=== PATIENT | male | born 1945 | race Caucasian/White ===

== ENCOUNTER 2016-05-28 07:21 | Day surgery (SDC) | payer MEDICARE, OTHER ==
[~2016-05-28] VITALS: Ht 175.3 cm; Wt 68.2 kg
[2016-05-28] VITALS (7 sets, daily range): BP systolic 113–205; BP diastolic 53–88; PULSE 58–67; RESP 16–20; TEMP 95.1–98.3; O2SAT 94–99
[~2016-05-28 07:21] MED LIST: ASPI81CH CHEW; CALC12502 PO; CLON1 PO; LEVO.1 PO; LIPI80TA PO; MAG-TAB PO; METO50TA PO; NEUR300C PO; OMEP20TA PO; VITA10003 PO
[2016-05-28 08:11] LABS: AUTOMATED NEUTROPHIL # 8.4 TH/MM3 (1.8-7.7); BASOPHIL # 0.1 TH/MM3 (0-0.2); BASOPHIL % 0.7 % (0.0-2.0); EOSINOPHIL # 0.2 TH/MM3 (0-0.4); EOSINOPHIL % 1.4 % (0.0-4.0); HEMATOCRIT 43.8 % (39.0-51.0); HEMO FLAGS DIFF FINAL; LYMPH % 16.6 % (9.0-44.0); LYMPHOCYTE # 1.9 TH/MM3 (1.0-4.8); MEAN CELL VOLUME 87.6 FL (80.0-100.0); MEAN CORPUSCULAR HEMOGLOBIN 29.8 PG (27.0-34.0); MONO % 7.8 % (0.0-8.0); NEUT % 73.5 % (16.0-70.0); PLATELET COUNT 212 TH/MM3 (150-450); RED CELL DISTRIBUTION WIDTH 15.3 % (11.6-17.2); WHITE BLOOD COUNT 11.4 TH/MM3 (4.0-11.0)
[2016-05-28 08:26] LABS: INTERNATIONAL NORMALIZED RATIO 0.9 RATIO; PROTHROMBIN TIME - PATIENT 10.4 SEC (9.8-11.6)
[2016-05-28] MEDS ORDERED: ceFAZolin 2 GM PREMIX 50 ML - gastrostomy and jejunostomy initial insertion IV SCH (09:00)
[2016-05-28] MEDS ORDERED: fentaNYL CITRATE 250 MCG/5 ML AMP ONE (09:08)
[2016-05-28] MEDS ORDERED: MIDAZOLAM HCL 5 MG/5 ML VIAL ONE (09:08)
--- NOTE | 2016-05-28 09:51 | PD.RAD ---
Post Procedure Progress Note Pre Procedure Diagnosis: (1) Esophageal stricture Post Procedure Diagnosis: (1) Esophageal stricture Procedure Date: May 28, 2016 Supervising Radiologist: Andres Clark Estimated blood loss: None Anesthesia: Conscious Sedation Plan of Activity Patient to Unit: ROPU Patient Condition: Good Additional Comments: G?J tube exchanged without difficulty. new tube in good position See PACS Report for procedural detail/treatment Andres Clark MD May 28, 2016 09:51
[2016-05-28] MEDS ORDERED: IOHEXOL 350 MG/ML 50 ML BTL (for RAD DIAG) G-TUBE ONE (09:56)
--- NOTE | 2016-05-28 11:07 | RADRPT ---
EXAM DATE/TIME: 05/28/2016 09:10 [facility] COMPARISON: CHANGE OF GJ-TUBE CATHETER, October 15, 2015, 11:58. INDICATIONS : Patient with history of throat cancer in need of GJ tube exchange. MEDICAL HISTORY : Dysphagia, CAD, Cardiac arrest, GERD, HLD, HTN, Kidney stones, Colitis, Gastritis, BPH, Hiatal hernia , Hypothyroidism, Malignant neoplasm of tongue, Aseptic necrosis of jaw, Viral meningitis SURGICAL HISTORY : Prostate biopsy, Colonoscopy, G-tube placement, Portal vein catheter placement, Radiation therapy, Re ctal surgery, Renal lithotripsy, CABG X5, Esophageal dilitations ENCOUNTER: Subsequent ACUITY: >1 year PAIN SCORE: 0/10 FLUORO TIME: 8.8 minutes SEDATION TIME: 45 minutes CONTRAST: 10 cc Omnipaque (iohexol) 350 MEDICATION(S): 1.) 5 mg midazolam (Versed) IV 2.) 250 mcg Fentanyl (Sublimaze) IV DEVICE(S): 1.) 22 Czech gastrojejunostomy tube PROCEDURE : 1. Fluoroscopically guided gastrojejunostomy tube exchange. 2. Conscious sedation with continuous EKG and oximetry monitoring. The risks, benefits and alternatives to the procedure were explained and verbal and written consent w as obtained. The site was prepped in sterile fashion. Full sterile technique was used, including ca p, mask, sterile gloves and gown and a large sterile sheet. Hand hygiene and 2% chlorhexidine and/or betadine/alcohol prep was utilized per protocol for cutaneous antisepsis. The skin and subcutaneous tissues were infiltrated with local anesthetic solution. With fluoroscopic guidance a guidewire was passed through the previous gastrojejunostomy tube and a f resh tube was placed over the guidewire. The balloon was inflated with appropriate volume of saline. Injection of positive contrast demonstrates good position of the gastric and jejunal lumens of the tube. Conscious sedation was performed with the prescribed dosages and duration as above in the presence of an independent trained radiology nurse to assist in the monitoring of the patient. EKG and oximetry remained stable throughout the procedure. The patient tolerated the procedure well and there were n o complications. The patient was sent to post anesthesia recovery in stable condition. CONCLUSION: Uncomplicated gastrojejunostomy tube exchange as above. Andres Clark MD on May 28, 2016 at 11:05 Board Certified Radiologist. This report was verified electronically.
== END 2016-05-28 12:15 | disposition home or self-care (01) ==
LOC: HRIP 07:21 → HROP 07:21
PROVIDERS: ATTEND Internal Medicine Gastroenterology
DX: K22.2 Esophageal obstruction (principal); I10 Essential (primary) hypertension; E78.5 Hyperlipidemia, unspecified; E03.9 Hypothyroidism, unspecified; I25.10 Atherosclerotic heart disease of native coronary artery without angina pectoris; K21.9 Gastro-esophageal reflux disease without esophagitis; K44.9 Diaphragmatic hernia without obstruction or gangrene; Z85.810 Personal history of malignant neoplasm of tongue; Z85.819 Personal history of malignant neoplasm of unspecified site of lip, oral cavity, and pharynx; Z95.1 Presence of aortocoronary bypass graft; Z87.442 Personal history of urinary calculi; Z86.74 Personal history of sudden cardiac arrest
CPT/HCPCS: 49452; 85025; 85610; 85730; 99152; 99153; C1769; J2250; J3010; Q9967

== ENCOUNTER 2016-06-19 10:16 | Day surgery (SDC) | payer MEDICARE, OTHER ==
[~2016-06-19] VITALS: Ht 175.3 cm; Wt 50.9 kg
[2016-06-19 10:32] VITALS: BP 122/80; PULSE 59; RESP 20; TEMP 97.7; O2SAT 98
[2016-06-19] MEDS ORDERED: IOHEXOL 350 MG/ML 50 ML BTL (for RAD DIAG) G-TUBE ONE (12:55)
--- NOTE | 2016-06-19 13:04 | PD.RAD ---
Post Procedure Progress Note Pre Procedure Diagnosis: (1) Subglottic stenosis (2) History of esophageal cancer (3) Esophageal stricture Post Procedure Diagnosis: (1) History of esophageal cancer (2) Esophageal stricture (3) Subglottic stenosis Procedure Date: Jun 19, 2016 Supervising Radiologist: Andres Clark Anesthesia: Local Plan of Activity Patient to Unit: ROPU Patient Condition: Good Additional Comments: G/J tube exchanged without difficulty. New tube in excellent position. OK for use See PACS Report for procedural detail/treatment Andres Clark MD Jun 19, 2016 13:04
[2016-06-19 13:15] VITALS: BP 154/92; PULSE 64; RESP 20; TEMP 98; O2SAT 97
--- NOTE | 2016-06-19 16:56 | RADRPT ---
EXAM DATE/TIME: 06/19/2016 12:25 [facility] COMPARISON: CHANGE OF GJ-TUBE CATHETER, May 28, 2016, 9:10. INDICATIONS : Patient with history of throat cancer in need of GJ tube exchange. MEDICAL HISTORY : Dysphagia, CAD, Cardiac arrest, GERD, HLD, HTN, Kidney stones, Colitis, Gastritis, BPH, Hiatal hernia , Hypothyroidism, Malignant neoplasm of tongue, Aseptic necrosis of jaw, Viral meningitis SURGICAL HISTORY : Prostate biopsy, Colonoscopy, G-tube placement, Portal vein catheter placement, Radiation therapy, Re ctal surgery, Renal lithotripsy, CABG X5, Esophageal dilitations ENCOUNTER: Subsequent ACUITY: >1 year PAIN SCORE: 0/10 FLUORO TIME: 5.7 minutes IMAGE SERIES: 2 CONTRAST: 10 cc Omnipaque (iohexol) 350 DEVICE(S): 1.) 22 [place] Transgastric tube PROCEDURE : 1. Fluoroscopically guided gastrojejunostomy tube exchange. 2. Conscious sedation with continuous EKG and oximetry monitoring. The risks, benefits and alternatives to the procedure were explained and verbal and written consent w as obtained. The site was prepped in sterile fashion. Full sterile technique was used, including ca p, mask, sterile gloves and gown and a large sterile sheet. Hand hygiene and 2% chlorhexidine and/or betadine/alcohol prep was utilized per protocol for cutaneous antisepsis. The skin and subcutaneous tissues were anesthetized with 5 cc of lidocaine jelly. With fluoroscopic guidance a guidewire was passed through the previous gastrojejunostomy tube and a f resh tube was placed over the guidewire. The balloon was inflated with appropriate volume of saline. Injection of positive contrast demonstrates good position of the gastric and jejunal lumens of the tube. EKG and oximetry remained stable throughout the procedure. The patient tolerated the procedure well and there were no complications. The patient was sent to post anesthesia recovery in stable condition . CONCLUSION: Uncomplicated gastrojejunostomy tube exchange as above. Andres Clark MD on June 19, 2016 at 16:54 Board Certified Radiologist. This report was verified electronically.
== END 2016-06-19 13:32 | disposition home or self-care (01) ==
LOC: HROP 10:16 → HRIP 10:19 → HROP 13:32
PROVIDERS: ATTEND Internal Medicine Gastroenterology
DX: K94.23 Gastrostomy malfunction (principal); K22.2 Esophageal obstruction; J38.6 Stenosis of larynx; I10 Essential (primary) hypertension; E78.5 Hyperlipidemia, unspecified; E03.9 Hypothyroidism, unspecified; K21.9 Gastro-esophageal reflux disease without esophagitis; I25.10 Atherosclerotic heart disease of native coronary artery without angina pectoris; Z95.1 Presence of aortocoronary bypass graft; Z85.819 Personal history of malignant neoplasm of unspecified site of lip, oral cavity, and pharynx; Z85.01 Personal history of malignant neoplasm of esophagus; Z85.810 Personal history of malignant neoplasm of tongue; Z86.74 Personal history of sudden cardiac arrest; Z87.442 Personal history of urinary calculi
CPT/HCPCS: 49452; C1769; C1874; C1887; Q9967

== ENCOUNTER 2016-07-11 18:30 | Inpatient (IN) | payer MEDICARE, OTHER ==
[2016-07-11] VITALS (10 sets, daily range): BP systolic 78–132; BP diastolic 48–73; PULSE 62–96; RESP 16–18; TEMP 97.7–98.2; O2SAT 93–96
[~2016-07-11] VITALS: Ht 175.3 cm; Wt 72.6 kg
[~2016-07-11 18:30] MED LIST changes: -LIPI80TA PO
--- NOTE | 2016-07-11 19:06 | PD ---
HPI Chief Complaint: Cold / Flu Symptoms Time Seen by Provider: 18:50 Travel History International Travel<30 days: No Contact w/Intl Traveler<30days: No Traveled to known affect area: No History of Present Illness HPI This 70-year-old male is complaining of hemoptysis and fever. 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 He was treated with radiation and he has not had evidence of cancer for the past 8 years. 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 He occasionally drinks fluids. He is prone to aspiration. He says that this morning he had shaking chills and fever. He coughed up some blood this morning and later today. He is slightly short of breath. He has history of coronary artery bypass 5. He has never smoked. 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, FACIAL CANCERS) Cardiac Catheterization: Yes Cardiovascular Problems: Yes (DE, HTN, 5 VESSEL BYPASS) High Cholesterol: Yes Chemotherapy: Yes (LAST 2003) Chest Pain: Yes Congestive Heart Failure: No Cerebrovascular Accident: No Coronary Artery Disease: Yes Diabetes: No Diminished Hearing: No Endocrine: Yes Gastrointestinal Disorders: Yes (ESOPHAGEAL DILITATIONS,REFLUX FROM RADIATION, peg tube) GERD: Yes Glaucoma: No Genitourinary: No Headaches: No Hepatitis: No Hiatal Hernia: No Hypertension: Yes Immune Disorder: No Implanted Vascular Access Dvce: Yes Kidney Stones: Yes Medical other: Yes (HX RADIATION POST THROAT CANCER) Musculoskeletal: Yes (RETICULOPATHY) Neurologic: Yes (damaged cranial nerves) Psychiatric: No Reproductive: No Respiratory: Yes (HX ASPIRATION PNEUMONIA MULTIPLE TIMES) Immunizations Current: Yes Myocardial Infarction: No Radiation Therapy: Yes (2006) Renal Failure: No Seizures: No Sickle Cell Disease: No Thyroid Disease: Yes (HYPO) Ulcer: No Tetanus Vaccination: < 5 Years Influenza Vaccination: No Past Surgical History Abdominal Surgery: Yes (APPY) AICD: No Appendectomy: Yes Arteriovenous Shunt: No Body Medical Devices: PEG TUBE Cardiac Surgery: Yes (CABG X5) Coronary Artery Bypass Graft: Yes Ear Surgery: No Endocrine Surgery: No Eye Surgery: No Genitourinary Surgery: No Gynecologic Surgery: No Insulin Pump: No Joint Replacement: No Oral Surgery: No Pacemaker: No Thoracic Surgery: No Other Surgery: Yes (MODIFIED RADICAL NECK DISECTION S/P THROAT CA,rt endarterectomy) Family History Family Hypercholesterolemia: Yes Social History Alcohol Use: No Tobacco Use: No Substance Use: No Allergies-Medications (Allergen,Severity, Reaction): Coded Allergies: Tetanus Toxoid (Verified Allergy, Severe, SHOCK, 07/11/16) Reported Meds & Prescriptions Reported Meds & Active Scripts Active Reported Mag-Delay (Magnesium Chloride) 64 Mg Tab Unknown Dose PO DAILY Calcium Carbonate 1,250 Mg Tab 1,250 Mg PO DAILY 1,250 mg calcium carbonate (500 mg elemental calcium) Omeprazole 20 Mg Tab 20 Mg PO DAILY Vitamin D-3 (Cholecalciferol) 1,000 Unit Tab 1,000 Units PO DAILY Aspirin 81 Mg Chew 81 Mg CHEW DAILY Klonopin (Clonazepam) 1 Mg Tab 1 Mg PO HS Neurontin (Gabapentin) 300 Mg Cap 300 Mg PO TID Metoprolol Tartrate 50 Mg Tab 100 Mg PO DAILY Synthroid (Levothyroxine Sodium) 100 Mcg Tab 100 Mcg PO DAILY Review of Systems General / Constitutional: Positive: Fever, Chills Eyes: No: Diploplia, Blurred Vision HENT: No: Headaches, Vertigo Cardiovascular: No: Chest Pain or Discomfort, Palpitations Respiratory: Positive: Cough, Hemoptysis Gastrointestinal: No: Nausea, Vomiting Genitourinary: No: Urgency, Frequency Musculoskeletal: No: Myalgias, Arthralgias Skin: No Itching, No Dryness Neurologic: No: Weakness, Dizziness Psychiatric: No: Anxiety Hematologic/Lymphatic: No: Easy Bruising Physical Exam Narrative GENERAL: Thin male SKIN: Focused skin assessment warm/dry. HEAD: Atraumatic. Normocephalic. EYES: Pupils equal and round. No scleral icterus. No injection or drainage. ENT: No nasal bleeding or discharge. Mucous membranes pink and moist. NECK: Trachea midline. No JVD. CARDIOVASCULAR: Regular rate and rhythm. No murmur appreciated. There is a median sternotomy scar RESPIRATORY: No accessory muscle use. Clear to auscultation. Breath sounds equal bilaterally. GASTROINTESTINAL: Abdomen soft, non-tender, nondistended. Hepatic and splenic margins not palpable. GJ tube is in place MUSCULOSKELETAL: No obvious deformities. No clubbing. No cyanosis. No edema. NEUROLOGICAL: Awake and alert. No obvious cranial nerve deficits. Motor grossly within normal limits. Normal speech. PSYCHIATRIC: Appropriate mood and affect; insight and judgment normal. Data Data Last Documented VS Vital Signs Date Time Temp Pulse Resp B/P Pulse Ox O2 Delivery O2 Flow Rate FiO2 07/11/16 18:45 96 16 96 Room Air 07/11/16 18:36 97.9 108/50 Orders Complete Blood Count With Diff (07/11/16 19:02) Comprehensive Metabolic Panel (07/11/16 19:02) Lactic Acid Sepsis Protocol (07/11/16 19:02) Urinalysis - C+S If Indicated (07/11/16 19:02) Blood Culture (07/11/16 19:02) Chest, Pa & Lat (07/11/16 19:02) Ecg Monitoring (07/11/16 19:02) Iv Access Insert/Monitor (07/11/16 19:02) Oximetry (07/11/16 19:02) Sodium Chlor 0.9% 1000 Ml Inj (Ns 1000 M (07/11/16 19:45) Blood Culture (07/11/16 19:51) Ceftriaxone Inj (Rocephin Inj) (07/11/16 19:51) Azithromycin Inj (Zithromax Inj) (07/11/16 19:51) Sodium Chlor 0.9% 1000 Ml Inj (Ns 1000 M (07/11/16 20:00) Sodium Chlor 0.9% 1000 Ml Inj (Ns 1000 M (07/11/16 20:00) Labs Laboratory Tests Test 07/11/16 19:15 White Blood Count 24.8 TH/MM3 Red Blood Count 4.31 MIL/MM3 Hemoglobin 13.4 GM/DL Hematocrit 38.7 % Mean Corpuscular Volume 89.9 FL Mean Corpuscular Hemoglobin 31.2 PG Mean Corpuscular Hemoglobin 34.7 % Concent Red Cell Distribution Width 13.9 % Platelet Count 188 TH/MM3 Mean Platelet Volume 8.5 FL Neutrophils (%) (Auto) 91.1 % Lymphocytes (%) (Auto) 3.5 % Monocytes (%) (Auto) 4.7 % Eosinophils (%) (Auto) 0.0 % Basophils (%) (Auto) 0.7 % Neutrophils # (Auto) 22.5 TH/MM3 Lymphocytes # (Auto) 0.9 TH/MM3 Monocytes # (Auto) 1.2 TH/MM3 Eosinophils # (Auto) 0.0 TH/MM3 Basophils # (Auto) 0.2 TH/MM3 CBC Comment DIFF FINAL Differential Comment Sodium Level 137 MEQ/L Potassium Level 4.2 MEQ/L Chloride Level 98 MEQ/L Carbon Dioxide Level 29.1 MEQ/L Anion Gap 10 MEQ/L Blood Urea Nitrogen 38 MG/DL Creatinine 2.00 MG/DL Estimat Glomerular Filtration 33 ML/MIN Rate Random Glucose 214 MG/DL Lactic Acid Level 2.8 mmol/L Calcium Level 9.1 MG/DL Total Bilirubin 1.0 MG/DL Aspartate Amino Transf 36 U/L (AST/SGOT) Alanine Aminotransferase 44 U/L (ALT/SGPT) Alkaline Phosphatase 78 U/L Total Protein 6.9 GM/DL Albumin 3.2 GM/DL [facility] Medical Decision Making Medical Screen Exam Complete: Yes Emergency Medical Condition: Yes Medical Record Reviewed: Yes Differential Diagnosis Differential includes pneumonia, bronchitis, Narrative Course Chest x-ray shows right-sided perihilar infiltrate. His white count is elevated at 24,000. His creatinine is 2.0. It usually runs about 1.0. Patient says that he does get dehydrated quite frequently. Sepsis Criteria SIRS Criteria (2 or more): Heart rate over 90, WBC > 29252, < 4000 or > 10% bands Sepsis Criteria (SIRS+source): Infect source susp/known Severe Sepsis (+one): Hypotension, Lactate >2 Diagnosis Primary Impression: Community acquired pneumonia Additional Impression: Dehydration Admitting Information Admitting Physician Requests: Admit Saqib Trejo MD Jul 11, 2016 19:06
[2016-07-11 19:27] LABS: AUTOMATED NEUTROPHIL # 22.5 TH/MM3 (1.8-7.7); BASOPHIL # 0.2 TH/MM3 (0-0.2); BASOPHIL % 0.7 % (0.0-2.0); HEMATOCRIT 38.7 % (39.0-51.0); LYMPH % 3.5 % (9.0-44.0); LYMPHOCYTE # 0.9 TH/MM3 (1.0-4.8); MEAN CELL VOLUME 89.9 FL (80.0-100.0); MEAN CORPUSCULAR HEMOGLOBIN 31.2 PG (27.0-34.0); MEAN CORPUSCULAR HGB CONC 34.7 % (32.0-36.0); MONO % 4.7 % (0.0-8.0); NEUT % 91.1 % (16.0-70.0); PLATELET COUNT 188 TH/MM3 (150-450); RED BLOOD COUNT 4.31 MIL/MM3 (4.50-5.90); RED CELL DISTRIBUTION WIDTH 13.9 % (11.6-17.2); WHITE BLOOD COUNT 24.8 TH/MM3 (4.0-11.0)
[2016-07-11 19:34] LABS: CHLORIDE 98 MEQ/L (98-107); POTASSIUM 4.2 MEQ/L (3.5-5.1); SODIUM (NA) 137 MEQ/L (136-145)
[2016-07-11 19:38] LABS: ANION GAP 10 MEQ/L (5-15); BICARBONATE 29.1 MEQ/L (21.0-32.0)
[2016-07-11 19:39] LABS: BLOOD UREA NITROGEN 38 MG/DL (7-18)
[2016-07-11 19:41] LABS: ALT (GPT) 44 U/L (12-78); AST (GOT) 36 U/L (15-37)
[2016-07-11 19:42] LABS: GLOMERULAR FILTRATION RATE 33 ML/MIN (>89)
[2016-07-11 19:43] LABS: HEMO FLAGS DIFF FINAL
[2016-07-11 19:44] LABS: ALKALINE PHOSPHATASE 78 U/L (45-117)
--- NOTE | 2016-07-11 19:44 | RADHPO ---
EXAM DATE/TIME: 07/11/2016 19:15 [facility] COMPARISON: CHEST PA & LAT, July 30, 2015, 12:18. INDICATIONS : Cough. MEDICAL HISTORY : Carcinoma, tongue SURGICAL HISTORY : CABG. PEG tube ENCOUNTER: Initial ACUITY: 1 day PAIN SCORE: 0/10 LOCATION: Bilateral chest FINDINGS: Mild perihilar infiltrates are present, right worse on left. No significant effusion. Radiodense debr is in the medial posterior left base region is unchanged. Sternotomy wires are noted. Cardiac contour s are grossly stable. CONCLUSION: Mild perihilar infiltrates. Robe Torres MD on July 11, 2016 at 19:41 Board Certified Radiologist. This report was verified electronically.
[2016-07-11] MEDS ORDERED: SODIUM CHLOR 0.9% 1000 ML INJ 1,000 ML IV ONE ×3 (19:45→20:00)
[2016-07-11] MEDS ORDERED: cefTRIAXone INJ 2,000 MG in SODIUM CHLORIDE 0.9% INJ 100 ML IV STA (19:51)
[2016-07-11] MEDS ORDERED: AZITHROMYCIN INJ 500 MG in SODIUM CHLOR 0.9% 250 ML INJ 250 ML IV STA (19:51)
[2016-07-11] MEDS ORDERED: ACETAMINOPHEN/HYDROcodone 325 MG/5 MG TAB G-TUBE PRN (21:00)
[2016-07-11] MEDS: SODIUM CHLORIDE 0.9% FLUSH 10 ML FLUSH IV FLUSH SCH (21:00)
[2016-07-11] MEDS ORDERED: clonazePAM 1 MG TAB PO SCH (21:00)
[2016-07-11] MEDS ORDERED: MORPHINE SULFATE 4 MG/ML INJ IV PRN (21:00)
[2016-07-11] MEDS ORDERED: ONDANSETRON HCL 4 MG/2 ML VIAL IVP PRN (21:00)
[2016-07-11] MEDS ORDERED: BISACODYL 10 MG SUPP RECTAL PRN (21:00)
[2016-07-11] MEDS ORDERED: SODIUM CHLORIDE 0.9% FLUSH 10 ML FLUSH IV FLUSH PRN (21:00)
[2016-07-11 21:24] LABS: LACTIC ACID GHOST NOT REPORTABLE
[2016-07-11 22:07] LABS: CREATINE KINASE 76 U/L (39-308)
[2016-07-11 22:12] LABS: BLOOD, URINE NEG (NEG); GLUCOSE,URINE 100 mg/dL (NEG); KETONE, URINE NEG (NEG); NITRITE,URINE NEG (NEG); PH, URINE 5.5 (5.0-8.5)
[2016-07-11 22:16] LABS: SQUAMOUS EPITHELIAL CELL URINE 0-5 /hpf (0-5); URINE COLOR YELLOW (YELLW/STRAW); WBC, URINE 0-2 /hpf (0-5)
[2016-07-11 22:17] LABS: COMMENT (UR) CATH-CULT NOT IND; CULTURE IF INDICATED CATH CULTURE NOT IND; MUCUS URINE RARE /lpf (OCC)
[2016-07-11] MEDS ORDERED: ATOR20TA15 G-TUBE (22:42)
[2016-07-11] MEDS: metroNIDAZOLE 500 MG INJ 100 ML IV SCH (22:49)
[2016-07-11] MEDS: SODIUM CHLOR 0.9% 1000 ML INJ 1,000 ML IV SCH (22:50)
[2016-07-11] MEDS: RESP: ALBUTEROL 2.5 MG/IPRATROPIUM 0.5 MG NEB (PRN) INH (23:27)
[2016-07-11] MEDS: clonazePAM 1 MG TAB G-TUBE SCH (23:33)
[2016-07-12] VITALS (8 sets, daily range): BP systolic 112–193; BP diastolic 67–105; PULSE 78–104; RESP 14–20; TEMP 96.6–99.9; O2SAT 94–96
[2016-07-12] MEDS ORDERED: LEVOTHYROXINE SODIUM 100 MCG TAB PO SCH (06:00)
[2016-07-12] MEDS: LEVOTHYROXINE SODIUM 100 MCG TAB G-TUBE SCH (06:10)
[2016-07-12] MEDS: metroNIDAZOLE 500 MG INJ 100 ML IV SCH ×3 (06:11→23:19)
[2016-07-12 07:06] LABS: AUTOMATED NEUTROPHIL # 14.5 TH/MM3 (1.8-7.7); BASOPHIL % 0.1 % (0.0-2.0); EOSINOPHIL # 0.1 TH/MM3 (0-0.4); EOSINOPHIL % 0.5 % (0.0-4.0); HEMATOCRIT 36.1 % (39.0-51.0); LYMPH % 8.6 % (9.0-44.0); LYMPHOCYTE # 1.4 TH/MM3 (1.0-4.8); MEAN CELL VOLUME 92.6 FL (80.0-100.0); MEAN CORPUSCULAR HEMOGLOBIN 30.5 PG (27.0-34.0); MONO % 4.9 % (0.0-8.0); NEUT % 85.9 % (16.0-70.0); PLATELET COUNT 156 TH/MM3 (150-450); RED CELL DISTRIBUTION WIDTH 14.8 % (11.6-17.2); WHITE BLOOD COUNT 16.8 TH/MM3 (4.0-11.0)
[2016-07-12 07:09] LABS: HEMO FLAGS DIFF FINAL
[2016-07-12 07:28] LABS: ALKALINE PHOSPHATASE 63 U/L (45-117); ALT (GPT) 32 U/L (12-78); ANION GAP 8 MEQ/L (5-15); AST (GOT) 24 U/L (15-37); BICARBONATE 30.4 MEQ/L (21.0-32.0); BLOOD UREA NITROGEN 25 MG/DL (7-18); CHLORIDE 111 MEQ/L (98-107); GLOMERULAR FILTRATION RATE 67 ML/MIN (>89); POTASSIUM 4.5 MEQ/L (3.5-5.1); SODIUM (NA) 149 MEQ/L (136-145); TOTAL BILIRUBIN ADULT 0.5 MG/DL (0.2-1.0)
[2016-07-12] MEDS: RESP: ALBUTEROL 2.5 MG/IPRATROPIUM 0.5 MG NEB (PRN) INH ×2 (07:48→15:49)
[2016-07-12] MEDS ORDERED: PILL SPLITTER OTHER PRN (08:00)
[2016-07-12] MEDS: SODIUM CHLOR 0.9% 1000 ML INJ 1,000 ML IV SCH (08:09)
[2016-07-12] MEDS: FAMOTIDINE 20 MG TAB G-TUBE SCH (08:10)
[2016-07-12] MEDS: GABAPENTIN 300 MG CAP G-TUBE SCH ×3 (08:10→17:51)
[2016-07-12] MEDS: SODIUM CHLORIDE 0.9% FLUSH 10 ML FLUSH IV FLUSH SCH ×2 (08:11→21:00)
[2016-07-12] MEDS ORDERED: ASPIRIN 81 MG CHEW TAB G-TUBE SCH (09:00)
[2016-07-12] MEDS ORDERED: ASPIRIN 81 MG CHEW TAB CHEW SCH (09:00)
[2016-07-12] MEDS ORDERED: PANTOPRAZOLE SOD 20 MG DELAYED RELEASE TAB PO SCH (09:00)
[2016-07-12] MEDS ORDERED: GABAPENTIN 300 MG CAP PO SCH (09:00)
[2016-07-12] MEDS: SODIUM CHLOR 0.45% 1000 ML INJ 1,000 ML IV SCH ×2 (10:45→21:12)
[2016-07-12] MEDS ORDERED: METOPROLOL TARTRATE 50 MG TAB G-TUBE SCH (11:00)
--- NOTE | 2016-07-12 11:05 | HHI.HP ---
HPI Service [facility] Primary Care Physician Heath Coker MD Admission Diagnosis PNEUMONIA, DEHYDRATION Diagnoses: Chief Complaint: Fever, chills and cough Travel History International Travel<30 Days: No Contact w/Intl Traveler <30 Da: No Traveled to Known Affected Are: No Sepsis Criteria SIRS Criteria (2 or more): Heart rate over 90, WBC > 03732, < 4000 or > 10% bands Sepsis Criteria (SIRS+source): Infect source susp/known Severe Sepsis (+one): Lactate >2 Criteria Outcome: Meets sepsis criteria, Meets severe sepsis criteria History of Present Illness This is a 70-year-old male who presented with acute onset of fever, chills and hemoptysis associated with shortness of breath. He has a history of squamous cell cancer of the tongue. Status post chemotherapy and radiation and he has not had evidence of cancer for the past 8 years. 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 He occasionally drinks fluids. He is prone to aspiration. He reports that yesterday morning he had shaking chills and fever. He coughed up some blood and slightly short of breath. He was started on IV Rocephin and Zithromax. Today he feels better with the shortness of breath but noted increasing hemoptysis. States he sees Dr. Tang Review of Systems Constitutional: COMPLAINS OF: Fever, Chills, DENIES: Diaphoretic episodes, Fatigue, Weight gain, Weight loss, Dizziness, Change in appetite, Night Sweats Endocrine: DENIES: Heat/cold intolerance, Polydipsia, Polyuria, Polyphagia Eyes: DENIES: Blurred vision, Diplopia, Vision loss, Photosensitivity Ears, nose, mouth, throat: DENIES: Tinnitus, Vertigo, Throat pain, Hoarseness, Epistaxis, Odynophagia Respiratory: COMPLAINS OF: Cough, Hemoptysis, Shortness of breath, DENIES: Wheezing, Sputum production Cardiovascular: DENIES: Chest pain, Palpitations, Syncope, Dyspnea on Exertion , PND, Lower Extremity Edema, Orthopnea, Claudication Gastrointestinal: DENIES: Abdominal pain, Black stools, Bloody stools, Constipation, Diarrhea, Nausea, Vomiting, Difficulty Swallowing, Anorexia Genitourinary: DENIES: Urinary frequency, Urinary incontinence, Urgency, Hematuria, Dysuria, Nocturia, Penile Discharge Integumentary: DENIES: Rash Neurologic: DENIES: Headache, Localized weakness, Seizures, Tremor, Poor Balance Psychiatric: DENIES: Anxiety, Confusion, Depression, Hallucinations, Agitation , Suicidal Ideation, Homicidal Ideation, Delusions Past Family Social History Past Medical History As previously mentioned. History of anxiety, depression, coronary artery disease status post 5 vessel Bypass, hypertension, hyperlipidemia, esophageal stricture status post dilatation, GERD and hypothyroidism Past Surgical History As previously mentioned. Appendectomy, neck surgery and endarterectomy Reported Medications Mag-Delay (Magnesium Chloride) 64 Mg Tab Unknown Dose PO DAILY Calcium Carbonate 1,250 Mg Tab 1,250 Mg PO DAILY 1,250 mg calcium carbonate (500 mg elemental calcium) Omeprazole 20 Mg Tab 20 Mg PO DAILY Vitamin D-3 (Cholecalciferol) 1,000 Unit Tab 1,000 Units PO DAILY Aspirin 81 Mg Chew 81 Mg CHEW DAILY Klonopin (Clonazepam) 1 Mg Tab 1 Mg PO HS Neurontin (Gabapentin) 300 Mg Cap 300 Mg PO TID Metoprolol Tartrate 50 Mg Tab 100 Mg PO DAILY Synthroid (Levothyroxine Sodium) 100 Mcg Tab 100 Mcg PO DAILY Allergies: Coded Allergies: Tetanus Toxoid (Verified Allergy, Severe, SHOCK, 07/11/16) Family History Hyperlipidemia Social History Doesn't smoke or drink Physical Exam Vital Signs Vital Signs Date Time Temp Pulse Resp B/P Pulse Ox O2 Delivery O2 Flow Rate FiO2 07/12/16 08:40 96.7 103 18 125/67 94 07/12/16 04:08 96.6 78 14 133/82 94 07/12/16 00:15 96.9 98 16 120/71 95 07/11/16 22:05 93 21 07/11/16 22:00 97.7 66 16 113/63 94 Room Air 07/11/16 21:30 72 18 132/73 96 Room Air 07/11/16 21:00 62 18 96/54 93 Room Air 07/11/16 20:15 68 18 114/59 93 Room Air 07/11/16 19:55 70 18 95/52 94 Room Air 07/11/16 19:35 74 18 78/48 94 Room Air 07/11/16 19:05 18 93 Room Air 07/11/16 19:05 98.2 78 18 104/58 93 Room Air 07/11/16 19:00 93 Room Air 07/11/16 18:45 96 16 96 Room Air 07/11/16 18:36 97.9 96 16 108/50 96 Physical Exam GENERAL: This is a well-nourished, well-developed patient, in no apparent distress. SKIN: No rashes, ecchymoses or lesions. Cool and dry. Changes in the neck area secondary to radiation HEAD: Atraumatic. Normocephalic. No temporal or scalp tenderness. EYES: Pupils equal round and reactive. Extraocular motions intact. No scleral icterus. No injection or drainage. ENT: Nose without bleeding, purulent drainage or septal hematoma. Throat without erythema, tonsillar hypertrophy or exudate. Uvula midline. Airway patent. NECK: Trachea midline. No JVD or lymphadenopathy. Supple, nontender, no meningeal signs. CARDIOVASCULAR: Regular rate and rhythm without murmurs, gallops, or rubs. RESPIRATORY: Coarse Breath sounds equal bilaterally. No wheezes, rales, or rhonchi. GASTROINTESTINAL: Abdomen soft, non-tender, nondistended. PEG tube in place. No guarding. MUSCULOSKELETAL: Extremities without clubbing, cyanosis, or edema. No joint tenderness, effusion, or edema noted. No calf tenderness. Negative Homans sign bilaterally. NEUROLOGICAL: Awake and alert. Cranial nerves II through XII intact. Motor and sensory grossly within normal limits. Five out of 5 muscle strength in all muscle groups. Normal speech. Laboratory Laboratory Tests Test 07/11/16 07/11/16 07/11/16 07/12/16 19:15 21:45 22:04 06:40 White Blood Count 24.8 16.8 Red Blood Count 4.31 3.90 Hemoglobin 13.4 11.9 Hematocrit 38.7 36.1 Mean Corpuscular Volume 89.9 92.6 Mean Corpuscular Hemoglobin 31.2 30.5 Mean Corpuscular Hemoglobin 34.7 33.0 Concent Red Cell Distribution Width 13.9 14.8 Platelet Count 188 156 Mean Platelet Volume 8.5 8.6 Neutrophils (%) (Auto) 91.1 85.9 Lymphocytes (%) (Auto) 3.5 8.6 Monocytes (%) (Auto) 4.7 4.9 Eosinophils (%) (Auto) 0.0 0.5 Basophils (%) (Auto) 0.7 0.1 Neutrophils # (Auto) 22.5 14.5 Lymphocytes # (Auto) 0.9 1.4 Monocytes # (Auto) 1.2 0.8 Eosinophils # (Auto) 0.0 0.1 Basophils # (Auto) 0.2 0.0 CBC Comment DIFF FINAL DIFF FINAL Differential Comment Sodium Level 137 149 Potassium Level 4.2 4.5 Chloride Level 98 111 Carbon Dioxide Level 29.1 30.4 Anion Gap 10 8 Blood Urea Nitrogen 38 25 Creatinine 2.00 1.10 Estimat Glomerular Filtration 33 67 Rate Random Glucose 214 87 Lactic Acid Level 2.8 1.4 Calcium Level 9.1 7.8 Total Bilirubin 1.0 0.5 Aspartate Amino Transf 36 24 (AST/SGOT) Alanine Aminotransferase 44 32 (ALT/SGPT) Alkaline Phosphatase 78 63 Total Creatine Kinase 76 Total Protein 6.9 6.0 Albumin 3.2 2.6 Urine Color YELLOW Urine Turbidity CLEAR Urine pH 5.5 Urine Specific [place] 1.010 Urine Protein NEG Urine Glucose (UA) 100 Urine Ketones NEG Urine Occult Blood NEG Urine Nitrite NEG Urine Bilirubin NEG Urine Leukocyte Esterase NEG Urine WBC 0-2 Urine Squamous Epithelial 0-5 Cells Urine Mucus RARE Microscopic Urinalysis Comment CATH-CULT NOT IND Date/Time Procedure Status Source Growth 07/12/16 06:00 Gram Stain Received Sputum Expectorated Sputum Pending 07/12/16 06:00 Sputum Culture Received Sputum Expectorated Sputum Pending 07/11/16 22:04 Influenza Types A,B Antigen (CEE) - Final Complete Nasal Washing NEGATIVE FOR FLU A AND B ANTIGEN.... 07/11/16 21:45 Legionella Antigen - Final Complete Urine Random Urine PRESUMPTIVE NEGATIVE FOR LEGIONELLA P... 07/11/16 21:45 Streptococcus pneumoniae Antigen (M - Final Complete Urine Random Urine PRESUMPTIVE NEGATIVE FOR STREPTOCOCCU... 07/11/16 19:25 Aerobic Blood Culture Received Blood Peripheral Pending 07/11/16 19:25 Anaerobic Blood Culture Received Blood Peripheral Pending Result Diagram: 07/12/16 0640 07/12/16 0640 Imaging Chest x-ray image interpreted by me with perihilar infiltrates Last Impressions Chest X-Ray 07/11/16 0903 Signed Impressions: Service Date/Time: Monday, July 11, 2016 19:15 - CONCLUSION: Mild perihilar infiltrates. Robe Torres MD Assessment and Plan Assessment and Plan This is a 70-year-old male who presented with acute onset of fever, chills and hemoptysis associated with shortness of breath. 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 He occasionally drinks fluids. He is prone to aspiration. Chest x-ray with perihilar infiltrates Severe sepsis with elevated lactic acid, tachycardia and leukocytosis. Monitor sputum and blood cultures Pneumonia with hemoptysis likely secondary to aspiration. Add Flagyl and continue Rocephin and Zithromax. Nebulization as needed. Check urinary Legionella and pneumococcal antigen. Monitor hemoptysis and consult patient's communications strategist. Discontinue aspirin. Strictly nothing by mouth and continue tube feeding. Consult dietitian. Acute kidney injury secondary to dehydration. Improving. Avoid nephrotoxins. Obtain BMP and magnesium in the morning Chronic medical conditions of anxiety, depression, coronary artery disease status post 5 vessel Bypass, hypertension, hyperlipidemia, esophageal stricture status post dilatation, GERD and hypothyroidism. Continue outpatient medications via GT as appropriate DVT prophylaxis with SCD and early ambulation. No chemical prophylaxis secondary to ongoing hemoptysis Code Status Full Discussed Condition With Patient and Physician Certification 2 Midnight Certification Type: Admission for Inpatient Services Order for Inpatient Services The services are ordered in accordance with Medicare regulations or non- Medicare payer requirements, as applicable. In the case of services not specified as inpatient-only, they are appropriately provided as inpatient services in accordance with the 2-midnight benchmark. Estimated LOS (days): 2 days is the estimated time the patient will need to remain in the hospital, assuming treatment plan goals are met and no additional complications. Post-Hospital Plan: Not yet determined Andrzej Galeana MD Jul 12, 2016 11:05
--- NOTE | 2016-07-12 17:16 | MB ---
cc: HIRAL ROSARIO DATE OF CONSULTATION 07/12/[address] Galeana REASON FOR CONSULTATION Evaluate for hemoptysis. HISTORY OF PRESENT ILLNESS Mr. 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 He has history of CA of the esophagus, squamous cell carcinoma and he had a radical neck surgery. He received chemotherapy and radiation therapy. He has a feeding tube and he feeds himself through the tube. Two and a half moths ago he saw a speech therapist and his swallow study was normal and he started taking coffee and liquid. Now he comes to the hospital with 2 days history of chills. He has cough and he coughed up blood. He says at home he coughed up quite a bit of the blood but now he has only minimal amount of dark blood. No shortness of breath. No wheezing. No tightness in the chest. He had a workup done. His chest x-ray shows he has mild perihilar infiltrate. ___ showed WBC count initially 24.8 thousand, ___ 16.8, hemoglobin 11.9, hematocrit 36, MCV 91, platelet count 156. Sodium 149, potassium 4.5, chloride 111, CO2 30, BUN 25, creatinine 1.0. Blood cultures so far are negative. Legionella and streptococcal antigen are negative and influenza antigen is negative. PAST MEDICAL HISTORY Past medical history is significant history of CA of the tongue and esophagus. He had a radical neck surgery done. Status post chemotherapy and radiation therapy. He took the treatment at [facility]. Recently he was seen at [facility] and was told that he is not a candidate for esophageal stent. History of coronary artery disease, status post CABG times 5. Anxiety depression, hypertension, hyperlipidemia. Esophageal stricture status post dilation. History of appendectomy. MEDICATIONS He is currently takin. Zithromax 500 milligrams a day. 2. Lipitor 20 milligrams a day. 3. Rocephin 1 gram a day. 4. Lopressor 50 milligrams day. 5. Neurontin 300 milligrams three times a day. 6. Famotidine 10 milligrams a day. 7. Levothyroxine 100 micrograms a day. 8. Klonopin 1 milligram at night. 9. Flagyl q. 8-hour. 10. Albuterol/Atrovent treatment. 11. Morphine for pain as needed. ALLERGIES TETANUS TOXOID. SOCIAL HISTORY He is second time for 5 years. No history of smoking, alcohol abuse. 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 FAMILY HISTORY Noncontributory REVIEW OF SYSTEMS He is normally up, around and active. He does 50 laps in the pool. He was a marathon runner. No DVT or pulmonary embolism. No seizure, stroke or epilepsy. PHYSICAL EXAMINATION GENERAL: The patient is a well-built, well-nourished male not in acute distress. VITAL SIGNS: Blood pressure 112/67, heart rate 96, respirations 16, temperature 97.4. HEENT: Examination pupils are equal and reactive to light. Oral mucosa, nasal mucosa normal. NECK: Supple. JVP not raised. He has a radiation changes in the neck. CHEST: Air entry equal bilaterally. Few scattered rales. CARDIOVASCULAR: S1-S2 normal. ABDOMEN: Benign. EXTREMITIES: No edema. IMPRESSION 1. Pneumonia, possible aspiration. 2. History of CA of the esophagus status post radical neck dissection and chemotherapy and radiation therapy. 3. Dysphagia. He has a PEG tube in place. 4. Coronary artery disease, status post CABG. 5. History of hypertension. PLAN Discussed with the patient he will be maintained on the tube feeding. Continue antibiotic Rocephin, Zithromax and Flagyl. I will quantitate his sputum in the next 24 hours to see if he has any significant hemoptysis. If he has hemoptysis then will consider bronchoscopy. Further treatment will depend on the course in the hospital. Thank you Dr. Galeana for this consultation. MD GUZMAN Viveros/NAREN /4:30 PM /4:44 PM
[2016-07-12] MEDS ORDERED: clonazePAM 1 MG TAB G-TUBE SCH (21:00)
[2016-07-12] MEDS: cefTRIAXone INJ 1,000 MG in SODIUM CHLORIDE 0.9% INJ 100 ML IV SCH (21:03)
[2016-07-12] MEDS: ATORVASTATIN 20 MG TAB G-TUBE SCH (21:04)
[2016-07-12] MEDS: clonazePAM 1 MG TAB G-TUBE SCH (21:05)
[2016-07-12] MEDS: AZITHROMYCIN INJ 500 MG in SODIUM CHLOR 0.9% 250 ML INJ 250 ML IV SCH (21:05)
[2016-07-13] VITALS (13 sets, daily range): BP systolic 108–210; BP diastolic 65–113; PULSE 80–116; RESP 17–24; TEMP 97.6–101.4; O2SAT 82–97
[2016-07-13] MEDS ORDERED: ENALAPRILAT 1.25 MG/ML VIAL IV PUSH PRN
[2016-07-13] MEDS ORDERED: METOPROLOL TARTRATE 50 MG TAB PO ONE (00:15)
[2016-07-13] MEDS: ACETAMINOPHEN 325 MG TAB G-TUBE PRN ×2 (01:01→14:33)
[2016-07-13] MEDS: LEVOTHYROXINE SODIUM 100 MCG TAB G-TUBE SCH (06:24)
[2016-07-13] MEDS: metroNIDAZOLE 500 MG INJ 100 ML IV SCH ×3 (06:25→22:01)
[2016-07-13] MEDS: RESP: ALBUTEROL 2.5 MG/IPRATROPIUM 0.5 MG NEB (PRN) INH ×2 (07:49→19:26)
[2016-07-13 08:47] LABS: AUTOMATED NEUTROPHIL # 10.6 TH/MM3 (1.8-7.7); BASOPHIL % 0.2 % (0.0-2.0); EOSINOPHIL # 0.2 TH/MM3 (0-0.4); EOSINOPHIL % 1.3 % (0.0-4.0); HEMATOCRIT 34.5 % (39.0-51.0); HEMO FLAGS DIFF FINAL; LYMPH % 10.3 % (9.0-44.0); LYMPHOCYTE # 1.3 TH/MM3 (1.0-4.8); MEAN CORPUSCULAR HGB CONC 33.7 % (32.0-36.0); NEUT % 83.2 % (16.0-70.0); PLATELET COUNT 147 TH/MM3 (150-450); RED BLOOD COUNT 3.75 MIL/MM3 (4.50-5.90); RED CELL DISTRIBUTION WIDTH 14.8 % (11.6-17.2); WHITE BLOOD COUNT 12.7 TH/MM3 (4.0-11.0)
[2016-07-13 08:48] LABS: POTASSIUM 3.9 MEQ/L (3.5-5.1)
[2016-07-13 08:51] LABS: BICARBONATE 30.4 MEQ/L (21.0-32.0)
[2016-07-13] MEDS: SODIUM CHLORIDE 0.9% FLUSH 10 ML FLUSH IV FLUSH SCH ×2 (09:00→21:00)
[2016-07-13] MEDS: METOPROLOL TARTRATE 50 MG TAB G-TUBE SCH ×2 (09:00→20:45)
[2016-07-13] MEDS: GABAPENTIN 300 MG CAP G-TUBE SCH ×3 (09:20→18:55)
[2016-07-13] MEDS: FAMOTIDINE 20 MG TAB G-TUBE SCH (09:20)
--- NOTE | 2016-07-13 11:02 | HHI.PR ---
Subjective Remarks Follow-up pneumonia. Improving hemoptysis. He is insisting to have a chest CT because he is hesitant to undergo bronchoscopy. Seen with his . Discussed with RN. Patient aware that he is strictly nothing by mouth as he failed swallowing evaluation by speech therapy Objective Vitals Vital Signs Date Time Temp Pulse Resp B/P Pulse Ox O2 Delivery O2 Flow Rate FiO2 07/13/16 08:30 95 21 07/13/16 08:00 97.6 81 17 157/97 93 07/13/16 07:53 97 Nasal Cannula 2.00 07/13/16 04:00 98.9 82 20 108/74 96 07/13/16 02:05 100.4 86 20 108/70 97 07/13/16 01:00 97 Nasal Cannula 2.00 07/13/16 00:55 82 21 07/13/16 00:00 101.4 116 24 200/113 88 07/12/16 22:50 99.2 100 20 180/105 94 07/12/16 20:00 99.9 89 18 193/100 95 07/12/16 20:00 87 07/12/16 19:45 96 21 07/12/16 16:00 98.6 104 18 128/76 95 07/12/16 12:52 97.3 96 14 112/67 96 I/O 07/12/16 07/12/16 07/12/16 07/13/16 07/13/16 07/13/16 07:00 15:00 23:00 07:00 15:00 23:00 Intake Total 0 ml 2432 ml 1183 ml Output Total 1920 ml 1600 ml 500 ml Balance -1920 ml -1600 ml 2432 ml 683 ml Intake Oral 0 ml 0 ml 0 ml IV Total 2252 ml 943 ml Tube Irrigant 180 ml 240 ml Output Urine Total 1920 ml 1600 ml 500 ml # Voids 2 2 # Bowel Movements 2 1 0 Result Diagram: 07/13/16 0745 07/13/16744 Imaging Last Impressions Chest X-Ray 07/11/161901 Signed Impressions: Service Date/Time: Monday, July 11, 2016 19:15 - CONCLUSION: Mild perihilar infiltrates. Robe Torres MD Objective Remarks GENERAL: This is a well-nourished, well-developed patient, in no apparent distress. SKIN: No rashes, ecchymoses or lesions. Cool and dry. Changes in the neck area secondary to radiation HEAD: Atraumatic. Normocephalic. No temporal or scalp tenderness. EYES: Pupils equal round and reactive. Extraocular motions intact. No scleral icterus. No injection or drainage. ENT: Nose without bleeding, purulent drainage or septal hematoma. Throat without erythema, tonsillar hypertrophy or exudate. Uvula midline. Airway patent. NECK: Trachea midline. No JVD or lymphadenopathy. Supple, nontender, no meningeal signs. CARDIOVASCULAR: Regular rate and rhythm without murmurs, gallops, or rubs. RESPIRATORY: Coarse Breath sounds equal bilaterally. No wheezes, rales, or rhonchi. GASTROINTESTINAL: Abdomen soft, non-tender, nondistended. PEG tube in place. No guarding. MUSCULOSKELETAL: Extremities without clubbing, cyanosis, or edema. No joint tenderness, effusion, or edema noted. No calf tenderness. Negative Homans sign bilaterally. NEUROLOGICAL: Awake and alert. Cranial nerves II through XII intact. Motor and sensory grossly within normal limits. Five out of 5 muscle strength in all muscle groups. Normal speech. A/P Assessment and Plan This is a 70-year-old male who presented with acute onset of fever, chills and hemoptysis associated with shortness of breath. 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 He occasionally drinks fluids. He is prone to aspiration. Chest x-ray with perihilar infiltrates Severe sepsis with elevated lactic acid, tachycardia and leukocytosis. Improving Monitor sputum and blood cultures negative to date Pneumonia with hemoptysis likely secondary to aspiration. Improving hemoptysis continue Flagyl, Rocephin and Zithromax. Nebulization as needed. Negative urinary Legionella and pneumococcal antigen. Monitor hemoptysis and consulted patient's lost charge card clerk. Discontinued aspirin. Check chest CT Strictly nothing by mouth and continue tube feeding. Consult dietitian. Acute kidney injury secondary to dehydration. Improving. Avoid nephrotoxins. Mild hypernatremia start free water Chronic medical conditions of anxiety, depression, coronary artery disease status post 5 vessel Bypass, hypertension, hyperlipidemia, esophageal stricture status post dilatation, GERD and hypothyroidism. Continue outpatient medications via GT as appropriate DVT prophylaxis with SCD and early ambulation. No chemical prophylaxis secondary to ongoing hemoptysis Discharge Planning Discharge when cleared by pulmonary AbandAndrzej hendrickson MD Jul 13, 2016 11:02
[2016-07-13] MEDS: SODIUM CHLOR 0.45% 1000 ML INJ 1,000 ML IV SCH ×2 (13:11→22:30)
[2016-07-13] MEDS ORDERED: IOHEXOL 350 MG/ML 50 ML BTL (for RAD DIAG) IV ONE (14:01)
--- NOTE | 2016-07-13 14:12 | RADHPO ---
EXAM DATE/TIME: 07/13/2016 13:39 [place] COMPARISON: CT PULMONARY ANGIOGRAM, August 14, 2014, 12:37. CHEST PA & LAT, July 11, 2016, 19:15. INDICATIONS : Hemoptysis. IV CONTRAST: 65 cc Omnipaque 350 (iohexol) IV RADIATION DOSE: 13.76 CTDIvol (mGy) MEDICAL HISTORY : Cardiovascular disease. Hypertension. Squamous cell cancer. SURGICAL HISTORY : CABG ENCOUNTER: Initial ACUITY: 3 days PAIN SCALE: 0/10 LOCATION: chest TECHNIQUE: Volumetric scanning of the chest was performed. Using automated exposure control and adjustment of t he mA and/or kV according to patient size, radiation dose was kept as low as reasonably achievable to obtain optimal diagnostic quality images. FINDINGS: `Patchy parenchymal infiltrates are present which have progressed since the prior study from 201 5 including bilateral lower lobes, right middle lobe and bilateral upper lobes worse in the right upp er lobe. These are most likely inflammatory, however the exact etiology is not certain part of the he art partially nodular in appearance. There are lymph nodes within the mediastinum the largest one in the subcarinal area measuring 3 cm in transverse diameter this lymph node measured 2.3 cm previously. Coronary artery calcifications are seen typically seen with CAD and need to be evaluated clinically. simple cyst is present in the left kidney and a G-J tube is also identified. Some of the other lymph nodes also slightly is larger. CONCLUSION: 1. The lymph nodes within mediastinum is slightly larger since 2014 still indeterminate in regards to malignancy could be reactive. 2. Worsening patchy parenchymal groundglass opacities partially nodular bilaterally also most likely inflammatory, however underlying malignancy is difficult to exclude. Shagufta Pitt MD on July 13, 2016 at 14:04 Board Certified Radiologist. This report was verified electronically.
[2016-07-13] MEDS ORDERED: METO-309 G-TUBE (15:33)
--- NOTE | 2016-07-13 15:34 | HHI.DCPOC ---
Discharge Care Plan Diagnosis: (1) Community acquired pneumonia Your Health Problems Are: Difficulty with ADL Exercise Tolerance Goals to Promote Your Health * To prevent worsening of your condition and complications * To maintain your health at the optimal level Directions to Meet Your Goals Take your medications as prescribed Follow your dietary instruction Follow activity as directed Keep your appointments as scheduled Take your immunizations and boosters as scheduled If your symptoms worsen call your PCP, if no PCP go to Urgent Care Center or Emergency Room Smoking is Dangerous to Your Health. Avoid second hand smoke Call the 24-hour hour crisis hotline for domestic abuse at Andrzej Galeana MD Jul 13, 2016 15:34
--- NOTE | 2016-07-13 18:37 | HHI.PR ---
Subjective Remarks 70 YOWm with Lung infilt, h/o ca oesophagus Mild hemoptysis, resolving no fever Denies sob Objective Vital Signs Vital Signs Date Time Temp Pulse Resp B/P Pulse Ox O2 Delivery O2 Flow Rate FiO2 07/13/16 16:00 98.4 92 18 122/87 94 07/13/16 12:00 97.7 88 18 108/65 92 07/13/16 08:30 95 21 07/13/16 08:00 97.6 81 17 157/97 93 07/13/16 07:53 97 Nasal Cannula 2.00 07/13/16 04:00 98.9 82 20 108/74 96 07/13/16 02:05 100.4 86 20 108/70 97 07/13/16 01:00 97 Nasal Cannula 2.00 07/13/16 00:55 82 21 07/13/16 00:00 101.4 116 24 200/113 88 07/12/16 22:50 99.2 100 20 180/105 94 07/12/16 20:00 99.9 89 18 193/100 95 07/12/16 20:00 87 07/12/16 19:45 96 21 I/O 07/12/16 07/12/16 07/12/16 07/13/16 07/13/16 07/13/16 07:00 15:00 23:00 07:00 15:00 23:00 Intake Total 0 ml 2432 ml 1183 ml Output Total 1920 ml 1600 ml 500 ml Balance -1920 ml -1600 ml 2432 ml 683 ml Intake Oral 0 ml 0 ml 0 ml IV Total 2252 ml 943 ml Tube Irrigant 180 ml 240 ml Output Urine Total 1920 ml 1600 ml 500 ml # Voids 2 2 # Bowel Movements 2 1 0 Result Diagram: 07/13/16 0745 07/13/16 0745 Objective Remarks GENERAL: MBMN WM, NAD SKIN: Warm and dry. HEAD: Normocephalic. EYES: No scleral icterus. No injection or drainage. NECK: Supple, trachea midline. No JVD or lymphadenopathy. CARDIOVASCULAR: Regular rate and rhythm without murmurs, gallops, or rubs. RESPIRATORY: Breath sounds equal bilaterally. No accessory muscle use. Scattered rales. GASTROINTESTINAL: Abdomen soft, non-tender, nondistended. MUSCULOSKELETAL: No cyanosis, or edema. BACK: Nontender without obvious deformity. No CVA tenderness. A/P Assessment and Plan Bilat scattered Infilt likly Pn, aspiraton Hemoptysis improving H/O ca oesophagus Dysphagia HTN CAD PLAN: Cont Abx Will need rpt CT 6 weeks to document clearing of infilt Aerosol nebs TF monitor Hemoptysis DW pt in detail. Ike Meraz MD Jul 13, 2016 18:37
[2016-07-13] MEDS: cloNIDine HCL 0.1 MG TAB PO PRN (19:51)
[2016-07-13] MEDS: clonazePAM 1 MG TAB G-TUBE SCH (20:45)
[2016-07-13] MEDS: ATORVASTATIN 20 MG TAB G-TUBE SCH (20:45)
[2016-07-13] MEDS: AZITHROMYCIN INJ 500 MG in SODIUM CHLOR 0.9% 250 ML INJ 250 ML IV SCH (20:46)
[2016-07-13] MEDS: cefTRIAXone INJ 1,000 MG in SODIUM CHLORIDE 0.9% INJ 100 ML IV SCH (22:01)
[2016-07-14] VITALS (14 sets, daily range): BP systolic 84–184; BP diastolic 51–119; PULSE 85–105; RESP 16–18; TEMP 97.7–98.9; O2SAT 80–97
[2016-07-14] MEDS ORDERED: ENALAPRILAT 1.25 MG/ML VIAL IV ONE (00:45)
[2016-07-14] MEDS: cloNIDine HCL 0.1 MG TAB PO PRN (02:29)
[2016-07-14] MEDS: ACETAMINOPHEN 325 MG TAB G-TUBE PRN (02:45)
[2016-07-14] MEDS: RESP: ALBUTEROL 2.5 MG/IPRATROPIUM 0.5 MG NEB (PRN) INH (02:59)
[2016-07-14] MEDS: SODIUM CHLOR 0.45% 1000 ML INJ 1,000 ML IV SCH ×2 (04:24→22:20)
[2016-07-14] MEDS: LEVOTHYROXINE SODIUM 100 MCG TAB G-TUBE SCH (05:21)
[2016-07-14] MEDS: metroNIDAZOLE 500 MG INJ 100 ML IV SCH ×3 (05:21→23:23)
[2016-07-14 06:00] LABS: AUTOMATED NEUTROPHIL # 10.1 TH/MM3 (1.8-7.7); BASOPHIL % 0.3 % (0.0-2.0); EOSINOPHIL % 0.4 % (0.0-4.0); HEMATOCRIT 33.6 % (39.0-51.0); HEMO FLAGS DIFF FINAL; LYMPH % 5.5 % (9.0-44.0); LYMPHOCYTE # 0.6 TH/MM3 (1.0-4.8); MEAN CELL VOLUME 90.4 FL (80.0-100.0); MEAN CORPUSCULAR HEMOGLOBIN 29.4 PG (27.0-34.0); MEAN CORPUSCULAR HGB CONC 32.5 % (32.0-36.0); NEUT % 87.8 % (16.0-70.0); PLATELET COUNT 163 TH/MM3 (150-450); RED BLOOD COUNT 3.71 MIL/MM3 (4.50-5.90); RED CELL DISTRIBUTION WIDTH 14.4 % (11.6-17.2); WHITE BLOOD COUNT 11.4 TH/MM3 (4.0-11.0)
[2016-07-14 06:15] LABS: POTASSIUM 3.9 MEQ/L (3.5-5.1)
[2016-07-14 06:20] LABS: BICARBONATE 30.4 MEQ/L (21.0-32.0); MAGNESIUM 1.9 MG/DL (1.5-2.5)
[2016-07-14] MEDS: SODIUM CHLORIDE 0.9% FLUSH 10 ML FLUSH IV FLUSH SCH ×2 (09:00→21:55)
[2016-07-14] MEDS: METOPROLOL TARTRATE 50 MG TAB G-TUBE SCH (09:00)
[2016-07-14] MEDS ORDERED: METO100T PO (09:10)
[2016-07-14] MEDS: GABAPENTIN 300 MG CAP G-TUBE SCH ×3 (09:32→17:51)
[2016-07-14] MEDS: FAMOTIDINE 20 MG TAB G-TUBE SCH (09:33)
[2016-07-14] MEDS ORDERED: RESP: ALBUTEROL 0.63 MG/3 ML NEB (PRN) NEB (09:45)
[2016-07-14] MEDS ORDERED: guaiFENesin/CODEINE SYRUP 200 MG/20 MG/10 ML CUP G-TUBE PRN (09:45)
--- NOTE | 2016-07-14 09:45 | HHI.PR ---
Subjective Remarks Follow-up hypertension and pneumonia. BP elevated yesterday received prn clonidine and Vasotec. This morning he was hypoxic down to 85% currently on 2 L nasal cannula. He does not complain of increased shortness of breath. Discussed with RN Objective Vitals Vital Signs Date Time Temp Pulse Resp B/P Pulse Ox O2 Delivery O2 Flow Rate FiO2 07/14/16 08:02 85 21 07/14/16 08:00 98.8 86 18 112/65 97 07/14/16 07:40 97 Nasal Cannula 2.00 07/14/16 04:00 97.7 105 16 90/60 93 07/14/16 03:15 97 Nasal Cannula 2.00 07/14/16 03:02 93 Nasal Cannula 2.00 07/14/16 02:59 80 21 07/14/16 00:00 98.1 85 18 184/119 95 07/13/16 20:16 98.5 89 20 210/100 95 07/13/16 20:00 106 07/13/16 19:26 95 21 07/13/16 16:00 98.4 92 18 122/87 94 07/13/16 12:00 97.7 88 18 108/65 92 I/O 07/13/16 07/13/16 07/13/16 07/14/16 07/14/16 07/14/16 07:00 15:00 23:00 07:00 15:00 23:00 Intake Total 1183 ml 2050 ml 926 ml 579 ml Output Total 500 ml 775 ml Balance 683 ml 2050 ml 926 ml -196 ml Intake Oral 0 ml IV Total 943 ml 800 ml 926 ml 579 ml Tube Feeding 1050 ml Tube Irrigant 240 ml Other 200 ml Output Urine Total 500 ml 775 ml # Voids 2 # Bowel Movements 0 Result Diagram: 07/14/16 0515 07/14/16 0515 Imaging Last Impressions Chest CT 07/13/16 0000 Signed Impressions: Service Date/Time: Wednesday, July 13, 2016 13:39 - CONCLUSION: 1. The lymph nodes within mediastinum is slightly larger since 2014 still indeterminate in regards to malignancy could be reactive. 2. Worsening patchy parenchymal groundglass opacities partially nodular bilaterally also most likely inflammatory, however underlying malignancy is difficult to exclude. Shagufta Pitt MD Chest X-Ray 07/11/161901 Signed Impressions: Service Date/Time: Monday, July 11, 2016 19:15 - CONCLUSION: Mild perihilar infiltrates. Robe Torres MD Objective Remarks GENERAL: This is a well-nourished, well-developed patient. NAD. SKIN: No rashes, ecchymoses or lesions. Cool and dry. Changes in the neck area secondary to radiation HEAD: Atraumatic. Normocephalic. No temporal or scalp tenderness. EYES: Pupils equal round and reactive. Extraocular motions intact. No scleral icterus. No injection or drainage. ENT: Nose without bleeding, purulent drainage or septal hematoma. Throat without erythema, tonsillar hypertrophy or exudate. Uvula midline. Airway patent. NECK: Trachea midline. No JVD or lymphadenopathy. Supple, nontender, no meningeal signs. CARDIOVASCULAR: Regular rate and rhythm without murmurs, gallops, or rubs. RESPIRATORY: Coarse Breath sounds equal bilaterally. No wheezes, rales, or rhonchi. GASTROINTESTINAL: Abdomen soft, non-tender, nondistended. PEG tube in place. No guarding. MUSCULOSKELETAL: Extremities without clubbing, cyanosis, or edema. No joint tenderness, effusion, or edema noted. No calf tenderness. Negative Homans sign bilaterally. NEUROLOGICAL: Awake and alert. Cranial nerves II through XII intact. Motor and sensory grossly within normal limits. Five out of 5 muscle strength in all muscle groups. Normal speech. Procedures none A/P Problem List: (1) Community acquired pneumonia ICD Code: J18.9 Status: Acute (2) Aspiration pneumonia ICD Code: J69.0 Status: Acute Assessment and Plan This is a 70-year-old male who presented with acute onset of fever, chills and hemoptysis associated with shortness of breath. 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 He occasionally drinks fluids. He is prone to aspiration. Chest x-ray with perihilar infiltrates Severe sepsis with elevated lactic acid, tachycardia and leukocytosis. Improving Monitor sputum and blood cultures negative to date Pneumonia with hemoptysis likely secondary to aspiration. Improving hemoptysis but hypoxic today likely from mucous plugging. Chest CT results discussed with patient .Continue Flagyl, Rocephin and Zithromax. Nebulization as needed. Negative urinary Legionella and pneumococcal antigen. Monitor hemoptysis and consulted patient's clinical biostatistician. Discontinued aspirin. Strictly nothing by mouth and continue tube feeding. Consulted dietitian. Acute kidney injury secondary to dehydration. Improving. Avoid nephrotoxins. Mild hypernatremia improved with free water Chronic medical conditions of anxiety, depression, coronary artery disease status post 5 vessel Bypass, hypertension, hyperlipidemia, esophageal stricture status post dilatation, GERD and hypothyroidism. BP uncontrolled we'll increase Lopressor to 100 mg twice a day which is his home dose and monitor response. Continue as needed BP medicines. Continue outpatient medications via GT as appropriate DVT prophylaxis with SCD and early ambulation. No chemical prophylaxis secondary to ongoing hemoptysis Discharge Planning Discharge when cleared by pulmonary problems in the morning. Oxygen walk test. Andrzej Galeana MD Jul 14, 2016 09:45
[2016-07-14] MEDS ORDERED: LEVA750T G-TUBE (10:37)
[2016-07-14] MEDS: RESP: ALBUTEROL 2.5 MG/IPRATROPIUM 0.5 MG NEB (SCH) NEB ×3 (11:15→19:22)
[2016-07-14] MEDS ORDERED: METOPROLOL TARTRATE 100 MG TAB G-TUBE ONE (11:15)
[2016-07-14] MEDS: cefTRIAXone INJ 1,000 MG in SODIUM CHLORIDE 0.9% INJ 100 ML IV SCH (20:22)
[2016-07-14] MEDS: AZITHROMYCIN INJ 500 MG in SODIUM CHLOR 0.9% 250 ML INJ 250 ML IV SCH (21:00)
[2016-07-14] MEDS: METOPROLOL TARTRATE 100 MG TAB G-TUBE SCH (21:56)
[2016-07-14] MEDS: ATORVASTATIN 20 MG TAB G-TUBE SCH (21:56)
[2016-07-14] MEDS: clonazePAM 1 MG TAB G-TUBE SCH (21:56)
[2016-07-15] VITALS (10 sets, daily range): BP systolic 103–170; BP diastolic 64–100; PULSE 75–95; RESP 18–20; TEMP 97.2–99.7; O2SAT 92–96
[2016-07-15] MEDS: LEVOTHYROXINE SODIUM 100 MCG TAB G-TUBE SCH (05:03)
[2016-07-15] MEDS: ACETAMINOPHEN 325 MG TAB G-TUBE PRN ×2 (05:04→20:48)
[2016-07-15] MEDS: metroNIDAZOLE 500 MG INJ 100 ML IV SCH ×3 (05:04→22:54)
[2016-07-15] MEDS: cloNIDine HCL 0.1 MG TAB PO PRN (05:04)
[2016-07-15] MEDS: RESP: ALBUTEROL 2.5 MG/IPRATROPIUM 0.5 MG NEB (SCH) NEB ×4 (07:58→19:18)
[2016-07-15] MEDS ORDERED: guaiFENesin SOLUTION 200 MG/10 ML CUP G-TUBE PRN (08:30)
[2016-07-15] MEDS: METOPROLOL TARTRATE 100 MG TAB G-TUBE SCH ×2 (09:39→20:47)
[2016-07-15] MEDS: GABAPENTIN 300 MG CAP G-TUBE SCH ×3 (09:39→18:19)
[2016-07-15] MEDS: FAMOTIDINE 20 MG TAB G-TUBE SCH (09:39)
[2016-07-15] MEDS: SODIUM CHLORIDE 0.9% FLUSH 10 ML FLUSH IV FLUSH SCH ×2 (09:39→20:58)
[2016-07-15] MEDS ORDERED: OXYGENTANK NAS.CANULA ×2 (14:12→18:31)
[2016-07-15] MEDS ORDERED: clonazePAM 1 MG TAB PO PRN (14:15)
--- NOTE | 2016-07-15 14:18 | HHI.PR ---
Subjective Remarks Follow-up aspiration pneumonia. Still with hemoptysis insistent on having bronchoscopy. He is very anxious causing his BP shoot up. Seen with . Discussed with RN Objective Vitals Vital Signs Date Time Temp Pulse Resp B/P Pulse Ox O2 Delivery O2 Flow Rate FiO2 07/15/16 12:00 97.3 77 18 103/64 92 07/15/16 11:37 93 21 07/15/16 08:00 97.8 79 18 129/74 96 07/15/16 07:59 92 Nasal Cannula 2.00 07/15/16 07:55 2.00 07/15/16 04:00 99.7 95 20 170/100 93 07/15/16 00:00 99.4 85 18 153/93 95 07/14/16 20:00 92 07/14/16 20:00 98.9 104 18 170/101 95 07/14/16 19:22 92 21 07/14/16 16:00 98.4 98 18 104/64 93 I/O 07/14/16 07/14/16 07/14/16 07/15/16 07/15/16 07/15/16 07:00 15:00 23:00 07:00 15:00 23:00 Intake Total 579 ml 1538 ml 890 ml Output Total 775 ml Balance -196 ml 1538 ml 890 ml Intake Oral 0 ml IV Total 579 ml 588 ml 890 ml Tube Feeding 750 ml Tube Irrigant 200 ml Output Urine Total 775 ml # Voids 2 0 # Bowel Movements 0 Result Diagram: 07/14/16 0515 07/14/16 0515 Imaging Last Impressions Chest CT 07/13/16 0000 Signed Impressions: Service Date/Time: Wednesday, July 13, 2016 13:39 - CONCLUSION: 1. The lymph nodes within mediastinum is slightly larger since 2014 still indeterminate in regards to malignancy could be reactive. 2. Worsening patchy parenchymal groundglass opacities partially nodular bilaterally also most likely inflammatory, however underlying malignancy is difficult to exclude. Shagufta Pitt MD Chest X-Ray 07/11/16 1902 Signed Impressions: Service Date/Time: Monday, July 11, 2016 19:15 - CONCLUSION: Mild perihilar infiltrates. Robe Torres MD Objective Remarks GENERAL: This is a well-nourished, well-developed patient. NAD. SKIN: No rashes, ecchymoses or lesions. Cool and dry. Changes in the neck area secondary to radiation HEAD: Atraumatic. Normocephalic. No temporal or scalp tenderness. EYES: Pupils equal round and reactive. Extraocular motions intact. No scleral icterus. No injection or drainage. ENT: Nose without bleeding, purulent drainage or septal hematoma. Throat without erythema, tonsillar hypertrophy or exudate. Uvula midline. Airway patent. NECK: Trachea midline. No JVD or lymphadenopathy. Supple, nontender, no meningeal signs. CARDIOVASCULAR: Regular rate and rhythm without murmurs, gallops, or rubs. RESPIRATORY: Improving Coarse Breath sounds equal bilaterally. No wheezes, rales , or rhonchi. GASTROINTESTINAL: Abdomen soft, non-tender, nondistended. PEG tube in place. No guarding. MUSCULOSKELETAL: Extremities without clubbing, cyanosis, or edema. No joint tenderness, effusion, or edema noted. No calf tenderness. Negative Homans sign bilaterally. NEUROLOGICAL: Awake and alert. Cranial nerves II through XII intact. Motor and sensory grossly within normal limits. Five out of 5 muscle strength in all muscle groups. Normal speech. Procedures none A/P Problem List: (1) Community acquired pneumonia ICD Code: J18.9 Status: Acute (2) Aspiration pneumonia ICD Code: J69.0 Status: Acute Assessment and Plan This is a 70-year-old male who presented with acute onset of fever, chills and hemoptysis associated with shortness of breath. 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 He occasionally drinks fluids. He is prone to aspiration. Chest x-ray with perihilar infiltrates Severe sepsis with elevated lactic acid, tachycardia and leukocytosis. Improving Monitor sputum and blood cultures negative to date Pneumonia with hemoptysis likely secondary to aspiration. Still with hemoptysis and hypoxia requesting bronchoscopy will discuss with pulmonary. Chest CT results discussed with patient .Continue Flagyl, Rocephin and Zithromax. Nebulization as needed. Negative urinary Legionella and pneumococcal antigen. Monitor hemoptysis. Discontinued aspirin. Strictly nothing by mouth and continue tube feeding. Consulted dietitian. Acute kidney injury secondary to dehydration. Improving. Avoid nephrotoxins. Mild hypernatremia improved with free water Chronic medical conditions of anxiety, depression, coronary artery disease status post 5 vessel Bypass, hypertension, hyperlipidemia, esophageal stricture status post dilatation, GERD and hypothyroidism. BP erratic likely secondary to anxiety. Increase Klonopin and continue Lopressor 100 mg twice a day which is his home dose and monitor response. Continue as needed BP medicines. Continue outpatient medications via GT as appropriate DVT prophylaxis with SCD and early ambulation. No chemical prophylaxis secondary to ongoing hemoptysis Discharge Planning Discharge when cleared by pulmonary problems in the morning. Oxygen walk test indicates need for home oxygen. Andrzej Galeana MD Jul 15, 2016 14:18
--- NOTE | 2016-07-15 18:37 | HHI.DS ---
Discharge Summary Admission Date Jul 11, 2016 at 20:45 Discharge Date: Jul 16, 2016 Admitting Diagnosis PNEUMONIA, DEHYDRATION (1) Aspiration pneumonia ICD Code: J69.0 Diagnosis: Principal Procedures none Brief History - From Admission This is a 70-year-old male who presented with acute onset of fever, chills and hemoptysis associated with shortness of breath. He has a history of squamous cell cancer of the tongue. Status post chemotherapy and radiation and he has not had evidence of cancer for the past 8 years. 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 He occasionally drinks fluids. He is prone to aspiration. He reports that yesterday morning he had shaking chills and fever. He coughed up some blood and slightly short of breath. He was started on IV Rocephin and Zithromax. Today he feels better with the shortness of breath but noted increasing hemoptysis. States he sees Dr. Tang CBC/BMP: 07/14/16 0515 07/14/16 0515 Significant Findings Laboratory Tests Test 07/13/16 07/14/16 07:45 05:15 White Blood Count 12.7 TH/MM3 11.4 TH/MM3 (4.0-11.0) (4.0-11.0) Red Blood Count 3.75 MIL/MM3 3.71 MIL/MM3 (4.50-5.90) (4.50-5.90) Hemoglobin 11.6 GM/DL 10.9 GM/DL (13.0-17.0) (13.0-17.0) Hematocrit 34.5 % 33.6 % (39.0-51.0) (39.0-51.0) Platelet Count 147 TH/MM3 (150-450) Neutrophils (%) (Auto) 83.2 % 87.8 % (16.0-70.0) (16.0-70.0) Neutrophils # (Auto) 10.6 TH/MM3 10.1 TH/MM3 (1.8-7.7) (1.8-7.7) Sodium Level 147 MEQ/L (136-145) Chloride Level 109 MEQ/L (98-107) Calcium Level 8.0 MG/DL 7.5 MG/DL (8.5-10.1) (8.5-10.1) Lymphocytes (%) (Auto) 5.5 % (9.0-44.0) Lymphocytes # (Auto) 0.6 TH/MM3 (1.0-4.8) Random Glucose 127 MG/DL (74-106) Imaging Last Impressions Chest CT 07/13/16 0000 Signed Impressions: Service Date/Time: Wednesday, July 13, 2016 13:39 - CONCLUSION: 1. The lymph nodes within mediastinum is slightly larger since 2014 still indeterminate in regards to malignancy could be reactive. 2. Worsening patchy parenchymal groundglass opacities partially nodular bilaterally also most likely inflammatory, however underlying malignancy is difficult to exclude. Shagufta Pitt MD Chest X-Ray 07/11/16 1902 Signed Impressions: Service Date/Time: Monday, July 11, 2016 19:15 - CONCLUSION: Mild perihilar infiltrates. Robe Torres MD PE at Discharge GENERAL: This is a well-nourished, well-developed patient. NAD. SKIN: No rashes, ecchymoses or lesions. Cool and dry. Changes in the neck area secondary to radiation HEAD: Atraumatic. Normocephalic. No temporal or scalp tenderness. EYES: Pupils equal round and reactive. Extraocular motions intact. No scleral icterus. No injection or drainage. ENT: Nose without bleeding, purulent drainage or septal hematoma. Throat without erythema, tonsillar hypertrophy or exudate. Uvula midline. Airway patent. NECK: Trachea midline. No JVD or lymphadenopathy. Supple, nontender, no meningeal signs. CARDIOVASCULAR: Regular rate and rhythm without murmurs, gallops, or rubs. RESPIRATORY: Improving Coarse Breath sounds equal bilaterally. No wheezes, rales , or rhonchi. GASTROINTESTINAL: Abdomen soft, non-tender, nondistended. PEG tube in place. No guarding. MUSCULOSKELETAL: Extremities without clubbing, cyanosis, or edema. No joint tenderness, effusion, or edema noted. No calf tenderness. Negative Homans sign bilaterally. NEUROLOGICAL: Awake and alert. Cranial nerves II through XII intact. Motor and sensory grossly within normal limits. Five out of 5 muscle strength in all muscle groups. Normal speech. Hospital Course This is a 70-year-old male who presented with acute onset of fever, chills and hemoptysis associated with shortness of breath. 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 He occasionally drinks fluids. He is prone to aspiration. Chest x-ray with perihilar infiltrates Severe sepsis with elevated lactic acid, tachycardia and leukocytosis. Improving Monitor sputum and blood cultures negative to date Pneumonia with hemoptysis likely secondary to aspiration. Improving hemoptysis and hypoxia cleared for discharge by pulmonary, to repeat chest CT in 6 weeks outpatient and consider bronchoscopy at that time. Discontinue Flagyl, Rocephin and Zithromax and start Levaquin outpatient. Nebulization as needed. Negative urinary Legionella and pneumococcal antigen. Monitor hemoptysis. Discontinued aspirin. Strictly nothing by mouth and continue tube feeding. Consulted dietitian. Acute kidney injury secondary to dehydration. Improving. Avoid nephrotoxins. Mild hypernatremia improved with free water Chronic medical conditions of anxiety, depression, coronary artery disease status post 5 vessel Bypass, hypertension, hyperlipidemia, esophageal stricture status post dilatation, GERD and hypothyroidism. BP erratic likely secondary to anxiety. Increased Klonopin with better BP control continue Lopressor 100 mg twice a day which is his home dose and monitor response. Continue as needed BP medicines. Continue outpatient medications via GT as appropriate DVT prophylaxis with SCD and early ambulation. No chemical prophylaxis secondary to ongoing hemoptysis Pt Condition on Discharge: Stable Discharge Disposition: Discharge Home Discharge Time: > 30 minutes Discharge Instructions DIET: Follow Instructions for: On Tube Feeding Activities you can perform: Regular-No Restrictions Activities to Avoid: Driving Follow up Referrals: PCP Follow-up - 1 Week Pulmonology - 1 Week New Medications: Levofloxacin (Levaquin) 750 Mg Tab 750 MG G-TUBE DAILY Infection #5 Ref 0 TAB Oxygen tank (Oxygen tank) 1 Ea Tank 2 LITER GURJIT.CANULA CONTINUOUS Oxygen Concentrator Portable Gaseous 2 L/min via Nasal Cannula Continuous For 99 months HYPOXEMIA PREVENTION #1 CYLINDER Continued Medications: Aspirin (Aspirin) 81 Mg Chew 81 MG CHEW DAILY Ref 0 TAB Atorvastatin (Atorvastatin) 20 Mg Tab 20 MG G-TUBE HS Cholesterol Management #30 Ref 0 TAB Calcium Carbonate (Calcium Carbonate) 1,250 Mg Tab 1250 MG PO DAILY 1,250 mg calcium carbonate (500 mg elemental calcium) Calcium Supplement Ref 0 TAB Cholecalciferol (Vitamin D-3) 1,000 Unit Tab 1000 UNITS PO DAILY #30 Ref 0 TAB Clonazepam (Klonopin) 1 Mg Tab 1 MG PO HS Ref 0 TAB Gabapentin (Neurontin) 300 Mg Cap 300 MG PO TID Ref 0 CAP Levothyroxine (Synthroid) 100 Mcg Tab 100 MCG PO DAILY Thyroid Ref 0 TAB Magnesium Chloride (Mag-Delay) 64 Mg Tab Unknown Dose PO DAILY Ref 0 TAB Metoprolol Tartrate (Metoprolol Tartrate) 100 Mg Tab 100 MG PO BID #60 Ref 0 TAB Omeprazole (Omeprazole) 20 Mg Tab 20 MG PO DAILY #30 Ref 0 TAB Andrzej Galeana MD Jul 15, 2016 18:36
--- NOTE | 2016-07-15 19:13 | HHI.PR ---
Subjective Remarks 70 YOWm with Lung infilt, h/o ca oesophagus Mild hemoptysis, resolving no fever Denies sob DW pt and his at length Objective Vital Signs Vital Signs Date Time Temp Pulse Resp B/P Pulse Ox O2 Delivery O2 Flow Rate FiO2 07/15/16 16:00 97.2 84 18 129/78 92 07/15/16 12:00 97.3 77 18 103/64 92 07/15/16 11:37 93 21 07/15/16 09:35 75 07/15/16 08:00 97.8 79 18 129/74 96 07/15/16 07:59 92 Nasal Cannula 2.00 07/15/16 07:55 2.00 07/15/16 04:00 99.7 95 20 170/100 93 07/15/16 00:00 99.4 85 18 153/93 95 07/14/16 20:00 92 07/14/16 20:00 98.9 104 18 170/101 95 07/14/16 19:22 92 21 I/O 07/14/16 07/14/16 07/14/16 07/15/16 07/15/16 07/15/16 07:00 15:00 23:00 07:00 15:00 23:00 Intake Total 579 ml 1538 ml 890 ml Output Total 775 ml 1600 ml Balance -196 ml 1538 ml 890 ml -1600 ml Intake Oral 0 ml IV Total 579 ml 588 ml 890 ml Tube Feeding 750 ml Tube Irrigant 200 ml Output Urine Total 775 ml 1600 ml # Voids 2 0 # Bowel Movements 0 0 Result Diagram: 07/14/1651407/14/16514 Objective Remarks GENERAL: MBMN WM, NAD SKIN: Warm and dry. HEAD: Normocephalic. EYES: No scleral icterus. No injection or drainage. NECK: Supple, trachea midline. No JVD or lymphadenopathy. CARDIOVASCULAR: Regular rate and rhythm without murmurs, gallops, or rubs. RESPIRATORY: Breath sounds equal bilaterally. No accessory muscle use. Scattered rales. GASTROINTESTINAL: Abdomen soft, non-tender, nondistended. MUSCULOSKELETAL: No cyanosis, or edema. BACK: Nontender without obvious deformity. No CVA tenderness. A/P Assessment and Plan Bilat scattered Infilt likly Pn, aspiraton Hemoptysis improving H/O ca oesophagus Dysphagia HTN CAD PLAN: Cont Abx Will need rpt CT 6 weeks to document clearing of infilt Aerosol nebs TF DW pt in detail., no need for bronch at this time as pt is improving Will need rpt CT chest 4-5 weeks If density persists then will need bronch Pt and agree he will FU with dr.S.Desai Meraz,Ike Hernandez MD Jul 15, 2016 19:13
[2016-07-15] MEDS: cefTRIAXone INJ 1,000 MG in SODIUM CHLORIDE 0.9% INJ 100 ML IV SCH (19:48)
[2016-07-15] MEDS: ATORVASTATIN 20 MG TAB G-TUBE SCH (20:47)
[2016-07-15] MEDS: clonazePAM 1 MG TAB G-TUBE SCH (20:47)
[2016-07-15] MEDS: AZITHROMYCIN INJ 500 MG in SODIUM CHLOR 0.9% 250 ML INJ 250 ML IV SCH (20:48)
[2016-07-16] VITALS: BP 144/90; PULSE 77; RESP 18; TEMP 97.1; O2SAT 94
[2016-07-16 04:00] VITALS: BP 158/90; PULSE 74; RESP 18; TEMP 97.6; O2SAT 98
[2016-07-16] MEDS: metroNIDAZOLE 500 MG INJ 100 ML IV SCH (05:24)
[2016-07-16] MEDS: LEVOTHYROXINE SODIUM 100 MCG TAB G-TUBE SCH (05:24)
[2016-07-16] MEDS: RESP: ALBUTEROL 2.5 MG/IPRATROPIUM 0.5 MG NEB (SCH) NEB ×2 (07:20→11:09)
[2016-07-16 07:23] VITALS: O2SAT 98
[2016-07-16 08:00] VITALS: BP 119/82; PULSE 94; RESP 18; TEMP 96.9; O2SAT 95
--- NOTE | 2016-07-16 09:25 | HHI.PR ---
Subjective Remarks Follow-up hemoptysis. Improving agrees to be discharged on home oxygen. Discussed with RN, bilingual case manager and pulmonary Objective Vitals Vital Signs Date Time Temp Pulse Resp B/P Pulse Ox O2 Delivery O2 Flow Rate FiO2 07/16/16 07:23 98 Nasal Cannula 2.00 07/16/16 04:00 97.6 74 18 158/90 98 07/16/16 00:00 97.1 77 18 144/90 94 07/15/16 20:00 98.4 90 18 168/88 96 07/15/16 19:18 96 21 07/15/16 16:00 97.2 84 18 129/78 92 07/15/16 12:00 97.3 77 18 103/64 92 07/15/16 11:37 93 21 07/15/16 09:35 75 I/O 07/15/16 07/15/16 07/15/16 07/16/16 07/16/16 07/16/16 07:00 15:00 23:00 07:00 15:00 23:00 Intake Total 890 ml Output Total 1600 ml 400 ml Balance 890 ml -1600 ml -400 ml IV Total 890 ml Output Urine Total 1600 ml 400 ml # Voids 1 # Bowel Movements 0 Result Diagram: 07/14/16 0515 07/14/16 0515 Imaging Last Impressions Chest CT 07/13/16 0000 Signed Impressions: Service Date/Time: Wednesday, July 13, 2016 13:39 - CONCLUSION: 1. The lymph nodes within mediastinum is slightly larger since 2014 still indeterminate in regards to malignancy could be reactive. 2. Worsening patchy parenchymal groundglass opacities partially nodular bilaterally also most likely inflammatory, however underlying malignancy is difficult to exclude. Shagufta Pitt MD Chest X-Ray 07/11/16 190 Signed Impressions: Service Date/Time: Monday, July 11, 2016 19:15 - CONCLUSION: Mild perihilar infiltrates. Robe Torres MD Objective Remarks GENERAL: This is a well-nourished, well-developed patient. NAD. On 2 L nasal cannula SKIN: No rashes, ecchymoses or lesions. Cool and dry. Changes in the neck area secondary to radiation HEAD: Atraumatic. Normocephalic. No temporal or scalp tenderness. EYES: Pupils equal round and reactive. Extraocular motions intact. No scleral icterus. No injection or drainage. ENT: Nose without bleeding, purulent drainage or septal hematoma. Throat without erythema, tonsillar hypertrophy or exudate. Uvula midline. Airway patent. NECK: Trachea midline. No JVD or lymphadenopathy. Supple, nontender, no meningeal signs. CARDIOVASCULAR: Regular rate and rhythm without murmurs, gallops, or rubs. RESPIRATORY: Improving Coarse Breath sounds equal bilaterally. No wheezes, rales , or rhonchi. GASTROINTESTINAL: Abdomen soft, non-tender, nondistended. PEG tube in place. No guarding. MUSCULOSKELETAL: Extremities without clubbing, cyanosis, or edema. No joint tenderness, effusion, or edema noted. No calf tenderness. Negative Homans sign bilaterally. NEUROLOGICAL: Awake and alert. Cranial nerves II through XII intact. Motor and sensory grossly within normal limits. Five out of 5 muscle strength in all muscle groups. Normal speech. Procedures none A/P Problem List: (1) Aspiration pneumonia ICD Code: J69.0 Status: Acute Assessment and Plan This is a 70-year-old male who presented with acute onset of fever, chills and hemoptysis associated with shortness of breath. 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 He occasionally drinks fluids. He is prone to aspiration. Chest x-ray with perihilar infiltrates Severe sepsis with elevated lactic acid, tachycardia and leukocytosis. Improving Monitor sputum and blood cultures negative to date Pneumonia with hemoptysis likely secondary to aspiration. Still with hemoptysis and hypoxia requesting bronchoscopy will discuss with pulmonary. Chest CT results discussed with patient .Continue Flagyl, Rocephin and Zithromax. Nebulization as needed. Negative urinary Legionella and pneumococcal antigen. Monitor hemoptysis. Discontinued aspirin. Strictly nothing by mouth and continue tube feeding. Consulted dietitian. Acute kidney injury secondary to dehydration. Improving. Avoid nephrotoxins. Mild hypernatremia improved with free water Chronic medical conditions of anxiety, depression, coronary artery disease status post 5 vessel Bypass, hypertension, hyperlipidemia, esophageal stricture status post dilatation, GERD and hypothyroidism. BP erratic likely secondary to anxiety. Increase Klonopin and continue Lopressor 100 mg twice a day which is his home dose and monitor response. Continue as needed BP medicines. Continue outpatient medications via GT as appropriate DVT prophylaxis with SCD and early ambulation. No chemical prophylaxis secondary to ongoing hemoptysis Discharge Planning Stable for discharge Andrzej Galeana MD Jul 16, 2016 09:25
[2016-07-16] MEDS: METOPROLOL TARTRATE 100 MG TAB G-TUBE SCH (09:35)
[2016-07-16] MEDS: GABAPENTIN 300 MG CAP G-TUBE SCH (09:35)
[2016-07-16] MEDS: FAMOTIDINE 20 MG TAB G-TUBE SCH (09:35)
[2016-07-16] MEDS: SODIUM CHLORIDE 0.9% FLUSH 10 ML FLUSH IV FLUSH SCH (09:36)
== END 2016-07-16 14:00 | disposition home or self-care (01) | DRG 871 ==
LOC: PHED 18:30 → PHEDA 20:45 → PH3B 22:31
PROVIDERS: ADMIT Internal Medicine; ATTEND Internal Medicine
DX: A41.9 Sepsis, unspecified organism (principal); J69.0 Pneumonitis due to inhalation of food and vomit; N17.9 Acute kidney failure, unspecified; E87.0 Hyperosmolality and hypernatremia; K22.2 Esophageal obstruction; R04.2 Hemoptysis; R13.10 Dysphagia, unspecified; R65.20 Severe sepsis without septic shock; I10 Essential (primary) hypertension; E86.0 Dehydration; I25.10 Atherosclerotic heart disease of native coronary artery without angina pectoris; E03.9 Hypothyroidism, unspecified; K21.9 Gastro-esophageal reflux disease without esophagitis; Y84.2 Radiological procedure and radiotherapy as the cause of abnormal reaction of the patient, or of later complication, without mention of misadventure at the time of the procedure; E78.5 Hyperlipidemia, unspecified; F32.9 Major depressive disorder, single episode, unspecified; F41.9 Anxiety disorder, unspecified; Z95.1 Presence of aortocoronary bypass graft; Z93.1 Gastrostomy status; Z85.01 Personal history of malignant neoplasm of esophagus
CPT/HCPCS: 71020; 71260; 80048; 80053; 81001; 82550; 83605; 83735; 85025; 87040; 87070; 87205; 87449; 87804; 94150; 94620; 94640; 94664; 94667; 94668; 96361; 96365; J0456; J0696; J2270; J7030; J7050; Q9967

== ENCOUNTER 2016-10-29 07:57 | Day surgery (SDC) | payer MEDICARE, OTHER ==
[~2016-10-29] VITALS: Ht 175.3 cm; Wt 68.0 kg
[~2016-10-29 07:57] MED LIST changes: +ATOR20TA15 G-TUBE; +LEVA750T G-TUBE; +METO100T PO; +OXYGENTANK NAS.CANULA
[2016-10-29 08:10] VITALS: BP 118/76; PULSE 66; RESP 18; TEMP 97.8; O2SAT 96
[2016-10-29] MEDS ORDERED: VITA100018 PO (08:27)
[2016-10-29] MEDS ORDERED: SODIUM CHLOR 0.9% 1000 ML INJ 1,000 ML IV SCH (08:30)
[2016-10-29] MEDS ORDERED: MIDAZOLAM HCL 5 MG/5 ML VIAL ONE (10:05)
[2016-10-29] MEDS ORDERED: fentaNYL CITRATE 250 MCG/5 ML AMP ONE (10:05)
--- NOTE | 2016-10-29 10:48 | PD.RAD ---
Post Procedure Progress Note Pre Procedure Diagnosis: (1) History of tongue cancer Post Procedure Diagnosis: (1) History of tongue cancer Procedure Date: Oct 29, 2016 Supervising Radiologist: Rupesh Madrigal JR Proceduralist/Assist: Brandon Johnston RT(R), RT Sara(R) Anesthesia: Conscious Sedation Plan of Activity Patient to Unit: ROPU Patient Condition: Good See PACS Report for procedural detail/treatment Feeding Tube Gastro/Jejunostomy Exchange Korean: 22 Findings: Original tube with very slow flow through J port. Replaced with new GJ tube. Jr. Rohan,Rupesh Griffin MD Oct 29, 2016 10:48
[2016-10-29 10:55] VITALS: BP 172/83; PULSE 66; PULSE 68; RESP 16; RESP 18; TEMP 97.5; TEMP 97.6; O2SAT 92; O2SAT 94
[2016-10-29 11:10] VITALS: BP 154/86; PULSE 60; RESP 16; O2SAT 92
[2016-10-29 11:40] VITALS: BP 106/66; PULSE 68; RESP 16; O2SAT 92
[2016-10-29 12:10] VITALS: BP 115/75; PULSE 63; RESP 18; O2SAT 96
[2016-10-29 12:40] VITALS: BP 110/69; PULSE 64; RESP 18; O2SAT 96
--- NOTE | 2016-10-29 14:22 | RADRPT ---
EXAM DATE/TIME: 10/29/2016 10:16 [facility] COMPARISON: No previous studies available for comparison. INDICATIONS : Patient is in need of an exchange of existing gastrojejunal tube due to non functionality. Jejunal tu be is clogged. MEDICAL HISTORY : History of tongue cancer, renal stones, hypothyroidism, VT, HTN, HLD, PTSD, aspiration pneumonia, SURGICAL HISTORY : History of CABG, esophageal dilitation, PEG placement, appendectomy, right rotator cuff. ENCOUNTER: Initial ACUITY: 3 days PAIN SCORE: 0/10 FLUORO TIME: 1.8 minutes IMAGE SERIES: 3 SEDATION TIME: 30 minutes CONTRAST: 20 cc Omnipaque (iohexol) 350 MEDICATION(S): 1.) 5 mg midazolam (Versed) IV 2.) 250 mcg Fentanyl (Sublimaze) IV DEVICE(S): 1.) 22 Divehi Transgastric tube PROCEDURE : 1. Fluoroscopically guided gastrojejunostomy tube exchange. 2. Conscious sedation with continuous EKG and oximetry monitoring. The risks, benefits and alternatives to the procedure were explained and verbal and written consent w as obtained. The site was prepped in sterile fashion. Full sterile technique was used, including ca p, mask, sterile gloves and gown and a large sterile sheet. Hand hygiene and 2% chlorhexidine and/or betadine/alcohol prep was utilized per protocol for cutaneous antisepsis. The skin and subcutaneous tissues were infiltrated with local anesthetic solution. With fluoroscopic guidance a guidewire was passed through the previous gastrojejunostomy tube and a f resh tube was placed over the guidewire. The balloon was inflated with appropriate volume of saline. Injection of positive contrast demonstrates good position of the gastric and jejunal lumens of the tube. Conscious sedation was performed with the prescribed dosages and duration as above in the presence of an independent trained radiology nurse to assist in the monitoring of the patient. EKG and oximetry remained stable throughout the procedure. The patient tolerated the procedure well and there were n o complications. The patient was sent to post anesthesia recovery in stable condition. CONCLUSION: Uncomplicated gastrojejunostomy tube exchange as above. Rupesh Madrigal Jr., MD on October 29, 2016 at 14:09 Board Certified Radiologist. This report was verified electronically.
== END 2016-10-29 13:00 | disposition home or self-care (01) ==
LOC: HRIP 07:57 → HROP 07:57
PROVIDERS: ATTEND Internal Medicine Gastroenterology
DX: K94.23 Gastrostomy malfunction (principal); E03.9 Hypothyroidism, unspecified; E78.5 Hyperlipidemia, unspecified; I10 Essential (primary) hypertension; Z85.810 Personal history of malignant neoplasm of tongue; Z95.1 Presence of aortocoronary bypass graft; Z87.442 Personal history of urinary calculi
CPT/HCPCS: 49452; 99152; 99153; C1769; C1874; J2250; J3010; J7030

== ENCOUNTER → 2016-11-05 | Outpatient (CLI) | payer MEDICARE, OTHER ==
[~2016-11-05] MED LIST changes: -LEVA750T G-TUBE; -METO50TA PO; -OXYGENTANK NAS.CANULA; +VITA100018 PO; -VITA10003 PO
== END ==
LOC: PHRSP 14:02
PROVIDERS: ATTEND Internal Medicine Pulmonary Disease
DX: R04.2 Hemoptysis (principal); J69.8 Pneumonitis due to inhalation of other solids and liquids
CPT/HCPCS: 94620

== ENCOUNTER 2016-12-25 09:26 | Day surgery (SDC) | payer MEDICARE, OTHER ==
[~2016-12-25] VITALS: Ht 172.7 cm; Wt 68.2 kg
[2016-12-25] MEDS ORDERED: IOHEXOL 350 MG/ML 50 ML BTL (for RAD DIAG) J-TUBE ONE (09:27)
[2016-12-25 09:42] VITALS: BP 110/65; PULSE 60; RESP 20; TEMP 97.5; O2SAT 97
[2016-12-25 10:45] LABS: AUTOMATED NEUTROPHIL # 3.4 TH/MM3 (1.8-7.7); BASOPHIL % 0.8 % (0.0-2.0); EOSINOPHIL # 0.2 TH/MM3 (0-0.4); EOSINOPHIL % 3.1 % (0.0-4.0); HEMATOCRIT 40.4 % (39.0-51.0); HEMO FLAGS DIFF FINAL; LYMPH % 26.8 % (9.0-44.0); LYMPHOCYTE # 1.6 TH/MM3 (1.0-4.8); MEAN CELL VOLUME 91.8 FL (80.0-100.0); MEAN CORPUSCULAR HEMOGLOBIN 30.9 PG (27.0-34.0); MEAN CORPUSCULAR HGB CONC 33.7 % (32.0-36.0); MONO % 10.3 % (0.0-8.0); PLATELET COUNT 171 TH/MM3 (150-450); RED CELL DISTRIBUTION WIDTH 13.7 % (11.6-17.2); WHITE BLOOD COUNT 5.8 TH/MM3 (4.0-11.0)
[2016-12-25] MEDS ORDERED: SODIUM CHLORIDE 0.9% 1000 ML IV SCH (10:45)
[2016-12-25] MEDS ORDERED: ceFAZolin 2 GM PREMIX 50 ML - gastrostomy and jejunostomy initial insertion IV SCH (10:45)
[2016-12-25 10:54] LABS: APTT (PATIENT) 25.2 SEC (24.3-30.1); PROTHROMBIN TIME - PATIENT 11.4 SEC (9.8-11.6)
[2016-12-25] MEDS ORDERED: MIDAZOLAM HCL 5 MG/5 ML VIAL ONE (10:58)
[2016-12-25] MEDS ORDERED: GLUCAGON 1 MG/ML VIAL ONE (10:58)
--- NOTE | 2016-12-25 12:01 | PD.RAD ---
Post Procedure Progress Note Pre Procedure Diagnosis: (1) History of tongue cancer (2) Esophageal stricture Post Procedure Diagnosis: (1) History of tongue cancer (2) History of esophageal cancer (3) Subglottic stenosis Procedure Date: Dec 25, 2016 Supervising Radiologist: Andres Clark Estimated blood loss: 2cc Anesthesia: Local, Conscious Sedation Plan of Activity Patient to Unit: ROPU Patient Condition: Good Additional Comments: New G/J tube placed at a different site. Tube in good position. Pt will return for placement of a CEE G/J in 5/10 days. Full dictated report to follow See PACS Report for procedural detail/treatment Andres Clark MD Dec 25, 2016 12:00
[2016-12-25 12:15] VITALS: BP 188/101; PULSE 68; RESP 18; TEMP 97.7; O2SAT 92
[2016-12-25 12:30] VITALS: BP 178/110; PULSE 66; RESP 18; O2SAT 94
--- NOTE | 2016-12-25 13:27 | RADRPT ---
EXAM DATE/TIME: 12/25/2016 10:39 [facility] COMPARISON: GASTROSTOMY TUBE REMOVAL W/O FLUORO, December 25, 2016, 0:00. INDICATIONS : Patient with a history of tongue cancer, needs new GJ tube site. MEDICAL HISTORY : History of tongue cancer, renal stones, hypothyroidism, OR, HTN, HLD, PTSD, aspiration pneumonia, SURGICAL HISTORY : History of CABG, esophageal dilitation, PEG placement, appendectomy, right rotator cuff. ENCOUNTER: Subsequent ACUITY: > 1 year PAIN SCORE: 0/10 FLUORO TIME: 18.0 minutes IMAGE SERIES: 3 SEDATION TIME: 40 minutes CONTRAST: 45 cc Omnipaque (iohexol) 350 MEDICATION(S): 1.) 4.5 mg midazolam (Versed) IV 2.) 200 mcg Fentanyl (Sublimaze) IV DEVICE(S): 1.) gastrojejunostomy tube 16FR PROCEDURE : 1. Fluoroscopically guided gastrojejunostomy tube placement. 2. Conscious sedation with continuous EKG and oximetry monitoring. The patient has an existing G./J-tube however, this is been in for quite a long time and the insertio n site is quite erythematous. We're asked to move the tube to a new position. The risks, benefits and alternatives to the procedure were explained and verbal and written consent w as obtained. The site was prepped in sterile fashion. Full sterile technique was used, including ca p, mask, sterile gloves and gown and a large sterile sheet. Hand hygiene and 2% chlorhexidine and/or betadine/alcohol prep was utilized per protocol for cutaneous antisepsis. The skin and subcutaneous tissues were infiltrated with local anesthetic solution. 1 mg of Glucagon was administered. The stomach was insufflated with room air using the existing G./J -tube. 2 percutaneous fasteners were placed to secure the anterior gastric wall. A small incision was made between the fasteners. The stomach was accessed with an 18 gauge needle. A n 0.035 wire was advanced into the small bowel. The tract was dilated. The measuring balloon for a M IC style G./J-tube was advanced through the abdominal wall into the stomach. This thickness measures 3.5 cm. This was removed. The gastrojejunostomy tube was introduced through a peel-away sheath. The position was confirmed with an injection of contrast in both the gastric and jejunal lumens. Conscious sedation was performed with the prescribed dosages and duration as above in the presence of an independent trained radiology nurse to assist in the monitoring of the patient. EKG and oximetry remained stable throughout the procedure. The patient tolerated the procedure well and there were n o complications. The patient was sent to post anesthesia recovery in stable condition. CONCLUSION: Uncomplicated gastrojejunostomy tube placement as above. this tract was measured for placement of an CEE style G./J-tube within the tract matures we'll bring the patient back in place one of these tubes . Andres Clark MD on December 25, 2016 at 13:23 Board Certified Radiologist. This report was verified electronically.
[2016-12-25 13:30] VITALS: BP_SYST 129; BP_SYST 184; BP_DIAS 75; BP_DIAS 97; PULSE 56; PULSE 64; RESP 16; RESP 18; O2SAT 98
[2016-12-25 14:00] VITALS: BP 158/89; PULSE 60; RESP 18; O2SAT 99
[2016-12-25 14:30] VITALS: BP 116/60; PULSE 59; RESP 59; O2SAT 99
== END 2016-12-25 14:50 | disposition home or self-care (01) ==
LOC: HROP 09:26 → HRIP 09:29 → HROP 14:50
PROVIDERS: ATTEND Internal Medicine Gastroenterology
DX: K94.23 Gastrostomy malfunction (principal); Z85.810 Personal history of malignant neoplasm of tongue; I10 Essential (primary) hypertension; I25.10 Atherosclerotic heart disease of native coronary artery without angina pectoris; I25.2 Old myocardial infarction; E78.5 Hyperlipidemia, unspecified; E03.9 Hypothyroidism, unspecified; F43.10 Post-traumatic stress disorder, unspecified; Z87.442 Personal history of urinary calculi; Z95.1 Presence of aortocoronary bypass graft; Z79.82 Long term (current) use of aspirin; Z79.899 Other long term (current) drug therapy
CPT/HCPCS: 49440; 49446; 85025; 85610; 85730; 99152; 99153; C1769; C1887; G0463; J0690; J1610; J2250; J3010; J7030; Q9967; 99213

== ENCOUNTER 2016-12-28 13:27 | Emergency (ER) | payer MEDICARE, OTHER ==
[~2016-12-28] VITALS: Ht 175.3 cm; Wt 80.0 kg
[2016-12-28 13:29] VITALS: BP 107/67; PULSE 69; RESP 15; TEMP 98; O2SAT 96
[2016-12-28] MEDS ORDERED: HYDROmorphone HCL PF 1 MG/ML VIAL IV PUSH ONE (14:15)
[2016-12-28] MEDS ORDERED: SODIUM CHLORIDE 0.9% FLUSH 10 ML FLUSH IV FLUSH PRN (14:15)
[2016-12-28] MEDS ORDERED: DIATRIZOATE MEGLUM/DIATRIZOATE SOD 120 ML BTL (for RAD DIAG) G-TUBE ONE (14:37)
--- NOTE | 2016-12-28 15:02 | RADRPT ---
EXAM DATE/TIME: 12/28/2016 14:23 [facility] COMPARISON: No previous studies available for comparison. INDICATIONS : Confirm NG tube placement. MEDICAL HISTORY : History of tongue cancer, renal stones, hypothyroidism, [place], HTN, HLD, PTSD, SURGICAL HISTORY : History of CABG, esophageal dilitation, PEG placement, appendectomy, right ENCOUNTER: Initial ACUITY: 1 day PAIN SCORE: 0/10 LOCATION: Abdomen FINDINGS: Examination of the abdomen demonstrates a normal bowel gas pattern. No free air is identified. No o rganomegaly is evident. Osseous structures are intact. Gastroview injected via T-tube demonstrates i s within the stomach CONCLUSION: G-tube is intraluminal. Nikhil Barnhart MD on December 28, 2016 at 15:00 Board Certified Radiologist. This report was verified electronically.
--- NOTE | 2016-12-28 15:42 | PD ---
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 He underwent GJ tube replacement by IR three days prior. Yesterday the prior site of pt's gastric tube had opened resulting in leakage of gastric content, copious evidently soaking multiple shirts and pairs of pants, also causing erythema and pain about the abdominal wall. Hx radiation esophagitis. Pt states prior GJ tube exchanges have been much less uncomfortable. No fever. No diarrhea. 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, FACIAL CANCERS) Cardiac Catheterization: Yes Cardiovascular Problems: Yes ([place], HTN, 5 VESSEL BYPASS) High Cholesterol: Yes Chemotherapy: Yes (LAST 2003) Chest Pain: Yes (HX) Congestive Heart Failure: No Cerebrovascular Accident: No Coronary Artery Disease: Yes Diabetes: No Diminished Hearing: No Endocrine: Yes Gastrointestinal Disorders: Yes (ESOPHAGEAL DILITATIONS,REFLUX FROM RADIATION, peg tube) GERD: Yes Glaucoma: No Genitourinary: Yes Headaches: No Hepatitis: No Hiatal Hernia: No Hypertension: Yes Immune Disorder: No Implanted Vascular Access Dvce: Yes Kidney Stones: Yes Musculoskeletal: Yes (RETICULOPATHY) Neurologic: Yes (damaged cranial nerves) Psychiatric: Yes Reproductive: No Respiratory: Yes (HX ASPIRATION PNEUMONIA MULTIPLE TIMES) Immunizations Current: Yes Myocardial Infarction: No Radiation Therapy: Yes (2006) Renal Failure: No Seizures: No Sickle Cell Disease: No Thyroid 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) Ulcer: No Past Surgical History Abdominal Surgery: Yes (APPENDECTOMY, G/J TUBE) AICD: No Appendectomy: Yes Arteriovenous Shunt: No Body Medical Devices: G/J TUBE Cardiac Surgery: Yes (CABG X5) Coronary Artery Bypass Graft: Yes Ear Surgery: No Endocrine Surgery: No Eye Surgery: No Genitourinary Surgery: No Gynecologic Surgery: No Insulin Pump: No Joint Replacement: No Oral Surgery: No Pacemaker: No Thoracic Surgery: No Other Surgery: Yes (MODIFIED RADICAL NECK DISECTION S/P THROAT CA,rt endarterectomy) Family History Family Hypercholesterolemia: Yes Social History Alcohol Use: No Tobacco Use: No Substance Use: No Allergies-Medications (Allergen,Severity, Reaction): Coded Allergies: tetanus toxoid, adsorbed (Unverified Allergy, Severe, SHOCK, 11/11/16) Uncoded Allergies: must use pediartric 6 if itubated due to radiated tounge (Adverse Reaction , Unknown, 07/12/16) if intubated must us pediatric 6 due to radiated tounge (cancer) Reported Meds & Prescriptions Reported Meds & Active Scripts Active Reported Vitamin D3 (Cholecalciferol) 1,000 Unit Tab 1,000 Units PO DAILY Metoprolol Tartrate 100 Mg Tab 100 Mg PO BID Atorvastatin (Atorvastatin Calcium) 20 Mg Tab 20 Mg G-TUBE HS Mag-Delay (Magnesium Chloride) 64 Mg Tab Unknown Dose PO DAILY Calcium Carbonate 1,250 Mg Tab 1,250 Mg PO DAILY 1,250 mg calcium carbonate (500 mg elemental calcium) Omeprazole 20 Mg Tab 20 Mg PO DAILY Aspirin 81 Mg Chew 81 Mg CHEW DAILY Klonopin (Clonazepam) 1 Mg Tab 1 Mg PO HS Neurontin (Gabapentin) 300 Mg Cap 300 Mg PO TID Synthroid (Levothyroxine Sodium) 100 Mcg Tab 100 Mcg PO DAILY Review of Systems Except as stated in HPI: all other systems reviewed are Neg Physical Exam Narrative GENERAL: 71 yo M NAD, WNWD SKIN: Warm and dry. HEAD: Atraumatic. Normocephalic. EYES: Pupils equal and round. No scleral icterus. No injection or drainage. ENT: No nasal bleeding or discharge. Mucous membranes pink and moist. NECK: Trachea midline. No JVD. CARDIOVASCULAR: Regular rate and rhythm. RESPIRATORY: No accessory muscle use. Clear to auscultation. Breath sounds equal bilaterally. GASTROINTESTINAL: Soft. Gastrocutaneous fistula present with minimal drainage in region of epigastrium. Minimal adjacent erythema, circumferential. Soft. No focus of tenderness. PEG tube just inferolateral to the gastrocutaneous fistula. MUSCULOSKELETAL: Extremities without clubbing, cyanosis, or edema. No obvious deformities. NEUROLOGICAL: Awake and alert. No obvious cranial nerve deficits. Motor grossly within normal limits. Five out of 5 muscle strength in the arms and legs. Normal speech. PSYCHIATRIC: Appropriate mood and affect; insight and judgment normal. Data Data Last Documented VS Vital Signs Date Time Temp Pulse Resp B/P (MAP) Pulse Ox O2 Delivery O2 Flow Rate FiO2 12/28/16 18:05 72 18 142/68 (92) 98 12/28/16 16:00 Room Air 12/28/16 13:29 98.0 VS reviewed Orders Orders Iv Access Insert/Monitor (12/28/16 14:11) Oximetry (12/28/16 14:11) Sodium Chloride 0.9% Flush (Ns Flush) (12/28/16 14:15) Hydromorphone Pf Inj (Dilaudid Pf Inj) (12/28/16 14:15) Abdomen, Single View (12/28/16 14:11) Diatrizoate Liq ( Gastroview Liq) (12/28/16 14:37) Ct Abd/Pel W/O Iv Contrast (12/28/16 15:00) Sodium Chlor 0.9% 1000 Ml Inj (Ns 1000 M (12/28/16 17:00) MDM Medical Decision Making Medical Screen Exam Complete: Yes Emergency Medical Condition: Yes Medical Record Reviewed: Yes Differential Diagnosis Constipation, Gastritis, Acute Cholecystitis, Biliary Colic, Pancreatitis, LEGGETT , Hepatitis, Bowel Obstruction, Cystitis, Mesenteric Ischemia, AAA, Appendicitis , Renal Stone/Hydronephrosis, GERD, perforated viscous Narrative Course CT abdomen/pelvis: g-tube is in good position with the jejunostomy portion of the tube coiling in the third portion of the duodenum. Tiny amounts of free air underneath the left hemidiaphragm. No abscess identified. The patient is resting comfortably and feels better, is alert and in no distress. The patients results and examination findings were discussed. The repeat examination is unremarkable and benign. The history, exam, diagnostic testing, and current condition do not suggest any significant pathology to warrant further testing, continued ED treatment, admission, or surgical evaluation at this point. The vital signs have been stable. The patient does not have uncontrollable pain, intractable vomiting, or other significant symptoms. The patient's condition is stable and appropriate for discharge. The patient will pursue further outpatient evaluation with a primary care physician or other designated or consulting physician as indicated in the discharge instructions. The patient expressed understanding and was agreeable with this plan. 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 Hopefully, we have met your expectations on today's visit. You are welcome to return to [facility] at any time, as we are committed to meeting the health care needs of our community. Med/Other Pt SpecificInfo: No Change to Meds Disposition: 01 DISCHARGE HOME Condition: Andres Solares MD Dec 28, 2016 15:42
[2016-12-28 16:00] VITALS: BP 112/68; PULSE 70; RESP 16; RESP 20; O2SAT 98
--- NOTE | 2016-12-28 16:07 | RADRPT ---
EXAM DATE/TIME: 12/28/2016 15:36 [facility] COMPARISON: No previous studies available for comparison. INDICATIONS : Evaluate g-tube; abdomen pain. ORAL CONTRAST: No oral contrast ingested. RADIATION DOSE: 13.95 CTDIvol (mGy) MEDICAL HISTORY : Cardiovascular disease. Hypertension. Carcinoma, tongue. SURGICAL HISTORY : Appendectomy. G-tube ENCOUNTER: Initial ACUITY: 1 day PAIN SCALE: 5/10 LOCATION: Bilateral abdomen. TECHNIQUE: Volumetric scanning of the abdomen and pelvis was performed. Using automated exposure control and ad justment of the mA and/or kV according to patient size, radiation dose was kept as low as reasonably achievable to obtain optimal diagnostic quality images. DICOM format image data is available electro nically for review and comparison. FINDINGS: There is some scattered free air throughout the left upper abdominal quadrant not unusual status post G-tube placement. LOWER LUNGS: The visualized lower lungs are clear. LIVER: Homogeneous density without lesion. There is no dilation of the biliary tree. No calcified gallston es. SPLEEN: Normal size without lesion. PANCREAS: Within normal limits. KIDNEYS: Normal in size and shape. There is no mass, stone, or hydronephrosis. ADRENAL GLANDS: Within normal limits. VASCULAR: There is no aortic aneurysm. BOWEL/MESENTERY: There is a G-tube in place with a jejunostomy component extending to the fourth portion of the duoden um. In the midline there is a small clinically obvious Presumed fistula on the anterior wall of the s tomach. There is significant contrast throughout the colon. A jejunostomy component of the tube is c oiling mostly in the third portion of the duodenum ABDOMINAL WALL: Within normal limits. RETROPERITONEUM: There is no lymphadenopathy. BLADDER: No wall thickening or mass. REPRODUCTIVE: Within normal limits. INGUINAL: There is no lymphadenopathy or hernia. MUSCULOSKELETAL: Within normal limits for patient age. CONCLUSION: G-tube is in good position with the jejunostomy portion of the tube coiling in the third portion of t he duodenum. Tiny amounts of free air underneath the left hemidiaphragm. No abscess is identified. Nikhil Barnhart MD on December 28, 2016 at 16:01 Board Certified Radiologist. This report was verified electronically.
[2016-12-28] MEDS ORDERED: SODIUM CHLOR 0.9% 1000 ML INJ 1,000 ML IV ONE (17:00)
[2016-12-28 18:05] VITALS: BP 142/68
== END 2016-12-28 18:06 | disposition home or self-care (01) ==
LOC: NEPC 13:27
DX: K31.6 Fistula of stomach and duodenum (principal); Z93.1 Gastrostomy status
CPT/HCPCS: 74000; 74176; 96361; 96374; 99285; J1170; J7030; Q9963

== ENCOUNTER 2016-12-29 09:41 | Day surgery (SDC) | payer MEDICARE, OTHER ==
[~2016-12-29] VITALS: Ht 172.7 cm; Wt 68.2 kg
[2016-12-29] MEDS ORDERED: IOHEXOL 350 MG/ML 50 ML BTL (for RAD DIAG) G-TUBE ONE (09:42)
[2016-12-29 10:03] VITALS: BP 177/97; PULSE 60; RESP 20; TEMP 97.6; O2SAT 97
[2016-12-29] MEDS ORDERED: SODIUM CHLORIDE 0.9% 1000 ML IV SCH (10:15)
[2016-12-29] MEDS ORDERED: ceFAZolin 2 GM PREMIX 50 ML - gastrostomy and jejunostomy initial insertion IV SCH (10:15)
[2016-12-29] MEDS ORDERED: VANCOMYCIN 1000 MG/NS 250 ML - implanted port/tunneled catheter IV SCH ×2 (10:15)
[2016-12-29] MEDS ORDERED: MIDAZOLAM HCL 5 MG/5 ML VIAL ONE (13:29)
[2016-12-29 14:20] VITALS: BP 198/107; PULSE 73; RESP 20; TEMP 97.9; O2SAT 96
--- NOTE | 2016-12-29 14:28 | PD.RAD ---
Post Procedure Progress Note Pre Procedure Diagnosis: (1) Malfunctioning jejunostomy tube (2) History of esophageal cancer Post Procedure Diagnosis: (1) History of esophageal cancer (2) Malfunctioning jejunostomy tube Procedure Date: Dec 29, 2016 Supervising Radiologist: Francisco Javier Feliz Proceduralist/Assist: Naty Welch, RT(R)(CV), Simin Matthews RT(R) Anesthesia: Local, Analgesia, Conscious Sedation Plan of Activity Patient to Unit: ROPU Patient Condition: Good See PACS Report for procedural detail/treatment Feeding Tube Gastro/Jejunostomy Exchange Hong [place]er: 18 Findings: J port folded back on itself in jejunum. Exchanged and upside to 18 Fr. Francisco Javier Feliz MD Dec 29, 2016 14:28
[2016-12-29 14:35] VITALS: BP 168/103; PULSE 65; RESP 20; O2SAT 95
[2016-12-29 15:05] VITALS: BP 126/80; PULSE 58; RESP 20; O2SAT 94
[2016-12-29 15:35] VITALS: BP 94/51; PULSE 56; RESP 20; O2SAT 94
[2016-12-29 16:05] VITALS: BP 136/63; PULSE 56; RESP 20; O2SAT 95
--- NOTE | 2016-12-30 15:22 | RADRPT ---
EXAM DATE/TIME: 12/29/2016 13:15 [facility] COMPARISON: CHANGE OF GJ-TUBE CATHETER, October 29, 2016, 10:16. INDICATIONS : Patient with history of throat and tongue cancer in need of GJ tube exchange. MEDICAL HISTORY : [place], HTN, HLD, Kidney stones, PTSD, CAD, GERD, Radiation and chemotherapy SURGICAL HISTORY : CABGX5, Esophageal dilitation, PEG tube placement, Cardiac cath, Right endarterectomy ENCOUNTER: Subsequent ACUITY: 3 days PAIN SCORE: 8/10 LOCATION: GJ tube site FLUORO TIME: 3.3 minutes IMAGE SERIES: 3 SEDATION TIME: 30 minutes CONTRAST: 30 cc Omnipaque (iohexol) 350 MEDICATION(S): 1.) 3 mg midazolam (Versed) IV 2.) 150 mcg Fentanyl (Sublimaze) IV DEVICE(S): 1.) 18 [place] gastrojejunostomy tube PROCEDURE : 1. Fluoroscopically guided gastrojejunostomy tube exchange. 2. Conscious sedation with continuous EKG and oximetry monitoring. The risks, benefits and alternatives to the procedure were explained and verbal and written consent w as obtained. The site was prepped in sterile fashion. Full sterile technique was used, including ca p, mask, sterile gloves and gown and a large sterile sheet. Hand hygiene and 2% chlorhexidine and/or betadine/alcohol prep was utilized per protocol for cutaneous antisepsis. The skin and subcutaneous tissues were infiltrated with local anesthetic solution. With fluoroscopic guidance, the existing tube was injected through the J. port. This showed the eh ter to be folded back on itself at least twice. A guidewire was passed through the previous gastrojej unostomy tube and a fresh tube was placed over the guidewire. The balloon was inflated with appropri ate volume of saline. Injection of positive contrast demonstrates good position of the gastric and j ejunal lumens of the tube. Conscious sedation was performed with the prescribed dosages and duration as above in the presence of an independent trained radiology nurse to assist in the monitoring of the patient. EKG and oximetry remained stable throughout the procedure. The patient tolerated the procedure well and there were n o complications. The patient was sent to post anesthesia recovery in stable condition. CONCLUSION: 1. Uncomplicated gastrojejunostomy tube exchange as above. 2. Poor function of the existing J-tube appears to be secondary to some redundancy of the J. port. Th is may be due to some retrograde peristalsis in the duodenum. The tube was exchanged and upsize to 18 [place] to minimize/alleviate future redundancy/malposition Francisco Javier Feliz MD on December 30, 2016 at 15:16 Board Certified Radiologist. This report was verified electronically.
== END 2016-12-29 16:30 | disposition home or self-care (01) ==
LOC: HROP 09:41 → HRIP 09:42 → HROP 16:30
PROVIDERS: ATTEND Radiology Body Imaging
DX: K94.13 Enterostomy malfunction (principal); I25.10 Atherosclerotic heart disease of native coronary artery without angina pectoris; I10 Essential (primary) hypertension; E78.5 Hyperlipidemia, unspecified; I25.2 Old myocardial infarction; K21.9 Gastro-esophageal reflux disease without esophagitis; F43.10 Post-traumatic stress disorder, unspecified; Z92.3 Personal history of irradiation; Z92.21 Personal history of antineoplastic chemotherapy; Z85.01 Personal history of malignant neoplasm of esophagus; Z85.810 Personal history of malignant neoplasm of tongue; Z95.1 Presence of aortocoronary bypass graft
CPT/HCPCS: 49452; 99152; 99153; C1769; C1887; J2250; J3010; Q9967

== ENCOUNTER 2017-01-12 09:22 | Day surgery (SDC) | payer MEDICARE, OTHER ==
[~2017-01-12] VITALS: Ht 299.7 cm; Wt 65.9 kg
[2017-01-12] MEDS ORDERED: IOHEXOL 350 MG/ML 50 ML BTL (for RAD DIAG) G-TUBE ONE (09:23)
[2017-01-12 09:34] VITALS: BP 122/79; PULSE 60; RESP 20; TEMP 97.5; O2SAT 94
[2017-01-12] MEDS ORDERED: SODIUM CHLORIDE 0.9% 1000 ML IV SCH (10:00)
[2017-01-12] MEDS ORDERED: MIDAZOLAM HCL 2 MG/2 ML VIAL ONE ×3 (10:56→11:47)
--- NOTE | 2017-01-12 12:02 | PD.RAD ---
Post Procedure Progress Note Pre Procedure Diagnosis: (1) History of esophageal cancer (2) Malfunctioning jejunostomy tube Post Procedure Diagnosis: (1) Malfunctioning jejunostomy tube (2) History of esophageal cancer Procedure Date: Jan 12, 2017 Supervising Radiologist: Andres Clark Estimated blood loss: 2cc Anesthesia: Local, Conscious Sedation Plan of Activity Patient to Unit: ROPU Patient Condition: Good Additional Comments: G/J tube exchanged for a 22 south su[place]ese transgastric J tube. New tube verified to be in good position. New tube OK for use See PACS Report for procedural detail/treatment Andres Clark MD Jan 12, 2017 12:02
[2017-01-12 12:16] VITALS: BP 163/96; PULSE 61; RESP 18; TEMP 97.6; O2SAT 94
[2017-01-12 12:35] VITALS: BP 139/81; PULSE 55; RESP 18; O2SAT 99
[2017-01-12 13:05] VITALS: BP 131/91; PULSE 54; RESP 16; O2SAT 99
--- NOTE | 2017-01-12 13:14 | RADRPT ---
EXAM DATE/TIME: 01/12/2017 10:44 [facility] COMPARISON: CHANGE OF GJ-TUBE CATHETER, December 29, 2016, 13:15. INDICATIONS : Patient with history of throat cancer in need of Gastrojejunostomy tube exchage. MEDICAL HISTORY : [place], HTN, HLD, Kidney stones, PTSD, CAD, GERD, Radiation and chemotherapy SURGICAL HISTORY : CABGX5, Esophageal dilitation, PEG tube placement, Cardiac cath, Right endarterectomy ENCOUNTER: Subsequent ACUITY: >1 year PAIN SCORE: 0/10 FLUORO TIME: 15.5 minutes IMAGE SERIES: 1 SEDATION TIME: 50 minutes CONTRAST: 40 cc Omnipaque (iohexol) 350 MEDICATION(S): 1.) 6 mg midazolam (Versed) IV 2.) 200 mcg Fentanyl (Sublimaze) IV DEVICE(S): 1.) 22 Pakistani Transgastric tube PROCEDURE : 1. Fluoroscopically guided gastrojejunostomy tube exchange. 2. Conscious sedation with continuous EKG and oximetry monitoring. The risks, benefits and alternatives to the procedure were explained and verbal and written consent w as obtained. The site was prepped in sterile fashion. Full sterile technique was used, including ca p, mask, sterile gloves and gown and a large sterile sheet. Hand hygiene and 2% chlorhexidine and/or betadine/alcohol prep was utilized per protocol for cutaneous antisepsis. The skin and subcutaneous tissues were infiltrated with local anesthetic solution. With fluoroscopic guidance a guidewire was passed through the previous gastrojejunostomy tube. The tu be was removed without difficulty. The tract was dilated and a new 22 Pakistani transgastric J-tube was placed over the guidewire. The balloon was inflated with appropriate volume of saline. Injection of positive contrast demonstrates good position of the gastric and jejunal lumens of the tube. Conscious sedation was performed with the prescribed dosages and duration as above in the presence of an independent trained radiology nurse to assist in the monitoring of the patient. EKG and oximetry remained stable throughout the procedure. The patient tolerated the procedure well and there were n o complications. The patient was sent to post anesthesia recovery in stable condition. CONCLUSION: Uncomplicated gastrojejunostomy tube exchange as above. 18 Pakistani tube was exchanged for a 22 Pakistani transgastric J-tube. Andres Clark MD on January 12, 2017 at 13:11 Board Certified Radiologist. This report was verified electronically.
[2017-01-12 13:35] VITALS: BP 146/78; PULSE 53; RESP 18; O2SAT 99
[2017-01-12 14:05] VITALS: BP 176/96; PULSE 56; RESP 18; O2SAT 99
== END 2017-01-12 15:05 | disposition home or self-care (01) ==
LOC: HROP 09:22 → HRIP 09:25 → HROP 15:05
PROVIDERS: ATTEND Internal Medicine Gastroenterology
DX: K94.13 Enterostomy malfunction (principal); K21.9 Gastro-esophageal reflux disease without esophagitis; I10 Essential (primary) hypertension; E78.5 Hyperlipidemia, unspecified; Z85.01 Personal history of malignant neoplasm of esophagus
CPT/HCPCS: 49452; 99152; 99153; C1769; C1874; C1887; C1894; J2250; J3010; J7030; Q9967

== ENCOUNTER 2017-02-24 07:49 | Day surgery (SDC) | payer MEDICARE, OTHER ==
[~2017-02-24] VITALS: Ht 172.7 cm; Wt 68.2 kg
[~2017-02-24 07:49] MED LIST changes: +ASPI-516 CHEW; -ASPI81CH CHEW; -OMEP20TA PO; +OMEP20TA93 PO
[2017-02-24] MEDS ORDERED: IOHEXOL 350 MG/ML 50 ML BTL (for RAD DIAG) OTHER ONE (07:50)
[2017-02-24 07:59] VITALS: BP 104/63; PULSE 63; RESP 20; TEMP 97.8; O2SAT 97
[2017-02-24] MEDS ORDERED: SODIUM CHLORIDE 0.9% 1000 ML IV SCH (08:30)
[2017-02-24] MEDS ORDERED: MIDAZOLAM HCL 2 MG/2 ML VIAL ONE (09:31)
--- NOTE | 2017-02-24 09:57 | PD.RAD ---
Post Procedure Progress Note Pre Procedure Diagnosis: (1) Malfunctioning jejunostomy tube (2) Subglottic stenosis Post Procedure Diagnosis: (1) Subglottic stenosis (2) Malfunctioning jejunostomy tube Procedure Date: Feb 24, 2017 Supervising Radiologist: Andres Clark Estimated blood loss: none Anesthesia: Local, Conscious Sedation Plan of Activity Patient to Unit: ROPU Patient Condition: Good Additional Comments: Transgastric J tube exchange for a new CEE J tube See PACS Report for procedural detail/treatment Andres Clark MD Feb 24, 2017 09:57
[2017-02-24 10:05] VITALS: BP 198/107; PULSE 69; RESP 20; TEMP 97.8; O2SAT 93
[2017-02-24 10:20] VITALS: BP 160/92; PULSE 60; RESP 20; O2SAT 95
[2017-02-24 10:50] VITALS: BP 140/84; PULSE 62; RESP 20; O2SAT 95
[2017-02-24 11:20] VITALS: BP 98/56; PULSE 58; RESP 20; O2SAT 96
[2017-02-24 11:50] VITALS: BP 112/69; PULSE 62; RESP 20; O2SAT 96
--- NOTE | 2017-02-24 14:12 | RADRPT ---
EXAM DATE/TIME: 02/24/2017 08:39 [facility] COMPARISON: CHANGE OF GJ-TUBE CATHETER, January 12, 2017, 10:44. INDICATIONS : Patient with history of throat cancer and dysphagia.Needs GJ tube exchanged. MEDICAL HISTORY : 1. 1. Throat cancer 2. tongue ,lymph node facial cancer 3. HTN 4. CO 5. Gerd 6. kidney stones 7. UTI 8. Aspiration pneumonia SURGICAL HISTORY : 1. CABG x5 2. GJ tube 3. Radiation tongue$. appendectomy 4. rotator cuff repair ENCOUNTER: Initial ACUITY: >1 year PAIN SCORE: 0/10 FLUORO TIME: 2.3 minutes IMAGE SERIES: 2 SEDATION TIME: 20 minutes CONTRAST: 20 cc Omnipaque (iohexol) 350 MEDICATION(S): 1.) 2 mg midazolam (Versed) IV 2.) 100 mcg Fentanyl (Sublimaze) IV DEVICE(S): 1.) 22 [place]er marquis -wu low profile GJ PROCEDURE : 1. Fluoroscopically guided gastrojejunostomy tube exchange. 2. Conscious sedation with continuous EKG and oximetry monitoring. The risks, benefits and alternatives to the procedure were explained and verbal and written consent w as obtained. The site was prepped in sterile fashion. Full sterile technique was used, including ca p, mask, sterile gloves and gown and a large sterile sheet. Hand hygiene and 2% chlorhexidine and/or betadine/alcohol prep was utilized per protocol for cutaneous antisepsis. The skin and subcutaneous tissues were infiltrated with local anesthetic solution. With fluoroscopic guidance a guidewire was passed through the previous gastrojejunostomy tube and a 2 2 [place] MARQUIS J-tube was advanced over the wire position without difficulty. The balloon was inflated with appropriate volume of saline. Injection of positive contrast demonstrates good position of the gastric and jejunal lumens of the tube. Conscious sedation was performed with the prescribed dosages and duration as above in the presence of an independent trained radiology nurse to assist in the monitoring of the patient. EKG and oximetry remained stable throughout the procedure. The patient tolerated the procedure well and there were n o complications. The patient was sent to post anesthesia recovery in stable condition. CONCLUSION: Uncomplicated gastrojejunostomy tube exchange as above. A low profile MARQUIS J-tube was placed. Andres Clark MD on February 24, 2017 at 14:09 Board Certified Radiologist. This report was verified electronically.
== END 2017-02-24 12:25 | disposition home or self-care (01) ==
LOC: HRIP 07:49 → HROP 07:49
PROVIDERS: ATTEND Internal Medicine Gastroenterology
DX: K94.23 Gastrostomy malfunction (principal); R13.10 Dysphagia, unspecified; J38.6 Stenosis of larynx; K21.9 Gastro-esophageal reflux disease without esophagitis; I10 Essential (primary) hypertension; Z85.819 Personal history of malignant neoplasm of unspecified site of lip, oral cavity, and pharynx
CPT/HCPCS: 49452; 77002; 99152; 99153; C1769; C1874; J2250; J3010; J7030; Q9967

== ENCOUNTER 2017-03-13 06:38 | Day surgery (SDC) | payer MEDICARE, OTHER ==
[~2017-03-13] VITALS: Ht 172.7 cm; Wt 68.2 kg
[2017-03-13 06:55] VITALS: BP 120/74; PULSE 63; RESP 20; TEMP 97.8; O2SAT 96
[2017-03-13 10:30] VITALS: BP 129/81; PULSE 61; RESP 20; TEMP 98; O2SAT 93
--- NOTE | 2017-03-13 10:33 | PD.RAD ---
Post Procedure Progress Note Pre Procedure Diagnosis: (1) Esophageal stricture (2) Malfunctioning jejunostomy tube Post Procedure Diagnosis: (1) Malfunctioning jejunostomy tube (2) History of esophageal cancer Procedure Date: Mar 13, 2017 Supervising Radiologist: Andres Clark Anesthesia: Local Plan of Activity Patient to Unit: ROPU Patient Condition: Good Additional Comments: G tube exchanged without difficulty New tube in good position OK for use. See PACS Report for procedural detail/treatment Andres Clark MD Mar 13, 2017 10:33
[2017-03-13 10:46] VITALS: BP 127/80; PULSE 64; RESP 18; O2SAT 94
--- NOTE | 2017-03-13 11:23 | RADRPT ---
EXAM DATE/TIME: 03/13/2017 10:44 [facility] COMPARISON: CHANGE OF GJ-TUBE CATHETER, February 24, 2017, 8:39. INDICATIONS : Patient with history of throat cancer in need of Gastrojejunostomy tube exchage. MEDICAL HISTORY : [place], HTN, HLD, Kidney stones, PTSD, CAD, GERD, Radiation and chemotherapy SURGICAL HISTORY : CABGX5, Esophageal dilitation, PEG tube placement, Cardiac cath, Right endarterectomy ENCOUNTER: Subsequent ACUITY: >1 year PAIN SCORE: 0/10 FLUORO TIME: 9.7 minutes IMAGE SERIES: 3 CONTRAST: 30 cc DEVICE(S): 1.) 22 Japanese gastrojejunostomy tube PROCEDURE : 1. Fluoroscopically guided gastrojejunostomy tube exchange. 2. Conscious sedation with continuous EKG and oximetry monitoring. The risks, benefits and alternatives to the procedure were explained and verbal and written consent w as obtained. The site was prepped in sterile fashion. Full sterile technique was used, including ca p, mask, sterile gloves and gown and a large sterile sheet. Hand hygiene and 2% chlorhexidine and/or betadine/alcohol prep was utilized per protocol for cutaneous antisepsis. The skin and subcutaneous tissues were infiltrated with local anesthetic solution. 10 cc of viscous lidocaine was advanced through the tract. This was allowed to dwell than on the subc utaneous tissues. With fluoroscopic guidance a guidewire was passed through the previous gastrojejunostomy tube and a f resh tube was placed over the guidewire. The balloon was inflated with appropriate volume of saline. Injection of positive contrast demonstrates good position of the gastric and jejunal lumens of the tube. The patient tolerated the procedure well and there were no complications. The patient was sent to pos t anesthesia recovery in stable condition. CONCLUSION: Uncomplicated gastrojejunostomy tube exchange as above. Andres Clark MD on March 13, 2017 at 11:20 Board Certified Radiologist. This report was verified electronically.
== END 2017-03-13 11:08 | disposition home or self-care (01) ==
LOC: HROP 06:38 → HRIP 06:41 → HROP 11:08
PROVIDERS: ATTEND Internal Medicine Gastroenterology
DX: K94.13 Enterostomy malfunction (principal); K22.2 Esophageal obstruction; I25.10 Atherosclerotic heart disease of native coronary artery without angina pectoris; I10 Essential (primary) hypertension; F43.10 Post-traumatic stress disorder, unspecified; E78.5 Hyperlipidemia, unspecified; K21.9 Gastro-esophageal reflux disease without esophagitis; Z85.01 Personal history of malignant neoplasm of esophagus
CPT/HCPCS: 49452; C1769

== ENCOUNTER 2017-03-25 11:50 | Inpatient (IN) | payer MEDICARE, OTHER ==
[2017-03-25] VITALS (10 sets, daily range): BP systolic 69–111; BP diastolic 51–72; PULSE 80–106; RESP 16–18; TEMP 98.2–100; O2SAT 90–98
[~2017-03-25] VITALS: Ht 172.7 cm; Wt 73.4 kg
--- NOTE | 2017-03-25 12:53 | RADRPT ---
EXAM DATE/TIME: 03/25/2017 12:25 [facility] COMPARISON: ABDOMEN SINGLE VIEW, December 28, 2016, 14:23. CHANGE OF GJ-TUBE CATHETER, [place] 2016, 10:44. CT ABDOMEN & PELVIS W/O CONTRAST, December 28, 2016, 15:36. CHEST PA & LAT, July 11, 2016, 19:15. INDICATIONS : Short of breath, fever, back pain. Patient states he had a barium swallow yesterday @ [facility]. MEDICAL HISTORY : [place], HTN, HLD, Kidney stones, PTSD, CAD, GERD, Radiation and chemotherapy . SURGICAL HISTORY : CABGX5, Esophageal dilitation, PEG tube placement, Cardiac cath, Right enda rterectomy ENCOUNTER: Initial ACUITY: 2 days PAIN SCORE: 6/10 LOCATION: chest FINDINGS: Stable median sternotomy wires and postsurgical features of prior cardiac surgery. Right perihilar in terstitial and alveolar opacities. Cardiac silhouette is within normal limits. There is a gastrojejun ostomy catheter in place. This appears to be partially retracted into the stomach with gastrostomy ca theter tip likely in the second portion of the duodenum. Remainder of exam is unchanged. CONCLUSION: 1. Right perihilar interstitial and alveolar opacities concerning for pneumonia versus aspiration. 2. Gastrojejunostomy catheter is partially retracted and coiled in the stomach with tip likely in the second portion of the duodenum. Eduardo Briggs MD on March 25, 2017 at 12:46 Board Certified Radiologist. This report was verified electronically.
[2017-03-25] MEDS ORDERED: SODIUM CHLOR 0.9% 1000 ML INJ 1,000 ML IV ONE (13:00)
[2017-03-25] MEDS ORDERED: CEFEPIME INJ 1,000 MG in SODIUM CHLORIDE 0.9% INJ 100 ML IV ONE (13:00)
[2017-03-25] MEDS ORDERED: AZITHROMYCIN INJ 500 MG in SODIUM CHLOR 0.9% 250 ML INJ 250 ML IV ONE (13:00)
[2017-03-25] MEDS ORDERED: metroNIDAZOLE 500 MG INJ 100 ML IV ONE (13:00)
[2017-03-25 13:10] LABS: AUTOMATED NEUTROPHIL # 12.3 TH/MM3 (1.8-7.7); BASOPHIL # 0.2 TH/MM3 (0-0.2); BASOPHIL % 1.5 % (0.0-2.0); EOSINOPHIL % 0.2 % (0.0-4.0); HEMOGLOBIN 15.2 GM/DL (13.0-17.0); LYMPH % 2.9 % (9.0-44.0); LYMPHOCYTE # 0.4 TH/MM3 (1.0-4.8); MEAN CELL VOLUME 91.2 FL (80.0-100.0); MEAN CORPUSCULAR HEMOGLOBIN 30.1 PG (27.0-34.0); MONO % 3.3 % (0.0-8.0); MONOCYTE # 0.4 TH/MM3 (0-0.9); NEUT % 92.1 % (16.0-70.0); PLATELET COUNT 177 TH/MM3 (150-450); RED BLOOD COUNT 5.04 MIL/MM3 (4.50-5.90); WHITE BLOOD COUNT 13.3 TH/MM3 (4.0-11.0)
[2017-03-25 13:21] LABS: BICARBONATE 31.8 MEQ/L (21.0-32.0); CALCIUM 8.8 MG/DL (8.5-10.1)
[2017-03-25 13:25] LABS: CREATININE 1.1 MG/DL (0.60-1.30)
--- NOTE | 2017-03-25 13:38 | PD ---
HPI Chief Complaint: Respiratory Symptoms Time Seen by Provider: 12:35 Travel History International Travel<30 days: No Contact w/Intl Traveler<30days: No Traveled to known affect area: No History of Present Illness HPI Patient is a 71 year old male who comes in complaining of pain to the right side of his back with coughing, hemoptysis, and rigors. He says he is concerned he has aspiration pneumonia. 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 He is on tube feeds, but says whenever he has a barium study, he aspirates. He has a study done yesterday and his symptoms started this morning. He says these are the same symptoms he has each time he has an aspiration pneumonia. He has not had fevers, only chills. He did not take anything for his symptoms at home. He says he noticed his pulse ox was low when he checked it at home, in the 80s. 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, FACIAL CANCERS) Cardiac Catheterization: Yes Cardiovascular Problems: Yes ([place], HTN, 5 VESSEL BYPASS) High Cholesterol: Yes Chemotherapy: Yes Chest Pain: Yes (HX) Congestive Heart Failure: No Cerebrovascular Accident: No Coronary Artery Disease: Yes Diabetes: No Diminished Hearing: No Endocrine: Yes Gastrointestinal Disorders: Yes (ESOPHAGEAL DILITATIONS,REFLUX FROM RADIATION, peg tube) GERD: Yes Glaucoma: No Genitourinary: Yes Headaches: No Hepatitis: No Hiatal Hernia: No Heparin Induced Thrombocytopen: No Hypertension: Yes Immune Disorder: No Implanted Vascular Access Dvce: Yes Kidney Stones: Yes Musculoskeletal: Yes (RETICULOPATHY) Neurologic: Yes (damaged cranial nerves) Psychiatric: No Reproductive: No Respiratory: Yes (HX ASPIRATION PNEUMONIA MULTIPLE TIMES) Immunizations Current: Yes Myocardial Infarction: No Radiation Therapy: Yes (2006) Renal Failure: No Seizures: No Sickle Cell Disease: No Thyroid 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) Ulcer: No Past Surgical History Abdominal Surgery: Yes (APPENDECTOMY, G/J TUBE) AICD: No Appendectomy: Yes Arteriovenous Shunt: No Body Medical Devices: G/J TUBE Cardiac Surgery: Yes (CABG X5) Coronary Artery Bypass Graft: Yes Ear Surgery: No Endocrine Surgery: No Eye Surgery: No Genitourinary Surgery: No Gynecologic Surgery: No Insulin Pump: No Joint Replacement: No Neurologic Surgery: Yes (CEA) Oral Surgery: No Pacemaker: No Thoracic Surgery: No Other Surgery: Yes (MODIFIED RADICAL NECK DISECTION S/P TONGUE CA) Family History Family Hypercholesterolemia: Yes Social History Alcohol Use: No Tobacco Use: No Substance Use: No Allergies-Medications (Allergen,Severity, Reaction): Coded Allergies: tetanus toxoid, adsorbed (Verified Allergy, Severe, SHOCK, 03/25/17) Uncoded Allergies: must use pediartric 6 if itubated due to radiated tounge (Adverse Reaction , Unknown, 07/12/16) if intubated must us pediatric 6 due to radiated tounge (cancer) Reported Meds & Prescriptions Reported Meds & Active Scripts Active Reported Vitamin D3 (Cholecalciferol) 1,000 Unit Tab 1,000 Units PO DAILY Metoprolol Tartrate 100 Mg Tab 100 Mg PO BID Atorvastatin (Atorvastatin Calcium) 20 Mg Tab 40 Mg G-TUBE HS Mag-Delay (Magnesium Chloride) 64 Mg Tab Unknown Dose PO DAILY Calcium Carbonate 1,250 Mg Tab 1,250 Mg PO DAILY 1,250 mg calcium carbonate (500 mg elemental calcium) Omeprazole 20 Mg Tab 20 Mg PO DAILY Aspirin 81 Mg Chew 81 Mg CHEW DAILY Klonopin (Clonazepam) 1 Mg Tab 1 Mg PO HS Neurontin (Gabapentin) 300 Mg Cap 300 Mg PO TID Synthroid (Levothyroxine Sodium) 100 Mcg Tab 100 Mcg PO DAILY Review of Systems Except as stated in HPI: all other systems reviewed are Neg General / Constitutional: Positive: Chills, No: Fever HENT: No: Headaches, Lightheadedness Cardiovascular: No: Chest Pain or Discomfort Respiratory: Positive: Cough, Shortness of Breath Gastrointestinal: No: Nausea, Vomiting Genitourinary: No: Dysuria Musculoskeletal: No: Myalgias, Edema Skin: No Rash, No Change in Pigmentation Neurologic: No: Weakness, Dizziness Physical Exam Narrative GENERAL: Awake and alert, in no acute distress. SKIN: Focused skin assessment warm/dry. HEAD: Atraumatic. Normocephalic. EYES: Pupils equal and round. No scleral icterus. ENT: Mucous membranes pink and moist. NECK: Trachea midline. No JVD. CARDIOVASCULAR: Regular rate and rhythm. No murmur appreciated. RESPIRATORY: No accessory muscle use. Crackles in the RLL. Breath sounds equal bilaterally. GASTROINTESTINAL: Abdomen soft, non-tender, nondistended. MUSCULOSKELETAL: No obvious deformities. No clubbing. No cyanosis. No edema. NEUROLOGICAL: Awake and alert. No obvious cranial nerve deficits. Motor grossly within normal limits. Normal speech. PSYCHIATRIC: Appropriate mood and affect; insight and judgment normal. Data Data Last Documented VS Vital Signs Date Time Temp Pulse Resp B/P (MAP) Pulse Ox O2 Delivery O2 Flow Rate FiO2 03/25/17 13:18 100.0 92 18 111/56 (74) 95 Nasal Cannula 2.00 Orders Orders Complete Blood Count With Diff (03/25/17 12:12) Basic Metabolic Panel (Bmp) (03/25/17 12:12) Chest, Pa & Lat (03/25/17 12:12) Blood Culture (03/25/17 12:12) Iv Access Insert/Monitor (03/25/17 12:12) Ecg Monitoring (03/25/17 12:12) Oxygen Administration (03/25/17 12:12) Oximetry (03/25/17 12:12) Electrocardiogram (03/25/17 12:12) Troponin I (03/25/17 12:35) Sodium Chlor 0.9% 1000 Ml Inj (Ns 1000 M (03/25/17 13:00) Lactic Acid (03/25/17 12:57) Cefepime Inj (Maxipime Inj) (03/25/17 13:00) Azithromycin Inj (Zithromax Inj) (03/25/17 13:00) Admit Order (Ed Use Only) (03/25/17 ) Labs Laboratory Tests Test 03/25/17 12:55 03/25/17 13:00 White Blood Count 13.3 TH/MM3 Red Blood Count 5.04 MIL/MM3 Hemoglobin 15.2 GM/DL Hematocrit 46.0 % Mean Corpuscular Volume 91.2 FL Mean Corpuscular Hemoglobin 30.1 PG Mean Corpuscular Hemoglobin Concent 33.0 % Red Cell Distribution Width 12.0 % Platelet Count 177 TH/MM3 Mean Platelet Volume 9.0 FL Neutrophils (%) (Auto) 92.1 % Lymphocytes (%) (Auto) 2.9 % Monocytes (%) (Auto) 3.3 % Eosinophils (%) (Auto) 0.2 % Basophils (%) (Auto) 1.5 % Neutrophils # (Auto) 12.3 TH/MM3 Lymphocytes # (Auto) 0.4 TH/MM3 Monocytes # (Auto) 0.4 TH/MM3 Eosinophils # (Auto) 0.0 TH/MM3 Basophils # (Auto) 0.2 TH/MM3 CBC Comment DIFF FINAL Differential Comment Blood Urea Nitrogen 25 MG/DL Creatinine 1.10 MG/DL Random Glucose 112 MG/DL Calcium Level 8.8 MG/DL Sodium Level 142 MEQ/L Potassium Level 4.2 MEQ/L Chloride Level 104 MEQ/L Carbon Dioxide Level 31.8 MEQ/L Anion Gap 6 MEQ/L Estimat Glomerular Filtration Rate 66 ML/MIN Troponin I LESS THAN 0.02 NG/ML Lactic Acid Level 2.6 mmol/L MDM Medical Decision Making Medical Screen Exam Complete: Yes Emergency Medical Condition: Yes Medical Record Reviewed: Yes Interpretation(s) ECG shows NSR at 99, no ST elevation or depression, normal intervals. Differential Diagnosis Pneumonia versus dehydration versus sepsis Narrative Course Patient is a 71-year-old male comes in because he is concerned she aspirated. IV established, labs sent. Labs showed elevated white blood count to 13.3 as well as an elevated lactic acid at 2.6. Chest x-ray shows aspiration pneumonia. Patient given IV fluids, cefepime, azithromycin, Flagyl. He will be admitted for further management. Diagnosis Primary Impression: Aspiration pneumonia Qualified Codes: J69.0 - Pneumonitis due to inhalation of food and vomit Additional Impression: Sepsis Qualified Codes: A41.9 - Sepsis, unspecified organism Admitting Information Admitting Physician Requests: Admit Alondra Timmons MD Mar 25, 2017 13:38
[2017-03-25] MEDS ORDERED: LACTULOSE SYRUP 20 GM/30 ML CUP PO PRN (13:45)
[2017-03-25] MEDS ORDERED: NALOXONE HCL 0.4 MG/ML AMP IV PUSH PRN (13:45)
[2017-03-25] MEDS ORDERED: BISACODYL 10 MG SUPP RECTAL PRN (13:45)
[2017-03-25] MEDS ORDERED: SODIUM CHLORIDE 0.9% FLUSH 10 ML FLUSH IV FLUSH PRN (13:45)
[2017-03-25] MEDS ORDERED: MAGNESIUM HYDROXIDE SUSP 30 ML CUP PO PRN (13:45)
[2017-03-25] MEDS ORDERED: SENNOSIDES 8.6 MG TAB PO PRN (13:45)
[2017-03-25] MEDS ORDERED: ONDANSETRON HCL 4 MG/2 ML VIAL IVP PRN (13:45)
[2017-03-25] MEDS ORDERED: metroNIDAZOLE 500 MG INJ 100 ML IV SCH (14:00)
[2017-03-25] MEDS: metroNIDAZOLE 500 MG INJ 100 ML IV SCH (15:58)
[2017-03-25] MEDS: ENOXAPARIN SODIUM 40 MG/0.4 ML SYRINGE SQ SCH (15:58)
[2017-03-25] MEDS: SODIUM CHLOR 0.9% 1000 ML INJ 1,000 ML IV SCH ×2 (16:04→21:30)
--- NOTE | 2017-03-25 17:22 | HHI.HP ---
[facility] Sally Vasquez MD Admission Diagnosis Aspiration pneumonia Diagnoses: Chief Complaint: Cough Aspiration Travel History International Travel<30 Days: No Contact w/Intl Traveler <30 Da: No Traveled to Known Affected Are: No Sepsis Criteria SIRS Criteria (2 or more): Heart rate over 90, WBC > 22976, < 4000 or > 10% bands Sepsis Criteria (SIRS+source): Infect source susp/known Severe Sepsis (+one): Lactate >2 Criteria Outcome: Meets sepsis criteria History of Present Illness Written by Alondra Saxena, acting as scribe for Dr. Orellana on 03/25/17 at 17:11. Mr. Rodriguez is a 71-year-old male patient with a known medical history of facial cancer, CAD with VA, HTN, and CABG and GERD who presented to the ED with complaints of aspiration. He states that he was undergoing a swallow study in the outpatient setting with presence of aspiration. Does admit to subjective fevers and chills. Does complain of a chronic cough in order to clear his throat due to chronic dysphagia. Has been positive for hemoptysis x several days with presence of diane red blood. Patient initially noticed this at 0300 and has continued presently. Does admit to previous wheezing. Denies any chest pain. Denies any nausea, vomiting or abnormal stools. Dr. Peguero is his oncologist, last seen 5 months ago. 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 Hyperlipidemia Esophageal dilatation, GERD Radiculopathy Past Surgical History Modified radical neck dissection Right endarterectomy CABG x 5 vessel bypass Appendectomy G/J tube placement Reported Medications Active Reported Vitamin D3 (Cholecalciferol) 1,000 Unit Tab 1,000 Units PO DAILY Metoprolol Tartrate 100 Mg Tab 100 Mg PO BID Atorvastatin (Atorvastatin Calcium) 20 Mg Tab 40 Mg G-TUBE HS Mag-Delay (Magnesium Chloride) 64 Mg Tab Unknown Dose PO DAILY Calcium Carbonate 1,250 Mg Tab 1,250 Mg PO DAILY 1,250 mg calcium carbonate (500 mg elemental calcium) Omeprazole 20 Mg Tab 20 Mg PO DAILY Aspirin 81 Mg Chew 81 Mg CHEW DAILY Klonopin (Clonazepam) 1 Mg Tab 1 Mg PO HS Neurontin (Gabapentin) 300 Mg Cap 300 Mg PO TID Synthroid (Levothyroxine Sodium) 100 Mcg Tab 100 Mcg PO DAILY Allergies: Coded Allergies: tetanus toxoid, adsorbed (Verified Allergy, Severe, SHOCK, 03/25/17) Uncoded Allergies: must use pediartric 6 if itubated due to radiated tounge (Adverse Reaction , Unknown, 07/12/16) if intubated must us pediatric 6 due to radiated tounge (cancer) Active Ordered Medications Current Medications Medications (Trade) Dose Ordered Sig/Edson Route Start Time Stop Time Status Last Admin Sodium Chloride 1,000 ml @ 70 mls/hr [id number] IV 03/25/17 13:45 03/25/17 16:04 (NS Flush) 2 ml UNSCH PRN IV FLUSH 03/25/17 13:45 (NS Flush) 2 ml BID IV FLUSH 03/25/17 21:00 (Tylenol) 650 mg Q4H PRN PO 03/25/17 13:45 (Zofran Inj) 4 mg Q6H PRN IVP 03/25/17 13:45 (Lovenox Inj) 40 mg Q24H SQ 03/25/17 15:00 03/25/17 15:58 (Narcan Inj) 0.4 mg UNSCH PRN IV PUSH 03/25/17 13:45 (Suzanne-Colace) 1 tab BID PO 03/25/17 21:00 (Milk Of Magnesia Liq) 30 ml Q12H PRN PO 03/25/17 13:45 (Senokot) 17.2 mg Q12H PRN PO 03/25/17 13:45 (Dulcolax Supp) 10 mg DAILY PRN RECTAL 03/25/17 13:45 (Lactulose Liq) 30 ml DAILY PRN PO 03/25/17 13:45 (Aspirin Chew) 81 mg DAILY CHEW 03/26/17 09:00 (Lipitor) 40 mg HS G-TUBE 03/25/17 21:00 (Oscal) 1,250 mg DAILY PO 03/26/17 09:00 (Vitamin D3) 1,000 units DAILY PO 03/26/17 09:00 (KlonoPIN) 1 mg HS PO 03/25/17 21:00 (Neurontin) 300 mg TID PO 03/25/17 18:00 (Synthroid) 100 mcg DAILY@0600 PO 03/26/17 06:00 (Lopressor) 100 mg BID PO 03/25/17 21:00 (Protonix) 20 mg DAILY PO 03/26/17 09:00 Cefepime HCl 2000 mg/Sodium Chloride 100 ml @ 200 mls/hr Q12H IV 03/25/17 23:00 Azithromycin 500 mg/Sodium Chloride 250 ml @ 250 mls/hr Q24H IV 03/26/17 15:00 Metronidazole 100 ml @ 100 mls/hr DAILY@0000,0800,1600 IV 03/25/17 16:00 03/25/17 15:58 (Magic Mouthwash Adult Liq) 10 ml BID SWISH-SWAL 03/25/17 21:00 Family History Paternal family medical history significant for CAD. Social History Denies any tobacco use. Admits to rare alcohol use. Denies any illicit drug use. Physical Exam Vital Signs Vital Signs Date Time Temp Pulse Resp B/P (MAP) Pulse Ox O2 Delivery O2 Flow Rate FiO2 03/25/17 15:40 92 Nasal Cannula 2.00 03/25/17 14:39 98 18 92/55 (67) 95 Nasal Cannula 2.00 03/25/17 13:18 100.0 92 18 111/56 (74) 95 Nasal Cannula 2.00 03/25/17 13:02 93 18 70/53 (59) 96 Nasal Cannula 2.00 03/25/17 12:50 96 18 69/51 (57) 96 Room Air 03/25/17 12:26 96 Nasal Cannula 2.00 03/25/17 12:23 95 Nasal Cannula 2.00 03/25/17 12:23 95 Nasal Cannula 2.00 03/25/17 12:05 91 Nasal Cannula 2.00 03/25/17 12:00 99.4 106 18 111/72 (85) 90 Physical Exam GENERAL: This is a well-nourished, well-developed patient, lying in bed in no apparent distress. SKIN: No rashes, ecchymoses or lesions. Warm and dry. HEAD: Atraumatic. Normocephalic. EYES: Pupils equal round and reactive. Extraocular motions intact. No scleral icterus. No injection or drainage. ENT: Nose without bleeding, purulent drainage or septal hematoma. Throat without erythema, tonsillar hypertrophy or exudate. Uvula midline. Airway patent. NECK: Trachea midline. No JVD. Supple. CARDIOVASCULAR: Regular rate and rhythm without murmurs, gallops, or rubs. RESPIRATORY: Bronchial sounds more severe on right lower lobes but noticed throughout posterior lobe neri. Clear to auscultation. Breath sounds equal bilaterally. No wheezes, rales, or rhonchi. GASTROINTESTINAL: Left UQ G/J tube present. Abdomen soft, non-tender, nondistended. No guarding. MUSCULOSKELETAL: Extremities without clubbing, cyanosis, or edema. No joint tenderness, effusion, or edema noted. NEUROLOGICAL: Awake and alert. Cranial nerves II through XII intact. Motor and sensory grossly within normal limits. Five out of 5 muscle strength in all muscle groups. Normal speech. Laboratory Laboratory Tests Test 03/25/17 12:55 03/25/17 13:00 White Blood Count 13.3 Red Blood Count 5.04 Hemoglobin 15.2 Hematocrit 46.0 Mean Corpuscular Volume 91.2 Mean Corpuscular Hemoglobin 30.1 Mean Corpuscular Hemoglobin Concent 33.0 Red Cell Distribution Width 12.0 Platelet Count 177 Mean Platelet Volume 9.0 Neutrophils (%) (Auto) 92.1 Lymphocytes (%) (Auto) 2.9 Monocytes (%) (Auto) 3.3 Eosinophils (%) (Auto) 0.2 Basophils (%) (Auto) 1.5 Neutrophils # (Auto) 12.3 Lymphocytes # (Auto) 0.4 Monocytes # (Auto) 0.4 Eosinophils # (Auto) 0.0 Basophils # (Auto) 0.2 CBC Comment DIFF FINAL Differential Comment Blood Urea Nitrogen 25 Creatinine 1.10 Random Glucose 112 Calcium Level 8.8 Sodium Level 142 Potassium Level 4.2 Chloride Level 104 Carbon Dioxide Level 31.8 Anion Gap 6 Estimat Glomerular Filtration Rate 66 Troponin I LESS THAN 0.02 Lactic Acid Level 2.6 Date/Time Source Procedure Growth Status 03/25/17 13:00 Blood Peripheral Aerobic Blood Culture Pending Received 03/25/17 13:00 Blood Peripheral Anaerobic Blood Culture Pending Received Result Diagram: 03/25/17 1255 03/25/17 1255 Imaging Last Impressions Chest X-Ray 03/25/17 1212 Signed Impressions: Service Date/Time: Saturday, March 25, 2017 12:25 - CONCLUSION: 1. Right perihilar interstitial and alveolar opacities concerning for pneumonia versus aspiration. 2. Gastrojejunostomy catheter is partially retracted and coiled in the stomach with tip likely in the second portion of the duodenum. Eduardo Briggs MD Septic Shock Reassessment Septic shock perfusion: reassessment completed Caprini VTE Risk Assessment Caprini VTE Risk Assessment: Mod/High Risk (score >= 2) Caprini Risk Assessment Model Point Value = 1 Point Value = 2 Point Value = 3 Point Value = 5 Age 41-60 Minor surgery BMI > 25 kg/m2 Swollen legs Varicose veins or History of unexplained or recurrent spontaneous Oral contraceptives or hormone replacement Sepsis (< 1 month) Serious lung disease, including pneumonia (< 1 month) Abnormal pulmonary function Acute myocardial infarction Congestive heart failure (< 1 month) History of inflammatory bowel disease Medical patient at bed rest Age 61-74 Arthroscopic surgery Major open surgery (> 45 min) Laparoscopic surgery (> 45 min) Malignancy Confined to bed (> 72 hours) Immobilizing plaster cast Central venous access Age >= 75 History of VTE Family history of VTE Factor V Leiden Prothrombin [id number] Lupus anticoagulant Anticardiolipin antibodies Elevated serum homocysteine Heparin-induced thrombocytopenia Other congenital or acquired thrombophilia Stroke (< 1 month) Elective arthroplasty Hip, pelvis, or leg fracture Acute spinal cord injury (< 1 month) Prophylaxis Regimen Total Risk Factor Score Risk Level Prophylaxis Regimen 0-1 Low Early ambulation 2 Moderate Order ONE of the following: *Sequential Compression Device (SCD) *Heparin 5000 units SQ BID 3-4 Higher Order ONE of the following medications: *Heparin 5000 units SQ TID *Enoxaparin/Lovenox 40 mg SQ daily (WT < 150 kg, CrCl > 30 mL/min) *Enoxaparin/Lovenox 30 mg SQ daily (WT < 150 kg, CrCl > 10-29 mL/min) *Enoxaparin/Lovenox 30 mg SQ BID (WT < 150 kg, CrCl > 30 mL/min) AND/OR *Sequential Compression Device (SCD) 5 or more Highest Order ONE of the following medications: *Heparin 5000 units SQ TID (Preferred with Epidurals) *Enoxaparin/Lovenox 40 mg SQ daily (WT < 150 kg, CrCl > 30 mL/min) *Enoxaparin/Lovenox 30 mg SQ daily (WT < 150 kg, CrCl > 10-29 mL/min) *Enoxaparin/Lovenox 30 mg SQ BID (WT < 150 kg, CrCl > 30 mL/min) AND *Sequential Compression Device (SCD) Assessment and Plan Problem List: (1) Sepsis ICD Code: A41.9 - Sepsis Status: Acute (2) Aspiration pneumonia ICD Code: J69.0 - Aspiration pneumonia Status: Acute Assessment and Plan Mr. Rodriguez is a 71-year-old male patient with a known medical history of facial cancer, CAD with VA, HTN, and CABG and GERD who presented to the ED with complaints of aspiration and cough. Aspiration pneumonia secondary to facial cancer with chronic dysphagia and presence of nonproductive cough Meets sepsis criteria (leukocytosis WBC 13.3 with mild bandemia, lactic acid 2.6 , tachycardia) CXR reviewed showing right perihilar interstitial and alveolar opacities concerning for pneumonia vs aspiration. TMAX 100.0. WBC 13.3. Follow CBC in am. Status post 1 L NS bolus in ED. Ensure hydration NS @ 70ml/hr. Continue IV Cefepime and Azithromycin and Flagyl IV. Control nausea, Zofran available PRN. Blood cultures obtained and pending. Follow. Supportive care. Supplemental O2 to keep sats >92%. Magic mouthwash ordered. Continue on cardiac telemetry, monitor for any arrhythmias. Consult placed to ID for severe sepsis, aspiration PNA in cancer patient. Appreciate further input and recommendations. Hyperlipidemia, chronic: Continue home Atorvastatin. CAD with history of VA and CABG Continue Aspirin. Continue home metoprolol. Cardiac tele for now. Hypothyroidism: Continue home Levothyroxine. GI Prophylaxis: Protonix. DVT prophylaxis: SCDs. Lovenox. This note was transcribed by TYESHA Lewis. I, Dr. Maggie Orellana personally performed the history, physical exam, and medical decision making; and confirmed the accuracy of the information in the transcribed note. Authenticated by Dr. Maggie Orellana on 03/25/17 at 17:11. Physician Certification 2 Midnight Certification Type: Admission for Inpatient Services Order for Inpatient Services The services are ordered in accordance with Medicare regulations or non- Medicare payer requirements, as applicable. In the case of services not specified as inpatient-only, they are appropriately provided as inpatient services in accordance with the 2-midnight benchmark. Estimated LOS (days): 2 2 days is the estimated time the patient will need to remain in the hospital, assuming treatment plan goals are met and no additional complications. Post-Hospital Plan: Home Problem Qualifiers (1) Sepsis: Qualified Codes: A41.9 - Sepsis, unspecified organism (2) Aspiration pneumonia: Qualified Codes: J69.0 - Pneumonitis due to inhalation of food and vomit Alondra Saxena Mar 25, 2017 17:22 Maggie Orellana MD Mar 25, 2017 18:33
[2017-03-25] MEDS: GABAPENTIN 300 MG CAP PO SCH (18:00)
[2017-03-25] MEDS: RESP: ALBUTEROL 2.5 MG/IPRATROPIUM 0.5 MG NEB (SCH) NEB (19:36)
[2017-03-25] MEDS: DOCUSATE SODIUM 50 MG/SENNA 8.6 MG TAB PO SCH ×2 (21:00→21:22)
[2017-03-25] MEDS: NYSTAT/DIPHENHY/LIDO MOUTHWASH (Adult) 120ML SWISH-SWAL SCH (21:21)
[2017-03-25] MEDS: clonazePAM 1 MG TAB PO SCH (21:22)
[2017-03-25] MEDS: ATORVASTATIN 40 MG TAB G-TUBE SCH (21:22)
[2017-03-25] MEDS: METOPROLOL TARTRATE 100 MG TAB PO SCH (21:22)
[2017-03-25] MEDS: SODIUM CHLORIDE 0.9% FLUSH 10 ML FLUSH IV FLUSH SCH (21:23)
[2017-03-25] MEDS: CEFEPIME INJ 2,000 MG in SODIUM CHLORIDE 0.9% INJ 100 ML IV SCH (23:25)
[2017-03-26] VITALS (9 sets, daily range): BP systolic 80–132; BP diastolic 48–73; PULSE 62–78; RESP 16–18; TEMP 97.3–99.2; O2SAT 94–99
[2017-03-26] MEDS: metroNIDAZOLE 500 MG INJ 100 ML IV SCH ×4 (00:18→23:45)
[2017-03-26] MEDS: RESP: ALBUTEROL 2.5 MG/IPRATROPIUM 0.5 MG NEB (PRN) NEB ×2 (00:21→23:38)
[2017-03-26 05:37] LABS: AUTOMATED NEUTROPHIL # 20.3 TH/MM3 (1.8-7.7); BASOPHIL % 0.1 % (0.0-2.0); EOSINOPHIL # 0.2 TH/MM3 (0-0.4); EOSINOPHIL % 0.7 % (0.0-4.0); HEMATOCRIT 39.5 % (39.0-51.0); HEMOGLOBIN 12.9 GM/DL (13.0-17.0); LYMPH % 5.5 % (9.0-44.0); LYMPHOCYTE # 1.3 TH/MM3 (1.0-4.8); MEAN CELL VOLUME 93.2 FL (80.0-100.0); MEAN CORPUSCULAR HEMOGLOBIN 30.5 PG (27.0-34.0); MEAN CORPUSCULAR HGB CONC 32.7 % (32.0-36.0); MEAN PLATELET VOLUME 8.5 FL (7.0-11.0); MONO % 5.2 % (0.0-8.0); MONOCYTE # 1.2 TH/MM3 (0-0.9); NEUT % 88.5 % (16.0-70.0); PLATELET COUNT 145 TH/MM3 (150-450); RED BLOOD COUNT 4.23 MIL/MM3 (4.50-5.90)
[2017-03-26 05:53] LABS: BANDS 17 % (0-6); LYMPHOCYTES 6 % (9-44); MONOCYTES 4 % (0-8); NEUTROPHIL # MANUAL DIFF 20.7 TH/MM3 (1.8-7.7); POLYS (SEG NEUTROPHILS) 73 % (16-70)
[2017-03-26 05:54] LABS: CALCIUM 8.1 MG/DL (8.5-10.1)
[2017-03-26 05:55] LABS: BICARBONATE 32.5 MEQ/L (21.0-32.0)
[2017-03-26 05:58] LABS: CREATININE 0.8 MG/DL (0.60-1.30)
[2017-03-26] MEDS: LEVOTHYROXINE SODIUM 100 MCG TAB PO SCH (06:00)
[2017-03-26] MEDS: RESP: ALBUTEROL 2.5 MG/IPRATROPIUM 0.5 MG NEB (SCH) NEB ×2 (08:00→20:42)
--- NOTE | 2017-03-26 08:36 | HHI.PR ---
Subjective Remarks In the bed feels tired , still with cough with hemoptisis. no fever or chills. no n/vc. Has diarrhea. Objective Vitals Vital Signs Date Time Temp Pulse Resp B/P (MAP) Pulse Ox O2 Delivery O2 Flow Rate FiO2 03/26/17 08:07 98 Nasal Cannula 2.00 03/26/17 08:00 97.3 72 16 116/73 (87) 97 03/26/17 04:00 99.2 72 16 132/65 (87) 98 03/26/17 00:00 99.0 68 16 119/59 (79) 99 03/25/17 20:00 98.2 83 16 93/53 (66) 94 03/25/17 20:00 98.2 83 16 93/53 (66) 94 03/25/17 20:00 90 03/25/17 19:36 98 Nasal Cannula 2.00 03/25/17 16:00 99.2 80 18 70/58 (62) 95 03/25/17 15:40 92 Nasal Cannula 2.00 03/25/17 14:39 98 18 92/55 (67) 95 Nasal Cannula 2.00 03/25/17 13:18 100.0 92 18 111/56 (74) 95 Nasal Cannula 2.00 03/25/17 13:02 93 18 70/53 (59) 96 Nasal Cannula 2.00 03/25/17 12:50 96 18 69/51 (57) 96 Room Air 03/25/17 12:26 96 Nasal Cannula 2.00 03/25/17 12:23 95 Nasal Cannula 2.00 03/25/17 12:23 95 Nasal Cannula 2.00 03/25/17 12:05 91 Nasal Cannula 2.00 03/25/17 12:00 99.4 106 18 111/72 (85) 90 I/O 03/25/17 03/25/17 03/25/17 03/26/17 03/26/17 03/26/17 07:00 15:00 23:00 07:00 15:00 23:00 Intake Total 1173 ml 225 ml 1276 ml Output Total 250 ml Balance 1173 ml -25 ml 1276 ml Intake Oral 0 ml IV Total 1173 ml 100 ml 606 ml Tube Feeding 125 ml 550 ml Tube Irrigant 120 ml Output Urine Total 250 ml Stool Total 0 ml Result Diagram: 03/26/17 0457 03/26/17 0457 Imaging Last Impressions Chest X-Ray 03/25/17 1212 Signed Impressions: Service Date/Time: Saturday, March 25, 2017 12:25 - CONCLUSION: 1. Right perihilar interstitial and alveolar opacities concerning for pneumonia versus aspiration. 2. Gastrojejunostomy catheter is partially retracted and coiled in the stomach with tip likely in the second portion of the duodenum. Eduardo Briggs MD Objective Remarks GENERAL: This is a well-nourished, well-developed patient, lying in bed in no apparent distress. CARDIOVASCULAR: Regular rate and rhythm without murmurs, gallops, or rubs. RESPIRATORY: Bronchial sounds more severe on right lower lobes but noticed throughout posterior lobe neri. Clear to auscultation. Breath sounds equal bilaterally. No wheezes, rales, or rhonchi. GASTROINTESTINAL: Left UQ G/J tube present. Abdomen soft, non-tender, nondistended. No guarding. MUSCULOSKELETAL: Extremities without clubbing, cyanosis, or edema. No joint tenderness, effusion, or edema noted. NEUROLOGICAL: Awake and alert. Cranial nerves II through XII intact. Motor and sensory grossly within normal limits. Five out of 5 muscle strength in all muscle groups. Normal speech. A/P Problem List: (1) Sepsis ICD Code: A41.9 - Sepsis Status: Acute (2) Aspiration pneumonia ICD Code: J69.0 - Aspiration pneumonia Status: Acute Assessment and Plan Mr. Rodriguez is a 71-year-old male patient with a known medical history of facial cancer, CAD with DC, HTN, and CABG and GERD who presented to the ED with complaints of aspiration and cough. Aspiration pneumonia secondary to facial cancer with chronic dysphagia and presence of nonproductive cough Severe sepsis criteria (leukocytosis WBC 13.3 with mild bandemia, lactic acid 2.6, tachycardia) on admission. Worsening WBC and hypotensive today . Received bolus , monitor BP and administer bolus NS if low BP. Will check CXR reviewed showing right perihilar interstitial and alveolar opacities concerning for pneumonia vs aspiration. TMAX 100.0. WBC 13.3. Follow CBC in am. Status post 1 L NS bolus in ED. Ensure hydration NS @ 70ml/hr. Continue IV Cefepime and Azithromycin and Flagyl IV. Control nausea, Zofran available PRN. Blood cultures obtained and pending. Follow. Supportive care. Supplemental O2 to keep sats >92%. Magic mouthwash ordered. Continue on cardiac telemetry, monitor for any arrhythmias. Consult placed to ID for severe sepsis, aspiration PNA in cancer patient. Appreciate further input and recommendations. Hypotension noted SBP in low 80s. Give 1L NS. Continue IVF NS at 100 cc. Repeat BP after bolus of fluids, improved. Hyperlipidemia, chronic: Continue home Atorvastatin. CAD with history of DC and CABG Continue Aspirin. Continue home metoprolol. Cardiac tele for now. Hypothyroidism: Continue home Levothyroxine. GI Prophylaxis: Protonix. DVT prophylaxis: SCDs. Lovenox. DC when improved and cleared by ID Problem Qualifiers (1) Sepsis: Qualified Codes: A41.9 - Sepsis, unspecified organism (2) Aspiration pneumonia: Qualified Codes: J69.0 - Pneumonitis due to inhalation of food and vomit Maggie Orellana MD Mar 26, 2017 08:36
--- NOTE | 2017-03-26 08:41 | PD.CONS ---
History of Present Illness Service Infectious Disease Consult Requested By Dr Orellana Reason for Consult epsis, Hx CA Primary Care Physician Sally Vasquez MD Diagnoses: History of Present Illness Patient seen and examined. Records reviewed. 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 He has been undergoing esophageal dilation rotation at least 2-3 times a year. About 3 years ago, he a segment of the feeding tube because of problems with recurrent aspiration. He gets tube feedings usually continuously, but at times he would not take it at night. The day after Christmastime, he was scheduled to get a swallowing evaluation, and he apparently had aspiration. That night he started having cough and some hemoptysis. He also started having fevers. He presented to the hospital for further evaluation and treatment. Prior to that he has not been having any congestion or cough. Denies any nausea or vomiting. Has not had any diarrhea or any urinary complaints. He has not been around anyone sick. He lives with the and the has been doing okay. Since admission niece had some low- grade temps. His WBC is elevated. His chest x-ray showing some new infiltrates. Patient continues to have hemoptysis. Infectious disease consultation has been requested to evaluate the patient. Review of Systems Constitutional: COMPLAINS OF: Fever, Chills Eyes: DENIES: Eye pain Ears, nose, mouth, throat: COMPLAINS OF: Throat pain, Ear Pain, DENIES: Nasal discharge, Oral lesions, Running Nose, Sinus Pain Respiratory: COMPLAINS OF: Cough, Hemoptysis, Sputum production, DENIES: Shortness of breath Cardiovascular: DENIES: Chest pain, Palpitations, Lower Extremity Edema Gastrointestinal: COMPLAINS OF: Difficulty Swallowing, DENIES: Abdominal pain, Diarrhea, Nausea, Vomiting Genitourinary: DENIES: Urgency, Hematuria, Dysuria Musculoskeletal: DENIES: Joint pain, Joint Swelling, Back pain, Neck pain Integumentary: DENIES: Pruritus, Rash Hematologic/lymphatic: DENIES: Lymphadenopathy Neurologic: DENIES: Headache Psychiatric: DENIES: Hallucinations Past Family Social History Allergies: Coded Allergies: tetanus toxoid, adsorbed (Verified Allergy, Severe, SHOCK, 03/25/17) Uncoded Allergies: must use pediartric 6 if itubated due to radiated tounge (Adverse Reaction , Unknown, 07/12/16) if intubated must us pediatric 6 due to radiated tounge (cancer) Past Medical History Squamous cell CA base of tongue, S/P chemo and XRT and surgery 2005 CAD with history of PR, CABG x 5 vessels. 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 Reported Meds & Active Scripts Active Reported Vitamin D3 (Cholecalciferol) 1,000 Unit Tab 1,000 Units PO DAILY Metoprolol Tartrate 100 Mg Tab 100 Mg PO BID Atorvastatin (Atorvastatin Calcium) 20 Mg Tab 40 Mg G-TUBE HS Mag-Delay (Magnesium Chloride) 64 Mg Tab Unknown Dose PO DAILY Calcium Carbonate 1,250 Mg Tab 1,250 Mg PO DAILY 1,250 mg calcium carbonate (500 mg elemental calcium) Omeprazole 20 Mg Tab 20 Mg PO DAILY Aspirin 81 Mg Chew 81 Mg CHEW DAILY Klonopin (Clonazepam) 1 Mg Tab 1 Mg PO HS Neurontin (Gabapentin) 300 Mg Cap 300 Mg PO TID Synthroid (Levothyroxine Sodium) 100 Mcg Tab 100 Mcg PO DAILY Active Ordered Medications Current Medications Medications (Trade) Dose Ordered Sig/Edson Route Start Time Stop Time Status Last Admin Sodium Chloride 1,000 ml @ 70 mls/hr [id number] IV 03/25/17 13:45 03/25/17 21:30 (NS Flush) 2 ml UNSCH PRN IV FLUSH 03/25/17 13:45 03/25/17 23:25 (NS Flush) 2 ml BID IV FLUSH 03/25/17 21:00 03/25/17 21:23 (Tylenol) 650 mg Q4H PRN PO 03/25/17 13:45 (Zofran Inj) 4 mg Q6H PRN IVP 03/25/17 13:45 (Lovenox Inj) 40 mg Q24H SQ 03/25/17 15:00 03/25/17 15:58 (Narcan Inj) 0.4 mg UNSCH PRN IV PUSH 03/25/17 13:45 (Suzanne-Colace) 1 tab BID PO 03/25/17 21:00 (Milk Of Magnesia Liq) 30 ml Q12H PRN PO 03/25/17 13:45 (Senokot) 17.2 mg Q12H PRN PO 03/25/17 13:45 (Dulcolax Supp) 10 mg DAILY PRN RECTAL 03/25/17 13:45 (Lactulose Liq) 30 ml DAILY PRN PO 03/25/17 13:45 (Aspirin Chew) 81 mg DAILY CHEW 03/26/17 09:00 (Lipitor) 40 mg HS G-TUBE 03/25/17 21:00 03/25/17 21:22 (Oscal) 1,250 mg DAILY PO 03/26/17 09:00 (Vitamin D3) 1,000 units DAILY PO 03/26/17 09:00 (KlonoPIN) 1 mg HS PO 03/25/17 21:00 03/25/17 21:22 (Neurontin) 300 mg TID PO 03/25/17 18:00 03/25/17 18:00 (Synthroid) 100 mcg DAILY@0600 PO 03/26/17 06:00 03/26/17 06:00 (Lopressor) 100 mg BID PO 03/25/17 21:00 03/25/17 21:22 (Protonix) 20 mg DAILY PO 03/26/17 09:00 Cefepime HCl 2000 mg/Sodium Chloride 100 ml @ 200 mls/hr Q12H IV 03/25/17 23:00 03/25/17 23:25 Azithromycin 500 mg/Sodium Chloride 250 ml @ 250 mls/hr Q24H IV 03/26/17 15:00 Metronidazole 100 ml @ 100 mls/hr DAILY@0000,0800,1600 IV 03/25/17 16:00 03/26/17 00:18 (Magic Mouthwash Adult Liq) 10 ml BID SWISH-SWAL 03/25/17 21:00 03/25/17 21:21 (Duoneb Neb) 1 ampule Q4HR NEB PRN NEB 03/25/17 18:15 03/26/17 00:21 (Duoneb Neb) 1 ampule Q12HR NEB NEB 03/25/17 20:00 03/26/17 08:00 Family History Noncontributory Social History Denies any tobacco use. Admits to rare alcohol use. Denies any illicit drug use. 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 Physical Exam Vital Signs Vital Signs Date Time Temp Pulse Resp B/P (MAP) Pulse Ox O2 Delivery O2 Flow Rate FiO2 03/26/17 08:07 98 Nasal Cannula 2.00 03/26/17 04:00 99.2 72 16 132/65 (87) 98 03/26/17 00:00 99.0 68 16 119/59 (79) 99 03/25/17 20:00 98.2 83 16 93/53 (66) 94 03/25/17 20:00 98.2 83 16 93/53 (66) 94 03/25/17 20:00 90 03/25/17 19:36 98 Nasal Cannula 2.00 03/25/17 16:00 99.2 80 18 70/58 (62) 95 03/25/17 15:40 92 Nasal Cannula 2.00 03/25/17 14:39 98 18 92/55 (67) 95 Nasal Cannula 2.00 03/25/17 13:18 100.0 92 18 111/56 (74) 95 Nasal Cannula 2.00 03/25/17 13:02 93 18 70/53 (59) 96 Nasal Cannula 2.00 03/25/17 12:50 96 18 69/51 (57) 96 Room Air 03/25/17 12:26 96 Nasal Cannula 2.00 03/25/17 12:23 95 Nasal Cannula 2.00 03/25/17 12:23 95 Nasal Cannula 2.00 03/25/17 12:05 91 Nasal Cannula 2.00 03/25/17 12:00 99.4 106 18 111/72 (85) 90 Physical Exam GENERAL: Patient is a well-nourished, well-developed male, awake and alert, not in respiratory distress. SKIN: Warm and dry. No generalized rash, no ecchymoses and no evidence of embolic lesions. HEAD: Atraumatic. Normocephalic. No temporal wasting, or tenderness. EYES: Percival conjunctiva. No petechia or hemorrhage. Pupils equal, round and reactive to light. Extraocular movements full and intact. No scleral icterus. No injection or drainage. EARS, NOSE AND THROAT: Nose without bleeding or purulent nasal discharge. No sinus tenderness. Mucous membranes pink and moist. No oral lesions noted. No exudate. No oral thrush. NECK: Trachea midline. Supple and not tender, no meningeal signs. Has scars in neck from previous surgery CARDIOVASCULAR: Regular rate and rhythm. No murmurs, rubs or gallops heard. Healed sternotomy incision RESPIRATORY: Rhonchi and rales half of R lung field, with decreased fremitus. ABDOMEN: Soft, non-tender, nondistended. Bowel sounds present and normoactive. No guarding. No rebound. No organomegaly. PEG site ok EXTREMITIES: No clubbing, cyanosis, or edema.No joint effusion, has good ROM. No calf tenderness. Well perfused and warm. NEUROLOGICAL: Awake and alert. Cranial nerves grossly intact. Motor grossly within normal limits. PSYCHIATRIC: Normal affect, calm and cooperative. LINE: No evidence of infection Laboratory Laboratory Tests Test 03/25/17 12:55 03/25/17 13:00 03/26/17 04:57 White Blood Count 13.3 23.0 Red Blood Count 5.04 4.23 Hemoglobin 15.2 12.9 Hematocrit 46.0 39.5 Mean Corpuscular Volume 91.2 93.2 Mean Corpuscular Hemoglobin 30.1 30.5 Mean Corpuscular Hemoglobin Concent 33.0 32.7 Red Cell Distribution Width 12.0 13.0 Platelet Count 177 145 Mean Platelet Volume 9.0 8.5 Neutrophils (%) (Auto) 92.1 88.5 Lymphocytes (%) (Auto) 2.9 5.5 Monocytes (%) (Auto) 3.3 5.2 Eosinophils (%) (Auto) 0.2 0.7 Basophils (%) (Auto) 1.5 0.1 Neutrophils # (Auto) 12.3 20.3 Lymphocytes # (Auto) 0.4 1.3 Monocytes # (Auto) 0.4 1.2 Eosinophils # (Auto) 0.0 0.2 Basophils # (Auto) 0.2 0.0 CBC Comment DIFF FINAL AUTO DIFF Differential Comment FINAL DIFF MANUAL Blood Urea Nitrogen 25 24 Creatinine 1.10 0.80 Random Glucose 112 101 Calcium Level 8.8 8.1 Sodium Level 142 142 Potassium Level 4.2 4.2 Chloride Level 104 107 Carbon Dioxide Level 31.8 32.5 Anion Gap 6 3 Estimat Glomerular Filtration Rate 66 96 Troponin I LESS THAN 0.02 Lactic Acid Level 2.6 Differential Total Cells Counted 100 Neutrophils % (Manual) 73 Band Neutrophils % 17 Lymphocytes % 6 Monocytes % 4 Neutrophils # (Manual) 20.7 Platelet Estimate LOW Platelet Morphology Comment NORMAL Red Cell Morphology Comment NORMAL Date/Time Source Procedure Growth Status 03/25/17 13:00 Blood Peripheral Aerobic Blood Culture Pending Received 03/25/17 13:00 Blood Peripheral Anaerobic Blood Culture Pending Received Result Diagram: 03/26/17 0457 03/26/17 0457 Imaging RADIOLOGY STUDIES/FILMS REVIEWED Chest X-Ray 03/25/17 1212 Signed Impressions: Service Date/Time: Saturday, March 25, 2017 12:25 - CONCLUSION: 1. Right perihilar interstitial and alveolar opacities concerning for pneumonia versus aspiration. 2. Gastrojejunostomy catheter is partially retracted and coiled in the stomach with tip likely in the second portion of the duodenum. Eduardo Briggs MD Assessment and Plan Assessment and Plan IMPRESSION Aspiration pneumonia Sepsis due to PNA Hemoptysis Hx CA base of tongue 2006, treated Esophageal stricture/fibrosis RECOMMENDATION Check legio and pneumo Ag Sputum C/S Continue current Abx: Cefepime, Zithromax and Flagyl Consider pulmonary evaluation of his hemoptysis Follow C/S Monitor progress Will determine course of Abx once work-up is completed I will follow along with you Thankk you for this consultation Discussed Condition With Explained plan to the patient Zaina Latham MD Mar 26, 2017 08:41
[2017-03-26] MEDS: ASPIRIN 81 MG CHEW TAB CHEW SCH (09:00)
[2017-03-26] MEDS ORDERED: PANTOPRAZOLE SOD 20 MG DELAYED RELEASE TAB PO SCH (09:00)
[2017-03-26] MEDS: DOCUSATE SODIUM 50 MG/SENNA 8.6 MG TAB PO SCH (09:00)
[2017-03-26] MEDS: CEFEPIME INJ 2,000 MG in SODIUM CHLORIDE 0.9% INJ 100 ML IV SCH ×2 (10:14→23:04)
[2017-03-26] MEDS: CALCIUM CARBONATE 1.25 GM (CA 500 MG) TAB PO SCH (10:21)
[2017-03-26] MEDS: METOPROLOL TARTRATE 100 MG TAB PO SCH ×2 (10:21→20:50)
[2017-03-26] MEDS: CHOLECALCIFEROL (VIT D3) 1000 UNIT TAB PO SCH (10:22)
[2017-03-26] MEDS: NYSTAT/DIPHENHY/LIDO MOUTHWASH (Adult) 120ML SWISH-SWAL SCH ×2 (10:23→20:54)
[2017-03-26] MEDS: SODIUM CHLORIDE 0.9% FLUSH 10 ML FLUSH IV FLUSH SCH ×2 (10:23→20:56)
[2017-03-26] MEDS: GABAPENTIN 300 MG CAP PO SCH ×3 (10:25→17:53)
[2017-03-26] MEDS: PANTOPRAZOLE SODIUM 40 MG VIAL IV PUSH SCH (12:35)
[2017-03-26] MEDS ORDERED: DIPHENOXYLATE/ATROPINE 2.5 MG/0.025 MG/5 ML CUP PO ONE (14:00)
[2017-03-26] MEDS: ACETAMINOPHEN 325 MG TAB PO PRN (14:59)
[2017-03-26] MEDS: AZITHROMYCIN INJ 500 MG in SODIUM CHLOR 0.9% 250 ML INJ 250 ML IV SCH (15:00)
[2017-03-26] MEDS: ENOXAPARIN SODIUM 40 MG/0.4 ML SYRINGE SQ SCH (15:00)
[2017-03-26] MEDS: SODIUM CHLOR 0.9% 1000 ML INJ 1,000 ML IV SCH (17:51)
[2017-03-26] MEDS: DIPHENOXYLATE/ATROPINE 2.5 MG/0.025 MG/5 ML CUP PO SCH (20:49)
[2017-03-26] MEDS: clonazePAM 1 MG TAB PO SCH (20:52)
[2017-03-26] MEDS: ATORVASTATIN 40 MG TAB G-TUBE SCH (20:55)
--- NOTE | 2017-03-26 23:30 | EKG ---
Date Performed: 03/25/2017 Time Performed: 12:26:23 PTAGE: 71 years EKG: Sinus rhythm NORMAL ECG PREVIOUS TRACING : 02/20/2016 09.54 Compared to prior tracing no significant change DOCTOR: Patrice Velasco Interpretating Date/Time 03/26/2017 23:28:49
[2017-03-27] VITALS (9 sets, daily range): BP systolic 99–198; BP diastolic 51–96; PULSE 50–102; RESP 12–20; TEMP 97.7–100; O2SAT 90–98
[2017-03-27] MEDS ORDERED: cloNIDine HCL 0.1 MG TAB PO ONE (00:45)
[2017-03-27] MEDS: DIPHENOXYLATE/ATROPINE 2.5 MG/0.025 MG/5 ML CUP PO SCH ×4 (02:00→20:54)
[2017-03-27] MEDS: SODIUM CHLOR 0.9% 1000 ML INJ 1,000 ML IV SCH ×3 (05:08→23:03)
[2017-03-27] MEDS: LEVOTHYROXINE SODIUM 100 MCG TAB PO SCH (05:20)
[2017-03-27 06:01] LABS: AUTOMATED NEUTROPHIL # 10.6 TH/MM3 (1.8-7.7); BASOPHIL % 0.3 % (0.0-2.0); EOSINOPHIL # 0.2 TH/MM3 (0-0.4); EOSINOPHIL % 1.6 % (0.0-4.0); HEMATOCRIT 34.8 % (39.0-51.0); HEMOGLOBIN 11.3 GM/DL (13.0-17.0); LYMPH % 8.7 % (9.0-44.0); LYMPHOCYTE # 1.1 TH/MM3 (1.0-4.8); MEAN CELL VOLUME 92.6 FL (80.0-100.0); MEAN CORPUSCULAR HEMOGLOBIN 30.1 PG (27.0-34.0); MEAN CORPUSCULAR HGB CONC 32.5 % (32.0-36.0); MEAN PLATELET VOLUME 9.5 FL (7.0-11.0); MONO % 6.6 % (0.0-8.0); MONOCYTE # 0.8 TH/MM3 (0-0.9); NEUT % 82.8 % (16.0-70.0); PLATELET COUNT 123 TH/MM3 (150-450); RED BLOOD COUNT 3.77 MIL/MM3 (4.50-5.90); RED CELL DISTRIBUTION WIDTH 12.8 % (11.6-17.2); WHITE BLOOD COUNT 12.7 TH/MM3 (4.0-11.0)
[2017-03-27 06:13] LABS: CALCIUM 7.6 MG/DL (8.5-10.1)
[2017-03-27 06:14] LABS: BICARBONATE 31.2 MEQ/L (21.0-32.0)
[2017-03-27 06:17] LABS: CREATININE 0.69 MG/DL (0.60-1.30)
[2017-03-27] MEDS: RESP: ALBUTEROL 2.5 MG/IPRATROPIUM 0.5 MG NEB (SCH) NEB (07:32)
--- NOTE | 2017-03-27 08:11 | HHI.PR ---
Subjective Remarks Feels tired. Says he has some sob, cough the same with hemoptysis. no fever ro chill. No n/v/d/c. Diarrhea resolved. Feels his eyes were puffy this morning. Objective Vitals Vital Signs Date Time Temp Pulse Resp B/P (MAP) Pulse Ox O2 Delivery O2 Flow Rate FiO2 03/27/17 07:34 94 Nasal Cannula 2.00 03/27/17 04:00 98.6 89 18 107/62 (77) 90 03/27/17 02:00 126/80 (95) 03/27/17 00:00 98.1 92 18 198/96 (130) 95 03/26/17 20:43 96 21 03/26/17 20:00 78 03/26/17 20:00 98.1 71 18 119/59 (79) 94 03/26/17 17:51 18 03/26/17 16:30 78 121/58 (79) Manual Cuff/Auscultation 03/26/17 16:00 97.8 76 18 80/48 (59) 96 Automatic Cuff 03/26/17 16:00 80/48 (59) 03/26/17 12:00 97.9 62 18 122/64 (83) 96 I/O 03/26/17 03/26/17 03/26/17 03/27/17 03/27/17 03/27/17 07:00 15:00 23:00 07:00 15:00 23:00 Intake Total 1276 ml 200 ml 2064 ml 1260 ml Balance 1276 ml 200 ml 2064 ml 1260 ml Intake Oral 0 ml 0 ml IV Total 606 ml 200 ml 2064 ml 1260 ml Tube Feeding 550 ml Tube Irrigant 120 ml # Voids 5 4 # Bowel Movements 2 0 Result Diagram: 03/27/17 0510 03/27/17 0510 Imaging Last Impressions Chest X-Ray 03/25/17 1212 Signed Impressions: Service Date/Time: Saturday, March 25, 2017 12:25 - CONCLUSION: 1. Right perihilar interstitial and alveolar opacities concerning for pneumonia versus aspiration. 2. Gastrojejunostomy catheter is partially retracted and coiled in the stomach with tip likely in the second portion of the duodenum. Eduardo Briggs MD Objective Remarks GENERAL: This is a well-nourished, well-developed patient, lying in bed in no apparent distress. CARDIOVASCULAR: Regular rate and rhythm without murmurs, gallops, or rubs. RESPIRATORY: Bronchial sounds more severe on right lower lobes but noticed throughout posterior lobe neri. Clear to auscultation. Breath sounds equal bilaterally. No wheezes, rales, or rhonchi. GASTROINTESTINAL: Left UQ G/J tube present. Abdomen soft, non-tender, nondistended. No guarding. MUSCULOSKELETAL: Extremities without clubbing, cyanosis, or edema. No joint tenderness, effusion, or edema noted. NEUROLOGICAL: Awake and alert. Cranial nerves II through XII intact. Motor and sensory grossly within normal limits. Five out of 5 muscle strength in all muscle groups. Normal speech. A/P Problem List: (1) Sepsis ICD Code: A41.9 - Sepsis Status: Acute (2) Aspiration pneumonia ICD Code: J69.0 - Aspiration pneumonia Status: Acute Assessment and Plan Mr. Rodriguez is a 71-year-old male patient with a known medical history of facial cancer, CAD with OH, HTN, and CABG and GERD who presented to the ED with complaints of aspiration and cough. Aspiration pneumonia secondary to facial cancer with chronic dysphagia and presence of cough/hemoptysis Severe sepsis criteria (leukocytosis WBC 13.3 with mild bandemia, lactic acid 2.6, tachycardia) on admission. Worsening WBC and hypotensive on 03/26 . Received bolus , monitor BP and administer bolus NS if low BP. 03/27 BP better, WBC improving CXR reviewed showing right perihilar interstitial and alveolar opacities concerning for pneumonia vs aspiration. TMAX 100.0. WBC 13.3. Follow CBC in am. Status post 1 L NS bolus in ED. Ensure hydration NS @ 70ml/hr. Continue IV Cefepime and Azithromycin and Flagyl IV. Control nausea, Zofran available PRN. Blood cultures obtained and pending. Follow. Supportive care. Supplemental O2 to keep sats >92%. Magic mouthwash ordered. Continue on cardiac telemetry, monitor for any arrhythmias. Consult placed to ID for severe sepsis, aspiration PNA in cancer patient. Appreciate further input and recommendations. Hypotension noted SBP in low 80s. Give 1L NS. Continue IVF NS at 100 cc. Repeat BP after bolus of fluids, improved. Hyperlipidemia, chronic: Continue home Atorvastatin. CAD with history of OH and CABG Continue Aspirin. Continue home metoprolol. Cardiac tele for now. Hypothyroidism: Continue home Levothyroxine. GI Prophylaxis: Protonix. DVT prophylaxis: SCDs. Lovenox. DC when improved and cleared by ID. Poss DC tomorrow Problem Qualifiers (1) Sepsis: Qualified Codes: A41.9 - Sepsis, unspecified organism (2) Aspiration pneumonia: Qualified Codes: J69.0 - Pneumonitis due to inhalation of food and vomit Maggie Orellana MD Mar 27, 2017 08:11
[2017-03-27] MEDS: NYSTAT/DIPHENHY/LIDO MOUTHWASH (Adult) 120ML SWISH-SWAL SCH ×2 (09:00→20:56)
[2017-03-27] MEDS: PANTOPRAZOLE SODIUM 40 MG VIAL IV PUSH SCH (09:50)
[2017-03-27] MEDS: CEFEPIME INJ 2,000 MG in SODIUM CHLORIDE 0.9% INJ 100 ML IV SCH ×2 (09:50→22:58)
[2017-03-27] MEDS: CALCIUM CARBONATE 1.25 GM (CA 500 MG) TAB PO SCH (09:51)
[2017-03-27] MEDS: SODIUM CHLORIDE 0.9% FLUSH 10 ML FLUSH IV FLUSH SCH ×2 (09:51→20:55)
[2017-03-27] MEDS: METOPROLOL TARTRATE 100 MG TAB PO SCH ×2 (09:51→20:54)
[2017-03-27] MEDS: CHOLECALCIFEROL (VIT D3) 1000 UNIT TAB PO SCH (09:51)
[2017-03-27] MEDS: ASPIRIN 81 MG CHEW TAB CHEW SCH (09:51)
[2017-03-27] MEDS: GABAPENTIN 300 MG CAP PO SCH ×3 (09:51→16:57)
[2017-03-27] MEDS: metroNIDAZOLE 500 MG INJ 100 ML IV SCH (10:14)
[2017-03-27] MEDS: AZITHROMYCIN INJ 500 MG in SODIUM CHLOR 0.9% 250 ML INJ 250 ML IV SCH (13:46)
[2017-03-27] MEDS: ENOXAPARIN SODIUM 40 MG/0.4 ML SYRINGE SQ SCH (13:48)
--- NOTE | 2017-03-27 14:18 | HHI.IDPN ---
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 He has been undergoing esophageal dilation rotation at least 2-3 times a year. About 3 years ago, he a segment of the feeding tube because of problems with recurrent aspiration. He gets tube feedings usually continuously, but at times he would not take it at night. The day after Christmastime, he was scheduled to get a swallowing evaluation, and he apparently had aspiration. That night he started having cough and some hemoptysis. He also started having fevers. He presented to the hospital for further evaluation and treatment. Prior to that he has not been having any congestion or cough. Denies any nausea or vomiting. Has not had any diarrhea or any urinary complaints. He has not been around anyone sick. He lives with the and the has been doing okay. Since admission niece had some low- grade temps. His WBC is elevated. His chest x-ray showing some new infiltrates. Patient continues to have hemoptysis. Infectious disease consultation has been requested to evaluate the patient. Notes reviewed Temps ok Feels tired Still with hemoptysis MIld SOB Sputum with GNR Antibiotics Current Medications Cefepime Ziithromax Flagyl Medications (Trade) Dose Ordered Sig/Edson Route Start Time Stop Time Status Last Admin Sodium Chloride 1,000 ml @ 100 mls/hr Q10H IV 03/25/17 13:45 03/27/17 13:46 (NS Flush) 2 ml UNSCH PRN IV FLUSH 03/25/17 13:45 03/25/17 23:25 (NS Flush) 2 ml BID IV FLUSH 03/25/17 21:00 03/27/17 09:51 (Tylenol) 650 mg Q4H PRN PO 03/25/17 13:45 03/26/17 14:59 (Zofran Inj) 4 mg Q6H PRN IVP 03/25/17 13:45 (Lovenox Inj) 40 mg Q24H SQ 03/25/17 15:00 03/27/17 13:48 (Narcan Inj) 0.4 mg UNSCH PRN IV PUSH 03/25/17 13:45 (Milk Of Magnesia Liq) 30 ml Q12H PRN PO 03/25/17 13:45 (Dulcolax Supp) 10 mg DAILY PRN RECTAL 03/25/17 13:45 (Lactulose Liq) 30 ml DAILY PRN PO 03/25/17 13:45 (Aspirin Chew) 81 mg DAILY CHEW 03/26/17 09:00 03/27/17 09:51 (Lipitor) 40 mg HS G-TUBE 03/25/17 21:00 03/26/17 20:55 (Oscal) 1,250 mg DAILY PO 03/26/17 09:00 03/27/17 09:51 (Vitamin D3) 1,000 units DAILY PO 03/26/17 09:00 03/27/17 09:51 (KlonoPIN) 1 mg HS PO 03/25/17 21:00 03/26/17 20:52 (Neurontin) 300 mg TID PO 03/25/17 18:00 03/27/17 13:45 (Synthroid) 100 mcg DAILY@0600 PO 03/26/17 06:00 03/27/17 05:20 (Lopressor) 100 mg BID PO 03/25/17 21:00 03/27/17 09:51 Cefepime HCl 2000 mg/Sodium Chloride 100 ml @ 200 mls/hr Q12H IV 03/25/17 23:00 03/27/17 09:50 Azithromycin 500 mg/Sodium Chloride 250 ml @ 250 mls/hr Q24H IV 03/26/17 15:00 03/27/17 13:46 (Magic Mouthwash Adult Liq) 10 ml BID SWISH-SWAL 03/25/17 21:00 03/27/17 09:00 (Duoneb Neb) 1 ampule Q4HR NEB PRN NEB 03/25/17 18:15 03/26/17 23:38 (Duoneb Neb) 1 ampule Q12HR NEB NEB 03/25/17 20:00 03/27/17 07:32 (Protonix Inj) 40 mg Q24H IV PUSH 03/26/17 11:00 03/27/17 09:50 (Lomotil 2.5-0.025 Mg Liq) 5 ml Q6H PO 03/26/17 20:00 03/27/17 13:45 (Flagyl) 500 mg Q8HR G-TUBE 03/27/17 14:30 Lines PIV Past Medical History Squamous cell CA base of tongue, S/P chemo and XRT and surgery 2005 CAD with history of MS, CABG x 5 vessels. 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 Vital Signs Date Time Temp Pulse Resp B/P (MAP) Pulse Ox O2 Delivery O2 Flow Rate FiO2 03/27/17 12:00 97.7 50 12 99/51 (67) 95 03/27/17 08:00 98.0 102 14 131/78 (95) 91 03/27/17 07:34 94 Nasal Cannula 2.00 03/27/17 04:00 98.6 89 18 107/62 (77) 90 03/27/17 02:00 126/80 (95) 03/27/17 00:00 98.1 92 18 198/96 (130) 95 03/26/17 20:43 96 21 03/26/17 20:00 78 03/26/17 20:00 98.1 71 18 119/59 (79) 94 03/26/17 17:51 18 03/26/17 16:30 78 121/58 (79) Manual Cuff/Auscultation 03/26/17 16:00 97.8 76 18 80/48 (59) 96 Automatic Cuff 03/26/17 16:00 80/48 (59) 03/27/17 03/27/17 03/28/17 15:00 23:00 07:00 Intake Total 118 ml Balance 118 ml Intake Oral 118 ml . Laboratory Tests Test 03/26/17 04:57 03/27/17 05:10 White Blood Count 23.0 TH/MM3 12.7 TH/MM3 Red Blood Count 4.23 MIL/MM3 3.77 MIL/MM3 Hemoglobin 12.9 GM/DL 11.3 GM/DL Hematocrit 39.5 % 34.8 % Mean Corpuscular Volume 93.2 FL 92.6 FL Mean Corpuscular Hemoglobin 30.5 PG 30.1 PG Mean Corpuscular Hemoglobin Concent 32.7 % 32.5 % Red Cell Distribution Width 13.0 % 12.8 % Platelet Count 145 TH/MM3 123 TH/MM3 Mean Platelet Volume 8.5 FL 9.5 FL Neutrophils (%) (Auto) 88.5 % 82.8 % Lymphocytes (%) (Auto) 5.5 % 8.7 % Monocytes (%) (Auto) 5.2 % 6.6 % Eosinophils (%) (Auto) 0.7 % 1.6 % Basophils (%) (Auto) 0.1 % 0.3 % Neutrophils # (Auto) 20.3 TH/MM3 10.6 TH/MM3 Lymphocytes # (Auto) 1.3 TH/MM3 1.1 TH/MM3 Monocytes # (Auto) 1.2 TH/MM3 0.8 TH/MM3 Eosinophils # (Auto) 0.2 TH/MM3 0.2 TH/MM3 Basophils # (Auto) 0.0 TH/MM3 0.0 TH/MM3 CBC Comment AUTO DIFF DIFF FINAL Differential Total Cells Counted 100 Neutrophils % (Manual) 73 % Band Neutrophils % 17 % Lymphocytes % 6 % Monocytes % 4 % Neutrophils # (Manual) 20.7 TH/MM3 Differential Comment FINAL DIFF MANUAL Platelet Estimate LOW Platelet Morphology Comment NORMAL Red Cell Morphology Comment NORMAL Laboratory Tests Test 03/26/17 04:57 03/26/17 16:50 03/27/17 05:10 Blood Urea Nitrogen 24 MG/DL 18 MG/DL Creatinine 0.80 MG/DL 0.69 MG/DL Random Glucose 101 MG/DL 97 MG/DL Calcium Level 8.1 MG/DL 7.6 MG/DL Sodium Level 142 MEQ/L 143 MEQ/L Potassium Level 4.2 MEQ/L 3.8 MEQ/L Chloride Level 107 MEQ/L 108 MEQ/L Carbon Dioxide Level 32.5 MEQ/L 31.2 MEQ/L Anion Gap 3 MEQ/L 4 MEQ/L Estimat Glomerular Filtration Rate 96 ML/MIN 114 ML/MIN Lactic Acid Level 1.8 mmol/L Microbiology Date/Time Source Procedure Growth Status 03/25/17 13:00 Blood Peripheral Aerobic Blood Culture - Preliminary NO GROWTH IN 2 DAYS Resulted 03/25/17 13:00 Blood Peripheral Anaerobic Blood Culture - Preliminary NO GROWTH IN 2 DAYS Resulted 03/25/17 12:55 Blood Peripheral Aerobic Blood Culture - Preliminary NO GROWTH IN 2 DAYS Resulted 03/25/17 12:55 Blood Peripheral Anaerobic Blood Culture - Preliminary NO GROWTH IN 2 DAYS Resulted 03/26/17 08:30 Sputum Expectorated Sputum Gram Stain - Final Resulted 03/26/17 08:30 Sputum Culture - Preliminary Gram Negative Jayce Resulted 03/26/17 16:00 Urine Clean Catch Legionella Antigen - Final PRESUMPTIVE NEGATIVE FOR LEGIONELLA P... Complete 03/26/17 16:00 Urine Clean Catch Streptococcus pneumoniae Antigen (M - Final PRESUMPTIVE NEGATIVE FOR STREPTOCOCCU... Complete Imaging Chest X-Ray 03/25/17 1212 Signed Impressions: Service Date/Time: Saturday, March 25, 2017 12:25 - CONCLUSION: 1. Right perihilar interstitial and alveolar opacities concerning for pneumonia versus aspiration. 2. Gastrojejunostomy catheter is partially retracted and coiled in the stomach with tip likely in the second portion of the duodenum. Eduardo Briggs MD Physical Exam GENERAL: awake and alert, not in respiratory distress. SKIN: Warm and dry. No generalized rash, no ecchymoses and no evidence of embolic lesions. HEAD: Atraumatic. Normocephalic. No temporal wasting, or tenderness. EYES: [place] conjunctiva. No petechia or hemorrhage. Pupils equal, round and reactive to light. Extraocular movements full and intact. No scleral icterus. No injection or drainage. EARS, NOSE AND THROAT: Nose without bleeding or purulent nasal discharge. No sinus tenderness. Mucous membranes pink and moist. No oral lesions noted. No exudate. No oral thrush. NECK: Trachea midline. Supple and not tender, no meningeal signs. Has scars in neck from previous surgery CARDIOVASCULAR: Regular rate and rhythm. No murmurs, rubs or gallops heard. Healed sternotomy incision RESPIRATORY: Better air movement on R side. ABDOMEN: Soft, non-tender, nondistended. Bowel sounds present and normoactive. No guarding. No rebound. No organomegaly. PEG site ok EXTREMITIES: No clubbing, cyanosis, or edema.No joint effusion, has good ROM. No calf tenderness. Well perfused and warm. NEUROLOGICAL: Awake and alert. Cranial nerves grossly intact. Motor grossly within normal limits. PSYCHIATRIC: Normal affect, calm and cooperative. LINE: No evidence of infection Assessment & Plan Remarks IMPRESSION Aspiration pneumonia Sepsis due to PNA Hemoptysis Hx CA base of tongue 2005, treated Esophageal stricture/fibrosis RECOMMENDATION Follow Sputum C/S Continue current Abx: Cefepime, and Flagyl Stop Zithromax Change some Abx to po Once C/S available, will choose oral Abx based on susceptibility results and give 10 days oral Abx Consider pulmonary evaluation of his hemoptysis Monitor progress Explained plan to the patient Ziana Latham MD Mar 27, 2017 14:18
[2017-03-27] MEDS: metroNIDAZOLE 500 MG TAB G-TUBE SCH ×2 (16:57→20:54)
[2017-03-27] MEDS: clonazePAM 1 MG TAB PO SCH (20:54)
[2017-03-27] MEDS: ACETAMINOPHEN 325 MG TAB PO PRN (20:55)
[2017-03-27] MEDS: ATORVASTATIN 40 MG TAB G-TUBE SCH (20:55)
[2017-03-28] VITALS (8 sets, daily range): BP systolic 131–218; BP diastolic 67–107; PULSE 83–100; RESP 20; TEMP 98.3–101.1; O2SAT 92–97
[2017-03-28] MEDS: DIPHENOXYLATE/ATROPINE 2.5 MG/0.025 MG/5 ML CUP PO SCH ×4 (02:00→20:00)
[2017-03-28] MEDS: metroNIDAZOLE 500 MG TAB G-TUBE SCH ×3 (05:57→20:38)
[2017-03-28] MEDS: LEVOTHYROXINE SODIUM 100 MCG TAB PO SCH (05:57)
[2017-03-28 07:16] LABS: AUTOMATED NEUTROPHIL # 9.8 TH/MM3 (1.8-7.7); BASOPHIL # 0.1 TH/MM3 (0-0.2); BASOPHIL % 0.7 % (0.0-2.0); EOSINOPHIL # 0.3 TH/MM3 (0-0.4); EOSINOPHIL % 2.2 % (0.0-4.0); HEMATOCRIT 35.3 % (39.0-51.0); HEMOGLOBIN 11.6 GM/DL (13.0-17.0); LYMPH % 7.9 % (9.0-44.0); MEAN CELL VOLUME 91.3 FL (80.0-100.0); MEAN CORPUSCULAR HEMOGLOBIN 29.9 PG (27.0-34.0); MEAN CORPUSCULAR HGB CONC 32.8 % (32.0-36.0); MEAN PLATELET VOLUME 8.8 FL (7.0-11.0); MONO % 7.7 % (0.0-8.0); MONOCYTE # 0.9 TH/MM3 (0-0.9); NEUT % 81.5 % (16.0-70.0); PLATELET COUNT 124 TH/MM3 (150-450); RED BLOOD COUNT 3.87 MIL/MM3 (4.50-5.90); RED CELL DISTRIBUTION WIDTH 12.7 % (11.6-17.2); WHITE BLOOD COUNT 12.1 TH/MM3 (4.0-11.0)
[2017-03-28] MEDS: RESP: ALBUTEROL 2.5 MG/IPRATROPIUM 0.5 MG NEB (SCH) NEB ×2 (07:27→20:00)
[2017-03-28 07:38] LABS: BICARBONATE 28.8 MEQ/L (21.0-32.0); CALCIUM 7.6 MG/DL (8.5-10.1)
[2017-03-28 07:42] LABS: CREATININE 0.62 MG/DL (0.60-1.30)
--- NOTE | 2017-03-28 08:37 | HHI.PR ---
Subjective Remarks Complaints of headaches. Is also coughing more blood today. No fever or chills. Few short of breath however is saturating well on room air. Blood pressure is better controlled normal hypotension. We'll discontinue fluids as says his eyes are getting puffy. No lower extremity edema. No chest pain. Objective Vitals Vital Signs Date Time Temp Pulse Resp B/P (MAP) Pulse Ox O2 Delivery O2 Flow Rate FiO2 03/28/17 07:29 97 Nasal Cannula 2.00 03/28/17 04:00 98.7 85 20 175/79 (111) 92 03/28/17 00:00 99.9 98 20 218/107 (144) 92 03/27/17 20:00 100.0 86 20 193/93 (126) 98 03/27/17 20:00 85 03/27/17 19:50 94 21 03/27/17 16:00 99.5 80 16 130/82 (98) 94 03/27/17 12:00 97.7 50 12 99/51 (67) 95 I/O 03/27/17 03/27/17 03/27/17 03/28/17 03/28/17 03/28/17 06:59 14:59 22:59 06:59 14:59 22:59 Intake Total 1260 ml 118 ml 2789 ml Balance 1260 ml 118 ml 2789 ml Intake Oral 0 ml 118 ml 0 ml IV Total 1260 ml 2789 ml # Voids 4 8 2 # Bowel Movements 0 0 Result Diagram: 03/28/17 0701 03/28/17 0701 Imaging Last Impressions Chest X-Ray 03/28/17 0000 Signed Impressions: Service Date/Time: Tuesday, March 28, 2017 16:56 - CONCLUSION: Right perihilar haziness could partly be technical, however mild interstitial process is difficult to exclude. Shagufta Pitt MD Objective Remarks GENERAL: This is a well-nourished, well-developed patient, lying in bed in no apparent distress. CARDIOVASCULAR: Regular rate and rhythm without murmurs, gallops, or rubs. RESPIRATORY: Bronchial sounds more severe on right lower lobes but noticed throughout posterior lobe neri. Clear to auscultation. Breath sounds equal bilaterally. No wheezes, rales, or rhonchi. GASTROINTESTINAL: Left UQ G/J tube present. Abdomen soft, non-tender, nondistended. No guarding. MUSCULOSKELETAL: Extremities without clubbing, cyanosis, or edema. No joint tenderness, effusion, or edema noted. NEUROLOGICAL: Awake and alert. Cranial nerves II through XII intact. Motor and sensory grossly within normal limits. Five out of 5 muscle strength in all muscle groups. Normal speech. A/P Problem List: (1) Sepsis ICD Code: A41.9 - Sepsis Status: Acute (2) Aspiration pneumonia ICD Code: J69.0 - Aspiration pneumonia Status: Acute Assessment and Plan Mr. Rodriguez is a 71-year-old male patient with a known medical history of facial cancer, CAD with ND, HTN, and CABG and GERD who presented to the ED with complaints of aspiration and cough. Aspiration pneumonia secondary to facial cancer with chronic dysphagia and presence of cough/hemoptysis. Sputum cultures with gram-negative throat. Follow ID and sensitivities until the end per infectious disease doctor Severe sepsis criteria (leukocytosis WBC 13.3 with mild bandemia, lactic acid 2.6, tachycardia) on admission. Worsening WBC and hypotensive on 03/26 . Received bolus , monitor BP and administer bolus NS if low BP. 03/27 BP better, WBC improving CXR reviewed showing right perihilar interstitial and alveolar opacities concerning for pneumonia vs aspiration. TMAX 100.0. WBC 13.3. Follow CBC in am. Status post 1 L NS bolus in ED. Ensure hydration NS @ 70ml/hr. Continue IV Cefepime and Azithromycin and Flagyl IV. Control nausea, Zofran available PRN. Blood cultures obtained and pending. Follow. Supportive care. Supplemental O2 to keep sats >92%. Magic mouthwash ordered. Continue on cardiac telemetry, monitor for any arrhythmias. Consult placed to ID for severe sepsis, aspiration PNA in cancer patient. Appreciate further input and recommendations. Sputum cultures GNR Iand S pending Consult pulm for hemoptysis follows with Dr. Meraz Headaches says he takes Fioricet. Start Fioricet when necessary for headaches. Hypotension noted SBP in low 80s. Give 1L NS. Continue IVF NS at 100 cc. Repeat BP after bolus of fluids, improved. Hyperlipidemia, chronic: Continue home Atorvastatin. CAD with history of ND and CABG Continue Aspirin. Continue home metoprolol. Cardiac tele for now. Hypothyroidism: Continue home Levothyroxine. GI Prophylaxis: Protonix. DVT prophylaxis: SCDs. Lovenox. DC when improved and cleared by ID. Discussed with the patient, nurse, Problem Qualifiers (1) Sepsis: Qualified Codes: A41.9 - Sepsis, unspecified organism (2) Aspiration pneumonia: Qualified Codes: J69.0 - Pneumonitis due to inhalation of food and vomit Maggie Orellana MD Mar 28, 2017 08:37
[2017-03-28] MEDS: SODIUM CHLORIDE 0.9% FLUSH 10 ML FLUSH IV FLUSH SCH ×2 (09:00→20:39)
[2017-03-28] MEDS: NYSTAT/DIPHENHY/LIDO MOUTHWASH (Adult) 120ML SWISH-SWAL SCH ×2 (09:00→20:40)
[2017-03-28] MEDS: SODIUM CHLOR 0.9% 1000 ML INJ 1,000 ML IV SCH (09:55)
[2017-03-28] MEDS: METOPROLOL TARTRATE 100 MG TAB PO SCH ×2 (09:57→20:39)
[2017-03-28] MEDS: GABAPENTIN 300 MG CAP PO SCH ×3 (09:57→18:45)
[2017-03-28] MEDS: ASPIRIN 81 MG CHEW TAB CHEW SCH (09:57)
[2017-03-28] MEDS: CHOLECALCIFEROL (VIT D3) 1000 UNIT TAB PO SCH (09:57)
[2017-03-28] MEDS: CALCIUM CARBONATE 1.25 GM (CA 500 MG) TAB PO SCH (09:58)
[2017-03-28] MEDS: PANTOPRAZOLE SODIUM 40 MG VIAL IV PUSH SCH (12:05)
[2017-03-28] MEDS: CEFEPIME INJ 2,000 MG in SODIUM CHLORIDE 0.9% INJ 100 ML IV SCH ×2 (12:11→23:39)
[2017-03-28] MEDS: ACETAMIN 325 MG/BUTALBITAL 50 MG/CAFFEINE 40 MG TAB PO PRN ×2 (13:28→20:50)
--- NOTE | 2017-03-28 16:26 | HHI.IDPN ---
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 He has been undergoing esophageal dilation rotation at least 2-3 times a year. About 3 years ago, he a segment of the feeding tube because of problems with recurrent aspiration. He gets tube feedings usually continuously, but at times he would not take it at night. The day after Christmastime, he was scheduled to get a swallowing evaluation, and he apparently had aspiration. That night he started having cough and some hemoptysis. He also started having fevers. He presented to the hospital for further evaluation and treatment. Prior to that he has not been having any congestion or cough. Denies any nausea or vomiting. Has not had any diarrhea or any urinary complaints. He has not been around anyone sick. He lives with the and the has been doing okay. Since admission niece had some low- grade temps. His WBC is elevated. His chest x-ray showing some new infiltrates. Patient continues to have hemoptysis. Infectious disease consultation has been requested to evaluate the patient. Notes reviewed Temps 100 overnight Hemoptysis worse Feels tired MIld SOB Sputum with Klebsiella Antibiotics Current Medications Cefepime Flagyl Medications (Trade) Dose Ordered Sig/Edson Route Start Time Stop Time Status Last Admin (NS Flush) 2 ml UNSCH PRN IV FLUSH 03/25/17 13:45 03/25/17 23:25 (NS Flush) 2 ml BID IV FLUSH 03/25/17 21:00 03/27/17 20:55 (Tylenol) 650 mg Q4H PRN PO 03/25/17 13:45 03/27/17 20:55 (Zofran Inj) 4 mg Q6H PRN IVP 03/25/17 13:45 (Lovenox Inj) 40 mg Q24H SQ 03/25/17 15:00 03/27/17 13:48 (Narcan Inj) 0.4 mg UNSCH PRN IV PUSH 03/25/17 13:45 (Milk Of Magnesia Liq) 30 ml Q12H PRN PO 03/25/17 13:45 (Dulcolax Supp) 10 mg DAILY PRN RECTAL 03/25/17 13:45 (Lactulose Liq) 30 ml DAILY PRN PO 03/25/17 13:45 (Aspirin Chew) 81 mg DAILY CHEW 03/26/17 09:00 03/28/17 09:57 (Lipitor) 40 mg HS G-TUBE 03/25/17 21:00 03/27/17 20:55 (Oscal) 1,250 mg DAILY PO 03/26/17 09:00 03/28/17 09:58 (Vitamin D3) 1,000 units DAILY PO 03/26/17 09:00 03/28/17 09:57 (KlonoPIN) 1 mg HS PO 03/25/17 21:00 03/27/17 20:54 (Neurontin) 300 mg TID PO 03/25/17 18:00 03/28/17 13:28 (Synthroid) 100 mcg DAILY@0600 PO 03/26/17 06:00 03/28/17 05:57 (Lopressor) 100 mg BID PO 03/25/17 21:00 03/28/17 09:57 Cefepime HCl 2000 mg/Sodium Chloride 100 ml @ 200 mls/hr Q12H IV 03/25/17 23:00 03/28/17 12:11 (Magic Mouthwash Adult Liq) 10 ml BID SWISH-SWAL 03/25/17 21:00 03/28/17 09:00 (Duoneb Neb) 1 ampule Q4HR NEB PRN NEB 03/25/17 18:15 03/26/17 23:38 (Duoneb Neb) 1 ampule Q12HR NEB NEB 03/25/17 20:00 03/28/17 07:27 (Protonix Inj) 40 mg Q24H IV PUSH 03/26/17 11:00 03/28/17 12:05 (Lomotil 2.5-0.025 Mg Liq) 5 ml Q6H PO 03/26/17 20:00 03/27/17 20:54 (Flagyl) 500 mg Q8HR G-TUBE 03/27/17 14:30 03/28/17 13:28 (Fioricet 325-50-40) 1 tab Q6H PRN PO 03/28/17 13:30 03/28/17 13:28 Lines PIV Past Medical History Squamous cell CA base of tongue, S/P chemo and XRT and surgery 2006 CAD with history of [place], CABG x 5 vessels. 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 Vital Signs Date Time Temp Pulse Resp B/P (MAP) Pulse Ox O2 Delivery O2 Flow Rate FiO2 03/28/17 11:50 98.9 91 20 178/86 (116) 94 03/28/17 07:30 98.7 96 20 131/67 (88) 94 03/28/17 07:29 97 Nasal Cannula 2.00 03/28/17 04:00 98.7 85 20 175/79 (111) 92 03/28/17 00:00 99.9 98 20 218/107 (144) 92 03/27/17 20:00 100.0 86 20 193/93 (126) 98 03/27/17 20:00 85 03/27/17 19:50 94 21 . Laboratory Tests Test 03/27/17 05:10 03/28/17 07:01 White Blood Count 12.7 TH/MM3 12.1 TH/MM3 Red Blood Count 3.77 MIL/MM3 3.87 MIL/MM3 Hemoglobin 11.3 GM/DL 11.6 GM/DL Hematocrit 34.8 % 35.3 % Mean Corpuscular Volume 92.6 FL 91.3 FL Mean Corpuscular Hemoglobin 30.1 PG 29.9 PG Mean Corpuscular Hemoglobin Concent 32.5 % 32.8 % Red Cell Distribution Width 12.8 % 12.7 % Platelet Count 123 TH/MM3 124 TH/MM3 Mean Platelet Volume 9.5 FL 8.8 FL Neutrophils (%) (Auto) 82.8 % 81.5 % Lymphocytes (%) (Auto) 8.7 % 7.9 % Monocytes (%) (Auto) 6.6 % 7.7 % Eosinophils (%) (Auto) 1.6 % 2.2 % Basophils (%) (Auto) 0.3 % 0.7 % Neutrophils # (Auto) 10.6 TH/MM3 9.8 TH/MM3 Lymphocytes # (Auto) 1.1 TH/MM3 1.0 TH/MM3 Monocytes # (Auto) 0.8 TH/MM3 0.9 TH/MM3 Eosinophils # (Auto) 0.2 TH/MM3 0.3 TH/MM3 Basophils # (Auto) 0.0 TH/MM3 0.1 TH/MM3 CBC Comment DIFF FINAL DIFF FINAL Differential Comment Laboratory Tests Test 03/26/17 16:50 03/27/17 05:10 03/28/17 07:01 Lactic Acid Level 1.8 mmol/L Blood Urea Nitrogen 18 MG/DL 15 MG/DL Creatinine 0.69 MG/DL 0.62 MG/DL Random Glucose 97 MG/DL 97 MG/DL Calcium Level 7.6 MG/DL 7.6 MG/DL Sodium Level 143 MEQ/L 142 MEQ/L Potassium Level 3.8 MEQ/L 3.8 MEQ/L Chloride Level 108 MEQ/L 106 MEQ/L Carbon Dioxide Level 31.2 MEQ/L 28.8 MEQ/L Anion Gap 4 MEQ/L 7 MEQ/L Estimat Glomerular Filtration Rate 114 ML/MIN 129 ML/MIN Microbiology Date/Time Source Procedure Growth Status 03/26/17 08:30 Sputum Expectorated Sputum Gram Stain - Final Complete 03/26/17 08:30 Sputum Culture - Final Klebsiella Pneumoniae Complete 03/26/17 16:00 Urine Clean Catch Legionella Antigen - Final PRESUMPTIVE NEGATIVE FOR LEGIONELLA P... Complete 03/26/17 16:00 Urine Clean Catch Streptococcus pneumoniae Antigen (M - Final PRESUMPTIVE NEGATIVE FOR STREPTOCOCCU... Complete Imaging Chest X-Ray 03/25/17 1212 Signed Impressions: Service Date/Time: Saturday, March 25, 2017 12:25 - CONCLUSION: 1. Right perihilar interstitial and alveolar opacities concerning for pneumonia versus aspiration. 2. Gastrojejunostomy catheter is partially retracted and coiled in the stomach with tip likely in the second portion of the duodenum. Eduardo Briggs MD Physical Exam GENERAL: awake and alert, not in respiratory distress. SKIN: Warm and dry. No generalized rash, no ecchymoses and no evidence of embolic lesions. HEAD: Atraumatic. Normocephalic. No temporal wasting, or tenderness. EYES: [place] conjunctiva. No petechia or hemorrhage. Pupils equal, round and reactive to light. Extraocular movements full and intact. No scleral icterus. No injection or drainage. EARS, NOSE AND THROAT: Nose without bleeding or purulent nasal discharge. No sinus tenderness. Mucous membranes pink and moist. No oral lesions noted. No exudate. No oral thrush. NECK: Trachea midline. Supple and not tender, no meningeal signs. Has scars in neck from previous surgery CARDIOVASCULAR: Regular rate and rhythm. No murmurs, rubs or gallops heard. Healed sternotomy incision RESPIRATORY: Some rhonchi R. ABDOMEN: Soft, non-tender, nondistended. Bowel sounds present and normoactive. No guarding. No rebound. No organomegaly. PEG site ok EXTREMITIES: No clubbing, cyanosis, or edema.No joint effusion, has good ROM. No calf tenderness. Well perfused and warm. NEUROLOGICAL: Awake and alert. Cranial nerves grossly intact. Motor grossly within normal limits. PSYCHIATRIC: Normal affect, calm and cooperative. LINE: No evidence of infection Assessment & Plan Remarks IMPRESSION Aspiration pneumonia Sepsis due to PNA Hemoptysis Hx CA base of tongue 2006, treated Esophageal stricture/fibrosis Low grade temps RECOMMENDATION Pulmonary to evaluate hemoptysis Repeat CXR If temps stays down, change Cefepime to Levaquin Give Levaquin and Flagyl until April 08 If temps down, ok to D/C patient tomorrow from ID standpoint Zaina Latham MD Mar 28, 2017 16:26
[2017-03-28] MEDS ORDERED: RESP: RACEPINEPHRINE 2.25% 0.5 ML NEB NEB PRN (16:45)
[2017-03-28] MEDS: ENOXAPARIN SODIUM 40 MG/0.4 ML SYRINGE SQ SCH (17:04)
--- NOTE | 2017-03-28 17:16 | RADRPT ---
EXAM DATE/TIME: 03/28/2017 16:56 [facility] COMPARISON: CHEST PA & LAT, July 11, 2016, 19:15. CHEST PA & LAT, July 19, 2014, 10:05. CHEST PA & LAT, Decem 2016, 12:25. INDICATIONS : Evaluate for pneumonia. MEDICAL HISTORY : Hyperparathyroidism. Myocardial infarction. Gastroesophageal reflux disease. CAD. Carcinoma of th e tongue, lymph, facial and throat. SURGICAL HISTORY : CABG. Appendectomy. ENCOUNTER: Subsequent ACUITY: 2 days PAIN SCORE: 0/10 LOCATION: Bilateral chest FINDINGS: There is no change in the right perihilar opacity possibly technical, however it could also represent some degree of interstitial process at this site. There is evidence for prior median sternotomy. The rest of the examination has not significantly changed. CONCLUSION: Right perihilar haziness could partly be technical, however mild interstitial process is difficult to exclude. Shagufta Pitt MD on March 28, 2017 at 17:12 Board Certified Radiologist. This report was verified electronically.
--- NOTE | 2017-03-28 18:14 | MB ---
cc: HIRAL ROSARIO DATE OF CONSULTATION 03/28/[address] Maggie Orellana REASON FOR CONSULTATION Hemoptysis. HISTORY OF PRESENT ILLNESS Mr. Rodriguez is a pleasant 71-year-old male who is known to me from the office. 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 He received chemotherapy and radiation treatment. He has a G tube and he feeds himself. He takes about 1000 mL of tube feeding every day and mostly during daytime because if it takes a feeding at nighttime he has coughing spells. The patient went for a barium swallow, had a coughing spell and was noted to have aspiration. He also has been coughing up bright red blood. Denies any chest pain, does not have fever or chills. No night sweats. He had a workup done. His chest x-ray shows he has right perihilar interstitial and alveolar opacity concerning for pneumonia. His CBC showed WBC count 12.1, hemoglobin 11.6, hematocrit 35.3, MCV 91, platelet count 124, sodium 142, potassium 3.8, chloride 106, CO2 28, BUN 15, creatinine 0.62. PAST MEDICAL HISTORY 1. History of CA of the esophagus, squamous cell carcinoma, 2. History of dysphagia 3. Multiple esophageal dilations. 4. J-G tube placement 5. History of coronary artery disease status post coronary artery bypass graft. 6. Anxiety, depression, 7. Hypertension, 8. Hyperlipidemia, 9. History of appendectomy. MEDICATIONS Currently taking 1. Fioricet for pain 2. Flagyl 500 mg q. 8-hour. 3. Lomotil 5 mg q. 6-hour 4. Protonix 40 mg a day 5. Aspirin 81 mg a day, 6. Levothyroxine 100 mcg a day. 7. Cefepime 2 grams q. 12-hour. 8. Lipitor 40 mg a day. 9. Metoprolol 100 mg twice a day. 10. Albuterol/Atrovent nebulizer treatment. 11. Lovenox 40 mg a day. ALLERGIES TETANUS TOXOID SOCIAL HISTORY He is for second time for five years. No history of smoking or alcohol abuse. 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 FAMILY HISTORY Noncontributory. REVIEW OF SYSTEMS Normally he is up, around and active. He does exercise . No DVT or pulmonary embolism. No seizure, stroke or epilepsy. PHYSICAL EXAMINATION GENERAL: A pleasant elderly male not in acute distress. VITAL SIGNS: Blood pressure 178/86, heart rate 91, respirations 20, temperature 98 HEENT: Pupils are equal and react to light. Oral mucosa and nasal mucosa normal. NECK: Supple. JVP not raised. CHEST: he has scattered rales. CARDIOVASCULAR: S1, S2 normal ABDOMEN: Benign. EXTREMITIES: No edema. IMPRESSION 1. Aspiration 2. Hemoptysis. 3. History of CA of the esophagus status post radiation and chemotherapy 4. Esophageal dilation multiple times 5. Dysphagia. 6. Feeding tube placement. He has J-G tube 7. History of coronary status post coronary artery bypass graft PLAN Continue antibiotic Flagyl and Cefepime. Repeat a chest x-ray in the morning. I will start him on racemic epinephrine nebulizer treatment. Monitor his hemoptysis. Further treatment will depend on the course in the hospital. Thank you, Dr. Maggie Orellana, for this consultation. MD GUZMAN Viveros/ /4:19 PM /5:37 PM
[2017-03-28] MEDS ORDERED: cloNIDine HCL 0.1 MG TAB PO PRN (18:45)
[2017-03-28] MEDS ORDERED: BENZONATATE 100 MG CAP PO PRN (18:45)
[2017-03-28] MEDS: ACETAMINOPHEN 325 MG TAB PO PRN (20:37)
[2017-03-28] MEDS: clonazePAM 1 MG TAB PO SCH (20:37)
[2017-03-28] MEDS: ATORVASTATIN 40 MG TAB G-TUBE SCH (20:39)
[2017-03-29] VITALS: BP 126/70; PULSE 82; RESP 20; TEMP 99.2; O2SAT 96
[2017-03-29] MEDS: DIPHENOXYLATE/ATROPINE 2.5 MG/0.025 MG/5 ML CUP PO SCH ×2 (02:00→08:00)
[2017-03-29 04:00] VITALS: BP 128/70; PULSE 76; RESP 20; TEMP 98.8; O2SAT 96
[2017-03-29] MEDS: ACETAMIN 325 MG/BUTALBITAL 50 MG/CAFFEINE 40 MG TAB PO PRN ×2 (04:25→09:25)
[2017-03-29] MEDS: metroNIDAZOLE 500 MG TAB G-TUBE SCH (04:35)
[2017-03-29] MEDS: LEVOTHYROXINE SODIUM 100 MCG TAB PO SCH (04:35)
[2017-03-29 08:00] VITALS: BP 127/76; PULSE 75; RESP 20; TEMP 98.2; O2SAT 88
[2017-03-29] MEDS: RESP: ALBUTEROL 2.5 MG/IPRATROPIUM 0.5 MG NEB (SCH) NEB (08:00)
[2017-03-29 08:08] VITALS: O2SAT 96
[2017-03-29 08:10] LABS: AUTOMATED NEUTROPHIL # 5.6 TH/MM3 (1.8-7.7); BASOPHIL % 0.4 % (0.0-2.0); EOSINOPHIL # 0.3 TH/MM3 (0-0.4); EOSINOPHIL % 3.5 % (0.0-4.0); HEMATOCRIT 36.7 % (39.0-51.0); HEMOGLOBIN 11.8 GM/DL (13.0-17.0); LYMPH % 13.9 % (9.0-44.0); LYMPHOCYTE # 1.1 TH/MM3 (1.0-4.8); MEAN CELL VOLUME 93.3 FL (80.0-100.0); MEAN CORPUSCULAR HEMOGLOBIN 30.1 PG (27.0-34.0); MEAN CORPUSCULAR HGB CONC 32.3 % (32.0-36.0); MEAN PLATELET VOLUME 8.7 FL (7.0-11.0); MONO % 11.4 % (0.0-8.0); MONOCYTE # 0.9 TH/MM3 (0-0.9); NEUT % 70.8 % (16.0-70.0); PLATELET COUNT 132 TH/MM3 (150-450); RED BLOOD COUNT 3.93 MIL/MM3 (4.50-5.90); RED CELL DISTRIBUTION WIDTH 12.8 % (11.6-17.2); WHITE BLOOD COUNT 7.9 TH/MM3 (4.0-11.0)
[2017-03-29 08:29] LABS: CALCIUM 8.1 MG/DL (8.5-10.1)
[2017-03-29 08:30] LABS: BICARBONATE 31.9 MEQ/L (21.0-32.0)
[2017-03-29 08:33] LABS: CREATININE 0.66 MG/DL (0.60-1.30)
[2017-03-29] MEDS: NYSTAT/DIPHENHY/LIDO MOUTHWASH (Adult) 120ML SWISH-SWAL SCH (09:00)
[2017-03-29] MEDS: GABAPENTIN 300 MG CAP PO SCH (09:25)
[2017-03-29] MEDS: ASPIRIN 81 MG CHEW TAB CHEW SCH (09:25)
[2017-03-29] MEDS: METOPROLOL TARTRATE 100 MG TAB PO SCH (09:25)
--- NOTE | 2017-03-29 09:25 | HHI.PR ---
Subjective Remarks Patient in the room ambulating. Feels better. No fever or chills. Patient denies chest pain, or sob. No wheezing. Less cough and with less blood in it. No n/v/d/c. Objective Vitals Vital Signs Date Time Temp Pulse Resp B/P (MAP) Pulse Ox O2 Delivery O2 Flow Rate FiO2 03/29/17 08:08 96 Nasal Cannula 2.00 03/29/17 08:00 98.2 75 20 127/76 (93) 88 03/29/17 05:25 20 03/29/17 04:00 98.8 76 20 128/70 (89) 96 03/29/17 00:00 99.2 82 20 126/70 (88) 96 03/28/17 21:37 20 03/28/17 20:00 97 03/28/17 20:00 101.1 100 20 216/105 (142) 95 03/28/17 20:00 96 Nasal Cannula 2.00 03/28/17 15:50 98.3 83 20 172/92 (118) 93 03/28/17 11:50 98.9 91 20 178/86 (116) 94 I/O 03/28/17 03/28/17 03/28/17 03/29/17 03/29/17 03/29/17 07:00 15:00 23:00 07:00 15:00 23:00 Intake Total 2789 ml 400 ml 100 ml Balance 2789 ml 400 ml 100 ml Intake Oral 0 ml IV Total 2789 ml 400 ml 100 ml # Voids 2 8 # Bowel Movements 0 Result Diagram: 03/29/17 0740 03/29/17 0740 Imaging Last Impressions Chest X-Ray 03/28/17 0000 Signed Impressions: Service Date/Time: Tuesday, March 28, 2017 16:56 - CONCLUSION: Right perihilar haziness could partly be technical, however mild interstitial process is difficult to exclude. Shagufta Pitt MD Objective Remarks GENERAL: This is a well-nourished, well-developed patient, lying in bed in no apparent distress. CARDIOVASCULAR: Regular rate and rhythm without murmurs, gallops, or rubs. RESPIRATORY: Bronchial sounds more severe on right lower lobes but noticed throughout posterior lobe nrei. Clear to auscultation. Breath sounds equal bilaterally. No wheezes, rales, or rhonchi. GASTROINTESTINAL: Left UQ G/J tube present. Abdomen soft, non-tender, nondistended. No guarding. MUSCULOSKELETAL: Extremities without clubbing, cyanosis, or edema. No joint tenderness, effusion, or edema noted. NEUROLOGICAL: Awake and alert. Cranial nerves II through XII intact. Motor and sensory grossly within normal limits. Five out of 5 muscle strength in all muscle groups. Normal speech. A/P Problem List: (1) Sepsis ICD Code: A41.9 - Sepsis Status: Acute (2) Aspiration pneumonia ICD Code: J69.0 - Aspiration pneumonia Status: Acute Assessment and Plan Mr. Rodriguez is a 71-year-old male patient with a known medical history of facial cancer, CAD with [place], HTN, and CABG and GERD who presented to the ED with complaints of aspiration and cough. Aspiration pneumonia secondary to facial cancer with chronic dysphagia and presence of cough/hemoptysis. Sputum cultures with gram-negative throat. Follow ID and sensitivities until the end per infectious disease doctor . With Klebsiella in sputum, pansensitive. to e Flagyl and Levaquin at [place] until Apr 082017 per ID. Severe sepsis criteria (leukocytosis WBC 13.3 with mild bandemia, lactic acid 2.6, tachycardia) on admission. Worsening WBC and hypotensive on 03/26 . Received bolus , monitor BP and administer bolus NS if low BP. BP better, WBC improved CXR reviewed showing right perihilar interstitial and alveolar opacities concerning for pneumonia vs aspiration. TMAX 100.0. WBC 13.3. Follow CBC in am. Status post 1 L NS bolus in ED. Ensure hydration NS @ 70ml/hr. Continue IV Cefepime and Azithromycin and Flagyl IV. Control nausea, Zofran available PRN. Blood cultures obtained and pending. Follow. Supportive care. Supplemental O2 to keep sats >92%. Magic mouthwash ordered. Continue on cardiac telemetry, monitor for any arrhythmias. Consult placed to ID for severe sepsis, aspiration PNA in cancer patient. Appreciate further input and recommendations. Sputum cultures GNR Iand S pending Consult pulm for hemoptysis follows with Dr. Meraz Headaches says he takes Fioricet. Start Fioricet when necessary for headaches. Hypotension noted SBP in low 80s. Give 1L NS. Continue IVF NS at 100 cc. Repeat BP after bolus of fluids, improved. Hyperlipidemia, chronic: Continue home Atorvastatin. CAD with history of [place] and CABG Continue Aspirin. Continue home metoprolol. Cardiac tele for now. Hypothyroidism: Continue home Levothyroxine. GI Prophylaxis: Protonix. DVT prophylaxis: SCDs. Lovenox. DC today. Improved less hemoptisis, afebrile , feels con=mfortable to go home. Cleared by consultants to follow up as OP with PCP and consultants. Discussed with the patient, nurse, Problem Qualifiers (1) Sepsis: Qualified Codes: A41.9 - Sepsis, unspecified organism (2) Aspiration pneumonia: Qualified Codes: J69.0 - Pneumonitis due to inhalation of food and vomit Maggie Orellana MD Mar 29, 2017 09:25
[2017-03-29] MEDS: CALCIUM CARBONATE 1.25 GM (CA 500 MG) TAB PO SCH (09:26)
[2017-03-29] MEDS: SODIUM CHLORIDE 0.9% FLUSH 10 ML FLUSH IV FLUSH SCH (09:26)
[2017-03-29] MEDS: CHOLECALCIFEROL (VIT D3) 1000 UNIT TAB PO SCH (09:26)
--- NOTE | 2017-03-29 10:39 | HHI.DS ---
Discharge Summary Admission Date Mar 25, 2017 at 13:46 Discharge Date: Mar 29, 2017 Admitting Diagnosis Aspiration pneumonia (1) Sepsis ICD Code: A41.9 - Sepsis Status: Acute (2) Aspiration pneumonia ICD Code: J69.0 - Aspiration pneumonia Status: Acute (3) Hemoptysis ICD Code: R04.2 - Hemoptysis (4) Esophageal stricture ICD Code: K22.2 - Esophageal stricture Status: Acute (5) History of esophageal cancer ICD Code: Z85.01 - History of esophageal cancer Status: Acute Procedures none Brief History - From Admission Written by Alondra Saxena, acting as scribe for Dr. Orellana on 03/25/17 at 17:11. Mr. Rodriguez is a 71-year-old male patient with a known medical history of facial cancer, CAD with [place], HTN, and CABG and GERD who presented to the ED with complaints of aspiration. He states that he was undergoing a swallow study in the outpatient setting with presence of aspiration. Does admit to subjective fevers and chills. Does complain of a chronic cough in order to clear his throat due to chronic dysphagia. Has been positive for hemoptysis x several days with presence of diane red blood. Patient initially noticed this at 0300 and has continued presently. Does admit to previous wheezing. Denies any chest pain. Denies any nausea, vomiting or abnormal stools. Dr. Peguero is his oncologist, last seen 5 months ago. CBC/BMP: 03/29/17 0740 03/29/17 0740 Significant Findings Laboratory Tests Test 03/26/17 16:50 03/27/17 05:10 03/28/17 07:01 03/29/17 07:40 White Blood Count 12.7 TH/MM3 (4.0-11.0) 12.1 TH/MM3 (4.0-11.0) Red Blood Count 3.77 MIL/MM3 (4.50-5.90) 3.87 MIL/MM3 (4.50-5.90) 3.93 MIL/MM3 (4.50-5.90) Hemoglobin 11.3 GM/DL (13.0-17.0) 11.6 GM/DL (13.0-17.0) 11.8 GM/DL (13.0-17.0) Hematocrit 34.8 % (39.0-51.0) 35.3 % (39.0-51.0) 36.7 % (39.0-51.0) Platelet Count 123 TH/MM3 (150-450) 124 TH/MM3 (150-450) 132 TH/MM3 (150-450) Neutrophils (%) (Auto) 82.8 % (16.0-70.0) 81.5 % (16.0-70.0) 70.8 % (16.0-70.0) Lymphocytes (%) (Auto) 8.7 % (9.0-44.0) 7.9 % (9.0-44.0) Neutrophils # (Auto) 10.6 TH/MM3 (1.8-7.7) 9.8 TH/MM3 (1.8-7.7) Calcium Level 7.6 MG/DL (8.5-10.1) 7.6 MG/DL (8.5-10.1) 8.1 MG/DL (8.5-10.1) Chloride Level 108 MEQ/L (98-107) Anion Gap 4 MEQ/L (5-15) Monocytes (%) (Auto) 11.4 % (0.0-8.0) Imaging Last Impressions Chest X-Ray 03/28/17 0000 Signed Impressions: Service Date/Time: Tuesday, March 28, 2017 16:56 - CONCLUSION: Right perihilar haziness could partly be technical, however mild interstitial process is difficult to exclude. Shagufta Pitt MD PE at Discharge GENERAL: This is a well-nourished, well-developed patient, lying in bed in no apparent distress. CARDIOVASCULAR: Regular rate and rhythm without murmurs, gallops, or rubs. RESPIRATORY: Bronchial sounds more severe on right lower lobes but noticed throughout posterior lobe neri. Clear to auscultation. Breath sounds equal bilaterally. No wheezes, rales, or rhonchi. GASTROINTESTINAL: Left UQ G/J tube present. Abdomen soft, non-tender, nondistended. No guarding. MUSCULOSKELETAL: Extremities without clubbing, cyanosis, or edema. No joint tenderness, effusion, or edema noted. NEUROLOGICAL: Awake and alert. Cranial nerves II through XII intact. Motor and sensory grossly within normal limits. Five out of 5 muscle strength in all muscle groups. Normal speech. Hospital Course Mr. Rodriguez is a 71-year-old male patient with a known medical history of facial cancer, CAD with [place], HTN, and CABG and GERD who presented to the ED with complaints of aspiration and cough. Patient with aspiration pneumonia secondary to facial cancer with chronic dysphagia and presence of cough/hemoptysis. Sputum cultures with gram- negative brianne Klebsiells pansensitive. To hve Flagyl and Levaquin at [place] until Apr 082017 per ID. Improved to follow up as OP with PCP and consultants as OP. Aspiration pneumonia secondary to facial cancer with chronic dysphagia and presence of cough/hemoptysis. Sputum cultures with gram-negative throat. Follow ID and sensitivities until the end per infectious disease doctor . With Klebsiella in sputum, pansensitive. to hve Flagyl and Levaquin at [place] until Apr 082017 per ID. Severe sepsis criteria (leukocytosis WBC 13.3 with mild bandemia, lactic acid 2.6, tachycardia) on admission. Worsening WBC and hypotensive on 03/26 . Received bolus , monitor BP and administer bolus NS if low BP. BP better, WBC improved CXR reviewed showing right perihilar interstitial and alveolar opacities concerning for pneumonia vs aspiration. TMAX 100.0. WBC 13.3. Follow CBC in am. Status post 1 L NS bolus in ED. Ensure hydration NS @ 70ml/hr. Continue IV Cefepime and Azithromycin and Flagyl IV. Control nausea, Zofran available PRN. Blood cultures obtained and pending. Follow. Supportive care. Supplemental O2 to keep sats >92%. Magic mouthwash ordered. Continue on cardiac telemetry, monitor for any arrhythmias. Consult placed to ID for severe sepsis, aspiration PNA in cancer patient. Appreciate further input and recommendations. Sputum cultures GNR Iand S pending Consult pulm for hemoptysis follows with Dr. Meraz Headaches says he takes Fioricet. Start Fioricet when necessary for headaches. Hypotension noted SBP in low 80s. Give 1L NS. Continue IVF NS at 100 cc. Repeat BP after bolus of fluids, improved. Hyperlipidemia, chronic: Continue home Atorvastatin. CAD with history of [place] and CABG Continue Aspirin. Continue home metoprolol. Cardiac tele for now. Hypothyroidism: Continue home Levothyroxine. GI Prophylaxis: Protonix. DVT prophylaxis: SCDs. Lovenox. Improved less hemoptysis, afebrile. Cleared by consultants to follow up as OP with PCP and consultants. Pt Condition on Discharge: Stable Discharge Disposition: Disch w/ Home Health Serv Discharge Time: > 30 minutes Discharge Instructions DIET: Follow Instructions for: On Tube Feeding Activities you can perform: Regular-No Restrictions Follow up Referrals: PCP Follow-up - 2-3 Days Pulmonology - 1 Week New Medications: Levofloxacin (Levaquin) 750 Mg Tablet 750 MG G-TUBE DAILY for Infection, #11 TAB 0 Refills Metronidazole (Flagyl) 500 Mg Tab 500 MG G-TUBE Q8HR for infection, #33 TAB Continued Medications: Aspirin (Aspirin) 81 Mg Chew 81 MG CHEW DAILY, TAB 0 Refills Atorvastatin (Atorvastatin) 20 Mg Tab 40 MG G-TUBE HS for Cholesterol Management, #30 TAB 0 Refills Calcium Carbonate (Calcium Carbonate) 1,250 Mg Tab 1250 MG PO DAILY for Calcium Supplement, TAB 0 Refills 1,250 mg calcium carbonate (500 mg elemental calcium) Cholecalciferol (Vitamin D3) 1,000 Unit Tab 1000 UNITS PO DAILY for Nutritional Supplement, #1 BOTTLE 0 Refills Clonazepam (Klonopin) 1 Mg Tab 1 MG PO HS, TAB 0 Refills Gabapentin (Neurontin) 300 Mg Cap 300 MG PO TID, CAP 0 Refills Levothyroxine (Synthroid) 100 Mcg Tab 100 MCG PO DAILY for Thyroid, TAB 0 Refills Magnesium Chloride (Mag-Delay) 64 Mg Tab Unknown Dose PO DAILY, TAB 0 Refills Metoprolol Tartrate (Metoprolol Tartrate) 100 Mg Tab 100 MG PO BID, #60 TAB 0 Refills Omeprazole (Omeprazole) 20 Mg Tab 20 MG PO DAILY, #30 TAB 0 Refills Maggie Orellana MD Mar 29, 2017 10:39
[2017-03-29] MEDS ORDERED: METR-1 G-TUBE (10:43)
[2017-03-29] MEDS ORDERED: LEVA750T9 G-TUBE (10:44)
[2017-03-29 10:52] VITALS: RESP 18
== END 2017-03-29 13:18 | disposition home or self-care (01) | DRG 871 ==
LOC: PHED 11:50 → PHEDA 13:46 → PH3B 14:34
PROVIDERS: ADMIT Hospitalist; ATTEND Hospitalist
DX: A41.9 Sepsis, unspecified organism (principal); J69.0 Pneumonitis due to inhalation of food and vomit; R04.2 Hemoptysis; R13.10 Dysphagia, unspecified; K22.2 Esophageal obstruction; Z93.4 Other artificial openings of gastrointestinal tract status; B96.1 Klebsiella pneumoniae [K. pneumoniae] as the cause of diseases classified elsewhere; R65.20 Severe sepsis without septic shock; K21.9 Gastro-esophageal reflux disease without esophagitis; Z85.810 Personal history of malignant neoplasm of tongue; Z92.21 Personal history of antineoplastic chemotherapy; Z92.3 Personal history of irradiation; E89.0 Postprocedural hypothyroidism; I25.10 Atherosclerotic heart disease of native coronary artery without angina pectoris; Z95.1 Presence of aortocoronary bypass graft; I25.2 Old myocardial infarction; I10 Essential (primary) hypertension; E78.5 Hyperlipidemia, unspecified; M54.10 Radiculopathy, site unspecified
CPT/HCPCS: 71010; 71020; 80048; 83605; 84484; 85007; 85025; 85027; 87040; 87070; 87077; 87186; 87205; 87449; 93005; 94640; 94664; 96365; 96375; C9113; J0456; J0692; J1650; J7030; J7050

== ENCOUNTER 2017-04-30 08:26 | Day surgery (SDC) | payer MEDICARE, OTHER ==
[~2017-04-30] VITALS: Ht 172.7 cm; Wt 65.9 kg
[~2017-04-30 08:26] MED LIST changes: +LEVA750T9 G-TUBE; +METR-1 G-TUBE
[2017-04-30 08:39] VITALS: BP 94/54; PULSE 62; RESP 20; TEMP 97.9; O2SAT 98
[2017-04-30] MEDS ORDERED: CYAN1TAB24 (08:50)
[2017-04-30] MEDS ORDERED: SODIUM CHLORIDE 0.9% 1000 ML IV SCH (09:30)
[2017-04-30 10:20] VITALS: BP 144/89; PULSE 61; RESP 20; TEMP 98.3; O2SAT 97
--- NOTE | 2017-04-30 10:37 | RADRPT ---
EXAM DATE/TIME: 04/30/2017 10:42 [facility] COMPARISON: CHANGE OF GJ-TUBE CATHETER, March 13, 2017, 10:44. INDICATIONS : Displaced gastrojejunostomy catheter MEDICAL HISTORY : MA, HTN, HLD, Kidney stones, PTSD, CAD, GERD, Radiation and chemotherapy SURGICAL HISTORY : CABGX5, Esophageal dilitation, PEG tube placement, Cardiac cath, Right endarterectomy ENCOUNTER: Subsequent ACUITY: >1 year PAIN SCORE: 0/10 FLUORO TIME: 1.9 minutes IMAGE SERIES: 1 10 cc Omnipaque (iohexol) 350 DEVICE(S): 1.) 22 [place] gastrojejunostomy tube PROCEDURE : 1. Fluoroscopically guided gastrojejunostomy tube exchange. 2. Conscious sedation with continuous EKG and oximetry monitoring. The risks, benefits and alternatives to the procedure were explained and verbal and written consent w as obtained. The site was prepped in sterile fashion. Full sterile technique was used, including ca p, mask, sterile gloves and gown and a large sterile sheet. Hand hygiene and 2% chlorhexidine and/or betadine/alcohol prep was utilized per protocol for cutaneous antisepsis. The skin and subcutaneous tissues were infiltrated with local anesthetic solution. With fluoroscopic guidance a guidewire was passed through the previous gastrojejunostomy tube and a f resh tube was placed over the guidewire. The balloon was inflated with appropriate volume of saline. Injection of positive contrast demonstrates good position of the gastric and jejunal lumens of the tube. Conscious sedation was performed with the prescribed dosages and duration as above in the presence of an independent trained radiology nurse to assist in the monitoring of the patient. EKG and oximetry remained stable throughout the procedure. The patient tolerated the procedure well and there were n o complications. The patient was sent to post anesthesia recovery in stable condition. CONCLUSION: Uncomplicated gastrojejunostomy tube exchange as above. Eduardo Briggs MD on April 30, 2017 at 10:33 Board Certified Radiologist. This report was verified electronically.
== END 2017-04-30 10:30 | disposition home or self-care (01) ==
LOC: HROP 08:26 → HRIP 08:27 → HROP 10:30
PROVIDERS: ATTEND Internal Medicine Gastroenterology
DX: K94.23 Gastrostomy malfunction (principal); K21.9 Gastro-esophageal reflux disease without esophagitis; I10 Essential (primary) hypertension; E78.5 Hyperlipidemia, unspecified; I25.10 Atherosclerotic heart disease of native coronary artery without angina pectoris; Z87.442 Personal history of urinary calculi
CPT/HCPCS: 49452; C1769

== ENCOUNTER 2017-05-21 08:09 | Day surgery (SDC) | payer MEDICARE, OTHER ==
[~2017-05-21] VITALS: Ht 172.7 cm; Wt 65.9 kg
[~2017-05-21 08:09] MED LIST changes: +CYAN1TAB24; -LEVA750T9 G-TUBE; -METR-1 G-TUBE
[2017-05-21 08:20] VITALS: BP 132/81; PULSE 56; RESP 20; TEMP 97.6; O2SAT 96
[2017-05-21] MEDS ORDERED: MIDAZOLAM HCL 2 MG/2 ML VIAL ONE (10:44)
[2017-05-21] MEDS ORDERED: fentaNYL CITRATE 250 MCG/5 ML AMP ONE (10:44)
[2017-05-21 11:25] VITALS: BP 190/106; PULSE 65; RESP 20; TEMP 97.7; O2SAT 97
--- NOTE | 2017-05-21 12:21 | RADRPT ---
EXAM DATE/TIME: 05/21/2017 11:41 [facility] COMPARISON: CHEST SINGLE AP, March 28, 2017, 16:56. INDICATIONS : Patient with history of esophageal cancer. Has trouble swallowing. FLUORO TIME: 1.7 minutes IMAGE COUNT: 1 CONTRAST: 1. Liquid E-Z Paque Barium Sulfate (60% w/v, 41% w.w) MEDICAL HISTORY : Carcinoma, esophageal. Cardiovascular disease. Hypertension. SURGICAL HISTORY : CABG. 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 The patient developed a postoperative leak and has extensive scarring involving the oropharynx and hypoph arynx. We are requested to assess the patient for possible dilation of the junction of the cervical e sophagus and hypopharynx. The patient was placed on the fluoroscopy table. Digital subtraction fluoroscopy of the oropharynx an d upper esophagus was performed. There is no significant narrowing of the origin of the esophagus. The epiglottis appears enlarged. There was direct penetration of barium beneath the epiglottis with o nly a single sip of thin barium. CONCLUSION: 1. The patient would not benefit from dilation of the esophagus as there is no significant stricturin g at the junction of the oropharynx and cervical esophagus. 2. The epiglottis appears thickened with very little motion. The patient is at risk for aspiration. Andres Clark MD on May 21, 2017 at 12:17 Board Certified Radiologist. This report was verified electronically.
== END 2017-05-21 11:46 | disposition home or self-care (01) ==
LOC: HROP 08:09 → HRIP 08:10 → HROP 11:46
PROVIDERS: ATTEND Internal Medicine Gastroenterology
DX: R13.10 Dysphagia, unspecified (principal); C32.9 Malignant neoplasm of larynx, unspecified; I10 Essential (primary) hypertension; I25.10 Atherosclerotic heart disease of native coronary artery without angina pectoris; Z95.1 Presence of aortocoronary bypass graft
CPT/HCPCS: 74230; G0463; J2250; J3010; 99211

== ENCOUNTER 2017-12-18 15:12 | Inpatient (IN) ==
[2017-12-18] MEDS ORDERED: Sod Chloride 0.9% Inj 1,000 ML IV.CONT SCH ×2 (16:00→17:30)
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
[2017-12-18 16:29] LABS: Baso # (Auto) 0.1 th/mm3 (0.0-0.2); Baso % (Auto) 0.3 % (0.0-2.0); Eos % (Auto) 0.1 % (0.0-4.0); Hematocrit 40.2 % (39.0-51.0); Hemoglobin 13.9 gm/dL (13.0-17.0); Lymph # (Auto) 0.7 th/mm3 (1.0-4.8); Lymph % (Auto) 3.3 % (9.0-44.0); Mean Corpuscular HGB Conc 34.5 % (32.0-36.0); Mean Corpuscular Hemoglobin 31.7 pg (27.0-34.0); Mean Corpuscular Volume 91.7 fL (80.0-100.0); Mean Platelet Volume 7.9 fL (7.0-11.0); Mono # (Auto) 0.9 th/mm3 (0.0-0.9); Mono % (Auto) 4.2 % (0.0-8.0); Neut # (Auto) 20.7 th/mm3 (1.8-7.7); Neut % (Auto) 92.1 % (16.0-70.0); Platelet Count 195 th/mm3 (150-450); Red Blood Count 4.38 mil/mm3 (4.50-5.90); Red Cell Distribution Width 12.4 % (11.6-17.2); White Blood Count 22.4 th/mm3 (4.0-11.0)
[2017-12-18 16:38] LABS: Chloride 101 meq/L (98-107); Potassium 4.4 meq/L (3.5-5.1); Sodium 138 meq/L (136-145)
[2017-12-18 16:41] LABS: Calcium 8.7 mg/dL (8.5-10.1)
[2017-12-18 16:42] LABS: Albumin 3.4 g/dL (3.4-5.0); Anion Gap 5 meq/L (5-15); Blood Urea Nitrogen 19 mg/dL (7-18); Carbon Dioxide 31.9 meq/L (21.0-32.0); Glucose,Random 106 mg/dL (74-106)
[2017-12-18 16:44] LABS: Activated Partial Thrombo Time 25.6 sec (24.3-30.1); INR 1.1 Ratio; Prothrombin Time 10.9 sec (9.8-11.6)
[2017-12-18 16:45] LABS: Alanine Aminotransferase 24 U/L (12-78); Aspartate Aminotransferase 24 U/L (15-37); Glomerular Filtration Rate 55 mL/min (>89)
[2017-12-18 16:47] LABS: Total Protein 7.2 g/dL (6.4-8.2)
[2017-12-18 16:48] LABS: Alkaline Phosphatase 79 U/L (45-117)
[2017-12-18] MEDS ORDERED: Sodium Chlor 0.9% Inj 500 ML IV.SIG SCH (17:00)
[2017-12-18] MEDS ORDERED: Azithromycin Inj 500 MG in Sodium Chlor 0.9% Inj 250 ML IV.SIG ONE (17:04)
[2017-12-18 17:25] LABS: Bilirubin,Urine Negative (Negative); Clarity,Urine Clear (Clear); Color,Urine Yellow (Yellw/Straw); Glucose,Urine (UA) Negative (Negative); Leukocyte Esterase,Urine Negative (Negative); Nitrite,Urine Negative (Negative); Specific Gravity,Urine Less/Equal 1.005 (1.002-1.035)
[2017-12-18] MEDS ORDERED: Acetaminophen 325 MG Tablet PO PRN (17:28)
[2017-12-18] MEDS ORDERED: Bisacodyl 10 MG Supp RECTAL PRN (17:28)
[2017-12-18 17:33] LABS: RBC,Urine 0-3 /hpf (0-3); WBC,Urine 0-5 /hpf (0-5)
[2017-12-18] MEDS: Gabapentin 300 MG Capsule PO SCH (21:00)
[2017-12-18] MEDS: Heparin - SQ 10,000 UNITS/ML Vial SQ SCH (22:21)
[2017-12-18] MEDS ORDERED: clonazePAM 1 MG Tablet PO ONE (22:40)
[2017-12-19] MEDS: Gabapentin 300 MG Capsule PO SCH ×2 (08:19→21:00)
[2017-12-19] MEDS: Sod Chloride 0.9% Inj 1,000 ML IV.CONT SCH ×2 (08:27→22:41)
[2017-12-19] MEDS: Heparin - SQ 10,000 UNITS/ML Vial SQ SCH ×2 (08:27→22:41)
[2017-12-19 08:44] LABS: Baso % (Auto) 0.2 % (0.0-2.0); Eos # (Auto) 0.2 th/mm3 (0.0-0.4); Eos % (Auto) 1.5 % (0.0-4.0); Hematocrit 34.8 % (39.0-51.0); Hemoglobin 12.2 gm/dL (13.0-17.0); Lymph # (Auto) 1.5 th/mm3 (1.0-4.8); Lymph % (Auto) 13.4 % (9.0-44.0); Mean Corpuscular HGB Conc 35.2 % (32.0-36.0); Mean Corpuscular Hemoglobin 31.7 pg (27.0-34.0); Mean Corpuscular Volume 90.1 fL (80.0-100.0); Mean Platelet Volume 8.6 fL (7.0-11.0); Mono # (Auto) 0.6 th/mm3 (0.0-0.9); Mono % (Auto) 5.3 % (0.0-8.0); Neut # (Auto) 9.1 th/mm3 (1.8-7.7); Neut % (Auto) 79.6 % (16.0-70.0); Platelet Count 163 th/mm3 (150-450); Red Blood Count 3.86 mil/mm3 (4.50-5.90); White Blood Count 11.4 th/mm3 (4.0-11.0)
[2017-12-19] MEDS ORDERED: Levothyroxine 50 MCG Tablet PO SCH (09:00)
[2017-12-19 09:13] LABS: Calcium 8.3 mg/dL (8.5-10.1); Potassium 3.6 meq/L (3.5-5.1)
[2017-12-19] MEDS ORDERED: Sodium Chlor 0.9% Inj 500 ML IV.SIG SCH (14:00)
--- NOTE | 2017-12-19 14:24 | ECG ---
Date Performed: 12/18/2017 Time Performed: 17:19:54 PTAGE: 72 years EKG: Sinus rhythm NORMAL ECG Since the PREVIOUS TRACING , no significant change noted PREVIOUS TRACIN03/25/2017 12.26 DOCTOR: Lynne Rushing Interpretating Date/Time 12/19/2017 14:22:23
[2017-12-19] MEDS ORDERED: Azithromycin Inj 500 MG in Sodium Chlor 0.9% Inj 250 ML IV.SIG SCH (17:00)
[2017-12-19] MEDS ORDERED: clonazePAM 1 MG Tablet PO ONE (21:24)
[2017-12-23 17:52] LABS: Lyme Ab 18KD IgG WB NON-REACTIVE; Lyme Ab 23KD IgG WB NON-REACTIVE; Lyme Ab 23KD IgM WB NON-REACTIVE; Lyme Ab 28KD IgG WB NON-REACTIVE; Lyme Ab 30KD IgG WB NON-REACTIVE; Lyme Ab 39KD IgG WB NON-REACTIVE; Lyme Ab 39KD IgM WB NON-REACTIVE; Lyme Ab 41KD IgG WB REACTIVE; Lyme Ab 41KD IgM WB NON-REACTIVE; Lyme Ab 45KD IgG WB NON-REACTIVE; Lyme Ab 58KD IgG WB NON-REACTIVE; Lyme Ab 66KD IgG WB NON-REACTIVE; Lyme Ab 93KD IgG WB NON-REACTIVE
== END 2017-12-20 09:28 | disposition home or self-care (01) ==
LOC: PHEFT 15:12 → PHEDA 17:32 → PH3 18:41
PROVIDERS: ADMIT Internal Medicine; ATTEND Internal Medicine

== ENCOUNTER 2018-01-10 15:00 | Inpatient (IN) ==
[2018-01-10] MEDS ORDERED: Sod Chloride 0.9% Inj 1,000 ML IV.SIG ONE (15:43)
--- NOTE | 2018-01-10 16:03 | ED ---
HPI General Chief complaint: Weakness Stated complaint: Shaking/chills/weakness x1d hx pneumonia Time Seen by Provider: 01/10/18 15:20 Source: patient Mode of arrival: ambulatory Limitations: no limitations History of Present Illness HPI Narrative: Patient is a 72-year-old male with history of CAD, oral facial cancer, CABG and GERD as well as PEG tube placement who presents to the emergency room for evaluation of generalized weakness and for possible pneumonia. Patient reports that he has a G/J -tube as he has history of throat cancer and is dysphasic. Patient reports that he does receive tube feeds. Reports that over the past day, he has not been feeling well. Patient has been having subjective fevers and chills, reports that he has been shaking. Patient was up today and was not feeling any better, reports that he was feeling worse and had generalized weakness. Patient has been coughing, he has been bringing up thick white sputum. Reports concerns as he was admitted recently 2 weeks ago for similar symptoms. Patient is concerned for possible aspiration pneumonia. He does have tube feeds, he does stop his tube feeds 2 hours prior to bedtime in attempt to prevent aspiration. Patient denies any headache or dizziness, denies any nausea or vomiting, denies any abdominal pain, reports chest pain only with cough. Patient with no other complaints. Related Data Home Medications Medication Instructions Recorded Confirmed atorvastatin 40 mg PO HS 12/18/17 01/10/18 clonazepam [Klonopin] 1 mg PO HS 12/18/17 01/10/18 gabapentin 600 mg PO BID 12/18/17 01/10/18 levothyroxine [Synthroid] 100 mcg PO DAILY 12/18/17 01/10/18 metoprolol succinate 100 mg PO DAILY 12/18/17 01/10/18 Allergies Allergy/AdvReac Type Severity Reaction Status Date / Time tetnus toxoid Allergy Anaphylaxis Uncoded 01/10/18 15:08 must use pediartric 6 if AdvReac Unknown other Uncoded 01/10/18 15:08 itubated due to radiated tounge Review of Systems ROS: all other systems reviewed are negative [facility] Medical History Medical History Aspiration into airway (Acute) CAD (coronary artery disease) (Acute) Dysphagia (Acute) Esophageal dilatation (Acute) Hyperlipidemia (Acute) Radiculopathy (Acute) Squamous cell carcinoma (Acute) Surgical History Surgical History History of appendectomy (Acute) History of radical neck dissection (Acute) History of right-sided carotid endarterectomy (Acute) Hx of CABG (Acute) S/P percutaneous endoscopic gastrostomy (PEG) tube placement (Acute) Family History Family History Other Family history in first degree relatives is unremarkable Social History Social History Substance History: No History of Abuse Second Hand Smoke Exposure: No Smoking Status: Never smoker How Often Do You Have a Drink Containing Alcohol: Never Recent Travel in [facility] within the Last 8 Weeks: No Recent Out of Country Travel within the Last 8 Weeks: No Immunization History Tetanus Immunization: Unsure Exam Narrative Exam Narrative: GENERAL: Moderate distress SKIN: Focused skin assessment warm/dry. HEAD: Atraumatic. Normocephalic. EYES: Pupils equal and round. No scleral icterus. No injection or drainage. ENT: No nasal bleeding or discharge. Mucous membranes pink and moist. NECK: Trachea midline. No JVD. CARDIOVASCULAR: Regular rate and rhythm. No murmur appreciated. RESPIRATORY: No accessory muscle use. Clear to auscultation. Breath sounds equal bilaterally. GASTROINTESTINAL: Abdomen soft, non-tender, nondistended. Hepatic and splenic margins not palpable. Peg tube in place MUSCULOSKELETAL: No obvious deformities. No clubbing. No cyanosis. No edema. NEUROLOGICAL: Awake and alert. No obvious cranial nerve deficits. Motor grossly within normal limits. Normal speech. PSYCHIATRIC: Appropriate mood and affect; insight and judgment normal. Course Initial Documented Vital Signs Temperature 99.3 F 01/10/18 15:06 Pulse Rate 89 01/10/18 15:06 Respiratory Rate 16 01/10/18 15:06 Blood Pressure 133/84 01/10/18 15:06 Pulse Oximetry 93 L 01/10/18 15:06 Last Documented Vital Signs Temperature 99.3 F 01/10/18 15:06 Pulse Rate 80 01/10/18 16:27 Respiratory Rate 16 01/10/18 16:27 Blood Pressure 123/71 01/10/18 16:27 Pulse Oximetry 96 01/10/18 16:27 Medical Decision Making MDM Narrative Medical decision making narrative: During the course of the patients emergency department visit, the patients history, examination, and differential diagnosis were reviewed with the patient. The patient was placed on a site monitor with oximetry and frequent blood pressure monitoring. The patient had an IV access obtained and blood work sent for analysis. The patient was initially provided IVF. The patients laboratory studies were reviewed: patient with a wbc 17.8 with a shift, blood cultures and lactic acid ordered. xray of chest with interval resolution of the right upper lobe airspace disease , there is a stable left lung base atelectasis versus scarring with hyperdense material medially like reflecting aspirated material. CT of the chest ordered to further evaluate for possible pneumonia. Patient was given a dose of cefepime as well as azithromycin for treatment of pneumonia as he was recently discharged from the hospital on 12/20 after treatment of pneumonia Patient's lactic acid is 1.8, patient CT of the chest shows multilobar pneumonia , he has patchy groundglass airspace opacities to the bilateral lower lobes as well as the right middle lobe -patient will require admission to the hospital for treatment of multilobar pneumonia case reviewed with Dr. Jo who accepts pt to service for admission Medical Screen Exam Complete: Yes Emergency Medical Condition: Yes Differential Diagnosis Differential Diagnosis: Pneumonia, bronchitis, viral syndrome, influenza, electrolyte abnormality Medical Records Medical records reviewed: Yes I reviewed the patient's medical records. Lab Data Result diagrams: 01/10/18 16:05 01/10/18 16:05 Lab Results 01/10/18 01/10/18 01/10/18 Range/Units 15:45 15:45 15:45 CBC w Diff WBC (4.0-11.0) th/mm3 RBC (4.50-5.90) mil/mm3 Hgb (13.0-17.0) gm/dL Hct (39.0-51.0) % MCV (80.0-100.0) fL MCH (27.0-34.0) pg MCHC (32.0-36.0) % RDW (11.6-17.2) % Plt Count (150-450) th/mm3 MPV (7.0-11.0) fL Neut % (Auto) (16.0-70.0) % Lymph % (Auto) (9.0-44.0) % [place] % (Auto) (0.0-8.0) % Eos % (Auto) (0.0-4.0) % Baso % (Auto) (0.0-2.0) % Neut # (Auto) (1.8-7.7) th/mm3 Lymph # (Auto) (1.0-4.8) th/mm3 [place] # (Auto) (0.0-0.9) th/mm3 Eos # (Auto) (0.0-0.4) th/mm3 Baso # (Auto) (0.0-0.2) th/mm3 WBC Differential Differential Comment PT 10.8 (9.8-11.6) sec INR 1.1 Ratio Sodium (136-145) meq/L Potassium (3.5-5.1) meq/L Chloride (98-107) meq/L Carbon Dioxide (21.0-32.0) meq/L Anion Gap (5-15) meq/L BUN (7-18) mg/dL Creatinine (0.60-1.30) mg/dL Estimated GFR (>89) mL/min Random Glucose (74-106) mg/dL Lactic Acid (0.4-2.0) mmol/L Calcium (8.5-10.1) mg/dL Magnesium 2.3 (1.5-2.5) mg/dL Total Bilirubin (0.2-1.0) mg/dL AST (15-37) U/L ALT (12-78) U/L Alkaline Phosphatase (45-117) U/L Total Creatine Kinase 93 (39-308) U/L Troponin I (0.02-0.05) ng/mL B-Natriuretic Peptide 162 H (0-100) pg/mL Total Protein (6.4-8.2) g/dL Albumin (3.4-5.0) g/dL Ur Collection Type Urine Color (Yellw/Straw) Urine Clarity (Clear) Urine pH (5.0-8.5) Ur Specific [place] (1.002-1.035) Urine Protein (Neg-Trace) mg/dL Urine Glucose (UA) (Negative) mg/dL Urine Ketones (Negative) mg/dL Urine Occult Blood (Negative) Urine Nitrate (Negative) Urine Bilirubin (Negative) Urine Urobilinogen (Less than 2) mg/dL Ur Leukocyte Esterase (Negative) Ur Squamous Epith Cells (0-5) /hpf Micro UA Comment Ur Microscopic Review Urine Culture Comments 01/10/18 01/10/18 01/10/18 Range/Units 16:05 16:05 16:30 CBC w Diff Auto diff final WBC 17.8 H (4.0-11.0) th/mm3 RBC 4.53 (4.50-5.90) mil/mm3 Hgb 14.5 (13.0-17.0) gm/dL Hct 41.0 (39.0-51.0) % MCV 90.5 (80.0-100.0) fL MCH 31.9 (27.0-34.0) pg MCHC 35.3 (32.0-36.0) % RDW 13.7 (11.6-17.2) % Plt Count 171 (150-450) th/mm3 MPV 8.9 (7.0-11.0) fL Neut % (Auto) 87.4 H (16.0-70.0) % Lymph % (Auto) 6.6 L (9.0-44.0) % [place] % (Auto) 5.5 (0.0-8.0) % Eos % (Auto) 0.1 (0.0-4.0) % Baso % (Auto) 0.4 (0.0-2.0) % Neut # (Auto) 15.5 H (1.8-7.7) th/mm3 Lymph # (Auto) 1.2 (1.0-4.8) th/mm3 [place] # (Auto) 1.0 H (0.0-0.9) th/mm3 Eos # (Auto) 0.0 (0.0-0.4) th/mm3 Baso # (Auto) 0.1 (0.0-0.2) th/mm3 WBC Differential . Differential Comment . PT (9.8-11.6) sec INR Ratio Sodium 139 (136-145) meq/L Potassium 4.2 (3.5-5.1) meq/L Chloride 100 (98-107) meq/L Carbon Dioxide 31.7 (21.0-32.0) meq/L Anion Gap 7 (5-15) meq/L BUN 22 H (7-18) mg/dL Creatinine 1.20 (0.60-1.30) mg/dL Estimated GFR 60 L (>89) mL/min Random Glucose 91 (74-106) mg/dL Lactic Acid 1.8 (0.4-2.0) mmol/L Calcium 8.6 (8.5-10.1) mg/dL Magnesium (1.5-2.5) mg/dL Total Bilirubin 0.9 (0.2-1.0) mg/dL AST 28 (15-37) U/L ALT 22 (12-78) U/L Alkaline Phosphatase 81 (45-117) U/L Total Creatine Kinase (39-308) U/L Troponin I Less than 0.02 L (0.02-0.05) ng/mL B-Natriuretic Peptide (0-100) pg/mL Total Protein 7.8 (6.4-8.2) g/dL Albumin 3.4 (3.4-5.0) g/dL Ur Collection Type Urine Color (Yellw/Straw) Urine Clarity (Clear) Urine pH (5.0-8.5) Ur Specific [place] (1.002-1.035) Urine Protein (Neg-Trace) mg/dL Urine Glucose (UA) (Negative) mg/dL Urine Ketones (Negative) mg/dL Urine Occult Blood (Negative) Urine Nitrate (Negative) Urine Bilirubin (Negative) Urine Urobilinogen (Less than 2) mg/dL Ur Leukocyte Esterase (Negative) Ur Squamous Epith Cells (0-5) /hpf Micro UA Comment Ur Microscopic Review Urine Culture Comments 01/10/18 Range/Units 16:40 CBC w Diff WBC (4.0-11.0) th/mm3 RBC (4.50-5.90) mil/mm3 Hgb (13.0-17.0) gm/dL Hct (39.0-51.0) % MCV (80.0-100.0) fL MCH (27.0-34.0) pg MCHC (32.0-36.0) % RDW (11.6-17.2) % Plt Count (150-450) th/mm3 MPV (7.0-11.0) fL Neut % (Auto) (16.0-70.0) % Lymph % (Auto) (9.0-44.0) % [place] % (Auto) (0.0-8.0) % Eos % (Auto) (0.0-4.0) % Baso % (Auto) (0.0-2.0) % Neut # (Auto) (1.8-7.7) th/mm3 Lymph # (Auto) (1.0-4.8) th/mm3 [place] # (Auto) (0.0-0.9) th/mm3 Eos # (Auto) (0.0-0.4) th/mm3 Baso # (Auto) (0.0-0.2) th/mm3 WBC Differential Differential Comment PT (9.8-11.6) sec INR Ratio Sodium (136-145) meq/L Potassium (3.5-5.1) meq/L Chloride (98-107) meq/L Carbon Dioxide (21.0-32.0) meq/L Anion Gap (5-15) meq/L BUN (7-18) mg/dL Creatinine (0.60-1.30) mg/dL Estimated GFR (>89) mL/min Random Glucose (74-106) mg/dL Lactic Acid (0.4-2.0) mmol/L Calcium (8.5-10.1) mg/dL Magnesium (1.5-2.5) mg/dL Total Bilirubin (0.2-1.0) mg/dL AST (15-37) U/L ALT (12-78) U/L Alkaline Phosphatase (45-117) U/L Total Creatine Kinase (39-308) U/L Troponin I (0.02-0.05) ng/mL B-Natriuretic Peptide (0-100) pg/mL Total Protein (6.4-8.2) g/dL Albumin (3.4-5.0) g/dL Ur Collection Type Clean catch Urine Color Yellow (Yellw/Straw) Urine Clarity Clear (Clear) Urine pH 7.0 (5.0-8.5) Ur Specific [place] 1.010 (1.002-1.035) Urine Protein Negative (Neg-Trace) mg/dL Urine Glucose (UA) Negative (Negative) mg/dL Urine Ketones Negative (Negative) mg/dL Urine Occult Blood Negative (Negative) Urine Nitrate Negative (Negative) Urine Bilirubin Negative (Negative) Urine Urobilinogen 0.2 (Less than 2) mg/dL Ur Leukocyte Esterase Negative (Negative) Ur Squamous Epith Cells 0-5 (0-5) /hpf Micro UA Comment Culture not ind Ur Microscopic Review Microscopic reviewed Urine Culture Comments Culture not ind Imaging Data Radiologist's impression: Chest X-Ray 01/10/18 15:43 CONCLUSION: 1. Interval resolution of right upper lobe airspace disease. 2. Stable left lung base atelectasis/scarring with hyperdense material medially likely reflecting aspirated material. 3. No acute abnormality. Chest CT 01/10/18 16:44 CONCLUSION: 1. Patchy groundglass airspace opacities in the bilateral lower lobes and right middle lobe with redemonstration of apparent previously aspirated hyperdense material in the left lung base. Findings are new since 12/18/2017 and most concerning for aspiration. Differential considerations include multilobar pneumonia. 2. Interval resolution of right upper lobe pneumonia with minimal residual airspace disease potentially reflecting scarring. 3. Stable mediastinal adenopathy. 4. NGT tip in the duodenal bulb with gastrostomy catheter in place. ECG Data EKG Prior to Arrival: No Attestation: I personally reviewed and interpreted this ECG as follows: Interpretation: EKG at 1557: NSR at 84bpm, qt/qtc: 360/402, no acute st or t wave changes Discharge Plan Discharge Disposition Patient Disposition: 30 Still Patient Discharge Condition Condition: Fair Discharge Details Diagnosis: Pneumonia Physicians Team ED Provider: Sally Tong Primary Care Provider: Naty Rodriguez Rxs /Orders / Referrals /Forms Prescriptions: No Action atorvastatin 40 mg Tablet 40 mg PO HS RF: 0 gabapentin 600 mg Tablet 600 mg PO BID RF: 0 metoprolol succinate 100 mg Tablet Extended Release 24 Hr 100 mg PO DAILY RF: 0 levothyroxine [Synthroid] 25 mcg Tablet 100 mcg PO DAILY RF: 0 clonazepam [Klonopin] 1 mg Tablet 1 mg PO HS RF: 0 Status ED Status: With Doctor
[2018-01-10 16:14] LABS: Baso # (Auto) 0.1 th/mm3 (0.0-0.2); Baso % (Auto) 0.4 % (0.0-2.0); Eos % (Auto) 0.1 % (0.0-4.0); Hemoglobin 14.5 gm/dL (13.0-17.0); Lymph # (Auto) 1.2 th/mm3 (1.0-4.8); Lymph % (Auto) 6.6 % (9.0-44.0); Mean Corpuscular HGB Conc 35.3 % (32.0-36.0); Mean Corpuscular Hemoglobin 31.9 pg (27.0-34.0); Mean Corpuscular Volume 90.5 fL (80.0-100.0); Mean Platelet Volume 8.9 fL (7.0-11.0); Mono % (Auto) 5.5 % (0.0-8.0); Neut # (Auto) 15.5 th/mm3 (1.8-7.7); Neut % (Auto) 87.4 % (16.0-70.0); Platelet Count 171 th/mm3 (150-450); Red Blood Count 4.53 mil/mm3 (4.50-5.90); Red Cell Distribution Width 13.7 % (11.6-17.2); White Blood Count 17.8 th/mm3 (4.0-11.0)
[2018-01-10 16:25] LABS: Chloride 100 meq/L (98-107); Potassium 4.2 meq/L (3.5-5.1); Sodium 139 meq/L (136-145)
[2018-01-10 16:25] LABS: Magnesium 2.3 mg/dL (1.5-2.5)
[2018-01-10 16:27] LABS: Calcium 8.6 mg/dL (8.5-10.1)
[2018-01-10 16:28] LABS: INR 1.1 Ratio; Prothrombin Time 10.8 sec (9.8-11.6)
[2018-01-10 16:28] LABS: Albumin 3.4 g/dL (3.4-5.0); Anion Gap 7 meq/L (5-15); Blood Urea Nitrogen 22 mg/dL (7-18); Carbon Dioxide 31.7 meq/L (21.0-32.0); Glucose,Random 91 mg/dL (74-106)
[2018-01-10 16:31] LABS: Alanine Aminotransferase 22 U/L (12-78); Aspartate Aminotransferase 28 U/L (15-37); Glomerular Filtration Rate 60 mL/min (>89)
--- NOTE | 2018-01-10 16:32 | XR ---
EXAM DATE: 01/10/2018 3:43 PM EDT AGE/SEX: 72 years / Male INDICATIONS: Cough, short of breath, fever, weak CLINICAL DATA: This is the patient's initial encounter. Patient reports that signs and symptoms have been present for 1 week and indicates a pain score of 4/10. MEDICAL/SURGICAL HISTORY: . Pneumonia. Hyperparathyroidism. Myocardial infarction. Gastroesopha geal reflux disease. CAD. Carcinoma of the tongue, lymph, facial and throat. . CABG. COMPARISON: [facility], CHEST 2V PA&LAT, 12/18/2017. . FINDINGS: Interval resolution of right upper lobe airspace disease. Persistent linear left lung base airspace d isease with central hyperdensities. Postsurgical features of prior median sternotomy and cardiac surg ari. The cardiomediastinal contours are unremarkable. Osseous structures are intact. CONCLUSION: 1. Interval resolution of right upper lobe airspace disease. 2. Stable left lung base atelectasis/scarring with hyperdense material medially likely reflecting as pirated material. 3. No acute abnormality. Electronically signed by: Eduardo Briggs MD 01/10/2018 4:30 PM EDT
[2018-01-10 16:33] LABS: Total Protein 7.8 g/dL (6.4-8.2)
[2018-01-10 16:34] LABS: Alkaline Phosphatase 81 U/L (45-117)
[2018-01-10] MEDS ORDERED: Azithromycin Inj 500 MG in Sodium Chlor 0.9% Inj 250 ML IV.SIG STA (16:45)
[2018-01-10 16:58] LABS: Bilirubin,Urine Negative (Negative); Clarity,Urine Clear (Clear); Color,Urine Yellow (Yellw/Straw); Glucose,Urine (UA) Negative (Negative); Leukocyte Esterase,Urine Negative (Negative); Nitrite,Urine Negative (Negative); Urobilinogen,Urine 0.2 mg/dL (Less than 2)
[2018-01-10 17:14] LABS: Squamous Epithelial Cell,Urine 0-5 /hpf (0-5)
--- NOTE | 2018-01-10 17:32 | CT ---
EXAM DATE: 01/10/2018 4:53 PM EDT AGE/SEX: 72 years / Male INDICATIONS: Generalized weakness. Recent pneumonia. CLINICAL DATA: This is the patient's initial encounter. Patient reports that signs and symptoms have been present for 2 days and indicates a pain score of 0/10. MEDICAL/SURGICAL HISTORY: Cardiovascular disease. Carcinoma, squamous cell. Appendectomy. Carotid endarterectomy. CABG. Radical neck dissection. PEG tube placement. RADIATION DOSE: 9.81 CTDI (mGy) COMPARISON: [facility], CHEST 2V PA&LAT, 12/18/2017. . TECHNIQUE: Multiple contiguous axial images were obtained through the chest without contrast. Image s were obtained in suspended respiration using multiple row detector helical technique. Using automa felice exposure control and adjustment of the mA and/or kV according to patient size, radiation dose was kept as low as reasonably achievable to obtain optimal diagnostic quality images. DICOM format imag e data is available electronically for review and comparison. FINDINGS: Lung: Stable medial biapical scarring. Stable hyperdense material in the left lung base. Patchy grou ndglass opacities in the lower lobes and right middle lobe. Subtle groundglass opacities in the right upper lobe with linear subpleural opacity corresponding to focal airspace consolidation noted on thuy or exam. Pleura: No effusion, significant pleural thickening or pneumothorax. Mediastinum: Heart is unremarkable without pericardial effusion. Coronary artery calcifications. Red emonstration of multiple slightly prominent mediastinal nodes measuring up to 12 mm. Osseous Structures: No abnormal focal lytic or blastic bony lesions. Soft Tissues: 12 mm right axillary node. Other: Visualized upper abdomen demonstrates an NGT with tip in the duodenal bulb. There is also a g astrostomy catheter in place. CONCLUSION: 1. Patchy groundglass airspace opacities in the bilateral lower lobes and right middle lobe with red emonstration of apparent previously aspirated hyperdense material in the left lung base. Findings are new since 12/18/2017 and most concerning for aspiration. Differential considerations include multilob ar pneumonia. 2. Interval resolution of right upper lobe pneumonia with minimal residual airspace disease potentia lly reflecting scarring. 3. Stable mediastinal adenopathy. 4. NGT tip in the duodenal bulb with gastrostomy catheter in place. Electronically signed by: Eduardo Briggs MD 01/10/2018 5:30 PM EDT
[2018-01-10] MEDS: Sod Chloride 0.9% Inj 1,000 ML IV.SIG SCH (17:42)
[2018-01-10] MEDS ORDERED: Bisacodyl 10 MG Supp RECTAL PRN (18:19)
[2018-01-10] MEDS ORDERED: Acetaminophen 325 MG Tablet PO PRN (18:19)
[2018-01-10] MEDS: Sod Chloride 0.9% Inj 1,000 ML IV.CONT SCH (21:18)
[2018-01-10] MEDS: Piperacil/Tazo 4.5 GM Premix 4.5 GM/100 ML BAG IV.SIG SCH (21:19)
[2018-01-10] MEDS: Gabapentin 300 MG Capsule PO SCH (21:20)
[2018-01-10] MEDS: Senna/Docusate Sodium 8.6/50 MG Tablet PO SCH (21:20)
[2018-01-10] MEDS: clonazePAM 1 MG Tablet PO SCH (21:21)
[2018-01-11] MEDS: Piperacil/Tazo 4.5 GM Premix 4.5 GM/100 ML BAG IV.SIG SCH ×4 (02:33→21:00)
[2018-01-11 05:33] LABS: Baso % (Auto) 0.1 % (0.0-2.0); Eos % (Auto) 0.2 % (0.0-4.0); Hematocrit 33.8 % (39.0-51.0); Hemoglobin 11.3 gm/dL (13.0-17.0); Lymph # (Auto) 1.3 th/mm3 (1.0-4.8); Mean Corpuscular HGB Conc 33.5 % (32.0-36.0); Mean Corpuscular Hemoglobin 30.9 pg (27.0-34.0); Mean Corpuscular Volume 92.4 fL (80.0-100.0); Mean Platelet Volume 8.2 fL (7.0-11.0); Mono # (Auto) 1.1 th/mm3 (0.0-0.9); Mono % (Auto) 7.8 % (0.0-8.0); Neut # (Auto) 12.2 th/mm3 (1.8-7.7); Neut % (Auto) 82.9 % (16.0-70.0); Platelet Count 146 th/mm3 (150-450); Red Blood Count 3.66 mil/mm3 (4.50-5.90); Red Cell Distribution Width 13.2 % (11.6-17.2); White Blood Count 14.6 th/mm3 (4.0-11.0)
[2018-01-11 05:53] LABS: Potassium 3.8 meq/L (3.5-5.1)
[2018-01-11 06:19] LABS: Calcium 7.6 mg/dL (8.5-10.1); Carbon Dioxide 32.7 meq/L (21.0-32.0)
[2018-01-11] MEDS: Sod Chloride 0.9% Inj 1,000 ML IV.CONT SCH ×2 (10:25→14:56)
[2018-01-11] MEDS: Gabapentin 300 MG Capsule PO SCH ×2 (10:26→21:01)
[2018-01-11] MEDS: Levothyroxine 100 MCG Tablet PO SCH (10:26)
[2018-01-11] MEDS: Senna/Docusate Sodium 8.6/50 MG Tablet PO SCH ×3 (10:26→21:04)
--- NOTE | 2018-01-11 13:00 | P.HP ---
History of Present Illness Primary Care Physician: Naty Rodriguez Chief Complaint: Chills History of Present Illness: 72-year-old male with a past medical history of facial cancer, CAD, hypertension , multiple admissions for aspiration pneumonia presented to the ED yesterday on January 10, 2018 for evaluation of generalized weakness, and acute onset of shaking chills times 3-hour duration at night before. Patient described feeling of heart followed by cold sensations with possible subjective fevers. He also reported cough with sputum production. Patient has a GJ tube for which he is on tube feed. A CT chest in the ED revealed multilobar pneumonia. Abnormal lab include elevated WBC. - Diagnosis (1) Aspiration pneumonia Inpatient Certification: I certify that the inpatient services were ordered in accordance with Medicare regulations governing the order. This includes certification that hospital inpatient services are reasonable and necessary and in the case of services not specified as inpatient-only under 42 CFR 419.22(n), that they are appropriately provided as inpatient services in accordance to with the 2-midnight benchmark under 43 CFR 412.3(e) Estimated Total Length of Stay (Days): 3 Plans for Post Hospital Care: Not yet determined Review of Systems All other systems reviewed negative except as stated in HPI PMFSH - History History Provided By: Patient - Medical History Medical History: Medical History (Last Reviewed 01/10/18 @ 16:04 by Sally Tong) Aspiration into airway CAD (coronary artery disease) Dysphagia Esophageal dilatation Hyperlipidemia Radiculopathy Squamous cell carcinoma - Surgical History Surgical History: Surgical History (Last Reviewed 01/10/18 @ 16:04 by Sally Tong) History of appendectomy History of radical neck dissection History of right-sided carotid endarterectomy Hx of CABG S/P percutaneous endoscopic gastrostomy (PEG) tube placement - Family History Family History: Family History (Last Reviewed 01/10/18 @ 16:04 by Sally Tong) Other Family history in first degree relatives is unremarkable - Tobacco History Second Hand Smoke Exposure: No Smoking Status: Never smoker - Alcohol History How Often Do You Have a Drink Containing Alcohol: Never - Substance Use History Substance History: No History of Abuse - Travel History Recent Travel in the [place] Within the Last 8 Weeks: No Recent Travel Out of the Country Within the Last 8 Weeks: No - Immunization History Tetanus Immunization: <5 Years Hx Influenza Vaccine This Season: No Medications and Allergies Active Medications: Active Medications Acetaminophen (Tylenol) 650 mg PO Q4H PRN PRN Reason: fever or DYER Last Admin: 01/10/18 21:20 Dose: 650 mg Al Hydroxide/Mg Hydroxide (Milk Of Magnesia Liq) 30 ml PO Q12H PRN PRN Reason: Mild Constipation Albuterol (Duoneb Neb (Prn)) 1 ampul NEB Q2HR NEB PRN PRN Reason: SHORTNESS OF BREATH/WHEEZING Albuterol (Duoneb Neb (Edson)) 1 ampul NEB Q6HR WHILE AWAKE NEB [facility] Last Admin: 01/11/18 07:29 Dose: 1 ampul Atorvastatin Calcium (Lipitor) 40 mg PO HS [facility] Last Admin: 01/10/18 21:20 Dose: 40 mg Bisacodyl (Dulcolax Supp) 10 mg RECTAL DAILY PRN PRN Reason: SEVERE CONSITIPATION Clonazepam (Klonopin) 1 mg PO HS [facility] Last Admin: 01/10/18 21:21 Dose: 1 mg Gabapentin (Neurontin) 600 mg PO BID [facility] Last Admin: 01/11/18 10:26 Dose: 600 mg Sodium Chloride (Ns Inj) 1,000 mls @ 0 mls/hr IV.SIG BOLUS [facility] Last Infusion: 01/10/18 18:59 Dose: Infused Azithromycin 500 mg/ Sodium (Chloride) 250 mls @ 250 mls/hr IV.SIG Q24H [facility] Sodium Chloride (Ns Inj) 1,000 mls @ 100 mls/hr IV.CONT .Q10H [facility] Last Admin: 01/11/18 10:25 Dose: 100 mls/hr Piperacillin/Tazobactam/Dextrose (Zosyn 4.5 Gm Premix) 4.5 gm in 100 mls @ 200 mls/hr IV.SIG Q6H [facility] Last Admin: 01/11/18 10:25 Dose: 200 mls/hr Lactulose (Lactulose Liq) 30 ml PO DAILY PRN PRN Reason: SEVERE CONSITIPATION Levothyroxine Sodium (Synthroid) 100 mcg PO DAILY [facility] Last Admin: 01/11/18 10:26 Dose: 100 mcg Metoprolol Succinate (Toprol Xl) 100 mg PO BID [facility] Last Admin: 01/11/18 10:27 Dose: 100 mg Ondansetron HCl (Zofran Inj) 4 mg IV.PUSH Q6H PRN PRN Reason: NAUSEA OR VOMITING Senna/Docusate Sodium (Suzanne-Colace) 1 tab PO BID [facility] Last Admin: 01/11/18 10:26 Dose: 1 tab Sennosides (Senokot) 17.2 mg PO Q12H PRN PRN Reason: Moderate Constipation Sodium Chloride (Ns Flush) 2 ml IV.FLUSH PRN PRN PRN Reason: FLUSH AFTER USING IV ACCESS Allergies Allergy/AdvReac Type Severity Reaction Status Date / Time tetnus toxoid Allergy Anaphylaxis Uncoded 01/10/18 15:08 must use pediartric 6 if AdvReac Unknown other Uncoded 01/10/18 15:08 itubated due to radiated tounge Home Medications Medication Instructions Recorded Confirmed Type atorvastatin 40 mg PO HS 12/18/17 01/10/18 History clonazepam [Klonopin] 1 mg PO HS 12/18/17 01/10/18 History gabapentin 600 mg PO BID 12/18/17 01/10/18 History levothyroxine [Synthroid] 100 mcg PO DAILY 12/18/17 01/10/18 History metoprolol succinate 100 mg PO BID 12/18/17 01/10/18 History Exam Vital signs: Vital Signs 01/10/18 15:06 01/10/18 15:08 01/10/18 16:11 Temperature 99.3 F Pulse Rate 89 83 83 Respiratory Rate 16 16 Blood Pressure 133/84 121/72 Pulse Oximetry 93 L 95 95 01/10/18 16:27 01/10/18 20:00 01/10/18 20:08 Temperature 101.3 F H Pulse Rate 80 111 H 110 H Respiratory Rate 16 18 Blood Pressure 123/71 100/55 L Pulse Oximetry 96 91 L 01/10/18 23:15 01/11/18 00:00 01/11/18 04:00 Temperature 97.3 F L 97.4 F L Pulse Rate 84 88 63 Respiratory Rate 18 18 18 Blood Pressure 85/54 L 80/43 L Pulse Oximetry 93 L 94 L 93 L 01/11/18 07:44 01/11/18 08:00 01/11/18 12:00 Temperature 96.3 F L 97.9 F Pulse Rate 71 78 75 Respiratory Rate 18 18 18 Blood Pressure 123/64 92/46 L Pulse Oximetry 96 97 95 Intake & Output 10/01/11/18 01/11/18 18:59 06:59 18:59 Intake Total 2099 1572 / 1572 248 / 248 Balance 2099 1572 / 1572 248 / 248 Weight 60.8 kg 64.5 kg Intake: IV 2099 1202 / 1202 248 / 248 NS Inj 1,000 ML @ 100 mls/hr IV 752 / 752 248 / 248 .CONT .Q10H [facility] Rx#:[id number] Azithromycin Inj 500 MG In NS 250 / 250 Inj 250 ML @ 250 mls/hr IV.SIG STAT STA Rx#:[id number] Maxipime Inj 2,000 MG In NS Inj 100 / 100 100 ML @ 200 mls/hr IV.SIG STAT STA Rx#:[id number] Zosyn 4.5 GM Premix 4.5 gm In 200 / 200 100 ml @ 200 mls/hr IV.SIG Q6H [facility] Rx#:[id number] NS Inj 1,000 ML @ Wide Open IV. 1999 SIG BOLUS EDSON Rx#:[id number] Tube Feeding 250 / 250 Tube Irrigant 120 / 120 Other: Date of Last Bowel Movement 01/10/18 Weight On Admission 66 kg Narrative: GENERAL: NAD SKIN: Warm and dry. HEAD: Atraumatic. Normocephalic. EYES: Pupils equal and round. No scleral icterus. No injection or drainage. ENT: No nasal bleeding or discharge. Mucous membranes pink and moist. NECK: Trachea midline. No JVD. CARDIOVASCULAR: Regular rate and rhythm. RESPIRATORY: No accessory muscle use. Clear to auscultation. Breath sounds equal bilaterally. GASTROINTESTINAL: Abdomen soft, non-tender, nondistended. Hepatic and splenic margins not palpable. GJ tube MUSCULOSKELETAL: Extremities without clubbing, cyanosis, or edema. No obvious deformities. NEUROLOGICAL: Awake and alert. No obvious cranial nerve deficits. Motor grossly within normal limits. Five out of 5 muscle strength in the arms and legs. Normal speech. PSYCHIATRIC: Appropriate mood and affect; insight and judgment normal. Results - Labs CBC & Chem 7: 01/11/18 04:50 01/11/18 04:50 Labs: Laboratory Results - last 24 hr 01/10/18 01/10/18 01/10/18 15:45 15:45 15:45 CBC w Diff WBC RBC Hgb Hct MCV MCH MCHC RDW Plt Count MPV Neut % (Auto) Lymph % (Auto) [place] % (Auto) Eos % (Auto) Baso % (Auto) Neut # (Auto) Lymph # (Auto) [place] # (Auto) Eos # (Auto) Baso # (Auto) WBC Differential Differential Comment PT 10.8 INR 1.1 Sodium Potassium Chloride Carbon Dioxide Anion Gap BUN Creatinine Estimated GFR Random Glucose Lactic Acid Calcium Magnesium 2.3 Total Bilirubin AST ALT Alkaline Phosphatase Total Creatine Kinase 93 Troponin I B-Natriuretic Peptide 162 H Total Protein Albumin Ur Collection Type Urine Color Urine Clarity Urine pH Ur Specific [place] Urine Protein Urine Glucose (UA) Urine Ketones Urine Occult Blood Urine Nitrate Urine Bilirubin Urine Urobilinogen Ur Leukocyte Esterase Ur Squamous Epith Cells Micro UA Comment Ur Microscopic Review Urine Culture Comments 01/10/18 01/10/18 01/10/18 16:05 16:05 16:30 CBC w Diff Auto diff final WBC 17.8 H RBC 4.53 Hgb 14.5 Hct 41.0 MCV 90.5 MCH 31.9 MCHC 35.3 RDW 13.7 Plt Count 171 MPV 8.9 Neut % (Auto) 87.4 H Lymph % (Auto) 6.6 L [place] % (Auto) 5.5 Eos % (Auto) 0.1 Baso % (Auto) 0.4 Neut # (Auto) 15.5 H Lymph # (Auto) 1.2 [place] # (Auto) 1.0 H Eos # (Auto) 0.0 Baso # (Auto) 0.1 WBC Differential . Differential Comment . PT INR Sodium 139 Potassium 4.2 Chloride 100 Carbon Dioxide 31.7 Anion Gap 7 BUN 22 H Creatinine 1.20 Estimated GFR 60 L Random Glucose 91 Lactic Acid 1.8 Calcium 8.6 Magnesium Total Bilirubin 0.9 AST 28 ALT 22 Alkaline Phosphatase 81 Total Creatine Kinase Troponin I Less than 0.02 L B-Natriuretic Peptide Total Protein 7.8 Albumin 3.4 Ur Collection Type Urine Color Urine Clarity Urine pH Ur Specific [place] Urine Protein Urine Glucose (UA) Urine Ketones Urine Occult Blood Urine Nitrate Urine Bilirubin Urine Urobilinogen Ur Leukocyte Esterase Ur Squamous Epith Cells Micro UA Comment Ur Microscopic Review Urine Culture Comments 01/10/18 01/11/18 01/11/18 16:40 04:50 04:50 CBC w Diff Auto diff final WBC 14.6 H RBC 3.66 L Hgb 11.3 L D Hct 33.8 L MCV 92.4 MCH 30.9 MCHC 33.5 RDW 13.2 Plt Count 146 L MPV 8.2 Neut % (Auto) 82.9 H Lymph % (Auto) 9.0 [place] % (Auto) 7.8 Eos % (Auto) 0.2 Baso % (Auto) 0.1 Neut # (Auto) 12.2 H Lymph # (Auto) 1.3 [place] # (Auto) 1.1 H Eos # (Auto) 0.0 Baso # (Auto) 0.0 WBC Differential . Differential Comment . PT INR Sodium 144 Potassium 3.8 Chloride 107 Carbon Dioxide 32.7 H Anion Gap 4 L BUN 21 H Creatinine 1.00 Estimated GFR 74 L Random Glucose 109 H Lactic Acid Calcium 7.6 L D Magnesium Total Bilirubin AST ALT Alkaline Phosphatase Total Creatine Kinase Troponin I B-Natriuretic Peptide Total Protein Albumin Ur Collection Type Clean catch Urine Color Yellow Urine Clarity Clear Urine pH 7.0 Ur Specific [place] 1.010 Urine Protein Negative Urine Glucose (UA) Negative Urine Ketones Negative Urine Occult Blood Negative Urine Nitrate Negative Urine Bilirubin Negative Urine Urobilinogen 0.2 Ur Leukocyte Esterase Negative Ur Squamous Epith Cells 0-5 Micro UA Comment Culture not ind Ur Microscopic Review Microscopic reviewed Urine Culture Comments Culture not ind - Imaging Impressions Chest X-Ray 01/10/18 15:43 CONCLUSION: 1. Interval resolution of right upper lobe airspace disease. 2. Stable left lung base atelectasis/scarring with hyperdense material medially likely reflecting aspirated material. 3. No acute abnormality. Chest CT 01/10/18 16:44 CONCLUSION: 1. Patchy groundglass airspace opacities in the bilateral lower lobes and right middle lobe with redemonstration of apparent previously aspirated hyperdense material in the left lung base. Findings are new since 12/18/2017 and most concerning for aspiration. Differential considerations include multilobar pneumonia. 2. Interval resolution of right upper lobe pneumonia with minimal residual airspace disease potentially reflecting scarring. 3. Stable mediastinal adenopathy. 4. NGT tip in the duodenal bulb with gastrostomy catheter in place. Caprini VTE Risk Assessment Caprini VTE Risk Assessment: Moderate/High Risk (score >= 2) Caprini Risk Assessment Model: Point Value = 1 Point Value = 2 Point Value = 3 Point Value = 5 Age 41-60 Minor surgery BMI > 25 kg/m2 Swollen legs Varicose veins or History of unexplained or recurrent spontaneous Oral contraceptives or hormone replacement Sepsis (< 1 month) Serious lung disease, including pneumonia (< 1 month) Abnormal pulmonary function Acute myocardial infarction Congestive heart failure (< 1 month) History of inflammatory bowel disease Medical patient at bed rest Age 61-74 Arthroscopic surgery Major open surgery (> 45 min) Laparoscopic surgery (> 45 min) Malignancy Confined to bed (> 72 hours) Immobilizing plaster cast Central venous access Age >= 75 History of VTE Family history of VTE Factor V Leiden Prothrombin [id number] Lupus anticoagulant Anticardiolipin antibodies Elevated serum homocysteine Heparin-induced thrombocytopenia Other congenital or acquired thrombophilia Stroke (< 1 month) Elective arthroplasty Hip, pelvis, or leg fracture Acute spinal cord injury (< 1 month) Prophylaxis Regimen: Total Risk Factor Score Risk Level Prophylaxis Regimen 0-1 Low Early ambulation 2 Moderate Order ONE of the following: *Sequential Compression Device (SCD) *Heparin 5000 units SQ BID 3-4 Higher Order ONE of the following medications: *Heparin 5000 units SQ TID *Enoxaparin/Lovenox 40 mg SQ daily (WT < 150 kg, CrCl > 30 mL/min) *Enoxaparin/Lovenox 30 mg SQ daily (WT < 150 kg, CrCl > 10-29 mL/min) *Enoxaparin/Lovenox 30 mg SQ BID (WT < 150 kg, CrCl > 30 mL/min) AND/OR *Sequential Compression Device (SCD) 5 or more Highest Order ONE of the following medications: *Heparin 5000 units SQ TID (Preferred with Epidurals) *Enoxaparin/Lovenox 40 mg SQ daily (WT < 150 kg, CrCl > 30 mL/min) *Enoxaparin/Lovenox 30 mg SQ daily (WT < 150 kg, CrCl > 10-29 mL/min) *Enoxaparin/Lovenox 30 mg SQ BID (WT < 150 kg, CrCl > 30 mL/min) AND *Sequential Compression Device (SCD) Assessment and Plan - Assessment (1) Aspiration pneumonia Code(s): J69.0 - Pneumonitis due to inhalation of food and vomit Status: Acute - Plan 72-year-old man with Possible sepsis on admission Due to multilobar pneumonia Treated with IV antibiotics and continue to monitor cultures Aspiration pneumonia versus healthcare associated pneumonia CT chest noted and reviewed by me with finding of multilobar pneumonia Currently on Zosyn and azithromycin IV, will add Flagyl and place a consult to ID Will consult patient's electrical systems engineer, Dr. Meraz Monitor sputum and blood cultures Hyperlipidemia, chronic Continue home Atorvastatin. CAD with history of PR and CABG Continue Aspirin and Lopressor Hypothyroidism Continue home Levothyroxine. GI Prophylaxis: Protonix. DVT prophylaxis: SCDs.
--- NOTE | 2018-01-11 13:45 | ECG ---
Date Performed: 01/10/2018 Time Performed: 15:57:50 PTAGE: 72 years EKG: Sinus rhythm POSSIBLE LEFT ATRIAL ENLARGEMENT BORDERLINE ECG PREVIOUS TRACING : 12/18/2017 17.19 Since the previous tracing, no significant change noted DOCTOR: Florentino Da Silva Interpretating Date/Time 01/11/2018 13:43:26
--- NOTE | 2018-01-11 14:33 | P.CONID ---
History of Present Illness Service: Infectious Disease Consult date: 01/11/18 Requesting Physician: Brando Jo Reason for Consult: Pneumonia Primary Care Provider: Naty Rodriguez Chief Complaint: Chills History of Present Illness: H/o Cancer of base of tongue in 2004 - treated with surgery, radiation and chemotherapy - has recently had frequent episodes of aspiration pneumonia- last one being 3 weeks ago. Patient is on tube feeds and is very careful and despite that gets sudden onset fever with chills and has repeatedly had Pneumonia. Review of Systems Constitutional: Reports body ache(s), Reports chills, Reports fever(s), Reports weakness Eyes: Denies blurry vision, Denies bulging eyes Ears, Nose, Mouth, and Throat: Denies bleeding gums, Denies facial pain, Denies hearing loss Cardiovascular: Denies chest pain, Denies chest pain at rest, Denies irregular heart rhythm, Denies leg pain with activity Respiratory: Reports change in phlegm color, Reports chest congestion, Reports cough, Reports coughing up blood, Reports excessive phlegm production Gastrointestinal: Denies abdominal pain, Denies black, tarry stools, Denies bloating, Denies vomiting Genitourinary: Denies blood in urine, Denies decreased urination, Denies urinary frequency Musculoskeletal: Denies back pain, Denies decreased muscle mass, Denies joint pain, Denies muscle weakness Skin/Breast: Denies boil, Denies non-healing lesions, Denies redness Neurologic: Denies abnormal movements, Denies loss of vision, Denies memory loss Psychiatric: Denies hopelessness, Denies memory loss [facility] - History History Provided By: Patient - Medical History Medical History: Medical History (Last Reviewed 01/10/18 @ 16:04 by Sally Tong) Aspiration into airway CAD (coronary artery disease) Dysphagia Esophageal dilatation Hyperlipidemia Radiculopathy Squamous cell carcinoma - Surgical History Surgical History: Surgical History (Last Reviewed 01/10/18 @ 16:04 by Sally Tong) History of appendectomy History of radical neck dissection History of right-sided carotid endarterectomy Hx of CABG S/P percutaneous endoscopic gastrostomy (PEG) tube placement - Family History Family History: Family History (Last Reviewed 01/10/18 @ 16:04 by Sally Tong) Other Family history in first degree relatives is unremarkable - Tobacco History Second Hand Smoke Exposure: No Smoking Status: Never smoker - Alcohol History How Often Do You Have a Drink Containing Alcohol: Never - Substance Use History Substance History: No History of Abuse - Travel History Recent Travel in the [place] Within the Last 8 Weeks: No Recent Travel Out of the Country Within the Last 8 Weeks: No - Immunization History Tetanus Immunization: <5 Years Hx Influenza Vaccine This Season: No Medications and Allergies Active Medications: Active Medications Acetaminophen (Tylenol) 650 mg PO Q4H PRN PRN Reason: fever or DYER Last Admin: 01/10/18 21:20 Dose: 650 mg Al Hydroxide/Mg Hydroxide (Milk Of Magnesia Liq) 30 ml PO Q12H PRN PRN Reason: Mild Constipation Albuterol (Duoneb Neb (Prn)) 1 ampul NEB Q2HR NEB PRN PRN Reason: SHORTNESS OF BREATH/WHEEZING Albuterol (Duoneb Neb (Edson)) 1 ampul NEB Q6HR WHILE AWAKE NEB [facility] Last Admin: 01/11/18 13:53 Dose: 1 ampul Atorvastatin Calcium (Lipitor) 40 mg PO HS [facility] Last Admin: 01/10/18 21:20 Dose: 40 mg Bisacodyl (Dulcolax Supp) 10 mg RECTAL DAILY PRN PRN Reason: SEVERE CONSITIPATION Clonazepam (Klonopin) 1 mg PO HS [facility] Last Admin: 01/10/18 21:21 Dose: 1 mg Gabapentin (Neurontin) 600 mg PO BID [facility] Last Admin: 01/11/18 10:26 Dose: 600 mg Sodium Chloride (Ns Inj) 1,000 mls @ 0 mls/hr IV.SIG BOLUS [facility] Last Infusion: 01/10/18 18:59 Dose: Infused Sodium Chloride (Ns Inj) 1,000 mls @ 100 mls/hr IV.CONT .Q10H [facility] Last Admin: 01/11/18 10:25 Dose: 100 mls/hr Piperacillin/Tazobactam/Dextrose (Zosyn 4.5 Gm Premix) 4.5 gm in 100 mls @ 200 mls/hr IV.SIG Q6H [facility] Last Admin: 01/11/18 10:25 Dose: 200 mls/hr Lactulose (Lactulose Liq) 30 ml PO DAILY PRN PRN Reason: SEVERE CONSITIPATION Levothyroxine Sodium (Synthroid) 100 mcg PO DAILY [facility] Last Admin: 01/11/18 10:26 Dose: 100 mcg Metoprolol Succinate (Toprol Xl) 100 mg PO BID [facility] Last Admin: 01/11/18 10:27 Dose: 100 mg Ondansetron HCl (Zofran Inj) 4 mg IV.PUSH Q6H PRN PRN Reason: NAUSEA OR VOMITING Senna/Docusate Sodium (Suzanne-Colace) 1 tab PO BID [facility] Last Admin: 01/11/18 10:26 Dose: 1 tab Sennosides (Senokot) 17.2 mg PO Q12H PRN PRN Reason: Moderate Constipation Sodium Chloride (Ns Flush) 2 ml IV.FLUSH PRN PRN PRN Reason: FLUSH AFTER USING IV ACCESS Allergies Allergy/AdvReac Type Severity Reaction Status Date / Time tetnus toxoid Allergy Anaphylaxis Uncoded 01/10/18 15:08 must use pediartric 6 if AdvReac Unknown other Uncoded 01/10/18 15:08 itubated due to radiated tounge Home Medications Medication Instructions Recorded Confirmed Type atorvastatin 40 mg PO HS 12/18/17 01/10/18 History clonazepam [Klonopin] 1 mg PO HS 12/18/17 01/10/18 History gabapentin 600 mg PO BID 12/18/17 01/10/18 History levothyroxine [Synthroid] 100 mcg PO DAILY 12/18/17 01/10/18 History metoprolol succinate 100 mg PO BID 12/18/17 01/10/18 History aspirin 81 mg PO DAILY 01/12/18 01/12/18 History Exam Vital signs: Vital Signs 01/10/18 15:06 01/10/18 15:08 01/10/18 16:11 Temperature 99.3 F Pulse Rate 89 83 83 Respiratory Rate 16 16 Blood Pressure 133/84 121/72 Pulse Oximetry 93 L 95 95 01/10/18 16:27 01/10/18 20:00 01/10/18 20:08 Temperature 101.3 F H Pulse Rate 80 111 H 110 H Respiratory Rate 16 18 Blood Pressure 123/71 100/55 L Pulse Oximetry 96 91 L 01/10/18 23:15 01/11/18 00:00 01/11/18 04:00 Temperature 97.3 F L 97.4 F L Pulse Rate 84 88 63 Respiratory Rate 18 18 18 Blood Pressure 85/54 L 80/43 L Pulse Oximetry 93 L 94 L 93 L 01/11/18 07:44 01/11/18 08:00 01/11/18 12:00 Temperature 96.3 F L 97.9 F Pulse Rate 71 78 75 Respiratory Rate 18 18 Blood Pressure 123/64 92/46 L Pulse Oximetry 96 97 95 01/11/18 13:56 Temperature Pulse Rate 77 Respiratory Rate 16 Blood Pressure Pulse Oximetry Intake & Output 01/10/18 01/11/18 01/11/18 18:59 06:59 18:59 Intake Total 2099 1572 / 1572 248 / 248 Balance 2099 1572 / 1572 248 / 248 Weight 60.8 kg 64.5 kg Intake: IV 2099 1202 / 1202 248 / 248 NS Inj 1,000 ML @ 100 mls/hr IV 752 / 752 248 / 248 .CONT .Q10H [facility] Rx#:[id number] Azithromycin Inj 500 MG In NS 250 / 250 Inj 250 ML @ 250 mls/hr IV.SIG STAT STA Rx#:[id number] Maxipime Inj 2,000 MG In NS Inj 100 / 100 100 ML @ 200 mls/hr IV.SIG STAT STA Rx#:[id number] Zosyn 4.5 GM Premix 4.5 gm In 200 / 200 100 ml @ 200 mls/hr IV.SIG Q6H [facility] Rx#:[id number] NS Inj 1,000 ML @ Wide Open IV. 1999 SIG BOLUS [facility]DSON Rx#:[id number] Tube Feeding 250 / 250 Tube Irrigant 120 / 120 Other: Date of Last Bowel Movement 01/10/18 Weight On Admission 66 kg - Constitutional no acute distress, chronically ill appearing, cooperative - Routine HEENT Exam Head: Present: normocephalic. Absent: cushingoid faces Eye: Present: EOMI, conjunctivae pink. Absent: periorbital ecchymosis ENT: Present: mucous membranes moist, nares patent. Absent: sinus tenderness - Routine Neck Exam Present: supple. Absent: lymphadenopathy, thyromegaly - Routine Chest/Breast/Axilla Exam Chest wall: Absent: tenderness, mass - Routine Respiratory Exam Present: rales, rhonchi. Absent: accessory muscle use - Routine Cardiovascular Exam Present: RRR, S1, S2. Absent: rubs - Routine Abdominal Exam Present: soft, normoactive bowel sounds. Absent: tenderness, rigid, organomegaly, mass Comments: Feeding tube present - Routine Extremities Exam Present: full ROM. Absent: cyanosis, edema, calf tenderness - Routine Skin Exam Present: intact. Absent: erythema, jaundice - Routine Neurological Exam Present: alert, oriented X3, CN II-XII intact, moving all extremities Results - Labs CBC & Chem 7: 01/11/18 04:50 01/11/18 04:50 Labs: Laboratory Results - last 24 hr 01/10/18 01/10/18 01/10/18 15:45 15:45 15:45 CBC w Diff WBC RBC Hgb Hct MCV MCH MCHC RDW Plt Count MPV Neut % (Auto) Lymph % (Auto) [place] % (Auto) Eos % (Auto) Baso % (Auto) Neut # (Auto) Lymph # (Auto) [place] # (Auto) Eos # (Auto) Baso # (Auto) WBC Differential Differential Comment PT 10.8 INR 1.1 Sodium Potassium Chloride Carbon Dioxide Anion Gap BUN Creatinine Estimated GFR Random Glucose Lactic Acid Calcium Magnesium 2.3 Total Bilirubin AST ALT Alkaline Phosphatase Total Creatine Kinase 93 Troponin I B-Natriuretic Peptide 162 H Total Protein Albumin Ur Collection Type Urine Color Urine Clarity Urine pH Ur Specific [place] Urine Protein Urine Glucose (UA) Urine Ketones Urine Occult Blood Urine Nitrate Urine Bilirubin Urine Urobilinogen Ur Leukocyte Esterase Ur Squamous Epith Cells Micro UA Comment Ur Microscopic Review Urine Culture Comments 01/10/18 01/10/18 01/10/18 16:05 16:05 16:30 CBC w Diff Auto diff final WBC 17.8 H RBC 4.53 Hgb 14.5 Hct 41.0 MCV 90.5 MCH 31.9 MCHC 35.3 RDW 13.7 Plt Count 171 MPV 8.9 Neut % (Auto) 87.4 H Lymph % (Auto) 6.6 L [place] % (Auto) 5.5 Eos % (Auto) 0.1 Baso % (Auto) 0.4 Neut # (Auto) 15.5 H Lymph # (Auto) 1.2 [place] # (Auto) 1.0 H Eos # (Auto) 0.0 Baso # (Auto) 0.1 WBC Differential . Differential Comment . PT INR Sodium 139 Potassium 4.2 Chloride 100 Carbon Dioxide 31.7 Anion Gap 7 BUN 22 H Creatinine 1.20 Estimated GFR 60 L Random Glucose 91 Lactic Acid 1.8 Calcium 8.6 Magnesium Total Bilirubin 0.9 AST 28 ALT 22 Alkaline Phosphatase 81 Total Creatine Kinase Troponin I Less than 0.02 L B-Natriuretic Peptide Total Protein 7.8 Albumin 3.4 Ur Collection Type Urine Color Urine Clarity Urine pH Ur Specific [place] Urine Protein Urine Glucose (UA) Urine Ketones Urine Occult Blood Urine Nitrate Urine Bilirubin Urine Urobilinogen Ur Leukocyte Esterase Ur Squamous Epith Cells Micro UA Comment Ur Microscopic Review Urine Culture Comments 01/10/18 01/11/18 01/11/18 16:40 04:50 04:50 CBC w Diff Auto diff final WBC 14.6 H RBC 3.66 L Hgb 11.3 L D Hct 33.8 L MCV 92.4 MCH 30.9 MCHC 33.5 RDW 13.2 Plt Count 146 L MPV 8.2 Neut % (Auto) 82.9 H Lymph % (Auto) 9.0 [place] % (Auto) 7.8 Eos % (Auto) 0.2 Baso % (Auto) 0.1 Neut # (Auto) 12.2 H Lymph # (Auto) 1.3 [place] # (Auto) 1.1 H Eos # (Auto) 0.0 Baso # (Auto) 0.0 WBC Differential . Differential Comment . PT INR Sodium 144 Potassium 3.8 Chloride 107 Carbon Dioxide 32.7 H Anion Gap 4 L BUN 21 H Creatinine 1.00 Estimated GFR 74 L Random Glucose 109 H Lactic Acid Calcium 7.6 L D Magnesium Total Bilirubin AST ALT Alkaline Phosphatase Total Creatine Kinase Troponin I B-Natriuretic Peptide Total Protein Albumin Ur Collection Type Clean catch Urine Color Yellow Urine Clarity Clear Urine pH 7.0 Ur Specific [place] 1.010 Urine Protein Negative Urine Glucose (UA) Negative Urine Ketones Negative Urine Occult Blood Negative Urine Nitrate Negative Urine Bilirubin Negative Urine Urobilinogen 0.2 Ur Leukocyte Esterase Negative Ur Squamous Epith Cells 0-5 Micro UA Comment Culture not ind Ur Microscopic Review Microscopic reviewed Urine Culture Comments Culture not ind - Imaging Impressions Chest X-Ray 01/10/18 15:43 CONCLUSION: 1. Interval resolution of right upper lobe airspace disease. 2. Stable left lung base atelectasis/scarring with hyperdense material medially likely reflecting aspirated material. 3. No acute abnormality. Chest CT 01/10/18 16:44 CONCLUSION: 1. Patchy groundglass airspace opacities in the bilateral lower lobes and right middle lobe with redemonstration of apparent previously aspirated hyperdense material in the left lung base. Findings are new since 12/18/2017 and most concerning for aspiration. Differential considerations include multilobar pneumonia. 2. Interval resolution of right upper lobe pneumonia with minimal residual airspace disease potentially reflecting scarring. 3. Stable mediastinal adenopathy. 4. NGT tip in the duodenal bulb with gastrostomy catheter in place. Assessment and Plan (1) Aspiration pneumonia Status: Acute Code(s): J69.0 - Pneumonitis due to inhalation of food and vomit - Plan Check Blood cultures Check Sputum culture Check Serum IgG level Continue IV Zosyn Stop Azithromycin and Flagyl Start Doxy 100 mg IV q 12hrs
[2018-01-11] MEDS: Sod Chloride 0.9% Inj 1,000 ML IV.SIG SCH (14:56)
[2018-01-11] MEDS ORDERED: Azithromycin Inj 500 MG in Sodium Chlor 0.9% Inj 250 ML IV.SIG SCH (17:00)
[2018-01-11 17:48] LABS: Immunoglobulin A 123 mg/dL (103-568); Immunoglobulin G 1040 mg/dL (680-1670)
[2018-01-11 17:58] LABS: Immunoglobulin M 108 mg/dL (38-231)
[2018-01-11] MEDS: Enoxaparin Inj 40 MG/0.4 ML Syringe SQ SCH (18:40)
[2018-01-11] MEDS: clonazePAM 1 MG Tablet PO SCH (21:01)
--- NOTE | 2018-01-11 22:13 | MB ---
cc: Ike Meraz MD DATE: 01/11/2018 REQUESTING PHYSICIAN: Brando Jo MD REASON FOR CONSULTATION: Evaluate for pneumonia and hemoptysis. HISTORY OF PRESENT ILLNESS: Mr. Rodriguez is a pleasant 72-year-old male with a history of cancer of the base of the tongue, history of dysphagia. His epiglottis is fixed and he has a feeding gastrostomy tube. He has no recent episode of nausea, vomiting. He did feel some chills and had some hemoptysis. No abdominal pain. Because of the symptom, he came to the hospital. He had a workup done. He had a CT scan of the chest done, which shows that he has patchy ground glass airspace opacity in the bilateral lower lobe of the lung and has a finding consistent with aspirated material in the left lung, which is old with barium which he has had after barium swallow study. His CBC shows WBC count 14.6, hemoglobin 11.3, hematocrit 33.8, MCV 92, platelet count 146. Sodium 142, potassium 3.8, chloride 107, CO2 32, BUN 21, creatinine 1.0. PAST MEDICAL HISTORY: Significant for history of CA of the base of the tongue, history of radiation treatment, dysphagia, history of GJ tube placement, history of aspiration pneumonia in the past. MEDICATIONS: He is currently takin. Albuterol and Atrovent nebulizer treatment. 2. Lipitor 40 mg a day. 3. Klonopin 1 mg at nighttime. 4. Doxycycline 100 mg every 12 hours. 5. Lovenox 40 mg a day. 6. Neurontin 600 mg twice a day. 7. Levothyroxine 100 mcg a day. 8. Metoprolol XL 100 mg twice a day. 9. Zosyn 4.5 gram every 6 hours. ALLERGIES: HE IS ALLERGIC TO TETANUS TOXOID. 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 He is . REVIEW OF SYSTEMS: He has lost some weight. He uses tube feeding. He has tracheal stenosis and requires a pediatric endotracheal tube if needed. PHYSICAL EXAMINATION: GENERAL: Pleasant elderly man, not in any acute distress. VITAL SIGNS: His blood pressure 90/52, heart rate 85, respirations 18, temperature 98.3. HEENT: Pupils are equal, round, reactive to light. Oral mucosa and nasal mucosa normal. NECK: Supple. JVP not raised. He has radiation changes. CHEST: Equal bilaterally, has rales at the bases. HEART: S1, S2 normal. ABDOMEN: He has a GJ tube. EXTREMITIES: No edema. IMPRESSION: 1. Pneumonia, possible aspiration, but he has no more recent episode of any nausea or vomiting. He had aspirated barium from the past. 2. Dysphagia. 3. Hemoptysis, which is improving. 4. 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 PLAN: I discussed with patient, continue his antibiotic. Monitor history of hemoptysis. Aerosol treatment. The patient is planning to go to [place] for trial of device to stretch his esophagus. Clinically stable on room air. We will check his culture. Further treatment pending the course in the hospital. Thank you Dr. Jo for this consultation. MD GUZMAN Viveros/alejandra/ , 07:51 PM , 08:00 PM PITA
[2018-01-12] MEDS: Sod Chloride 0.9% Inj 1,000 ML IV.SIG SCH (01:56)
[2018-01-12] MEDS: Piperacil/Tazo 4.5 GM Premix 4.5 GM/100 ML BAG IV.SIG SCH ×4 (01:57→21:17)
[2018-01-12] MEDS: Sod Chloride 0.9% Inj 1,000 ML IV.CONT SCH ×2 (03:16→11:51)
[2018-01-12] MEDS: Senna/Docusate Sodium 8.6/50 MG Tablet PO SCH ×2 (09:43→21:18)
[2018-01-12] MEDS: Enoxaparin Inj 40 MG/0.4 ML Syringe SQ SCH (09:48)
[2018-01-12] MEDS: Gabapentin 300 MG Capsule PO SCH ×2 (09:49→21:18)
[2018-01-12] MEDS: Levothyroxine 100 MCG Tablet PO SCH (09:49)
--- NOTE | 2018-01-12 10:21 | P.PN ---
Subjective Interval history: Follow-up aspiration pneumonia/pneumonitis January 12, 2018-patient seen and examined, with extensive hemoptysis otherwise afebrile Physical Exam Vital signs: Vital Signs 01/11/18 12:00 01/11/18 13:56 01/11/18 16:00 Temperature 97.9 F 98.3 F Pulse Rate 75 77 85 Respiratory Rate 18 16 18 Blood Pressure 92/46 L 90/52 L Pulse Oximetry 95 95 01/11/18 19:00 01/11/18 20:00 01/12/18 00:00 Temperature 97.0 F L 97.7 F Pulse Rate 84 84 80 Respiratory Rate 20 18 Blood Pressure 109/53 L 107/51 L Pulse Oximetry 97 95 01/12/18 07:57 Temperature 97.6 F Pulse Rate 75 Respiratory Rate 21 Blood Pressure 116/72 Pulse Oximetry 95 Intake & Output 01/11/18 01/12/18 01/12/18 18:59 06:59 18:59 Intake Total 2448 / 2448 1780 / 1780 0 / 0 Output Total 2100 / 2100 100 / 100 Balance 2448 / 2448 -320 / -320 -100 / -100 Weight 64.5 kg Intake: IV 2448 / 2448 1300 / 1300 NS Inj 1,000 ML @ 100 mls/hr IV 1248 / 1248 1000 / 1000 .CONT .Q10H MIKE Rx#:[id number] Doxy 100 Inj 100 MG In NS Inj 100 / 100 100 / 100 100 ML @ 100 mls/hr IV.SIG Q12H MIKE Rx#:[id number] Zosyn 4.5 GM Premix 4.5 gm In 100 / 100 200 / 200 100 ml @ 200 mls/hr IV.SIG Q6H [facility] Rx#:[id number] NS Inj 1,000 ML @ Wide Open IV. 1000 / 1000 SIG BOLUS MIKE Rx#:[id number] Oral 480 / 480 0 / 0 Output: Urine 2100 / 2100 100 / 100 Other: # Voids 3 Date of Last Bowel Movement 01/11/18 # Bowel Movements 1 Narrative: GENERAL: NAD SKIN: Warm and dry. HEAD: Atraumatic. Normocephalic. EYES: Pupils equal and round. No scleral icterus. No injection or drainage. ENT: No nasal bleeding or discharge. Mucous membranes pink and moist. NECK: Trachea midline. No JVD. CARDIOVASCULAR: Regular rate and rhythm. RESPIRATORY: No accessory muscle use. Clear to auscultation. Breath sounds equal bilaterally. GASTROINTESTINAL: Abdomen soft, non-tender, nondistended. Hepatic and splenic margins not palpable. GJ tube in place MUSCULOSKELETAL: Extremities without clubbing, cyanosis, or edema. No obvious deformities. NEUROLOGICAL: Awake and alert. No obvious cranial nerve deficits. Motor grossly within normal limits. Five out of 5 muscle strength in the arms and legs. Normal speech. PSYCHIATRIC: Appropriate mood and affect; insight and judgment normal. Results - Labs CBC & Chem 7: 01/11/18 04:50 01/11/18 04:50 Laboratory Results - last 24 hr 01/11/18 04:50 IgG 1040 IgA 123 IgM 108 Microbiology 01/10/18 20:29 Sputum - Expectorated Sputum Gram Stain - Final 01/10/18 20:29 Sputum - Expectorated Sputum Sputum Culture - Preliminary Heavy growth normal respiratory pancho at 24 hours 01/10/18 15:45 Blood - Peripheral Aerobic Blood Culture - Preliminary No growth in 1 day 01/10/18 15:45 Blood - Peripheral Anaerobic Blood Culture - Preliminary No growth in 1 day 01/10/18 16:05 Blood - Peripheral Aerobic Blood Culture - Preliminary No growth in 1 day 01/10/18 16:05 Blood - Peripheral Anaerobic Blood Culture - Preliminary No growth in 1 day Assessment and Plan - Assessment (1) Aspiration pneumonia Code(s): J69.0 - Pneumonitis due to inhalation of food and vomit Status: Acute - Plan 72-year-old man with Possible sepsis on admission Due to multilobar pneumonia Treated with IV antibiotics and continue to monitor cultures Aspiration pneumonia versus healthcare associated pneumonia/Pneumonitis CT chest with finding of multilobar pneumonia Currently on Zosyn and doxycycline pending culture report Appreciate input from medical office receptionist assistant, Dr. Meraz Monitor sputum and blood cultures Hemoptysis Management per Pulmonary medicine, Consider bronchoscopy Hyperlipidemia, chronic Continue home Atorvastatin. CAD with history of MA and CABG Continue Aspirin and Lopressor Hypothyroidism Continue home Levothyroxine. GI Prophylaxis: Protonix. DVT prophylaxis: SCDs.
--- NOTE | 2018-01-12 17:29 | P.PNPL ---
Subjective Interval history: 72 YOWM with h/o ca base of tongue, s/p radiation, dysphagia has pneumonia, hemoptysis Hemoptysis much improved Denies sob no Fever Tolerates TF Physical Exam Vital signs: Vital Signs 01/11/18 19:00 01/11/18 20:00 01/12/18 00:00 Temperature 97.0 F L 97.7 F Pulse Rate 84 84 80 Respiratory Rate 20 18 18 Blood Pressure 109/53 L 107/51 L Pulse Oximetry 97 95 01/12/18 07:57 01/12/18 08:00 01/12/18 12:00 Temperature 97.6 F 98.7 F Pulse Rate 75 73 71 Respiratory Rate 21 20 21 Blood Pressure 116/72 119/55 L Pulse Oximetry 95 98 95 01/12/18 13:57 Temperature Pulse Rate 69 Respiratory Rate 20 Blood Pressure Pulse Oximetry Intake & Output 01/11/18 01/12/18 01/12/18 18:59 06:59 18:59 Intake Total 2448 / 2448 1780 / 1780 2440 / 2440 Output Total 2100 / 2100 300 / 300 Balance 2448 / 2448 -320 / -320 2140 / 2140 Weight 64.5 kg Intake: IV 2448 / 2448 1300 / 1300 2200 / 2200 NS Inj 1,000 ML @ 100 mls/hr IV 1248 / 1248 1000 / 1000 1000 / 1000 .CONT .Q10H MIKE Rx#:[id number] Doxy 100 Inj 100 MG In NS Inj 100 / 100 100 / 100 100 / 100 100 ML @ 100 mls/hr IV.SIG Q12H MIKE Rx#:[id number] Zosyn 4.5 GM Premix 4.5 gm In 100 / 100 200 / 200 100 / 100 100 ml @ 200 mls/hr IV.SIG Q6H MIKE Rx#:[id number] NS Inj 1,000 ML @ Wide Open IV. 1000 / 1000 1000 / 1000 SIG BOLUS MIKE Rx#:[id number] Oral 480 / 480 240 / 240 Output: Urine 2100 / 2100 300 / 300 Other: # Voids 3 Date of Last Bowel Movement 01/11/18 # Bowel Movements 1 GENERAL: Thin built WM, NAD SKIN: Warm and dry. HEAD: Normocephalic. EYES: No scleral icterus. No injection or drainage. NECK: Supple, trachea midline. No JVD or lymphadenopathy. Radiation changes in neck CARDIOVASCULAR: Regular rate and rhythm without murmurs, gallops, or rubs. RESPIRATORY: Breath sounds equal bilaterally. No accessory muscle use. GASTROINTESTINAL: Abdomen soft, non-tender, nondistended. Feeding tube MUSCULOSKELETAL: No cyanosis, or edema. BACK: Nontender without obvious deformity. No CVA tenderness. Assessment and Plan - Plan IMPRESSION: 1. Pneumonia, possible aspiration, but he has no more recent episode of any nausea or vomiting. He had aspirated barium from the past. 2. Dysphagia. 3. Hemoptysis, which is improving. 4. 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 PLAN: Contnue Abx Aerosol nebs Racemic epi nebs prn Cont Tube feeding DW pt , his and sister.
[2018-01-12] MEDS ORDERED: RESP: Racemic Epinephrine 2.25% 0.5 ML Neb NEB PRN (18:19)
--- NOTE | 2018-01-12 18:21 | P.PNID ---
Subjective Remarks: ID FU DR CAMPBELL FEELING BETTER NO COMPLAINT BREATHING IS BETTER Antibiotics: ZOSYN DOXYCYCLINE Allergies/Adverse Reactions: Allergies tetnus toxoid Allergy (Uncoded 01/10/18 15:08) Anaphylaxis must use pediartric 6 if itubated due to radiated tounge Adverse Reaction ( Unknown, Uncoded 01/10/18 15:08) other if intubated must us pediatric 6 due to radiated tounge (cancer) Objective Vital Signs 01/11/18 19:00 01/11/18 20:00 01/12/18 00:00 Temperature 97.0 F L 97.7 F Pulse Rate 84 84 80 Respiratory Rate 20 18 18 Blood Pressure 109/53 L 107/51 L Pulse Oximetry 97 95 01/12/18 07:57 01/12/18 08:00 01/12/18 12:00 Temperature 97.6 F 98.7 F Pulse Rate 75 73 71 Respiratory Rate 21 20 21 Blood Pressure 116/72 119/55 L Pulse Oximetry 95 98 95 01/12/18 13:57 01/12/18 16:00 Temperature 97.8 F Pulse Rate 69 74 Respiratory Rate 20 22 Blood Pressure 132/74 Pulse Oximetry 96 Intake & Output 01/11/18 01/12/18 01/12/18 18:59 06:59 18:59 Intake Total 2448 / 2448 1780 / 1780 2540 / 2540 Output Total 2100 / 2100 300 / 300 Balance 2448 / 2448 -320 / -320 2240 / 2240 Weight 64.5 kg Intake: IV 2448 / 2448 1300 / 1300 2300 / 2300 NS Inj 1,000 ML @ 100 mls/hr IV 1248 / 1248 1000 / 1000 1000 / 1000 .CONT .Q10H MIKE Rx#:[id number] Doxy 100 Inj 100 MG In NS Inj 100 / 100 100 / 100 100 / 100 100 ML @ 100 mls/hr IV.SIG Q12H MIKE Rx#:[id number] Zosyn 4.5 GM Premix 4.5 gm In 100 / 100 200 / 200 200 / 200 100 ml @ 200 mls/hr IV.SIG Q6H MIKE Rx#:[id number] NS Inj 1,000 ML @ Wide Open IV. 1000 / 1000 1000 / 1000 SIG BOLUS MIKE Rx#:[id number] Oral 480 / 480 240 / 240 Output: Urine 2100 / 2100 300 / 300 Other: # Voids 3 Date of Last Bowel Movement 01/11/18 # Bowel Movements 1 01/10/18 20:29 Sputum - Expectorated Sputum Gram Stain - Final 01/10/18 20:29 Sputum - Expectorated Sputum Sputum Culture - Final Heavy growth normal respiratory pancho 01/10/18 15:45 Blood - Peripheral Aerobic Blood Culture - Preliminary No growth in 2 days 01/10/18 15:45 Blood - Peripheral Anaerobic Blood Culture - Preliminary No growth in 2 days 01/10/18 16:05 Blood - Peripheral Aerobic Blood Culture - Preliminary No growth in 2 days 01/10/18 16:05 Blood - Peripheral Anaerobic Blood Culture - Preliminary No growth in 2 days 01/10/18 16:30 Nasal Wash Influenza Types A,B Antigen - Final Negative for FLU A and B antigen Infection due to influenza A or B cannot be ruled out since the antigen present in the sample may be below the detection limit of the test. Lab - Hematology Results 01/11/18 04:50 CBC w Diff Auto diff final WBC 14.6 H RBC 3.66 L Hgb 11.3 L D Hct 33.8 L MCV 92.4 MCH 30.9 MCHC 33.5 RDW 13.2 Plt Count 146 L MPV 8.2 Neut % (Auto) 82.9 H Lymph % (Auto) 9.0 [place] % (Auto) 7.8 Eos % (Auto) 0.2 Baso % (Auto) 0.1 Neut # (Auto) 12.2 H Lymph # (Auto) 1.3 [place] # (Auto) 1.1 H Eos # (Auto) 0.0 Baso # (Auto) 0.0 WBC Differential . Differential Comment . Lab - Chemistry Results 01/11/18 04:50 Sodium 144 Potassium 3.8 Chloride 107 Carbon Dioxide 32.7 H Anion Gap 4 L BUN 21 H Creatinine 1.00 Estimated GFR 74 L Random Glucose 109 H Calcium 7.6 L D Imaging: ITS Impressions Chest X-Ray 01/10/18 15:43 CONCLUSION: 1. Interval resolution of right upper lobe airspace disease. 2. Stable left lung base atelectasis/scarring with hyperdense material medially likely reflecting aspirated material. 3. No acute abnormality. Chest CT 01/10/18 16:44 CONCLUSION: 1. Patchy groundglass airspace opacities in the bilateral lower lobes and right middle lobe with redemonstration of apparent previously aspirated hyperdense material in the left lung base. Findings are new since 12/18/2017 and most concerning for aspiration. Differential considerations include multilobar pneumonia. 2. Interval resolution of right upper lobe pneumonia with minimal residual airspace disease potentially reflecting scarring. 3. Stable mediastinal adenopathy. 4. NGT tip in the duodenal bulb with gastrostomy catheter in place. Physical Exam: AWAKE / OX 3 PERRL NS CHEST: LUNGS DIMINISHED WITH SOME BASE CRACKLES AT THE RLL CARDIAC: RRR ABD: SOFT ACTIVE + PEG TUBE EXT: NO EDEMA Assessment and Plan - Plan Follow Blood cultures Follow Sputum culture Follow Serum IgG level Continue IV Zosyn Cont Doxy 100 mg IV q 12hrs
[2018-01-12] MEDS: clonazePAM 1 MG Tablet PO SCH (21:18)
[2018-01-13] MEDS: Piperacil/Tazo 4.5 GM Premix 4.5 GM/100 ML BAG IV.SIG SCH ×4 (01:44→20:13)
[2018-01-13] MEDS: Sod Chloride 0.9% Inj 1,000 ML IV.CONT SCH ×2 (01:46→18:00)
[2018-01-13 06:43] LABS: Baso # (Auto) 0.1 th/mm3 (0.0-0.2); Baso % (Auto) 1.1 % (0.0-2.0); Eos # (Auto) 0.4 th/mm3 (0.0-0.4); Eos % (Auto) 7.4 % (0.0-4.0); Hematocrit 34.4 % (39.0-51.0); Hemoglobin 11.2 gm/dL (13.0-17.0); Lymph # (Auto) 1.4 th/mm3 (1.0-4.8); Mean Corpuscular HGB Conc 32.6 % (32.0-36.0); Mean Corpuscular Hemoglobin 30.6 pg (27.0-34.0); Mean Corpuscular Volume 93.9 fL (80.0-100.0); Mean Platelet Volume 7.8 fL (7.0-11.0); Mono # (Auto) 0.4 th/mm3 (0.0-0.9); Mono % (Auto) 7.7 % (0.0-8.0); Neut # (Auto) 3.4 th/mm3 (1.8-7.7); Neut % (Auto) 59.8 % (16.0-70.0); Platelet Count 151 th/mm3 (150-450); Red Blood Count 3.66 mil/mm3 (4.50-5.90); Red Cell Distribution Width 13.5 % (11.6-17.2); White Blood Count 5.7 th/mm3 (4.0-11.0)
[2018-01-13 06:53] LABS: Chloride 110 meq/L (98-107); Potassium 3.7 meq/L (3.5-5.1); Sodium 147 meq/L (136-145)
[2018-01-13 07:00] LABS: Calcium 8.2 mg/dL (8.5-10.1)
[2018-01-13 07:06] LABS: Alanine Aminotransferase 20 U/L (12-78); Albumin 2.5 g/dL (3.4-5.0); Alkaline Phosphatase 93 U/L (45-117); Anion Gap 6 meq/L (5-15); Aspartate Aminotransferase 27 U/L (15-37); Blood Urea Nitrogen 14 mg/dL (7-18); Carbon Dioxide 31.1 meq/L (21.0-32.0); Glomerular Filtration Rate 85 mL/min (>89); Glucose,Random 72 mg/dL (74-106); Total Protein 6.1 g/dL (6.4-8.2)
[2018-01-13] MEDS: Senna/Docusate Sodium 8.6/50 MG Tablet PO SCH ×2 (08:37→20:26)
[2018-01-13] MEDS: Gabapentin 300 MG Capsule PO SCH ×2 (08:37→20:25)
[2018-01-13] MEDS: Levothyroxine 100 MCG Tablet PO SCH (08:37)
[2018-01-13] MEDS: Enoxaparin Inj 40 MG/0.4 ML Syringe SQ SCH (08:38)
--- NOTE | 2018-01-13 09:19 | P.PNIM ---
Subjective Interval history: f/u; pneumonia in no acute distress. says that his sob is improving. no fever. no other new complaints. Physical Exam Vital signs: Vital Signs 01/12/18 12:00 01/12/18 13:57 01/12/18 16:00 Temperature 98.7 F 97.8 F Pulse Rate 71 69 74 Respiratory Rate 21 20 22 Blood Pressure 119/55 L 132/74 Pulse Oximetry 95 96 01/12/18 20:34 01/12/18 20:35 01/13/18 00:00 Temperature 97.7 F Pulse Rate 70 74 Respiratory Rate 18 18 Blood Pressure 169/95 H Pulse Oximetry 98 96 01/13/18 07:43 Temperature Pulse Rate 70 Respiratory Rate 15 Blood Pressure Pulse Oximetry 96 Intake & Output 01/12/18 01/13/18 01/13/18 18:59 06:59 18:59 Intake Total 2540 / 2540 1728 / 1728 Output Total 300 / 300 500 / 500 Balance 2240 / 2240 1228 / 1228 Weight 67.8 kg Intake: IV 2300 / 2300 1728 / 1728 NS Inj 1,000 ML @ 70 mls/hr IV. 1000 / 1000 1428 / 1428 CONT .[id number] MIKE Rx#: [id number] Doxy 100 Inj 100 MG In NS Inj 100 / 100 100 / 100 100 ML @ 100 mls/hr IV.SIG Q12H MIKE Rx#:[id number] Zosyn 4.5 GM Premix 4.5 gm In 200 / 200 200 / 200 100 ml @ 200 mls/hr IV.SIG Q6H MIKE Rx#:[id number] NS Inj 1,000 ML @ Wide Open IV. 1000 / 1000 SIG BOLUS MIKE Rx#:[id number] Oral 240 / 240 0 / 0 Output: Urine 300 / 300 500 / 500 Other: Date of Last Bowel Movement 01/12/18 - Constitutional no acute distress - Routine Respiratory Exam Present: CTA bilaterally - Routine Cardiovascular Exam Present: RRR - Routine Abdominal Exam Present: soft - Routine Extremities Exam Comments: no pedal edema. - Routine Neurological Exam Present: alert, oriented X3 Results - Labs CBC & Chem 7: 01/13/18 06:20 01/13/18 06:20 Laboratory Results - last 24 hr 01/13/18 01/13/18 06:20 06:20 CBC w Diff Auto diff final WBC 5.7 RBC 3.66 L Hgb 11.2 L Hct 34.4 L MCV 93.9 MCH 30.6 MCHC 32.6 RDW 13.5 Plt Count 151 MPV 7.8 Neut % (Auto) 59.8 Lymph % (Auto) 24.0 [place] % (Auto) 7.7 Eos % (Auto) 7.4 H Baso % (Auto) 1.1 Neut # (Auto) 3.4 Lymph # (Auto) 1.4 [place] # (Auto) 0.4 Eos # (Auto) 0.4 Baso # (Auto) 0.1 WBC Differential . Differential Comment . Sodium 147 H Potassium 3.7 Chloride 110 H Carbon Dioxide 31.1 Anion Gap 6 BUN 14 Creatinine 0.89 Estimated GFR 85 L Random Glucose 72 L Calcium 8.2 L Total Bilirubin 0.5 AST 27 ALT 20 Alkaline Phosphatase 93 Total Protein 6.1 L D Albumin 2.5 L Microbiology 01/10/18 20:29 Sputum - Expectorated Sputum Gram Stain - Final 01/10/18 20:29 Sputum - Expectorated Sputum Sputum Culture - Final Heavy growth normal respiratory pancho 01/10/18 15:45 Blood - Peripheral Aerobic Blood Culture - Preliminary No growth in 2 days 01/10/18 15:45 Blood - Peripheral Anaerobic Blood Culture - Preliminary No growth in 2 days 01/10/18 16:05 Blood - Peripheral Aerobic Blood Culture - Preliminary No growth in 2 days 01/10/18 16:05 Blood - Peripheral Anaerobic Blood Culture - Preliminary No growth in 2 days Assessment and Plan - Assessment (1) Aspiration pneumonia Code(s): J69.0 - Pneumonitis due to inhalation of food and vomit Status: Acute - Plan Possible sepsis on admission Due to multilobar pneumonia Treated with IV antibiotics and continue to monitor cultures Aspiration pneumonia versus healthcare associated pneumonia/Pneumonitis CT chest with finding of multilobar pneumonia Currently on Zosyn and doxycycline . Appreciate input from principal system software engineer, Dr. Meraz ID following. Monitor sputum and blood cultures Hemoptysis Management per Pulmonary medicine, Consider bronchoscopy Hyperlipidemia, chronic Continue home Atorvastatin. CAD with history of [place] and CABG Continue Aspirin and Lopressor Hypothyroidism Continue home Levothyroxine. GI Prophylaxis: Protonix. DVT prophylaxis: SCDs. Discharge Planning: probably within the next 24 hrs- pending pulmonary and ID f/u and recommendations.
--- NOTE | 2018-01-13 17:06 | P.PNPL ---
Subjective Interval history: 72 YOWM with h/o ca base of tongue, s/p radiation, dysphagia has pneumonia, hemoptysis Denies sob no Fever Tolerates TF Has thick mucous, occ blood tinged. Physical Exam Vital signs: Vital Signs 01/12/18 20:34 01/12/18 20:35 01/13/18 00:00 Temperature 97.7 F Pulse Rate 70 74 Respiratory Rate 18 18 Blood Pressure 169/95 H Pulse Oximetry 98 96 01/13/18 07:43 01/13/18 08:00 01/13/18 12:00 Temperature 96.1 F L 97.2 F L Pulse Rate 70 73 72 Respiratory Rate 15 20 20 Blood Pressure 183/95 H 108/59 L Pulse Oximetry 96 95 91 L Intake & Output 01/12/18 01/13/18 01/13/18 18:59 06:59 18:59 Intake Total 2540 / 2540 1728 / 1728 322 / 322 Output Total 300 / 300 500 / 500 Balance 2240 / 2240 1228 / 1228 322 / 322 Weight 67.8 kg Intake: IV 2300 / 2300 1728 / 1728 322 / 322 NS Inj 1,000 ML @ 70 mls/hr IV. 1000 / 1000 1428 / 1428 122 / 122 CONT .[id number] MIKE Rx#: [id number] Doxy 100 Inj 100 MG In NS Inj 100 / 100 100 / 100 100 ML @ 100 mls/hr IV.SIG Q12H MIKE Rx#:[id number] Zosyn 4.5 GM Premix 4.5 gm In 200 / 200 200 / 200 200 / 200 100 ml @ 200 mls/hr IV.SIG Q6H MIKE Rx#:[id number] NS Inj 1,000 ML @ Wide Open IV. 1000 / 1000 SIG BOLUS MIKE Rx#:[id number] Oral 240 / 240 0 / 0 Output: Urine 300 / 300 500 / 500 Other: Date of Last Bowel Movement 01/12/18 GENERAL: Elderly WM,NAD SKIN: Warm and dry. HEAD: Normocephalic. EYES: No scleral icterus. No injection or drainage. NECK: Supple, trachea midline. No JVD or lymphadenopathy. Radiation changes in the neck CARDIOVASCULAR: Regular rate and rhythm without murmurs, gallops, or rubs. RESPIRATORY: Breath sounds equal bilaterally. No accessory muscle use. GASTROINTESTINAL: Abdomen soft, non-tender, nondistended. MUSCULOSKELETAL: No cyanosis, or edema. BACK: Nontender without obvious deformity. No CVA tenderness. Assessment and Plan - Plan IMPRESSION: 1. Pneumonia, possible aspiration, but he has no more recent episode of any nausea or vomiting. He had aspirated barium from the past. 2. Dysphagia. 3. Hemoptysis, which is improving. 4. 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 PLAN: Contnue Abx Aerosol nebs Racemic epi nebs prn Cont Tube feeding Use Acapella
--- NOTE | 2018-01-13 18:43 | P.PNID ---
Subjective Remarks: Dl fever No hemoptysis Antibiotics: ZOSYN DOXYCYCLINE Allergies/Adverse Reactions: Allergies tetnus toxoid Allergy (Uncoded 01/10/18 15:08) Anaphylaxis must use pediartric 6 if itubated due to radiated tounge Adverse Reaction ( Unknown, Uncoded 01/10/18 15:08) other if intubated must us pediatric 6 due to radiated tounge (cancer) Objective Vital Signs 01/12/18 20:34 01/12/18 20:35 01/13/18 00:00 Temperature 97.7 F Pulse Rate 70 74 Respiratory Rate 18 18 Blood Pressure 169/95 H Pulse Oximetry 98 96 01/13/18 07:43 01/13/18 08:00 01/13/18 12:00 Temperature 96.1 F L 97.2 F L Pulse Rate 70 73 72 Respiratory Rate 15 20 20 Blood Pressure 183/95 H 108/59 L Pulse Oximetry 96 95 91 L 01/13/18 16:00 01/13/18 16:10 Temperature 97.2 F L Pulse Rate 65 Respiratory Rate 20 Blood Pressure 195/91 H 195/91 H Pulse Oximetry 96 Intake & Output 01/12/18 01/13/18 01/13/18 18:59 06:59 18:59 Intake Total 2540 / 2540 1728 / 1728 697 / 697 Output Total 300 / 300 500 / 500 Balance 2240 / 2240 1228 / 1228 697 / 697 Weight 67.8 kg Intake: IV 2300 / 2300 1728 / 1728 697 / 697 NS Inj 1,000 ML @ 70 mls/hr IV. 1000 / 1000 1428 / 1428 397 / 397 CONT .[id number] MIKE Rx#: [id number] Doxy 100 Inj 100 MG In NS Inj 100 / 100 100 / 100 100 / 100 100 ML @ 100 mls/hr IV.SIG Q12H MIKE Rx#:[id number] Zosyn 4.5 GM Premix 4.5 gm In 200 / 200 200 / 200 200 / 200 100 ml @ 200 mls/hr IV.SIG Q6H MIKE Rx#:[id number] NS Inj 1,000 ML @ Wide Open IV. 1000 / 1000 SIG BOLUS MIKE Rx#:[id number] Oral 240 / 240 0 / 0 Output: Urine 300 / 300 500 / 500 Other: Date of Last Bowel Movement 01/12/18 01/10/18 15:45 Blood - Peripheral Aerobic Blood Culture - Preliminary No growth in 3 days 01/10/18 15:45 Blood - Peripheral Anaerobic Blood Culture - Preliminary No growth in 3 days 01/10/18 16:05 Blood - Peripheral Aerobic Blood Culture - Preliminary No growth in 3 days 01/10/18 16:05 Blood - Peripheral Anaerobic Blood Culture - Preliminary No growth in 3 days 01/10/18 20:29 Sputum - Expectorated Sputum Gram Stain - Final 01/10/18 20:29 Sputum - Expectorated Sputum Sputum Culture - Final Heavy growth normal respiratory pancho 01/10/18 16:30 Nasal Wash Influenza Types A,B Antigen - Final Negative for FLU A and B antigen Infection due to influenza A or B cannot be ruled out since the antigen present in the sample may be below the detection limit of the test. Lab - Hematology Results 01/13/18 06:20 CBC w Diff Auto diff final WBC 5.7 RBC 3.66 L Hgb 11.2 L Hct 34.4 L MCV 93.9 MCH 30.6 MCHC 32.6 RDW 13.5 Plt Count 151 MPV 7.8 Neut % (Auto) 59.8 Lymph % (Auto) 24.0 [place] % (Auto) 7.7 Eos % (Auto) 7.4 H Baso % (Auto) 1.1 Neut # (Auto) 3.4 Lymph # (Auto) 1.4 [place] # (Auto) 0.4 Eos # (Auto) 0.4 Baso # (Auto) 0.1 WBC Differential . Differential Comment . Lab - Chemistry Results 01/13/18 06:20 Sodium 147 H Potassium 3.7 Chloride 110 H Carbon Dioxide 31.1 Anion Gap 6 BUN 14 Creatinine 0.89 Estimated GFR 85 L Random Glucose 72 L Calcium 8.2 L Total Bilirubin 0.5 AST 27 ALT 20 Alkaline Phosphatase 93 Total Protein 6.1 L D Albumin 2.5 L Imaging: ITS Impressions Chest X-Ray 01/10/18 15:43 CONCLUSION: 1. Interval resolution of right upper lobe airspace disease. 2. Stable left lung base atelectasis/scarring with hyperdense material medially likely reflecting aspirated material. 3. No acute abnormality. Chest CT 01/10/18 16:44 CONCLUSION: 1. Patchy groundglass airspace opacities in the bilateral lower lobes and right middle lobe with redemonstration of apparent previously aspirated hyperdense material in the left lung base. Findings are new since 12/18/2017 and most concerning for aspiration. Differential considerations include multilobar pneumonia. 2. Interval resolution of right upper lobe pneumonia with minimal residual airspace disease potentially reflecting scarring. 3. Stable mediastinal adenopathy. 4. NGT tip in the duodenal bulb with gastrostomy catheter in place. Physical Exam: AWAKE / OX 3 PERRL NS CHEST: LUNGS DIMINISHED WITH SOME BASE CRACKLES AT THE RLL CARDIAC: RRR ABD: SOFT ACTIVE + PEG TUBE EXT: NO EDEMA Assessment and Plan (1) Aspiration pneumonia Status: Acute Code(s): J69.0 - Pneumonitis due to inhalation of food and vomit - Plan Blood cultures & Sputum culture negative Serum IgG level is normal Continue IV Zosyn Cont Doxy 100 mg IV q 12hrs Should be able to change to Augmentin with Doxy via PEG tube in next 24 hrs
[2018-01-13] MEDS: clonazePAM 1 MG Tablet PO SCH (20:24)
[2018-01-14] MEDS: Piperacil/Tazo 4.5 GM Premix 4.5 GM/100 ML BAG IV.SIG SCH ×2 (01:50→08:33)
[2018-01-14 04:26] VITALS: TEMP 96.8
[2018-01-14] MEDS ORDERED: Sodium Chloride 0.9% 2 ML Flush PRN IV.FLUSH (04:53)
[2018-01-14] MEDS: Sod Chloride 0.9% Inj 1,000 ML IV.CONT SCH (06:36)
[2018-01-14 06:38] LABS: Baso % (Auto) 0.8 % (0.0-2.0); Eos # (Auto) 0.4 th/mm3 (0.0-0.4); Eos % (Auto) 6.7 % (0.0-4.0); Hematocrit 35.3 % (39.0-51.0); Hemoglobin 11.7 gm/dL (13.0-17.0); Lymph # (Auto) 1.3 th/mm3 (1.0-4.8); Lymph % (Auto) 20.3 % (9.0-44.0); Mean Corpuscular Hemoglobin 30.5 pg (27.0-34.0); Mean Corpuscular Volume 92.4 fL (80.0-100.0); Mean Platelet Volume 7.9 fL (7.0-11.0); Mono # (Auto) 0.5 th/mm3 (0.0-0.9); Mono % (Auto) 8.3 % (0.0-8.0); Neut % (Auto) 63.9 % (16.0-70.0); Platelet Count 170 th/mm3 (150-450); Red Blood Count 3.82 mil/mm3 (4.50-5.90); Red Cell Distribution Width 13.5 % (11.6-17.2); White Blood Count 6.2 th/mm3 (4.0-11.0)
[2018-01-14 06:53] LABS: Potassium 3.4 meq/L (3.5-5.1)
[2018-01-14 06:59] LABS: Calcium 7.9 mg/dL (8.5-10.1)
[2018-01-14 07:00] LABS: Carbon Dioxide 33.1 meq/L (21.0-32.0)
[2018-01-14 07:49] VITALS: PULSE 65
[2018-01-14] MEDS: Senna/Docusate Sodium 8.6/50 MG Tablet PO SCH (08:31)
[2018-01-14] MEDS: Levothyroxine 100 MCG Tablet PO SCH (08:32)
[2018-01-14] MEDS: Gabapentin 300 MG Capsule PO SCH (08:33)
[2018-01-14] MEDS: Enoxaparin Inj 40 MG/0.4 ML Syringe SQ SCH (08:33)
[2018-01-14] MEDS ORDERED: Sodium Chloride 0.9% 2 ML Flush BID IV.FLUSH SCH (09:00)
[2018-01-14 09:05] VITALS: BP 161/95; RESP 18; O2SAT 96
--- NOTE | 2018-01-14 09:25 | P.PNIM ---
Subjective Interval history: f/u; pneumonia in no acute distress. looks comfortable with no sob. no fever. no new complaints. Physical Exam Vital signs: Vital Signs 01/13/18 12:00 01/13/18 16:00 01/13/18 16:10 Temperature 97.2 F L 97.2 F L Pulse Rate 72 65 Respiratory Rate 20 20 Blood Pressure 108/59 L 195/91 H 195/91 H Pulse Oximetry 91 L 96 01/13/18 18:00 01/13/18 19:49 01/13/18 20:00 Temperature 97.6 F Pulse Rate 69 70 Respiratory Rate 18 20 Blood Pressure 178/92 H 130/90 Pulse Oximetry 98 95 01/14/18 00:00 01/14/18 04:00 01/14/18 07:45 Temperature 97.8 F 96.8 F L Pulse Rate 91 H 69 65 Respiratory Rate 20 20 19 Blood Pressure 184/106 H 180/106 H Pulse Oximetry 96 93 L 01/14/18 08:00 Temperature 96.8 F L Pulse Rate 65 Respiratory Rate 18 Blood Pressure 161/95 H Pulse Oximetry 96 Intake & Output 01/13/18 01/14/18 01/14/18 18:59 06:59 18:59 Intake Total 697 / 697 300 / 300 Balance 697 / 697 300 / 300 Weight 68.1 kg Intake: IV 697 / 697 300 / 300 NS Inj 1,000 ML @ 70 mls/hr IV. 397 / 397 CONT .[id number] MIKE Rx#: [id number] Doxy 100 Inj 100 MG In NS Inj 100 / 100 100 / 100 100 ML @ 100 mls/hr IV.SIG Q12H MIKE Rx#:[id number] Zosyn 4.5 GM Premix 4.5 gm In 200 / 200 200 / 200 100 ml @ 200 mls/hr IV.SIG Q6H MIKE Rx#:[id number] Oral 0 / 0 Other: # Voids 3 3 Date of Last Bowel Movement 01/13/18 # Bowel Movements 2 - Constitutional no acute distress - Routine Respiratory Exam Present: CTA bilaterally - Routine Cardiovascular Exam Present: RRR - Routine Abdominal Exam Present: soft - Routine Extremities Exam Comments: no pedal edema. - Routine Neurological Exam Present: alert, oriented X3 Results - Labs CBC & Chem 7: 01/14/18 05:25 01/14/18 05:25 Laboratory Results - last 24 hr 01/14/18 01/14/18 05:25 05:25 CBC w Diff Auto diff final WBC 6.2 RBC 3.82 L Hgb 11.7 L Hct 35.3 L MCV 92.4 MCH 30.5 MCHC 33.0 RDW 13.5 Plt Count 170 MPV 7.9 Neut % (Auto) 63.9 Lymph % (Auto) 20.3 [place] % (Auto) 8.3 H Eos % (Auto) 6.7 H Baso % (Auto) 0.8 Neut # (Auto) 4.0 Lymph # (Auto) 1.3 [place] # (Auto) 0.5 Eos # (Auto) 0.4 Baso # (Auto) 0.0 WBC Differential . Differential Comment . Sodium 147 H Potassium 3.4 L Chloride 108 H Carbon Dioxide 33.1 H Anion Gap 6 BUN 11 Creatinine 0.88 Estimated GFR 86 L Random Glucose 75 Calcium 7.9 L Microbiology 01/10/18 15:45 Blood - Peripheral Aerobic Blood Culture - Preliminary No growth in 3 days 01/10/18 15:45 Blood - Peripheral Anaerobic Blood Culture - Preliminary No growth in 3 days 01/10/18 16:05 Blood - Peripheral Aerobic Blood Culture - Preliminary No growth in 3 days 01/10/18 16:05 Blood - Peripheral Anaerobic Blood Culture - Preliminary No growth in 3 days Assessment and Plan - Assessment (1) Aspiration pneumonia Code(s): J69.0 - Pneumonitis due to inhalation of food and vomit Status: Acute - Plan Possible sepsis on admission Due to multilobar pneumonia. blood cultures negative and sputum culture with normal respiratory pancho. Treated with IV antibiotics ; will switch to oral antibiotics. Aspiration pneumonia versus healthcare associated pneumonia/Pneumonitis CT chest with finding of multilobar pneumonia Currently on Zosyn and doxycycline ; will switch to oral antibiotics. Appreciate input from airfreight loading supervisor, Dr. Meraz ID following. Monitor sputum and blood cultures Hemoptysis Management per Pulmonary medicine, Hyperlipidemia, chronic Continue home Atorvastatin. CAD with history of [place] and CABG Continue Aspirin and Lopressor Hypothyroidism Continue home Levothyroxine. GI Prophylaxis: Protonix. DVT prophylaxis: SCDs. Discharge Planning: dc home with f/u with pcp and pulmonary. see med list. d/w the patient and . previously d/w . [facility] was consulted before discharge.
--- NOTE | 2018-01-14 09:30 | P.DS ---
Date of admission: 01/10/18 18:01 Primary care physician: Naty Rodriguez Brief History from admission: 72-year-old male with a past medical history of facial cancer, CAD, hypertension , multiple admissions for aspiration pneumonia presented to the ED yesterday on January 10, 2018 for evaluation of generalized weakness, and acute onset of shaking chills times 3-hour duration at night before. Patient described feeling of heart followed by cold sensations with possible subjective fevers. He also reported cough with sputum production. Patient has a GJ tube for which he is on tube feed. A CT chest in the ED revealed multilobar pneumonia. Abnormal lab include elevated WBC. DS: Diagnosis - Discharge Diagnosis (1) Aspiration pneumonia Status: Acute DS: Medications - Discharge Medications Prescriptions: amoxicillin-pot clavulanate [Augmentin] 1 tab FEEDING TUBE Q12H 10 Days #20 tab doxycycline hyclate 100 mg FEEDING TUBE BID 10 Days #20 cap DS: Summary Hospital Course: patient was admitted with pneumonia. he was started on IV antibiotics. blood cultures negative and sputum culture with normal respiratory pancho. his clinical condition improved. he was seen by ID and pulmonary during this hospitalization. he will be discharged home with oral antibiotics. - Time Spent with Patient Total time spent providing and/or coordinating discharge services: Less than 30 minutes - Quality: VTE Deep Vein Thrombosis/Pulmonary Embolism Present on Admission: No Exam Vital signs: Vital Signs 01/13/18 12:00 01/13/18 16:00 01/13/18 16:10 Temperature 97.2 F L 97.2 F L Pulse Rate 72 65 Respiratory Rate 20 20 Blood Pressure 108/59 L 195/91 H 195/91 H Pulse Oximetry 91 L 96 01/13/18 18:00 01/13/18 19:49 01/13/18 20:00 Temperature 97.6 F Pulse Rate 69 70 Respiratory Rate 18 20 Blood Pressure 178/92 H 130/90 Pulse Oximetry 98 95 01/14/18 00:00 01/14/18 04:00 01/14/18 07:45 Temperature 97.8 F 96.8 F L Pulse Rate 91 H 69 65 Respiratory Rate 20 20 19 Blood Pressure 184/106 H 180/106 H Pulse Oximetry 96 93 L 01/14/18 08:00 Temperature 96.8 F L Pulse Rate 65 Respiratory Rate 18 Blood Pressure 161/95 H Pulse Oximetry 96 Intake & Output 01/13/18 01/14/18 01/14/18 18:59 06:59 18:59 Intake Total 697 / 697 300 / 300 Balance 697 / 697 300 / 300 Weight 68.1 kg Intake: IV 697 / 697 300 / 300 NS Inj 1,000 ML @ 70 mls/hr IV. 397 / 397 CONT .[id number] MIKE Rx#: [id number] Doxy 100 Inj 100 MG In NS Inj 100 / 100 100 / 100 100 ML @ 100 mls/hr IV.SIG Q12H MIKE Rx#:[id number] Zosyn 4.5 GM Premix 4.5 gm In 200 / 200 200 / 200 100 ml @ 200 mls/hr IV.SIG Q6H MIKE Rx#:[id number] Oral 0 / 0 Other: # Voids 3 3 Date of Last Bowel Movement 01/13/18 # Bowel Movements 2 - Constitutional no acute distress - Routine Respiratory Exam Present: CTA bilaterally - Routine Cardiovascular Exam Present: RRR - Routine Abdominal Exam Present: soft - Routine Extremities Exam Comments: no pedal edema. - Routine Neurological Exam Present: alert, oriented X3 Results Procedures completed during hospitalization: none. Labs on day of discharge: Labs from last 24 hours 01/14/18 01/14/18 05:25 05:25 CBC w Diff Auto diff final WBC 6.2 RBC 3.82 L Hgb 11.7 L Hct 35.3 L MCV 92.4 MCH 30.5 MCHC 33.0 RDW 13.5 Plt Count 170 MPV 7.9 Neut % (Auto) 63.9 Lymph % (Auto) 20.3 [place] % (Auto) 8.3 H Eos % (Auto) 6.7 H Baso % (Auto) 0.8 Neut # (Auto) 4.0 Lymph # (Auto) 1.3 [place] # (Auto) 0.5 Eos # (Auto) 0.4 Baso # (Auto) 0.0 WBC Differential . Differential Comment . Sodium 147 H Potassium 3.4 L Chloride 108 H Carbon Dioxide 33.1 H Anion Gap 6 BUN 11 Creatinine 0.88 Estimated GFR 86 L Random Glucose 75 Calcium 7.9 L Preliminary micro results at discharge 01/10/18 15:45 Aerobic Blood Culture - Preliminary Blood - Peripheral No growth in 3 days Anaerobic Blood Culture - Preliminary No growth in 3 days 01/10/18 16:05 Aerobic Blood Culture - Preliminary Blood - Peripheral No growth in 3 days Anaerobic Blood Culture - Preliminary No growth in 3 days - Impressions ITS Impressions Chest X-Ray 01/10/18 15:43 CONCLUSION: 1. Interval resolution of right upper lobe airspace disease. 2. Stable left lung base atelectasis/scarring with hyperdense material medially likely reflecting aspirated material. 3. No acute abnormality. Chest CT 01/10/18 16:44 CONCLUSION: 1. Patchy groundglass airspace opacities in the bilateral lower lobes and right middle lobe with redemonstration of apparent previously aspirated hyperdense material in the left lung base. Findings are new since 12/18/2017 and most concerning for aspiration. Differential considerations include multilobar pneumonia. 2. Interval resolution of right upper lobe pneumonia with minimal residual airspace disease potentially reflecting scarring. 3. Stable mediastinal adenopathy. 4. NGT tip in the duodenal bulb with gastrostomy catheter in place. Discharge Plan - Discharge Disposition Patient Disposition: 01 Discharge Home - Discharge Condition Condition: Fair - Physicians Team Primary Care Provider: Naty Rodriguez Attending Provider: Maliha Griffith Other Providers: Ayanna Strickland MD ; Ike Meraz MD
== END 2018-01-14 11:45 | disposition home or self-care (01) ==
LOC: PHED 15:00 → PHEDA 18:01 → PH3 19:47
PROVIDERS: ADMIT Internal Medicine; ATTEND Internal Medicine

== ENCOUNTER 2018-02-22 11:14 | Inpatient (IN) ==
--- NOTE | 2018-02-22 12:09 | ED ---
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 Patient reports symptoms began after a fall 1 week ago. He was sitting in a chair receiving his feeds and he got up from chair walked around to the couch felt like he was going to pass out and fell. He fell on his left side and hurt his neck pop before his head hit the ground. He had a brief loss of consciousness before his came from the kitchen to help him up. He denies any post ictal state and was fully alert seconds after losing consciousness. Since the fall he has had a bilateral temporal headache that has since spread to a generalized headache and increased in severity. He denies any nausea or vomiting any neurologic deficit or any more falls. He has also been experiencing a 30 pound weight loss over the past 2 months and is being evaluated by his oncologist and [employer]. He has an appointment with a neurologist (Dr. Robertson) for his syncope on March 08. 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 He does not smoke does not drink no illicit drug use. Lives with . Related Data Home Medications Medication Instructions Recorded Confirmed atorvastatin 40 mg PO HS 12/18/17 02/22/18 clonazepam [Klonopin] 1 mg PO HS 12/18/17 02/22/18 gabapentin 300 mg PO TID 12/18/17 02/22/18 levothyroxine [Synthroid] 100 mcg PO DAILY 12/18/17 02/22/18 metoprolol succinate 100 mg PO BID 12/18/17 02/22/18 aspirin 81 mg PO DAILY 01/12/18 02/22/18 Allergies Allergy/AdvReac Type Severity Reaction Status Date / Time tetnus toxoid Allergy Anaphylaxis Uncoded 02/22/18 11:44 must use pediartric 6 if AdvReac Unknown other Uncoded 02/22/18 11:44 itubated due to radiated tounge Review of Systems Constitutional Denies fever(s) Eyes Denies change in vision ENT Denies headache(s) and Denies nasal congestion Cardiovascular Denies chest pain Respiratory Denies dyspnea Gastrointestinal Denies abdominal pain Genitourinary Denies difficulty urinating Musculoskeletal Denies myalgias Integumentary/Breasts Denies rash Neurologic Denies headache(s) Psychiatric Denies depression Endocrine Denies polyuria Hematologic/Lymphatic Denies easy bruising [facility] Social History Social History Substance History: No History of Abuse Second Hand Smoke Exposure: No Smoking Status: Never smoker How Often Do You Have a Drink Containing Alcohol: Never Recent Travel in [facility] within the Last 8 Weeks: No Recent Out of Country Travel within the Last 8 Weeks: No Immunization History Tetanus Immunization: Unsure Exam Narrative Exam Narrative: GENERAL: Well-appearing in no acute distress. Thin. SKIN: Focused skin assessment warm/dry. HEAD: Atraumatic. Normocephalic. No scalp or temporal tenderness. EYES: Pupils equal and round. No scleral icterus. No injection or drainage. Extraocular movements intact. ENT: No nasal bleeding or discharge. Mucous membranes pink and moist. NECK: Trachea midline. No JVD. Extensive scarring on left lateral aspect of neck. Focal point tenderness on cervical spinous processes. Mild paraspinal tenderness on the left. CARDIOVASCULAR: Regular rate and rhythm. Holosystolic murmur murmur heard best at right second intercostal space. RESPIRATORY: No accessory muscle use. Clear to auscultation. Breath sounds equal bilaterally. GASTROINTESTINAL: Abdomen soft, non-tender, nondistended. Hepatic and splenic margins not palpable. MUSCULOSKELETAL: No obvious deformities. No clubbing. No cyanosis. No edema. NEUROLOGICAL: Awake and alert. Cranial nerves II through XII intact. Decreased sensation on left shoulder and left fingers. Decreased strength on flexion of left arm and left forearm. This is no change from baseline according to patient. Rest of strength and sensation normal. PSYCHIATRIC: Appropriate mood and affect; insight and judgment normal. Const General: cooperative, no acute distress and well developed Nutritional Appearance: thin Orientation: alert, awake and oriented x3 HENMT Head: normal to inspection, normocephalic, atraumatic, no abrasions, no contusions, no scalp tenderness and no temporal artery tenderness Ears: hearing grossly normal bilaterally and external ears normal Nose: external nose normal, no nasal discharge and no epistaxis Face and sinus: normal facial exam Mouth: moist mucous membranes Eyes Visual Torres: normal visual torres by confrontation Alignment and Position: alignment normal Periorbital: periorbital findings normal Eyelids: eyelids normal Conjunctivae: conjunctivae normal Sclera: sclerae normal and normal sclerae Pupils: PERRL EOM: EOM intact bilaterally Neck Neck: trachea midline and no JVD Resp Effort & Inspection: no use of accessory muscles Auscultation: clear to auscultation bilaterally Cardio Rate: regular rate Rhythm: regular rhythm Heart Sounds: no murmurs GI Inspection: non-distended Palpation: soft, no hepatosplenomegaly and nontender Skin General: dry skin (warm) Neuro General: alert and awake Cranial Nerves: other Speech: speech normal Motor: no movement abnormalities noted Extrem General: normal to inspection, no clubbing, no cyanosis and no edema Psych Mood: congruent mood Affect: normal affect Judgment: judgment good Course Initial Documented Vital Signs Temperature 97.8 F 02/22/18 11:41 Pulse Rate 73 02/22/18 11:41 Respiratory Rate 18 02/22/18 11:41 Blood Pressure 217/112 H 02/22/18 11:41 Pulse Oximetry 99 02/22/18 11:41 Last Documented Vital Signs Temperature 97.8 F 02/22/18 11:41 Pulse Rate 78 02/22/18 12:55 Respiratory Rate 16 02/22/18 12:55 Blood Pressure 142/76 H 02/22/18 12:55 Pulse Oximetry 97 02/22/18 12:55 Medical Decision Making [facility] Narrative Medical decision making narrative: 72-year-old male with 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 Symptoms began after a possible sudden syncopal episode without post ictal state. He hit his head on his left side and popped his neck. Headache has been worsening over this time. He denies any neurological changes. Vital signs revealed blood pressure of 217/112 with normal pulse temperature and O2 sat. Physical exam revealed no scalp or temporal artery tenderness, a systolic murmur. And no neurologic changes from baseline. IV hydralazine given for acute hypertension management. CT cervical and CT head were ordered to investigate for cause of headache and neck pain. EKG was ordered to assess for any cardiogenic syncope. CMP ordered check electrolytes. CBC for anemia as her hematologic sources for syncope. UA ordered to look for any occult infectious process possibly causing syncope. Possible admission to observation to rule out cardiogenic syncope. CT scan shows 2 small hygromas which were not present in November 2017. Medical Screen Exam Complete: Yes Emergency Medical Condition: Yes Differential Diagnosis Differential Diagnosis: Subdural hematoma versus tension headache versus cardiac syncope versus hypertensive urgency versus hypertensive emergency Lab Data Result diagrams: 02/22/18 12:20 02/22/18 12:20 Lab Results 02/22/18 02/22/18 02/22/18 Range/Units 12:20 12:20 12:50 CBC w Diff Auto diff final WBC 5.5 (4.0-11.0) th/mm3 RBC 4.56 (4.50-5.90) mil/mm3 Hgb 14.1 (13.0-17.0) gm/dL Hct 42.1 (39.0-51.0) % MCV 92.3 (80.0-100.0) fL MCH 30.9 (27.0-34.0) pg MCHC 33.5 (32.0-36.0) % RDW 13.4 (11.6-17.2) % Plt Count 197 (150-450) th/mm3 MPV 7.4 (7.0-11.0) fL Neut % (Auto) 66.9 (16.0-70.0) % Lymph % (Auto) 21.0 (9.0-44.0) % Lea % (Auto) 9.4 H (0.0-8.0) % Eos % (Auto) 1.6 (0.0-4.0) % Baso % (Auto) 1.1 (0.0-2.0) % Neut # (Auto) 3.6 (1.8-7.7) th/mm3 Lymph # (Auto) 1.2 (1.0-4.8) th/mm3 Lea # (Auto) 0.5 (0.0-0.9) th/mm3 Eos # (Auto) 0.1 (0.0-0.4) th/mm3 Baso # (Auto) 0.1 (0.0-0.2) th/mm3 WBC Differential . Differential Comment . Sodium 143 (136-145) meq/L Potassium 3.7 (3.5-5.1) meq/L Chloride 101 (98-107) meq/L Carbon Dioxide 36.4 H (21.0-32.0) meq/L Anion Gap 6 (5-15) meq/L BUN 13 (7-18) mg/dL Creatinine 1.10 (0.60-1.30) mg/dL Estimated GFR 66 L (>89) mL/min Random Glucose 96 (74-106) mg/dL Calcium 8.9 (8.5-10.1) mg/dL Total Bilirubin 0.4 (0.2-1.0) mg/dL AST 32 (15-37) U/L ALT 34 (12-78) U/L Alkaline Phosphatase 91 (45-117) U/L Total Creatine Kinase 95 (39-308) U/L Troponin I Less than 0.02 L (0.02-0.05) ng/mL Total Protein 7.9 (6.4-8.2) g/dL Albumin 3.8 (3.4-5.0) g/dL Ur Collection Type Clean catch Urine Color Yellow (Yellw/Straw) Urine Clarity Clear (Clear) Urine pH 7.0 (5.0-8.5) Ur Specific [place] Less/equal 1.005 (1.002-1.035) Urine Protein Negative (Neg-Trace) mg/dL Urine Glucose (UA) Negative (Negative) mg/dL Urine Ketones Negative (Negative) mg/dL Urine Occult Blood Negative (Negative) Urine Nitrate Negative (Negative) Urine Bilirubin Negative (Negative) Urine Urobilinogen 0.2 (Less than 2) mg/dL Ur Leukocyte Esterase Negative (Negative) Micro UA Comment Culture not ind Ur Microscopic Review Microscopic reviewed Urine Culture Comments Culture not ind Urine Collection Time 1250 hours Imaging Data Radiologist's impression: Cervical Spine CT 02/22/18 11:58 CONCLUSION: 1. Degenerative changes in the cervical spine as above. 2. No acute cervical fracture identified. Head CT 02/22/18 11:58 CONCLUSION: 1. There are small bifrontal hygromas collections measuring approximately 3-4 mm in thickness. These are new when compared to previous dated 12/18/2017. Please see above. Discharge Plan Discharge Disposition Patient Disposition: 30 Still Patient Discharge Details Diagnosis: Hypertensive urgency, Syncope, Volume depletion, Chronic intracranial subdural hematoma Physicians Team ED Provider: Shakir Hill Primary Care Provider: NON STAFF,PROVIDER Rxs /Orders / Referrals /Forms Prescriptions: No Action atorvastatin 40 mg Tablet 40 mg PO HS RF: 0 gabapentin 600 mg Tablet 300 mg PO TID RF: 0 metoprolol succinate 100 mg Tablet Extended Release 24 Hr 100 mg PO BID RF: 0 levothyroxine [Synthroid] 25 mcg Tablet 100 mcg PO DAILY RF: 0 clonazepam [Klonopin] 1 mg Tablet 1 mg PO HS RF: 0 aspirin 81 mg Tablet,Chewable 81 mg PO DAILY RF: 0 Status ED Status: With Doctor
[2018-02-22] MEDS ORDERED: hydrALAZINE HCl Inj 20 MG/ML Vial IV.PUSH ONE (12:21)
[2018-02-22 12:33] LABS: Baso # (Auto) 0.1 th/mm3 (0.0-0.2); Baso % (Auto) 1.1 % (0.0-2.0); Eos # (Auto) 0.1 th/mm3 (0.0-0.4); Eos % (Auto) 1.6 % (0.0-4.0); Hematocrit 42.1 % (39.0-51.0); Hemoglobin 14.1 gm/dL (13.0-17.0); Lymph # (Auto) 1.2 th/mm3 (1.0-4.8); Mean Corpuscular HGB Conc 33.5 % (32.0-36.0); Mean Corpuscular Hemoglobin 30.9 pg (27.0-34.0); Mean Corpuscular Volume 92.3 fL (80.0-100.0); Mean Platelet Volume 7.4 fL (7.0-11.0); Mono # (Auto) 0.5 th/mm3 (0.0-0.9); Mono % (Auto) 9.4 % (0.0-8.0); Neut # (Auto) 3.6 th/mm3 (1.8-7.7); Neut % (Auto) 66.9 % (16.0-70.0); Platelet Count 197 th/mm3 (150-450); Red Blood Count 4.56 mil/mm3 (4.50-5.90); Red Cell Distribution Width 13.4 % (11.6-17.2); White Blood Count 5.5 th/mm3 (4.0-11.0)
[2018-02-22 12:45] LABS: Chloride 101 meq/L (98-107); Potassium 3.7 meq/L (3.5-5.1); Sodium 143 meq/L (136-145)
[2018-02-22 12:48] LABS: Calcium 8.9 mg/dL (8.5-10.1)
[2018-02-22 12:49] LABS: Albumin 3.8 g/dL (3.4-5.0); Anion Gap 6 meq/L (5-15); Blood Urea Nitrogen 13 mg/dL (7-18); Carbon Dioxide 36.4 meq/L (21.0-32.0); Glucose,Random 96 mg/dL (74-106)
[2018-02-22 12:52] LABS: Alanine Aminotransferase 34 U/L (12-78); Aspartate Aminotransferase 32 U/L (15-37); Glomerular Filtration Rate 66 mL/min (>89)
[2018-02-22 12:54] LABS: Total Protein 7.9 g/dL (6.4-8.2)
[2018-02-22 12:55] LABS: Alkaline Phosphatase 91 U/L (45-117)
[2018-02-22 12:59] LABS: Bilirubin,Urine Negative (Negative); Clarity,Urine Clear (Clear); Color,Urine Yellow (Yellw/Straw); Glucose,Urine (UA) Negative (Negative); Leukocyte Esterase,Urine Negative (Negative); Nitrite,Urine Negative (Negative); Specific Gravity,Urine Less/Equal 1.005 (1.002-1.035); Urobilinogen,Urine 0.2 mg/dL (Less than 2)
[2018-02-22 13:00] LABS: Creatine Kinase 95 U/L (39-308)
[2018-02-22 13:00] LABS: Collection Time,Urine 1250 hours
--- NOTE | 2018-02-22 13:22 | CT ---
EXAM DATE: 02/22/2018 1:12 PM EST AGE/SEX: 72 years / Male INDICATIONS: Fell on left side one week ago. Headache and neck pain. CLINICAL DATA: This is the patient's initial encounter. Patient reports that signs and symptoms have been present for 1 week and indicates a pain score of 6/10. MEDICAL/SURGICAL HISTORY: Cardiovascular disease. Hypertension. Carcinoma, oral cavity. Appendect angelika. Carotid endarterectomy. CABG. Chemo therapy. Radical neck surgery. RADIATION DOSE: 64.58 CTDI (mGy) COMPARISON: [facility], CT HEAD W/O CONTRAST, 12/18/2017. . TECHNIQUE: CT of the head without contrast. Using automated exposure control and adjustment of the mA and/or kV according to patient size, radiation dose was kept as low as reasonably achievable to ob tain optimal diagnostic quality images. DICOM format image data is available electronically for revi ew and comparison. FINDINGS: Today's examination is compared directly to a prior dated 12/18/2017. Today's exam demonstrates small bifrontal hygromas fluid collections measuring approximately 4 mm in thickness. These were not presen t on previous CT examination. There is a punctate focus of increased density within the subdural spac e along the high left frontal convexities. These would suggest these areas of hygromatous fluid repre sent old subdurals. Again these collections were not present on previous of 12/18/2017. The ventricles are normal in size and configuration. No mass lesion is seen. The appearance of the po sterior fossa is unremarkable. The osseous structures of the skull are intact. The sinuses are clear. The orbits are intact. CONCLUSION: 1. There are small bifrontal hygromas collections measuring approximately 3-4 mm in thickness. These are new when compared to previous dated 12/18/2017. Please see above. Electronically signed by: Andres Clark MD 02/22/2018 1:20 PM EST
--- NOTE | 2018-02-22 13:47 | CT ---
EXAM DATE: 02/22/2018 1:19 PM EST AGE/SEX: 72 years / Male INDICATIONS: Fell on left side one week ago. Headache and neck pain. CLINICAL DATA: This is the patient's initial encounter. Patient reports that signs and symptoms have been present for 1 week and indicates a pain score of 6/10. MEDICAL/SURGICAL HISTORY: Cardiovascular disease. Hypertension. Carcinoma, oral cavity. CABG. Carotid endarterectomy. Appendectomy. Chemo therapy. Radical neck surgery. RADIATION DOSE: 26.69 CTDI (mGy) COMPARISON: [facility], CT CERVICAL SPINE W/O CONTRAST, 12/18/2017. . TECHNIQUE: Contiguous axial images were obtained using helical multirow detector technique. The vol umetric data was post-processed with multiplanar reconstruction in oblique axial, sagittal, and coron al planes. Using automated exposure control and adjustment of the mA and/or kV according to patient s ize, radiation dose was kept as low as reasonably achievable to obtain optimal diagnostic quality glory ges. DICOM format image data is available electronically for review and comparison. FINDINGS: Sagittal and coronal reformats demonstrate adequate alignment of the cervical vertebral bodies. There are degenerated discs throughout the cervical spine. No acute fracture is identified. There are mild degenerative changes in the atlantodens joint. Axial imaging: C2-3: The thecal space and neural foramina are adequate. There is mild facet arthritis bilaterally. C3-4: The thecal space is adequate. The foramina are adequate. There is mild facet arthritis bilatera lly. C4-5: There is a small broad-based disc bulge. The thecal space and foramina are adequate. There is m ild facet arthritis bilaterally. C5-6: There is a degenerated disc. There is mild osteophytic ridging from the vertebral endplates. Th is just effaces the ventral thecal sac. There is mild encroachment of uncovertebral osteophyte on the lateral recess bilaterally. There is mild facet arthritis bilaterally. C6-7: There is a degenerated disc. There is mild osteophytic ridging from the vertebral endplates. Th is effaces the ventral thecal sac. The residual thecal space is adequate. There is mild bony foramina l narrowing on the left. The foramina on the right is adequate. There is mild facet arthritis bilater ally. C6-7: The thecal space and foramina are adequate. No significant abnormality is identified. CONCLUSION: 1. Degenerative changes in the cervical spine as above. 2. No acute cervical fracture identified. Electronically signed by: Andres Clark MD 02/22/2018 1:46 PM EST
[2018-02-22] MEDS ORDERED: Sodium Chlor 0.9% Inj 500 ML IV.SIG SCH (14:00)
[2018-02-22] MEDS ORDERED: Morphine Inj 4 MG/ML Vial IV.PUSH ONE (14:24)
[2018-02-22] MEDS ORDERED: Bisacodyl 10 MG Supp RECTAL PRN (14:40)
[2018-02-22] MEDS ORDERED: Acetaminophen 325 MG Tablet PO PRN (14:40)
[2018-02-22] MEDS ORDERED: hydrALAZINE HCl Inj 20 MG/ML Vial IV.PUSH PRN (15:00)
--- NOTE | 2018-02-22 15:01 | P.HP ---
History of Present Illness Primary Care Physician: PROVIDER NON STAFF Chief Complaint: Headache, syncopal episode History of Present Illness: 72-year-old male with a rather unfortunate history of throat cancer status post chemotherapy, radiation, neck surgery. Patient with history of hypertension, hyperlipidemia, coronary artery disease status post bypass surgery who presented to the hospital today because of increasing cephalgia. Patient states that he has been having episodes over the last few months where he gets a sensation of presyncope with occasional extremity tremors. Patient states that most the time he is able to ability. However it is been 2 episodes where he was not able to grab onto anything and he actually had syncopal episode. There is one time where he fell across the bathroom door and landed hitting the front part of his head. Approximately a week ago he had another episode where he did have a syncopal episode. Since then he has had progressive headache that would not resolve with medications so he came to the hospital for evaluation. The patient had workup done and found to have blood pressure 217/112. Patient was given Apresoline in the emergency department with improvement of his blood pressure. However his headache was a 9/10 on pain scale in only improved to a 7/10 on a pain scale after his blood pressure was controlled. Patient did have a CT scan done of the brain which did indicate to bifrontal hygromas which were not present on previous CT 2 months ago. Patient denies any chest pain, shortness of breath, dyspnea, visual disturbances, difficulty eating or swallowing food, unilateral weakness, difficulty speaking, loss of bowel or bladder control, biting of his tongue. It is recommended by the ER physician that the patient be admitted for further evaluation and management. - Diagnosis (1) Hygroma (2) Hypertensive urgency (3) Syncope Review of Systems All other systems reviewed negative except as stated in HPI Neurologic: Reports fainting, Reports headache(s), Reports tremor(s) PMF - History History Provided By: Patient - Medical History Medical History: Medical History (Last Reviewed 02/22/18 @ 11:46 by Holley Levi RN) HTN (hypertension) Hypothyroidism Insomnia Aspiration into airway CAD (coronary artery disease) Dysphagia Esophageal dilatation Hyperlipidemia Radiculopathy Squamous cell carcinoma - Surgical History Surgical History: Surgical History (Last Reviewed 02/22/18 @ 11:46 by Holley Levi RN) History of appendectomy History of radical neck dissection History of right-sided carotid endarterectomy Hx of CABG S/P percutaneous endoscopic gastrostomy (PEG) tube placement - Family History Family History: Family History (Last Updated 02/22/18 @ 14:55 by IKRSTIE Phillips) Mother No problems noted. Father History of myocardial infarction - Tobacco History Second Hand Smoke Exposure: No Smoking Status: Never smoker - Alcohol History How Often Do You Have a Drink Containing Alcohol: Never - Substance Use History Substance History: No History of Abuse - Travel History Recent Travel in the [place] Within the Last 8 Weeks: No Recent Travel Out of the Country Within the Last 8 Weeks: No - Immunization History Tetanus Immunization: Unsure Medications and Allergies Active Medications: Active Medications Acetaminophen (Tylenol) 650 mg PO Q4H PRN PRN Reason: Temp > 100.4 Al Hydroxide/Mg Hydroxide (Milk Of Magnesia Liq) 30 ml PO Q12H PRN PRN Reason: Mild Constipation Bisacodyl (Dulcolax Supp) 10 mg RECTAL DAILY PRN PRN Reason: SEVERE CONSITIPATION Sodium Chloride (Ns Inj) 1,000 mls @ 100 mls/hr IV.CONT .Q10H MIKE Stop: 02/23/18 10:44 Lactulose (Lactulose Liq) 30 ml PO DAILY PRN PRN Reason: SEVERE CONSITIPATION Ondansetron HCl (Zofran Inj) 4 mg IV.PUSH Q6H PRN PRN Reason: NAUSEA OR VOMITING Senna/Docusate Sodium (Suzanne-Colace) 1 tab PO BID MIKE Sennosides (Senokot) 17.2 mg PO Q12H PRN PRN Reason: Moderate Constipation Sodium Chloride (Ns Flush) 2 ml IV.FLUSH PRN PRN PRN Reason: FLUSH AFTER USING IV ACCESS Last Admin: 02/22/18 12:32 Dose: 2 ml Temazepam (Restoril) 15 mg PO HS PRN PRN Reason: INSOMNIA Allergies Allergy/AdvReac Type Severity Reaction Status Date / Time tetnus toxoid Allergy Anaphylaxis Uncoded 02/22/18 11:44 must use pediartric 6 if AdvReac Unknown other Uncoded 02/22/18 11:44 itubated due to radiated tounge Home Medications Medication Instructions Recorded Confirmed Type atorvastatin 40 mg PO HS 12/18/17 02/22/18 History clonazepam [Klonopin] 1 mg PO HS 12/18/17 02/22/18 History gabapentin 300 mg PO TID 12/18/17 02/22/18 History levothyroxine [Synthroid] 100 mcg PO DAILY 12/18/17 02/22/18 History metoprolol succinate 100 mg PO BID 12/18/17 02/22/18 History aspirin 81 mg PO DAILY 01/12/18 02/22/18 History Exam Vital signs: Vital Signs 02/22/18 11:41 02/22/18 12:34 02/22/18 12:55 Temperature 97.8 F Pulse Rate 73 75 78 Respiratory Rate 18 18 16 Blood Pressure 217/112 H 158/88 H 142/76 H Pulse Oximetry 99 98 97 Intake & Output 02/21/18 02/22/18 02/22/18 18:59 06:59 18:59 Intake Total 500 / 500 Output Total 800 / 800 Balance -300 / -300 Weight 60.6 kg Intake: IV 500 / 500 NS Inj 500 ML @ 1000 mls/hr IV. 500 / 500 SIG BOLUS MIKE Rx#:[id number] Output: Urine 800 / 800 Narrative: GENERAL: Well-developed, well-nourished, in no acute distress. alert and orientated HEENT: Head is normocephalic without any lesions or masses noted. Facial features are symmetric. Eyes: Pupils equal round reactive to light. Extraocular muscles are intact. Conjunctivae were clear. Oropharyngeal: Pharynx without any erythema edema. Tongue is midline without deviation. Buccal mucosa is moist without any masses or lesions NECK: Patient has obvious abnormality of his neck from previous surgical intervention and radiation therapy CARDIAC: Regular rhythm, regular rate. S1/S2 are heard. No murmurs gallops or rubs. LUNGS: Clear to auscultation bilaterally. No wheeze, rhonchi or rales. No use of accessory muscles on inspiration or expiration. ABDOMEN: Soft, nontender. Nondistended. Bowel sounds heard in all 4 quadrants. No organomegaly or masses. Negative rebound, negative guarding EXTREMITIES: No edema, pulses are equal bilaterally. No cyanosis or clubbing NEUROLOGY: Mood and affect appear appropriate. Cranial nerves II through XII grossly intact. Muscle strength 5/5 in upper and lower extremities bilaterally. Deep tendon reflexes are 2+ in upper and lower extremities bilaterally. Results - Labs CBC & Chem 7: 11/26/18 12:20 02/22/18 12:20 Labs: Laboratory Results - last 24 hr 02/22/18 02/22/18 02/22/18 12:20 12:20 12:50 CBC w Diff Auto diff final WBC 5.5 RBC 4.56 Hgb 14.1 Hct 42.1 MCV 92.3 MCH 30.9 MCHC 33.5 RDW 13.4 Plt Count 197 MPV 7.4 Neut % (Auto) 66.9 Lymph % (Auto) 21.0 Sevier % (Auto) 9.4 H Eos % (Auto) 1.6 Baso % (Auto) 1.1 Neut # (Auto) 3.6 Lymph # (Auto) 1.2 Sevier # (Auto) 0.5 Eos # (Auto) 0.1 Baso # (Auto) 0.1 WBC Differential . Differential Comment . Sodium 143 Potassium 3.7 Chloride 101 Carbon Dioxide 36.4 H Anion Gap 6 BUN 13 Creatinine 1.10 Estimated GFR 66 L Random Glucose 96 Calcium 8.9 Total Bilirubin 0.4 AST 32 ALT 34 Alkaline Phosphatase 91 Total Creatine Kinase 95 Troponin I Less than 0.02 L Total Protein 7.9 Albumin 3.8 Ur Collection Type Clean catch Urine Color Yellow Urine Clarity Clear Urine pH 7.0 Ur Specific [place] Less/equal 1.005 Urine Protein Negative Urine Glucose (UA) Negative Urine Ketones Negative Urine Occult Blood Negative Urine Nitrate Negative Urine Bilirubin Negative Urine Urobilinogen 0.2 Ur Leukocyte Esterase Negative Micro UA Comment Culture not ind Ur Microscopic Review Microscopic reviewed Urine Culture Comments Culture not ind Urine Collection Time 1250 - Imaging Impressions Cervical Spine CT 02/22/18 11:58 CONCLUSION: 1. Degenerative changes in the cervical spine as above. 2. No acute cervical fracture identified. Head CT 02/22/18 11:58 CONCLUSION: 1. There are small bifrontal hygromas collections measuring approximately 3-4 mm in thickness. These are new when compared to previous dated 12/18/2017. Please see above. Caprini VTE Risk Assessment Caprini VTE Risk Assessment: Moderate/High Risk (score >= 2) Caprini Risk Assessment Model: Point Value = 1 Point Value = 2 Point Value = 3 Point Value = 5 Age 41-60 Minor surgery BMI > 25 kg/m2 Swollen legs Varicose veins or History of unexplained or recurrent spontaneous Oral contraceptives or hormone replacement Sepsis (< 1 month) Serious lung disease, including pneumonia (< 1 month) Abnormal pulmonary function Acute myocardial infarction Congestive heart failure (< 1 month) History of inflammatory bowel disease Medical patient at bed rest Age 61-74 Arthroscopic surgery Major open surgery (> 45 min) Laparoscopic surgery (> 45 min) Malignancy Confined to bed (> 72 hours) Immobilizing plaster cast Central venous access Age >= 75 History of VTE Family history of VTE Factor V Leiden Prothrombin [id number] Lupus anticoagulant Anticardiolipin antibodies Elevated serum homocysteine Heparin-induced thrombocytopenia Other congenital or acquired thrombophilia Stroke (< 1 month) Elective arthroplasty Hip, pelvis, or leg fracture Acute spinal cord injury (< 1 month) Prophylaxis Regimen: Total Risk Factor Score Risk Level Prophylaxis Regimen 0-1 Low Early ambulation 2 Moderate Order ONE of the following: *Sequential Compression Device (SCD) *Heparin 5000 units SQ BID 3-4 Higher Order ONE of the following medications: *Heparin 5000 units SQ TID *Enoxaparin/Lovenox 40 mg SQ daily (WT < 150 kg, CrCl > 30 mL/min) *Enoxaparin/Lovenox 30 mg SQ daily (WT < 150 kg, CrCl > 10-29 mL/min) *Enoxaparin/Lovenox 30 mg SQ BID (WT < 150 kg, CrCl > 30 mL/min) AND/OR *Sequential Compression Device (SCD) 5 or more Highest Order ONE of the following medications: *Heparin 5000 units SQ TID (Preferred with Epidurals) *Enoxaparin/Lovenox 40 mg SQ daily (WT < 150 kg, CrCl > 30 mL/min) *Enoxaparin/Lovenox 30 mg SQ daily (WT < 150 kg, CrCl > 10-29 mL/min) *Enoxaparin/Lovenox 30 mg SQ BID (WT < 150 kg, CrCl > 30 mL/min) AND *Sequential Compression Device (SCD) Assessment and Plan - Assessment (1) Hygroma Code(s): D18.1 - Lymphangioma, any site Status: Acute (2) Hypertensive urgency Code(s): I16.0 - Hypertensive urgency Status: Acute (3) Syncope Code(s): R55 - Syncope and collapse Status: Acute - Plan Hypertensive urgency -Patient does have history of recurrent syncope, presented today with cephalgia -Patient blood pressure did respond to Apresoline with significant improvement -Continue monitor blood pressure closely -Apresoline IV as needed -Clonidine as needed Syncope -Patient describes a couple syncopal episodes in the last month. Also describes presyncopal episodes with extremity tremors and shaking without any loss of bowel or bladder control, biting of the tongue, confusion -CT scan does show bilateral hygromas which is new as compared to CTs 2 months ago -MRI of the brain indicated acute subdural hemorrhage, discussed with Neurology who states patient has to go to the main with neurosurgery consult -Carotid US: indicated no hemodynamic significant stenosis -Awaiting EEG, orthostatic vitals -Physical therapy evaluation -Neurology consult for further recommendations Cephalgia, intractable -Could be secondary to uncontrolled hypertension may be cranial abnormality -Continue pain control and blood pressure management -Obtain sed rate Hypertension, hyperlipidemia, coronary artery disease -Continue home medications Nutrition -Patient is on tube feeding at home with product that is not available at the hospital -Dietary consulted for tube feeding recommendations DVT prevention -Sequential compression devices (3) Syncope Qualifiers: Syncope type: unspecified Qualified Code(s): R55 - Syncope and collapse
--- NOTE | 2018-02-22 15:53 | US ---
EXAM DATE: 02/22/2018 3:48 PM EST AGE/SEX: 72 years / Male INDICATIONS: Syncope. CLINICAL DATA: This is the patient's initial encounter. Patient reports that signs and symptoms have been present for 3 weeks and indicates a pain score of 5/10. MEDICAL/SURGICAL HISTORY: Hypertension. Hypothyroidism. CAD. Hyperlipidemia. Radiculopathy. Sq uamous cell carcinoma. Dysphagia. Oral cancer. Chemo. Appendectomy. CABG. Radical neck dissection. Esophageal dilatation. Right carotid endarterectomy. PEG tube placement. COMPARISON: [facility], US CAROTID ARTERIES, 08/07/2015. . VELOCITY PARAMETERS: ICA/CCA Ratio: Right 1.5 , Left 2.1 ICA: Right 142 cm/sec, Left 206 cm/sec CCA: Right 96 cm/sec, Left 98 cm/sec ECA: Right 130 cm/sec, Left 160 cm/sec Vertebral: Right 33 cm/sec antegrade, Left 56 cm/sec antegrade FINDINGS: Right Carotid: No significant plaque is visualized.The waveforms are within normal limits. Left Carotid: Mild arteriosclerotic plaque is visualized. The waveforms are within normal limits. Other: None. CONCLUSION: 1. Right Internal Carotid Artery: Findings indicate <50% stenosis. 2. Left Internal Carotid Artery: Findings indicate 50-69% stenosis. Electronically signed by: Andres Clark MD 02/22/2018 3:52 PM EST
[2018-02-22] MEDS ORDERED: Gadobutrol PF 2 MMOL/2 ML Vial (for RAD) IV.SIG ONE (16:26)
--- NOTE | 2018-02-22 17:00 | MR ---
EXAM DATE: 02/22/2018 4:44 PM EST AGE/SEX: 72 years / Male INDICATIONS: . Syncopal episodes. CLINICAL DATA: This is the patient's initial encounter. Patient reports that signs and symptoms have been present for 2 days and indicates a pain score of 0/10. MEDICAL/SURGICAL HISTORY: Hypertension. CABG. Carotid endarterectomy. Appendectomy. Neck ca surgery. COMPARISON: [facility], CT HEAD W/O CONTRAST, 02/22/2018. . TECHNIQUE: Multiplanar, multisequence examination of the brain was performed without and with 6 ml Ga davist (gadobutrol) contrast as a single exam dose. FINDINGS: Diffuse subacute subdural hematomas are noted bilaterally within the frontal, parietal, temporal and occipital regions. Small amount of acute subdural hemorrhage is noted within the right high parietal region. These measure approximately 9 mm in greatest width. Scattered old tiny lacunar infarcts are n oted within the bilateral basal ganglia. The ventricles, sulci and cisterns are normal size shape and position for the patient's age. There is no acute infarction. No abnormally enhancing intra-axial or extra-axial lesion is noted. CONCLUSION: 1. Diffuse subacute subdural hematomas are noted bilaterally within the frontal, parietal, temporal and occipital regions. Small amount of acute subdural hemorrhage is noted within the right high parie micheline region. These measure approximately 9 mm in greatest width. 2. 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 3. No acute infarction, mass effect, midline shift or abnormal enhancing lesion. Electronically signed by: Feliz Patel MD 02/22/2018 4:59 PM EST
[2018-02-22] MEDS: Sod Chloride 0.9% Inj 1,000 ML IV.CONT SCH (17:23)
[2018-02-22] MEDS ORDERED: niCARdipine Inj 25 MG in Sodium Chlor 0.9% Inj 240 ML IV.CONT PRN (17:26)
--- NOTE | 2018-02-22 17:36 | P.CONNS ---
History of Present Illness Service: Neurosurgery Consult date: 02/22/18 Requesting Physician: Coleen Ngo Reason for Consult: Subdural hematoma Primary Care Provider: PROVIDER NON STAFF Chief Complaint: Headache, syncopal episode History of Present Illness: This is a 72-year-old white with past medical history of base of tongue cancer, status post radiation/chemo/radical neck dissection, coronary artery disease status post CABG, hypertension, esophageal strictures and dysphagia with PEG in place x 4-5 years. He was [facility] for neurosurgical evaluation due to bilateral SDH. He states that fo a few months he has been having intermittent episodes of "whole body shaking". He states he is lucid during these episodes but they are often accompanied by syncope. Denies orthostatic symptoms, palpitations, SOB, CP, loss of bowel or bladder function. He had one of these episodes about 2 months ago and had syncope and hit his forehead on terra cotta yvonne. Since that time, he has had daily headaches located in frontal region and "behind his eyes" usually 3-4/10 but with episodes that are much worse. He flew to [place] last week for evaluation for total laryngectomy and says that since then his headache has been much worse and this prompted visit to ED. MRI brain was consistent with bilateral subdurals with acute component high right parietal. He takes aspirin but no anticoagulants. Patient attributes much of his symptoms to malnutrition. He states he has had a PEG for 4-5 years but has difficulty maintaining weight, losing 30 pounds in the last 2 months. His makes pured food for him to bolus. He is using his own pump and has brought his own pea protein based nutritional supplement. 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 Has run 30 marathons in his life, the last was in 2005. Still enjoys swimming laps daily. Neurosurgery consultation was requested His family history was reviewed and was noncontributory to the present admission Review of Systems All other systems reviewed negative except as stated in HPI PMFSH - History History Provided By: Patient - Medical History Medical History: Medical History (Last Reviewed 02/23/18 @ 21:41 by Hayder Marquez MD) Cancer of base of tongue HTN (hypertension) Hypothyroidism Insomnia Aspiration into airway CAD (coronary artery disease) Dysphagia Esophageal dilatation Hyperlipidemia Radiculopathy Squamous cell carcinoma - Surgical History Surgical History: Surgical History (Last Reviewed 02/23/18 @ 21:41 by Hayder Marquez MD) H/O repair of rotator cuff History of CEA (carotid endarterectomy) History of appendectomy History of radical neck dissection Hx of CABG S/P percutaneous endoscopic gastrostomy (PEG) tube placement - Family History Family History: Family History (Last Reviewed 02/23/18 @ 15:19 by Haylie Carlson PT) Mother No problems noted. Father History of myocardial infarction - Tobacco History Second Hand Smoke Exposure: No Smoking Status: Never smoker - Alcohol History How Often Do You Have a Drink Containing Alcohol: Monthly or less - Substance Use History Substance History: No History of Abuse - Travel History Recent Travel in the USA Within the Last 8 Weeks: No Recent Travel Out of the Country Within the Last 8 Weeks: No - Immunization History Tetanus Immunization: Unsure Medications and Allergies Active Medications: Active Medications Acetaminophen (Tylenol) 650 mg PO Q4H PRN PRN Reason: Temp > 100.4 Al Hydroxide/Mg Hydroxide (Milk Of Radha Walker) 30 ml PO Q12H PRN PRN Reason: Mild Constipation Atorvastatin Calcium (Lipitor) 40 mg PO HS MIKE Bisacodyl (Dulcolax Supp) 10 mg RECTAL DAILY PRN PRN Reason: SEVERE CONSITIPATION Clonazepam (Klonopin) 1 mg PO HS MIKE Clonidine HCl (Catapres) 0.1 mg PO Q6H PRN PRN Reason: SBP>160, DBP>90 Enalaprilat (Vasotec Inj) 1.25 mg IV.PUSH Q6H PRN PRN Reason: SBP>160, DBP>90 Last Admin: 02/22/18 16:41 Dose: 1.25 mg Gabapentin (Neurontin) 300 mg PO TID MIKE Hydralazine HCl (Apresoline Inj) 20 mg IV.PUSH Q4H PRN PRN Reason: SBP>160, DBP>90 Sodium Chloride (Ns Inj) 1,000 mls @ 100 mls/hr IV.CONT .Q10H MIKE Stop: 02/23/18 10:44 Last Admin: 02/22/18 17:23 Dose: 100 mls/hr Nicardipine HCl 25 mg/ Sodium (Chloride) 250 mls @ 50 mls/hr IV.CONT TITRATE PRN; Protocol PRN Reason: Per Protocol Lactulose (Lactulose Liq) 30 ml PO DAILY PRN PRN Reason: SEVERE CONSITIPATION Levothyroxine Sodium (Synthroid) 100 mcg PO DAILY@0600 MIKE Metoprolol Succinate (Toprol Xl) 100 mg PO BID MIKE Ondansetron HCl (Zofran Inj) 4 mg IV.PUSH Q6H PRN PRN Reason: NAUSEA OR VOMITING Senna/Docusate Sodium (Suzanne-Colace) 1 tab PO BID MIKE Sennosides (Senokot) 17.2 mg PO Q12H PRN PRN Reason: Moderate Constipation Sodium Chloride (Ns Flush) 2 ml IV.FLUSH PRN PRN PRN Reason: FLUSH AFTER USING IV ACCESS Last Admin: 02/22/18 12:32 Dose: 2 ml Temazepam (Restoril) 15 mg PO HS PRN PRN Reason: INSOMNIA Allergies Allergy/AdvReac Type Severity Reaction Status Date / Time tetnus toxoid Allergy Anaphylaxis Uncoded 02/22/18 11:44 must use pediartric 6 if AdvReac Unknown other Uncoded 02/22/18 11:44 itubated due to radiated tounge Home Medications Medication Instructions Recorded Confirmed Type atorvastatin 40 mg PO HS 12/18/17 02/22/18 History clonazepam [Klonopin] 1 mg PO HS 12/18/17 02/22/18 History gabapentin 300 mg PO TID 12/18/17 02/22/18 History levothyroxine [Synthroid] 100 mcg PO DAILY 12/18/17 02/22/18 History metoprolol succinate 100 mg PO BID 12/18/17 02/22/18 History aspirin 81 mg PO DAILY 01/12/18 02/22/18 History Exam Vital signs: Vital Signs 02/22/18 11:41 02/22/18 12:34 02/22/18 12:55 Temperature 97.8 F Pulse Rate 73 75 78 Respiratory Rate 18 18 16 Blood Pressure 217/112 H 158/88 H 142/76 H Pulse Oximetry 99 98 97 02/22/18 14:40 02/22/18 15:03 02/22/18 16:35 Temperature Pulse Rate 88 Respiratory Rate 18 Blood Pressure 224/113 H Pulse Oximetry 84 L 97 98 02/22/18 16:46 Temperature Pulse Rate Respiratory Rate Blood Pressure 212/110 H Pulse Oximetry Intake & Output 02/21/18 02/22/18 02/22/18 18:59 06:59 18:59 Intake Total 500 / 500 Output Total 800 / 800 Balance -300 / -300 Weight 58.967 kg Intake: IV 500 / 500 NS Inj 500 ML @ 1000 mls/hr IV. 500 / 500 SIG BOLUS MIKE Rx#:[id number] Output: Urine 800 / 800 Other: Weight On Admission 58.967 kg Narrative: The patient is alert, awake. Comfortable, in no acute distress. Speech is fluent. Cranial nerve examination: pupils to be equal, round and reactive to light. Extra-ocular movements are intact. Facial motor and sensory function are normal and symmetrical. Gross hearing appears intact. Sternocleidomastoid and trapezius muscles are symmetrical. Other cranial nerves are intact. Neck is soft and supple with a good range of motion without pain. Muscle strength is normal in all muscle groups of his right upper and both lower extremities, Mild 4/5 weakness in his left upper extremity. Sensory examination is intact to light touch and pin prick in right upper and lower extremities, mild decrease in his LUE Deep tendon reflexes are trace symmetrical in both upper and lower extremities. There is a bilateral plantar flexion response. Cerebellar examination is unremarkable, without deficits. Lungs are clear Heart regular rhythm is regular rate Skin warm and dry Results - Laboratory Findings CBC and BMP: 02/22/18 12:20 02/22/18 12:20 Abnormal lab findings: Abnormal Labs 02/22/18 02/22/18 12:20 12:20 Mills % (Auto) 9.4 H Carbon Dioxide 36.4 H Estimated GFR 66 L Troponin I Less than 0.02 L Assessment and Plan - Plan (1) SDH (subdural hematoma) Code(s): S06.5X9A - Traumatic subdural hemorrhage with loss of consciousness of unspecified duration, initial encounter Status: Chronic (2) Hypertensive urgency Code(s): I16.0 - Hypertensive urgency Status: Acute (3) Syncope Code(s): R55 - Syncope and collapse Status: Acute (4) Dysphagia Code(s): R13.10 - Dysphagia, unspecified Status: Chronic (5) PEG (percutaneous endoscopic gastrostomy) status Code(s): Z93.1 - Gastrostomy status Status: Chronic I have reviewed the clinical and radiological findings Carotid Doppler Study 02/22/18 00:00 CONCLUSION: 1. Right Internal Carotid Artery: Findings indicate <50% stenosis. 2. Left Internal Carotid Artery: Findings indicate 50-69% stenosis. Cervical Spine CT 02/22/18 11:58 CONCLUSION: 1. Degenerative changes in the cervical spine as above. 2. No acute cervical fracture identified. Head CT 02/22/18 11:58 CONCLUSION: 1. There are small bifrontal hygromas collections measuring approximately 3-4 mm in thickness. These are new when compared to previous dated 12/18/2017. Please see above. Head MRI 02/22/18 14:44 CONCLUSION: 1. Diffuse subacute subdural hematomas are noted bilaterally within the frontal , parietal, temporal and occipital regions. Small amount of acute subdural hemorrhage is noted within the right high parietal region. These measure approximately 9 mm in greatest width. 2. 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 3. No acute infarction, mass effect, midline shift or abnormal enhancing lesion. Neuro: neuro checks in a serial fashion. Nonoperative treatment. Follow up CT in 48 hrs Keppra 500 mg IV q12 Pulmonary: aggressive pulmonary toilette, nasotracheal suction, and breathing treatments with nebulizers. Syncope - etiology unclear. F/u EEG. Telemetry monitoring and Echo BP management Neurology has previously been consulted, f/u recs. Anxiety Klonopin 1 mg p.o. 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 3 times daily Agent [place] exposure Hypertension Hyperlipidemia Coronary artery disease status post CABG Lipitor 40 mg p.o. nightly Labetalol 20 mg IV every 4 hours/hydralazine 20 mill grams IV every 4 hours as needed systolic blood pressure greater than 160. Cardene prn SBP >160 Metoprolol tartrate 100 mg p.o. twice daily GI: Patient administering his own tube feed formula via existing transgastric- jejunal tube. FEN/RENAL: Voiding. Monitor intake and output. Monitor electrolytes and replace as indicated. 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 daily Daily PT and OT Continue Protonix for stress ulcer prophylaxis Continue Polo hose and SCD's for DVT prophylaxis Further recommendations will be provided depending on the patient's clinical evaluation and follow up studies.
[2018-02-22] MEDS: Gabapentin 300 MG Capsule PO SCH (18:46)
[2018-02-22 19:20] LABS: Creatine Kinase 91 U/L (39-308)
--- NOTE | 2018-02-22 20:14 | MB ---
cc: Yudith Garcia MD DATE: 02/22/2018 REASON FOR CONSULTATION: Subdural hematoma, headache. HISTORY OF PRESENT ILLNESS: This is a 72-year-old man with a history of throat cancer, chemo and radiation, neck surgery, cannot eat and fed via G-tube, hypertension, hyperlipidemia, heart disease, bypass surgery, who came in with increased headache. The patient states he had 2 episodes of syncope 6 months apart, feeling dizzy, lightheaded. Last one was about a week ago. He has a headache that will not go away. Blood pressure has been elevated. He was given some Apresoline in the ED. A CT performed showed bifrontal hygromas that were not seen on a prior CT 2 months ago. PAST MEDICAL HISTORY: Hypertension, hypothyroidism, aspiration, insomnia, heart disease, throat cancer, radiation and chemo, radiculopathy of left brachial plexus, also right carotid endarterectomy and surgery to his right rotator cuff. FAMILY HISTORY: Noncontributory. SOCIAL HISTORY: Tobacco: Denies. Alcohol: Denies. Substance abuse: Denies. PHYSICAL EXAMINATION: VITAL SIGNS: Currently, his temperature is 97.8, pulse 88, respiratory rate 18. His last BP at 1646 hours was 212/110. He is saturating at 98% on room air. NECK: Supple. No bruits. HEART: Regular. NEUROLOGIC: He is awake and alert. He is fluent. His pupils are reactive. Visual neri full. Face symmetrical. Tongue midline. Motor: He has limitation of range of motion of the left arm due to his brachial plexus issue, but his sensory is normal. No wrist drop. Blade Balancer are symmetrical. He has a tremor on [id number] of the left arm, none on the right. No leg lag. Toes withdraw. DTRs 1+. Gait is withheld. LABORATORY DATA: CBC is unremarkable. Chemistries: CO2 is 36.4, GFR 66. Urine unremarkable. He just had an MRI of the brain that shows diffuse subacute subdural hematomas bilaterally within the frontal, parietal, temporal and occipital regions. A small amount of acute subdural hemorrhage is noted in the right high parietal, 9 mm in the greatest width. Old lacune seen in both basal ganglia, but no acute infarct. Carotid ultrasound showed right carotid less than 50%, left 50% to 69%. C-spine CT, degenerative changes, no fractures. IMPRESSION: 1. Bilateral subdural hematoma. 2. Hypertension. 3. Dizziness. RECOMMENDATIONS: At this point in time are to have neurosurgery see him. Take him off any antiplatelets. Start him on a Cardene drip to keep his systolic blood pressure below 160, unless neurosurgery wants it lower. I would recommend he go to the main hospital. Carotid ultrasound is concerning on the left with 50% to 69%. I would like to go ahead and get an MRA manzanita of [place] as well as carotid if possible. Get an EEG. Continue to monitor and make further recommendations if needed. MD KENY Cota/arya , 05:29 PM , 05:39 PM
--- NOTE | 2018-02-22 20:50 | P.CONCC ---
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 He was transferred from [facility] for neurosurgical evaluation due to bilateral SDH. He states that fo a few months he has been having intermittent episodes of "whole body shaking". He states he is lucid during these episodes but they are often accompanied by syncope. Denies orthostatic symptoms, palpitations, SOB, CP, loss of bowel or bladder function. He had one of these episodes about 2 months ago and had syncope and hit his forehead on terra cotta yvonne. Since that time, he has had daily headaches located in frontal region and "behind his eyes" usually 3-4/10 but with episodes that are much worse. He flew to [place] last week for evaluation for total laryngectomy and says that since then his headache has been much worse and this prompted visit to ED. MRI report consistent with bilateral subdurals with acute component high right parietal. He takes aspirin but no anticoagulants. Patient attributes much of his symptoms to malnutrition. He states he has had a PEG for 4-5 years but has difficulty maintaining weight, losing 30 pounds in the last 2 months. His makes pured food for him to bolus. He is using his own pump and has brought his own pea protein based nutritional supplement. 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 Has run 30 marathons in his life, the last was in 2005. Still enjoys swimming laps daily. Review of Systems All other systems reviewed negative except as stated in HPI PMFSH - History History Provided By: Patient - Medical History Medical History: Medical History (Last Updated 02/23/18 @ 07:56 by Coleen Ngo MD) Cancer of base of tongue HTN (hypertension) Hypothyroidism Insomnia Aspiration into airway CAD (coronary artery disease) Dysphagia Esophageal dilatation Hyperlipidemia Radiculopathy Squamous cell carcinoma - Surgical History Surgical History: Surgical History (Last Updated 02/23/18 @ 07:59 by Coleen Ngo MD) H/O repair of rotator cuff History of CEA (carotid endarterectomy) History of appendectomy History of radical neck dissection Hx of CABG S/P percutaneous endoscopic gastrostomy (PEG) tube placement - Family History Family History: Family History (Last Reviewed 02/23/18 @ 06:30 by Rio Hurst RN) Mother No problems noted. Father History of myocardial infarction - Tobacco History Second Hand Smoke Exposure: No Smoking Status: Never smoker - Alcohol History How Often Do You Have a Drink Containing Alcohol: Monthly or less - Substance Use History Substance History: No History of Abuse - Travel History Recent Travel in the [place] Within the Last 8 Weeks: No Recent Travel Out of the Country Within the Last 8 Weeks: No - Immunization History Tetanus Immunization: Unsure Hx Influenza Vaccine This Season: No Medications and Allergies Active Medications: Active Medications Acetaminophen (Tylenol) 650 mg PO Q4H PRN PRN Reason: Temp > 100.4 Al Hydroxide/Mg Hydroxide (Milk Of Magnda Liq) 30 ml PO Q12H PRN PRN Reason: Mild Constipation Atorvastatin Calcium (Lipitor) 40 mg PO HS MIKE Bisacodyl (Dulcolax Supp) 10 mg RECTAL DAILY PRN PRN Reason: SEVERE CONSITIPATION Clonazepam (Klonopin) 1 mg PO HS MIKE Clonidine HCl (Catapres) 0.1 mg PO Q6H PRN PRN Reason: SBP>160, DBP>90 Enalaprilat (Vasotec Inj) 1.25 mg IV.PUSH Q6H PRN PRN Reason: SBP>160, DBP>90 Last Admin: 02/22/18 16:41 Dose: 1.25 mg Gabapentin (Neurontin) 300 mg PO TID [facility] Last Admin: 02/22/18 18:46 Dose: Not Given Hydralazine HCl (Apresoline Inj) 20 mg IV.PUSH Q4H PRN PRN Reason: SBP>160, DBP>90 Sodium Chloride (Ns Inj) 1,000 mls @ 100 mls/hr IV.CONT .Q10H MIKE Stop: 02/23/18 10:44 Last Admin: 02/22/18 17:23 Dose: 100 mls/hr Nicardipine HCl 25 mg/ Sodium (Chloride) 250 mls @ 50 mls/hr IV.CONT TITRATE PRN; Protocol PRN Reason: Per Protocol Levetiracetam 500 mg/ Sodium (Chloride) 105 mls @ 400 mls/hr IV.SIG Q12H MIKE Labetalol HCl (Trandate Inj) 20 mg IV.PUSH Q4H PRN PRN Reason: SBP >160 Lactulose (Lactulose Liq) 30 ml PO DAILY PRN PRN Reason: SEVERE CONSITIPATION Levothyroxine Sodium (Synthroid) 100 mcg PO DAILY@0600 MIKE Metoprolol Succinate (Toprol Xl) 100 mg PO BID MIKE Ondansetron HCl (Zofran Inj) 4 mg IV.PUSH Q6H PRN PRN Reason: NAUSEA OR VOMITING Senna/Docusate Sodium (Suzanne-Colace) 1 tab PO BID MIKE Sennosides (Senokot) 17.2 mg PO Q12H PRN PRN Reason: Moderate Constipation Sodium Chloride (Ns Flush) 2 ml IV.FLUSH PRN PRN PRN Reason: FLUSH AFTER USING IV ACCESS Last Admin: 02/22/18 12:32 Dose: 2 ml Temazepam (Restoril) 15 mg PO HS PRN PRN Reason: INSOMNIA Allergies Allergy/AdvReac Type Severity Reaction Status Date / Time tetnus toxoid Allergy Anaphylaxis Uncoded 02/22/18 11:44 must use pediartric 6 if AdvReac Unknown other Uncoded 02/22/18 11:44 itubated due to radiated tounge Home Medications Medication Instructions Recorded Confirmed Type atorvastatin 40 mg PO HS 12/18/17 02/22/18 History clonazepam [Klonopin] 1 mg PO HS 12/18/17 02/22/18 History gabapentin 300 mg PO TID 12/18/17 02/22/18 History levothyroxine [Synthroid] 100 mcg PO DAILY 12/18/17 02/22/18 History metoprolol succinate 100 mg PO BID 12/18/17 02/22/18 History aspirin 81 mg PO DAILY 01/12/18 02/22/18 History Physical Exam Vital signs: Vital Signs 02/22/18 11:41 02/22/18 12:34 02/22/18 12:55 Temperature 97.8 F Pulse Rate 73 75 78 Respiratory Rate 18 18 16 Blood Pressure 217/112 H 158/88 H 142/76 H Pulse Oximetry 99 98 97 02/22/18 14:40 02/22/18 15:03 02/22/18 16:35 Temperature Pulse Rate 88 Respiratory Rate 18 Blood Pressure 224/113 H Pulse Oximetry 84 L 97 98 02/22/18 16:46 02/22/18 18:16 Temperature 97.0 F L Pulse Rate 94 H Respiratory Rate 18 Blood Pressure 212/110 H 218/108 H Pulse Oximetry 93 L Intake & Output 02/22/18 02/22/18 02/23/18 06:59 18:59 06:59 Intake Total 500 / 500 Output Total 800 / 800 Balance -300 / -300 Weight 58.967 kg Intake: IV 500 / 500 NS Inj 500 ML @ 1000 mls/hr IV. 500 / 500 SIG BOLUS MIKE Rx#:[id number] Output: Urine 800 / 800 Other: # Voids 1 # Bowel Movements 0 Weight On Admission 58.967 kg Narrative: GENERAL: Thin well developed, very pleasant male who is sitting up in bed SKIN: Warm and dry. HEAD: Atraumatic. Normocephalic. EYES: Pupils equal and round. No scleral icterus. No injection or drainage. ENT: No nasal bleeding or discharge. Mucous membranes pink and moist. NECK: Scar overlying left neck from prior radical neck dissection. CARDIOVASCULAR: Regular rate and rhythm. No murmurs rubs or gallops. RESPIRATORY: No accessory muscle use. Clear to auscultation. Breath sounds equal bilaterally. GASTROINTESTINAL: Abdomen soft, non-tender, nondistended. Mason tube in place. MUSCULOSKELETAL: Extremities without clubbing, cyanosis, or edema. No obvious deformities. NEUROLOGICAL: Awake and alert. No obvious cranial nerve deficits. Patient reports intact sensation peer shoulder shrug is weak on the left. 4 out of 5 left hand intrinsics, 5 out of 5 right hand intrinsics. Strength 5 out of 5 in bilateral lower extremities Assessment and Plan - Problem List (1) SDH (subdural hematoma) Code(s): S06.5X9A - Traumatic subdural hemorrhage with loss of consciousness of unspecified duration, initial encounter Status: Chronic (2) Hypertensive urgency Code(s): I16.0 - Hypertensive urgency Status: Acute (3) Syncope Code(s): R55 - Syncope and collapse Status: Acute (4) Dysphagia Code(s): R13.10 - Dysphagia, unspecified Status: Chronic (5) PEG (percutaneous endoscopic gastrostomy) status Code(s): Z93.1 - Gastrostomy status Status: Chronic - Assessment and Plan Plan: NEURO: SDH Syncope - etiology unclear. F/u EEG. Telemetry monitoring and Echo Neurochecks in [facility]. Neurosurgery consult. BP management as per below Keppra 500 mg IV q12 Neurology has previously been consulted, f/u recs. Lortab as needed for pain. Morphine as needed for breakthrough pain Anxiety Klonopin 1 mg p.o. 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 3 times daily RESP: Agent [place] exposure on RA. CV: Hypertension Hyperlipidemia Coronary artery disease status post CABG Lipitor 40 mg p.o. nightly Labetalol 20 mg IV every 4 hours/hydralazine 20 mill grams IV every 4 hours as needed systolic blood pressure greater than 160. Cardene prn SBP >160 Metoprolol tartrate 100 mg p.o. twice daily GI: Patient administering his own tube feed formula via existing Cristofer-wu transgastric-jejunal tube. FEN/RENAL: Voiding. Monitor intake and output. Monitor electrolytes and replace as indicated. 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 daily PROPH: SCDs for DVT prophylaxis. No pharmacologic DVT prophylaxis due to subdural hematoma. Stress ulcer prophylaxis is not indicated at this time. ACCESS: Peripheral IV (3) Syncope Qualifiers: Syncope type: unspecified Qualified Code(s): R55 - Syncope and collapse
[2018-02-22] MEDS: clonazePAM 1 MG Tablet PO SCH (21:35)
[2018-02-22] MEDS: hydrALAZINE HCl Inj 20 MG/ML Vial IV.PUSH PRN (21:35)
[2018-02-22] MEDS: Temazepam 15 MG Capsule PO PRN (21:37)
[2018-02-22] MEDS: Labetalol HCl Inj 100 MG/20 ML Vial IV.PUSH PRN (21:54)
[2018-02-22] MEDS: Acetaminophen-HYDROcodone 325/7.5 Liq 15 ML UDC NG/OG PRN (21:56)
[2018-02-22] MEDS ORDERED: Morphine Inj 4 MG/ML Vial IV.PUSH PRN (22:00)
[2018-02-22] MEDS: Senna/Docusate Sodium 8.6/50 MG Tablet PO SCH (22:02)
[2018-02-23 00:03] LABS: Magnesium 2.4 mg/dL (1.5-2.5)
[2018-02-23] MEDS: Acetaminophen-HYDROcodone 325/7.5 Liq 15 ML UDC NG/OG PRN ×3 (02:12→13:02)
[2018-02-23] MEDS: Sod Chloride 0.9% Inj 1,000 ML IV.CONT SCH (02:13)
[2018-02-23 03:58] LABS: Troponin I 0.02 ng/mL (0.02-0.05)
[2018-02-23] MEDS: Levothyroxine 100 MCG Tablet PO SCH (06:02)
[2018-02-23] MEDS: Senna/Docusate Sodium 8.6/50 MG Tablet PO SCH ×2 (08:24→21:14)
[2018-02-23] MEDS: Gabapentin 300 MG Capsule PO SCH ×3 (08:24→17:56)
--- NOTE | 2018-02-23 09:50 | P.PNCC ---
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 He was transferred from [facility] for neurosurgical evaluation due to bilateral SDH. He states that fo a few months he has been having intermittent episodes of "whole body shaking". He states he is lucid during these episodes but they are often accompanied by syncope. Denies orthostatic symptoms, palpitations, SOB, CP, loss of bowel or bladder function. He had one of these episodes about 2 months ago and had syncope and hit his forehead on [place]. Since that time, he has had daily headaches located in frontal region and "behind his eyes" usually 3-4/10 but with episodes that are much worse. He flew to [place] last week for evaluation for total laryngectomy and says that since then his headache has been much worse and this prompted visit to ED. MRI report consistent with bilateral subdurals with acute component high right parietal. He takes aspirin but no anticoagulants. Patient attributes much of his symptoms to malnutrition. He states he has had a PEG for 4-5 years but has difficulty maintaining weight, losing 30 pounds in the last 2 months. His makes pured food for him to bolus. He is using his own pump and has brought his own pea protein based nutritional supplement. 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 He works as an [employer]. Has run 30 marathons in his life, the last was in 2005. Still enjoys swimming laps daily. 02/23: No change in symptoms overnight. Repeat MRI today ordered by neurosurgical service. Elevated bicarb level needs some investigation. Objective Vital Signs / I&O: Vital Signs 02/22/18 11:41 02/22/18 12:34 02/22/18 12:55 Temperature 97.8 F Pulse Rate 73 75 78 Respiratory Rate 18 18 16 Blood Pressure 217/112 H 158/88 H 142/76 H Pulse Oximetry 99 98 97 02/22/18 14:40 02/22/18 15:03 02/22/18 16:35 Temperature Pulse Rate 88 Respiratory Rate 18 Blood Pressure 224/113 H Pulse Oximetry 84 L 97 98 02/22/18 16:46 02/22/18 17:03 02/22/18 17:15 Temperature Pulse Rate 89 95 H Respiratory Rate Blood Pressure 212/110 H Pulse Oximetry 02/22/18 17:30 02/22/18 17:45 02/22/18 18:00 Temperature Pulse Rate 92 H 90 92 H Respiratory Rate Blood Pressure Pulse Oximetry 02/22/18 18:15 02/22/18 18:16 02/22/18 18:30 Temperature 97.0 F L Pulse Rate 90 94 H 92 H Respiratory Rate 18 Blood Pressure 218/108 H Pulse Oximetry 93 L 02/22/18 18:45 02/22/18 19:00 02/22/18 19:15 Temperature Pulse Rate 91 H 93 H 85 Respiratory Rate Blood Pressure Pulse Oximetry 02/22/18 19:30 02/22/18 20:40 02/22/18 20:45 Temperature Pulse Rate 104 H 99 H 92 H Respiratory Rate 10 L 11 L Blood Pressure 230/120 H Pulse Oximetry 92 L 92 L 02/22/18 21:00 02/22/18 21:15 02/22/18 21:30 Temperature Pulse Rate 98 H 96 H 73 Respiratory Rate 25 H 26 H 18 Blood Pressure 257/132 H 239/114 H 255/122 H Pulse Oximetry 97 88 L 99 02/22/18 21:45 02/22/18 22:00 02/22/18 22:15 Temperature 98.2 F Pulse Rate 86 73 75 Respiratory Rate 11 L 21 29 H Blood Pressure 200/97 H 97/59 L Pulse Oximetry 93 L 94 L 97 02/22/18 22:30 02/22/18 22:45 02/22/18 23:00 Temperature Pulse Rate 74 77 75 Respiratory Rate 27 H 21 24 Blood Pressure 126/64 130/71 116/63 Pulse Oximetry 97 95 97 02/22/18 23:15 02/22/18 23:30 02/22/18 23:45 Temperature Pulse Rate 76 76 77 Respiratory Rate 22 24 30 H Blood Pressure 124/70 132/75 118/69 Pulse Oximetry 97 96 96 02/23/18 00:00 02/23/18 00:15 02/23/18 00:30 Temperature 97.3 F L Pulse Rate 77 76 77 Respiratory Rate 28 H 26 H 22 Blood Pressure 135/74 171/82 H 164/82 H Pulse Oximetry 97 97 97 02/23/18 00:45 02/23/18 01:00 02/23/18 01:15 Temperature Pulse Rate 78 78 80 Respiratory Rate 30 H 28 H 14 Blood Pressure 159/84 H 145/78 H 132/70 Pulse Oximetry 97 97 97 02/23/18 01:30 02/23/18 01:45 02/23/18 02:00 Temperature Pulse Rate 74 78 87 Respiratory Rate 12 16 41 H Blood Pressure 126/69 133/72 166/77 H Pulse Oximetry 97 97 96 02/23/18 02:15 02/23/18 02:30 02/23/18 02:45 Temperature Pulse Rate 80 81 78 Respiratory Rate 27 H 27 H 27 H Blood Pressure 123/70 164/76 H 138/65 Pulse Oximetry 97 97 98 02/23/18 03:00 02/23/18 03:15 02/23/18 03:30 Temperature Pulse Rate 81 79 71 Respiratory Rate 24 16 12 Blood Pressure 186/93 H 159/78 H 119/62 Pulse Oximetry 97 97 98 02/23/18 03:45 02/23/18 04:00 02/23/18 04:15 Temperature 97.8 F Pulse Rate 72 75 72 Respiratory Rate 11 L 18 14 Blood Pressure 105/57 L 143/68 H 102/57 L Pulse Oximetry 97 98 98 02/23/18 04:30 02/23/18 04:45 02/23/18 05:00 Temperature Pulse Rate 72 74 74 Respiratory Rate 10 L 10 L 13 Blood Pressure 109/56 L 138/64 103/56 L Pulse Oximetry 98 99 98 02/23/18 05:15 02/23/18 05:30 02/23/18 05:45 Temperature Pulse Rate 75 80 79 Respiratory Rate 10 L 13 17 Blood Pressure 94/59 L 122/72 146/69 H Pulse Oximetry 97 97 98 02/23/18 06:00 02/23/18 06:15 02/23/18 06:30 Temperature Pulse Rate 70 81 72 Respiratory Rate 10 L 36 H 11 L Blood Pressure 121/57 L 179/86 H 120/57 L Pulse Oximetry 98 98 98 02/23/18 06:45 02/23/18 07:23 02/23/18 09:01 Temperature Pulse Rate 70 Respiratory Rate 12 21 Blood Pressure 114/58 L Pulse Oximetry 98 98 Intake & Output 02/22/18 02/23/1802/23/18 18:59 06:59 18:59 Intake Total 500 / 500 1925 / 1925 105 / 105 Output Total 800 / 800 900 / 900 Balance -300 / -300 1025 / 1025 105 / 105 Weight 58.967 kg 59.3 kg Intake: IV 500 / 500 1105 / 1105 105 / 105 NS Inj 1,000 ML @ 100 mls/hr IV 1000 / 1000 .CONT .Q10H MIKE Rx#:[id number] NS Inj 500 ML @ 1000 mls/hr IV. 500 / 500 SIG BOLUS MIKE Rx#:[id number] Keppra Inj 500 MG In NS Inj 100 105 / 105 105 / 105 ML @ 400 mls/hr IV.SIG Q12H MIKE Rx#:[id number] Tube Feeding 700 / 700 Water Bolus Amount 120 / 120 Output: Urine 800 / 800 900 / 900 Other: # Voids 1 # Bowel Movements 0 Weight On Admission 58.967 kg Result Diagrams: 02/22/18 12:20 02/22/18 12:20 Objective Remarks: Narrative: GENERAL: Alert, cooperative, comfortable. SKIN: Warm and dry. HEAD: Atraumatic. Normocephalic. EYES: Pupils equal and round. ENT: No nasal bleeding or discharge. Mucous membranes pink and moist. NECK: Well-healed scar overlying left neck from prior radical neck dissection. CARDIOVASCULAR: Normal S1, S2. Regular rate and rhythm. No murmurs rubs or gallops. No JVD. RESPIRATORY: No accessory muscle use. Clear to auscultation. Breath sounds equal bilaterally. Comfortable respiratory pattern. GASTROINTESTINAL: Abdomen soft, non-tender, nondistended. PEG tube in place. Bowel sounds present, no guarding. MUSCULOSKELETAL: Extremities without clubbing, cyanosis, or edema. No obvious deformities. NEUROLOGICAL: Conversant, speech clear. Oriented x3. 4 out of 5 left hand intrinsics, 5 out of 5 right hand intrinsics. Strength 5 out of 5 in bilateral lower extremities. Assessment and Plan - Problem List (1) SDH (subdural hematoma) Code(s): S06.5X9A - Traumatic subdural hemorrhage with loss of consciousness of unspecified duration, initial encounter Status: Chronic (2) Hypertensive urgency Code(s): I16.0 - Hypertensive urgency Status: Acute (3) Syncope Code(s): R55 - Syncope and collapse Status: Acute (4) Dysphagia Code(s): R13.10 - Dysphagia, unspecified Status: Chronic (5) PEG (percutaneous endoscopic gastrostomy) status Code(s): Z93.1 - Gastrostomy status Status: Chronic - Assessment and Plan Plan: NEURO: SDH Syncope - etiology unclear. F/u EEG. Telemetry monitoring and [facility] in [facility]. Neurosurgery consult. BP management as per below Keppra 500 mg IV q12 Neurology has previously been consulted, f/u recs. Lortab as needed for pain. Morphine as needed for breakthrough pain Anxiety Klonopin 1 mg p.o. 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 3 times daily RESP: Agent [place] exposure on RA. CV: Hypertension Hyperlipidemia Coronary artery disease status post CABG Lipitor 40 mg p.o. nightly Labetalol 20 mg IV every 4 hours/hydralazine 20 mill grams IV every 4 hours as needed systolic blood pressure greater than 160. Cardene prn SBP >160 Metoprolol tartrate 100 mg p.o. twice daily GI: Patient administering his own tube feed formula via existing transgastric- jejunal tube. FEN/RENAL: Voiding. Monitor intake and output. Monitor electrolytes and replace as indicated. 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 daily PROPH: SCDs for DVT prophylaxis. No pharmacologic DVT prophylaxis due to subdural hematoma. Stress ulcer prophylaxis is not indicated at this time. ACCESS: Peripheral IV Overall impression: Stable hemodynamic and respiratory function. Ongoing evaluation of subdural fluid collections and recent episodes of syncope. (3) Syncope Qualifiers: Syncope type: unspecified Qualified Code(s): R55 - Syncope and collapse
--- NOTE | 2018-02-23 10:23 | MR ---
EXAM DATE: 02/23/2018 10:18 AM EST AGE/SEX: 72 years / Male INDICATIONS: Vertigo. Syncope. CLINICAL DATA: This is the patient's subsequent encounter. Patient reports that signs and symptoms h ave been present for 2 days and indicates a pain score of 0/10. MEDICAL/SURGICAL HISTORY: Cardiovascular disease. Carcinoma, squamous cell. Rotator cuff, righ t. Carotid endarterectomy. Appendectomy. CABG. Neck surgery to remove cancer. COMPARISON: [facility], CT HEAD W/O CONTRAST, 02/22/2018. . TECHNIQUE: 3D [id number] MRA was performed. Source images, multiplanar STS MIP, and 3D volum e MIP reconstructions were reviewed. FINDINGS: There is excellent visualization of the major intracranial arteries out to the second-order branch ve ssels. There is no evidence for aneurysm, vessel truncation or stenosis, and no evidence for vascula r malformation. CONCLUSION: 1. Negative MRA Cow ([place]) non contrast. Electronically signed by: Andres Clark MD 02/23/2018 10:21 AM EST
--- NOTE | 2018-02-23 10:28 | MR ---
EXAM DATE: 02/23/2018 10:22 AM EST AGE/SEX: 72 years / Male INDICATIONS: Stenosis. Syncope. CLINICAL DATA: This is the patient's subsequent encounter. Patient reports that signs and symptoms h ave been present for 2 days and indicates a pain score of 0/10. MEDICAL/SURGICAL HISTORY: Cardiovascular disease. Carcinoma, squamous cell. Appendectomy. Rot ator cuff, right. Carotid endarterectomy. CABG. Neck surgery for cancer removal. COMPARISON: [facility], MR CERVICAL SPINE W/O CONTRAST, 12/18/2017. . TECHNIQUE: 3D time-of- flight MRA of the extracranial circulation was performed using a neurovascul ar coil. Post processing was performed including rotating sub-volume maximum intensity projections o f each carotid artery, rotating full-volume maximum intensity projections of both carotid arteries, s agittal and coronal sliding thin-slab reformations of each carotid artery, and left oblique sliding t hin-slab reformation through the aortic arch to include the origin of the arch branch vessels. FINDINGS: Aortic Arch : There is a three-vessel origin of the great vessels from the aorta. No evidence of o stial narrowing. Right Carotid : The common carotid artery is widely patent. There are post endarterectomy changes at the bifurcation. The bifurcation is widely patent. The internal carotid and external carotid are wid chris patent. Left Carotid : The common carotid artery is intact. The carotid bulb has a normal configuration wit hout ulceration or narrowing. The internal carotid artery lumen is smooth without stenosis. The ext ernal carotid artery is intact. Vertebrals : The vertebral arteries have a symmetric diameter. No stenotic lesions are seen. CONCLUSION: 1. Postendarterectomy changes at the bifurcation on the right. 2. No hemodynamically significant carotid artery stenosis identified. 3. Both vertebral arteries are patent. The left vertebral is dominant blood supply to the posterior fossa. Percent stenosis is calculated using the diameter of the stenotic region over the diameter of the nor mal distal internal carotid artery Electronically signed by: Andres Clark MD 02/23/2018 10:27 [facility]
--- NOTE | 2018-02-23 10:36 | P.DIET ---
Nutritional Evaluation Type of nutrition evaluation: initial Nutrition consult regarding: Tube Feeding Nutrition screening: Weight Loss > 10 lbs, MDC Subjective Subjective Comments: Pt has had transgastric jejunal feeding tube for 4-5 years. Uses pureed food for bolus feeds at home. Has resulted in recent weight loss of 30# in 2 months. Objective - Diagnosis Hypertensive Urgency, Syncope, Cephalgia - Objective Body Mass Index: 19.9 % IBW: 85 (IBW = 154#) Body Weight Used for Calculations: Actual (59.3 kg) Energy Needs - Lower Range (kCal/kg): 35 Energy Needs - Upper Range (kCal/kg): 40 Lower Limit kCal/kg (kCals): 2,076 Upper Limit kCal/kg (kCals): 2,372 Lower Limit Protein Factor (Grams per Kg): 1.5 Upper Limit Protein Factor (Grams per Kg): 1.8 Lower Protein Needs (Protein): 89 Upper Protein Needs (Protein): 107 Dietitian Reviewed in Medical Record: Current diet, Curent medications, Intake & Output, Labs, Medical history Diet Order: Cardiac Objective Comments: Medical hx includes oral CA s/p radiation, chemo, and radical neck resection Meds include synthroid Assessment Assessment: Pt is at high nutrition risk 2' to dx, weight loss, low wt for ht with a BMI of 19.9 and his dependence on supplemental TFing. While in the hospital, recommend Vital 1.5 @ 60 mls/hr x 22 hrs (d/t synthroid) for a total of 1980 kcals, 89 gms protein and 1008 mls of free water. Bolus feeds are not recommended with jejunal feedings. RD following. Recommendations: Vital 1.5 @ 60 mls/hr x 2 hours TF must be held one hour before and after synthroid is given Dietitian to Monitor: Lab values, Intake & Output, Diet tolerance, Tube feeding tolerance, Weight change, PO Intake, Medical course
--- NOTE | 2018-02-23 12:01 | MG ---
cc: Yudith Garcia MD ELECTROENCEPHALOGRAM NUMBER: [id number] ROOM: 1302 With photic stimulation. No sedation, awake. CT shows subdural hematomas bilaterally. A 72-year-old man status post dizziness and fall, headache. History of oral cancer, radiation to the neck, PEG tube. Currently on Klonopin, hydralazine, Keppra, Trandate. DESCRIPTION OF RECORD: For some reason, there is a lot of artifact at F4, F8. Overall, fairly symmetrical background, low amplitude. Overall normal alpha rhythm at 8-9 Hz, 20 microvolts. EKG does look sinus. A lot of muscle artifact throughout. Hyperventilation was not done. Photic stimulation does elicit a posterior driving response. IMPRESSION: Overall, normal-appearing awake electroencephalogram without any epileptiform features. Clinical correlation. MD KENY Cota/arya , 11:50 AM , 11:56 AM
[2018-02-23] MEDS: hydrALAZINE HCl Inj 20 MG/ML Vial IV.PUSH PRN (14:24)
--- NOTE | 2018-02-23 15:53 | P.PNNS ---
Subjective Interval history: pt seen this morning during rounds, awaiting [facility] Head and Neck today <Melissa Parks - Last Filed: 02/23/18 15:49> Physical Exam Vital signs: Vital Signs 02/22/18 16:35 02/22/18 16:46 02/22/18 17:03 Temperature Pulse Rate 88 89 Respiratory Rate 18 Blood Pressure 224/113 H 212/110 H Pulse Oximetry 98 02/22/18 17:15 02/22/18 17:30 02/22/18 17:45 Temperature Pulse Rate 95 H 92 H 90 Respiratory Rate Blood Pressure Pulse Oximetry 02/22/18 18:00 02/22/18 18:15 02/22/18 18:16 Temperature 97.0 F L Pulse Rate 92 H 90 94 H Respiratory Rate 18 Blood Pressure 218/108 H Pulse Oximetry 93 L 02/22/18 18:30 02/22/18 18:45 02/22/18 19:00 Temperature Pulse Rate 92 H 91 H 93 H Respiratory Rate Blood Pressure Pulse Oximetry 02/22/18 19:15 02/22/18 19:30 02/22/18 20:40 Temperature Pulse Rate 85 104 H 99 H Respiratory Rate 10 L Blood Pressure Pulse Oximetry 92 L 02/22/18 20:45 02/22/18 21:00 02/22/18 21:15 Temperature Pulse Rate 92 H 98 H 96 H Respiratory Rate 11 L 25 H 26 H Blood Pressure 230/120 H 257/132 H 239/114 H Pulse Oximetry 92 L 97 88 L 02/22/18 21:30 02/22/18 21:45 02/22/18 22:00 Temperature 98.2 F Pulse Rate 73 86 73 Respiratory Rate 18 11 L 21 Blood Pressure 255/122 H 200/97 H 97/59 L Pulse Oximetry 99 93 L 94 L 02/22/18 22:15 02/22/18 22:30 02/22/18 22:45 Temperature Pulse Rate 75 74 77 Respiratory Rate 29 H 27 H 21 Blood Pressure 126/64 130/71 Pulse Oximetry 97 97 95 02/22/18 23:00 02/22/18 23:15 02/22/18 23:30 Temperature Pulse Rate 75 76 76 Respiratory Rate 24 22 24 Blood Pressure 116/63 124/70 132/75 Pulse Oximetry 97 97 96 02/22/18 23:45 02/23/18 00:00 02/23/18 00:15 Temperature 97.3 F L Pulse Rate 77 77 76 Respiratory Rate 30 H 28 H 26 H Blood Pressure 118/69 135/74 171/82 H Pulse Oximetry 96 97 97 02/23/18 00:30 02/23/18 00:45 02/23/18 01:00 Temperature Pulse Rate 77 78 78 Respiratory Rate 22 30 H 28 H Blood Pressure 164/82 H 159/84 H 145/78 H Pulse Oximetry 97 97 97 02/23/18 01:15 02/23/18 01:30 02/23/18 01:45 Temperature Pulse Rate 80 74 78 Respiratory Rate 14 12 16 Blood Pressure 132/70 126/69 133/72 Pulse Oximetry 97 97 97 02/23/18 02:00 02/23/18 02:15 02/23/18 02:30 Temperature Pulse Rate 87 80 81 Respiratory Rate 41 H 27 H 27 H Blood Pressure 166/77 H 123/70 164/76 H Pulse Oximetry 96 97 97 02/23/18 02:45 02/23/18 03:00 02/23/18 03:15 Temperature Pulse Rate 78 81 79 Respiratory Rate 27 H 24 16 Blood Pressure 138/65 186/93 H 159/78 H Pulse Oximetry 98 97 97 02/23/18 03:30 02/23/18 03:45 02/23/18 04:00 Temperature 97.8 F Pulse Rate 71 72 75 Respiratory Rate 12 11 L 18 Blood Pressure 119/62 105/57 L 143/68 H Pulse Oximetry 98 97 98 02/23/18 04:15 02/23/18 04:30 02/23/18 04:45 Temperature Pulse Rate 72 72 74 Respiratory Rate 14 10 L 10 L Blood Pressure 102/57 L 109/56 L 138/64 Pulse Oximetry 98 98 99 02/23/18 05:00 02/23/18 05:15 02/23/18 05:30 Temperature Pulse Rate 74 75 80 Respiratory Rate 13 10 L 13 Blood Pressure 103/56 L 94/59 L 122/72 Pulse Oximetry 98 97 97 02/23/18 05:45 02/23/18 06:00 02/23/18 06:15 Temperature Pulse Rate 79 70 81 Respiratory Rate 17 10 L 36 H Blood Pressure 146/69 H 121/57 L 179/86 H Pulse Oximetry 98 98 98 02/23/18 06:30 02/23/18 06:45 02/23/18 07:00 Temperature Pulse Rate 72 70 69 Respiratory Rate 11 L 12 12 Blood Pressure 120/57 L 114/58 L 105/55 L Pulse Oximetry 98 98 97 02/23/18 07:15 02/23/18 07:23 02/23/18 07:30 Temperature Pulse Rate 75 77 Respiratory Rate 20 11 L Blood Pressure 142/79 H 157/82 H Pulse Oximetry 98 98 97 02/23/18 07:45 02/23/18 08:00 02/23/18 08:15 Temperature Pulse Rate 80 77 76 Respiratory Rate 30 H 26 H 17 Blood Pressure 149/82 H 153/77 H 161/84 H Pulse Oximetry 98 98 98 02/23/18 08:30 02/23/18 08:45 02/23/18 09:00 Temperature Pulse Rate 75 76 80 Respiratory Rate 24 23 28 H Blood Pressure 152/77 H 160/84 H 119/56 L Pulse Oximetry 99 97 98 02/23/18 09:01 02/23/18 09:15 02/23/18 09:30 Temperature Pulse Rate 76 79 Respiratory Rate 21 29 H 8 L Blood Pressure 118/58 L 174/119 H Pulse Oximetry 02/23/18 09:33 02/23/18 10:12 02/23/18 10:13 Temperature Pulse Rate 78 79 Respiratory Rate 4 L Blood Pressure 152/75 H Pulse Oximetry 100 02/23/18 10:15 02/23/18 10:30 02/23/18 10:45 Temperature Pulse Rate 77 81 77 Respiratory Rate 17 19 23 Blood Pressure Pulse Oximetry 100 97 98 02/23/18 11:00 02/23/18 11:15 02/23/18 11:30 Temperature Pulse Rate 73 75 74 Respiratory Rate 0 L 30 H 28 H Blood Pressure Pulse Oximetry 98 99 98 02/23/18 11:45 02/23/18 12:00 02/23/18 12:15 Temperature Pulse Rate 77 74 72 Respiratory Rate 37 H 19 11 L Blood Pressure Pulse Oximetry 99 97 98 02/23/18 12:24 02/23/18 12:30 02/23/18 12:43 Temperature Pulse Rate 76 73 76 Respiratory Rate 22 16 28 H Blood Pressure 175/95 H 218/108 H Pulse Oximetry 100 100 94 L 02/23/18 12:45 02/23/18 12:49 02/23/18 12:55 Temperature Pulse Rate 77 79 Respiratory Rate 29 H 41 H Blood Pressure 189/91 H 182/88 H Pulse Oximetry 99 02/23/18 13:00 02/23/18 13:04 02/23/18 13:15 Temperature Pulse Rate 77 74 74 Respiratory Rate 4 L 21 12 Blood Pressure 176/85 H 183/92 H Pulse Oximetry 02/23/18 13:19 02/23/18 13:30 02/23/18 13:34 Temperature Pulse Rate 75 75 74 Respiratory Rate 13 25 H 14 Blood Pressure 161/85 H 159/82 H Pulse Oximetry 02/23/18 13:45 02/23/18 13:49 02/23/18 14:00 Temperature Pulse Rate 72 72 74 Respiratory Rate 19 11 L 16 Blood Pressure 182/88 H Pulse Oximetry 02/23/18 14:04 02/23/18 14:15 02/23/18 14:19 Temperature Pulse Rate 72 74 75 Respiratory Rate 32 H 13 13 Blood Pressure 181/88 H 185/95 H Pulse Oximetry 02/23/18 14:23 02/23/18 14:30 02/23/18 14:34 Temperature Pulse Rate 74 74 Respiratory Rate 20 34 H 18 Blood Pressure 139/68 Pulse Oximetry 02/23/18 14:40 02/23/18 14:42 02/23/18 14:48 Temperature Pulse Rate 77 75 Respiratory Rate 30 H 10 L Blood Pressure 108/57 L 116/57 L Pulse Oximetry 02/23/18 14:49 02/23/18 14:54 02/23/18 15:00 Temperature Pulse Rate 82 83 Respiratory Rate 17 21 Blood Pressure 112/55 L Pulse Oximetry Intake & Output 02/22/18 02/23/18 02/23/18 18:59 06:59 18:59 Intake Total 500 / 500 1925 / 1925 1105 / 1105 Output Total 800 / 800 900 / 900 Balance -300 / -300 1025 / 1025 1105 / 1105 Weight 58.967 kg 59.3 kg Intake: IV 500 / 500 1105 / 1105 1105 / 1105 NS Inj 1,000 ML @ 100 mls/hr IV 1000 / 1000 1000 / 1000 .CONT .Q10H [facility] Rx#:[id number] NS Inj 500 ML @ 1000 mls/hr IV. 500 / 500 SIG BOLUS MIKE Rx#:[id number] Keppra Inj 500 MG In NS Inj 100 105 / 105 105 / 105 ML @ 400 mls/hr IV.SIG Q12H [facility] Rx#:[id number] Tube Feeding 700 / 700 Water Bolus Amount 120 / 120 Output: Urine 800 / 800 900 / 900 Other: # Voids 1 # Bowel Movements 0 Weight On Admission 58.967 kg Narrative: awake, alert normocephalic pupils equal, facial motor symmetric motor: moves all four extremities well and symmetrically <Melissa Parks - Last Filed: 02/23/18 15:49> Vital signs: Vital Signs 02/22/18 21:30 02/22/18 21:45 02/22/18 22:00 Temperature 98.2 F Pulse Rate 73 86 73 Respiratory Rate 18 11 L 21 Blood Pressure 255/122 H 200/97 H 97/59 L Pulse Oximetry 99 93 L 94 L 02/22/18 22:15 02/22/18 22:30 02/22/18 22:45 Temperature Pulse Rate 75 74 77 Respiratory Rate 29 H 27 H 21 Blood Pressure 126/64 130/71 Pulse Oximetry 97 97 95 02/22/18 23:00 02/22/18 23:15 02/22/18 23:30 Temperature Pulse Rate 75 76 76 Respiratory Rate 24 22 24 Blood Pressure 116/63 124/70 132/75 Pulse Oximetry 97 97 96 02/22/18 23:45 02/23/18 00:00 02/23/18 00:15 Temperature 97.3 F L Pulse Rate 77 77 76 Respiratory Rate 30 H 28 H 26 H Blood Pressure 118/69 135/74 171/82 H Pulse Oximetry 96 97 97 02/23/18 00:30 02/23/18 00:45 02/23/18 01:00 Temperature Pulse Rate 77 78 78 Respiratory Rate 22 30 H 28 H Blood Pressure 164/82 H 159/84 H 145/78 H Pulse Oximetry 97 97 97 02/23/18 01:15 02/23/18 01:30 02/23/18 01:45 Temperature Pulse Rate 80 74 78 Respiratory Rate 14 12 16 Blood Pressure 132/70 126/69 133/72 Pulse Oximetry 97 97 97 02/23/18 02:00 02/23/18 02:15 02/23/18 02:30 Temperature Pulse Rate 87 80 81 Respiratory Rate 41 H 27 H 27 H Blood Pressure 166/77 H 123/70 164/76 H Pulse Oximetry 96 97 97 02/23/18 02:45 02/23/18 03:00 02/23/18 03:15 Temperature Pulse Rate 78 81 79 Respiratory Rate 27 H 24 16 Blood Pressure 138/65 186/93 H 159/78 H Pulse Oximetry 98 97 97 02/23/18 03:30 02/23/18 03:45 02/23/18 04:00 Temperature 97.8 F Pulse Rate 71 72 75 Respiratory Rate 12 11 L 18 Blood Pressure 119/62 105/57 L 143/68 H Pulse Oximetry 98 97 98 02/23/18 04:15 02/23/18 04:30 02/23/18 04:45 Temperature Pulse Rate 72 72 74 Respiratory Rate 14 10 L 10 L Blood Pressure 102/57 L 109/56 L 138/64 Pulse Oximetry 98 98 99 02/23/18 05:00 02/23/18 05:15 02/23/18 05:30 Temperature Pulse Rate 74 75 80 Respiratory Rate 13 10 L 13 Blood Pressure 103/56 L 94/59 L 122/72 Pulse Oximetry 98 97 97 02/23/18 05:45 02/23/18 06:00 02/23/18 06:15 Temperature Pulse Rate 79 70 81 Respiratory Rate 17 10 L 36 H Blood Pressure 146/69 H 121/57 L 179/86 H Pulse Oximetry 98 98 98 02/23/18 06:30 02/23/18 06:45 02/23/18 07:00 Temperature Pulse Rate 72 70 69 Respiratory Rate 11 L 12 12 Blood Pressure 120/57 L 114/58 L 105/55 L Pulse Oximetry 98 98 97 02/23/18 07:15 02/23/18 07:23 02/23/18 07:30 Temperature Pulse Rate 75 77 Respiratory Rate 20 11 L Blood Pressure 142/79 H 157/82 H Pulse Oximetry 98 98 97 02/23/18 07:45 02/23/18 08:00 02/23/18 08:15 Temperature Pulse Rate 80 77 76 Respiratory Rate 30 H 26 H 17 Blood Pressure 149/82 H 153/77 H 161/84 H Pulse Oximetry 98 98 98 02/23/18 08:30 02/23/18 08:45 02/23/18 09:00 Temperature Pulse Rate 75 76 80 Respiratory Rate 24 23 28 H Blood Pressure 152/77 H 160/84 H 119/56 L Pulse Oximetry 99 97 98 02/23/18 09:01 02/23/18 09:15 02/23/18 09:30 Temperature Pulse Rate 76 79 Respiratory Rate 21 29 H 8 L Blood Pressure 118/58 L 174/119 H Pulse Oximetry 02/23/18 09:33 02/23/18 10:12 02/23/18 10:13 Temperature Pulse Rate 78 79 Respiratory Rate 4 L Blood Pressure 152/75 H Pulse Oximetry 100 02/23/18 10:15 02/23/18 10:30 02/23/18 10:45 Temperature Pulse Rate 77 81 77 Respiratory Rate 17 19 23 Blood Pressure Pulse Oximetry 100 97 98 02/23/18 11:00 02/23/18 11:15 02/23/18 11:30 Temperature Pulse Rate 73 75 74 Respiratory Rate 0 L 30 H 28 H Blood Pressure Pulse Oximetry 98 99 98 02/23/18 11:45 02/23/18 12:00 02/23/18 12:15 Temperature Pulse Rate 77 74 72 Respiratory Rate 37 H 19 11 L Blood Pressure Pulse Oximetry 99 97 98 02/23/18 12:24 02/23/18 12:30 02/23/18 12:43 Temperature Pulse Rate 76 73 76 Respiratory Rate 22 16 28 H Blood Pressure 175/95 H 218/108 H Pulse Oximetry 100 100 94 L 02/23/18 12:45 02/23/18 12:49 02/23/18 12:55 Temperature Pulse Rate 77 79 Respiratory Rate 29 H 41 H Blood Pressure 189/91 H 182/88 H Pulse Oximetry 99 02/23/18 13:00 02/23/18 13:04 02/23/18 13:15 Temperature Pulse Rate 77 74 74 Respiratory Rate 4 L 21 12 Blood Pressure 176/85 H 183/92 H Pulse Oximetry 02/23/18 13:19 02/23/18 13:30 02/23/18 13:34 Temperature Pulse Rate 75 75 74 Respiratory Rate 13 25 H 14 Blood Pressure 161/85 H 159/82 H Pulse Oximetry 02/23/18 13:45 02/23/18 13:49 02/23/18 14:00 Temperature Pulse Rate 72 72 74 Respiratory Rate 19 11 L 16 Blood Pressure 182/88 H Pulse Oximetry 02/23/18 14:04 02/23/18 14:15 02/23/18 14:19 Temperature Pulse Rate 72 74 75 Respiratory Rate 32 H 13 13 Blood Pressure 181/88 H 185/95 H Pulse Oximetry 02/23/18 14:23 02/23/18 14:30 02/23/18 14:34 Temperature Pulse Rate 74 74 Respiratory Rate 20 34 H 18 Blood Pressure 139/68 Pulse Oximetry 02/23/18 14:40 02/23/18 14:42 02/23/18 14:48 Temperature Pulse Rate 77 75 Respiratory Rate 30 H 10 L Blood Pressure 108/57 L 116/57 L Pulse Oximetry 02/23/18 14:49 02/23/18 14:54 02/23/18 15:00 Temperature Pulse Rate 82 83 Respiratory Rate 17 21 Blood Pressure 112/55 L Pulse Oximetry 02/23/18 15:04 02/23/18 15:15 02/23/18 15:18 Temperature Pulse Rate 82 92 H 93 H Respiratory Rate 18 23 30 H Blood Pressure 99/51 L 118/61 Pulse Oximetry 02/23/18 15:19 02/23/18 15:30 02/23/18 15:45 Temperature Pulse Rate 91 H 80 78 Respiratory Rate 28 H 9 L 11 L Blood Pressure 132/60 Pulse Oximetry 02/23/18 16:00 02/23/18 16:07 02/23/18 16:15 Temperature Pulse Rate 74 77 79 Respiratory Rate 11 L 10 L 17 Blood Pressure 88/52 L 91/53 L Pulse Oximetry 02/23/18 16:22 02/23/18 16:30 02/23/18 16:42 Temperature Pulse Rate 79 81 84 Respiratory Rate 16 24 22 Blood Pressure 101/50 L 143/65 H Pulse Oximetry 02/23/18 16:45 02/23/18 17:00 02/23/18 17:02 Temperature Pulse Rate 81 86 86 Respiratory Rate 26 H 21 29 H Blood Pressure 154/74 H Pulse Oximetry 02/23/18 17:15 02/23/18 17:22 02/23/18 17:30 Temperature Pulse Rate 83 87 80 Respiratory Rate 10 L 12 11 L Blood Pressure 212/96 H Pulse Oximetry 02/23/18 17:42 02/23/18 17:45 02/23/18 17:46 Temperature Pulse Rate 79 87 79 Respiratory Rate 10 L 20 13 Blood Pressure 192/107 H 206/107 H Pulse Oximetry 02/23/18 17:51 02/23/18 17:56 02/23/18 18:00 Temperature Pulse Rate 77 88 83 Respiratory Rate 8 L 9 L 10 L Blood Pressure 200/107 H 203/108 H Pulse Oximetry 02/23/18 18:02 02/23/18 18:15 02/23/18 18:22 Temperature Pulse Rate 84 83 72 Respiratory Rate 13 10 L 15 Blood Pressure 213/111 H 129/69 Pulse Oximetry 02/23/18 18:30 02/23/18 18:42 02/23/18 18:45 Temperature Pulse Rate 69 71 71 Respiratory Rate 9 L 13 12 Blood Pressure 174/91 H Pulse Oximetry Intake & Output 02/23/18 02/23/18 02/24/18 06:59 18:59 06:59 Intake Total 1925 / 1925 2004 Output Total 900 / 900 Balance 1025 / 1025 2004 Weight 59.3 kg Intake: IV 1105 / 1105 1105 / 1105 NS Inj 1,000 ML @ 100 mls/hr IV 1000 / 1000 1000 / 1000 .CONT .Q10H [facility] Rx#:[id number] Keppra Inj 500 MG In NS Inj 100 105 / 105 105 / 105 ML @ 400 mls/hr IV.SIG Q12H [facility] Rx#:[id number] Tube Feeding 700 / 700 700 / 700 Water Bolus Amount 120 / 120 200 / 200 Output: Urine 900 / 900 Other: # Voids 5 Narrative: Mr Rodriguez is alert, awake. is alert, awake. Comfortable, in no acute distress. Speech is fluent. Cranial nerve examination: pupils to be equal, round and reactive to light. Extra-ocular movements are intact. Facial motor and sensory function are normal and symmetrical. Gross hearing appears intact. Sternocleidomastoid and trapezius muscles are symmetrical. Other cranial nerves are intact. Neck is soft and supple with a good range of motion without pain. Muscle strength is normal in all muscle groups of his right upper and both lower extremities, Mild 4/5 weakness in his left upper extremity. Sensory examination is intact to light touch and pin prick in right upper and lower extremities, mild decrease in his LUE Deep tendon reflexes are trace symmetrical in both upper and lower extremities. There is a bilateral plantar flexion response. Cerebellar examination is unremarkable, without deficits. Lungs are clear Heart regular rhythm is regular rate Skin warm and dry <Hayder Marquez - Last Filed: 02/23/18 21:47> Assessment and Plan - Plan 72 y/o male with possible seizure? Carotid Doppler Study 02/22/18 00:00 CONCLUSION: 1. Right Internal Carotid Artery: Findings indicate <50% stenosis. 2. Left Internal Carotid Artery: Findings indicate 50-69% stenosis. Cervical Spine CT 02/22/18 11:58 CONCLUSION: 1. Degenerative changes in the cervical spine as above. 2. No acute cervical fracture identified. Head CT 02/22/18 11:58 CONCLUSION: 1. There are small bifrontal hygromas collections measuring approximately 3-4 mm in thickness. These are new when compared to previous dated 12/18/2017. Please see above. Head MRI 02/22/18 14:44 CONCLUSION: 1. Diffuse subacute subdural hematomas are noted bilaterally within the frontal , parietal, temporal and occipital regions. Small amount of acute subdural hemorrhage is noted within the right high parietal region. These measure approximately 9 mm in greatest width. 2. 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 3. No acute infarction, mass effect, midline shift or abnormal enhancing lesion. cont nonoperative mgt of acute on chronic SDH cont neuro checks Neurology following - working up <Melissa Parks - Last Filed: 02/23/18 15:49> - Plan Neuro: Continue neuro checks in a serial fashion. cont nonoperative mgt of acute on chronic SDH. Follow UP Ct in AM Neurology evaluation for possible seizures Pulmonary: aggressive pulmonary toilette, nasotracheal suction, and breathing treatments with nebulizers. Daily PT and OT Renal: Continue to monitor closely urine output, BUN and creatinine Endocrine: Continue to Monitor serial Acu checks and SSI as needed in detail ID continue to monitor for signs of infection Continue Protonix for stress ulcer prophylaxis Continue Polo hose and SCD's for DVT prophylaxis Further recommendations will be provided depending on the patient's clinical evaluation and follow up studies. Discharge Planning: (1) SDH (subdural hematoma) Code(s): S06.5X9A - Traumatic subdural hemorrhage with loss of consciousness of unspecified duration, initial encounter Status: Chronic (2) Hypertensive urgency Code(s): I16.0 - Hypertensive urgency Status: Acute (3) Syncope Code(s): R55 - Syncope and collapse Status: Acute (4) Dysphagia Code(s): R13.10 - Dysphagia, unspecified Status: Chronic (5) PEG (percutaneous endoscopic gastrostomy) status Code(s): Z93.1 - Gastrostomy status Status: Chronic I have reviewed the clinical and radiological findings Carotid Doppler Study 02/22/18 00:00 CONCLUSION: 1. Right Internal Carotid Artery: Findings indicate <50% stenosis. 2. Left Internal Carotid Artery: Findings indicate 50-69% stenosis. Cervical Spine CT 02/22/18 11:58 CONCLUSION: 1. Degenerative changes in the cervical spine as above. 2. No acute cervical fracture identified. Head CT 02/22/18 11:58 CONCLUSION: 1. There are small bifrontal hygromas collections measuring approximately 3-4 mm in thickness. These are new when compared to previous dated 12/18/2017. Please see above. Head MRI 02/22/18 14:44 CONCLUSION: 1. Diffuse subacute subdural hematomas are noted bilaterally within the frontal , parietal, temporal and occipital regions. Small amount of acute subdural hemorrhage is noted within the right high parietal region. These measure approximately 9 mm in greatest width. 2. 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 3. No acute infarction, mass effect, midline shift or abnormal enhancing lesion. Neuro: neuro checks in a serial fashion. Nonoperative treatment. Follow up CT in AM Keppra 500 mg IV q12 Pulmonary: aggressive pulmonary toilette, nasotracheal suction, and breathing treatments with nebulizers. Syncope - etiology unclear. F/u EEG. Telemetry monitoring and Echo BP management Neurology has previously been consulted, f/u recs. Anxiety Klonopin 1 mg p.o. 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 3 times daily Agent [place] exposure Hypertension Hyperlipidemia Coronary artery disease status post CABG Lipitor 40 mg p.o. nightly Labetalol 20 mg IV every 4 hours/hydralazine 20 mill grams IV every 4 hours as needed systolic blood pressure greater than 160. Cardene prn SBP >160 Metoprolol tartrate 100 mg p.o. twice daily GI: Patient administering his own tube feed formula via existing transgastric- jejunal tube. FEN/RENAL: Voiding. Monitor intake and output. Monitor electrolytes and replace as indicated. 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 daily Daily PT and OT Continue Protonix for stress ulcer prophylaxis Continue Polo hose and SCD's for DVT prophylaxis The exam, history, and the medical decision-making described in the above note were completed with the assistance of the mid-level provider. I reviewed and agree with the findings presented. I attest that I had a [id number] encounter with the patient on the same day, and personally performed and documented my assessment and findings in the medical record. <Hayder Marquez - Last Filed: 02/23/18 21:47>
--- NOTE | 2018-02-23 16:04 | ECG ---
Date Performed: 02/22/2018 Time Performed: 11:28:51 PTAGE: 72 years EKG: Sinus rhythm NORMAL ECG PREVIOUS TRACING : 01/10/2018 15.57 Since the previous tracing, no significant change noted DOCTOR: Lynne Rushing Interpretating Date/Time 02/23/2018 16:01:34
--- NOTE | 2018-02-23 16:04 | ECG ---
Date Performed: 02/23/2018 Time Performed: 10:44:33 PTAGE: 72 years EKG: Sinus rhythm POSSIBLE LEFT ATRIAL ENLARGEMENT BORDERLINE ECG PREVIOUS TRACING : 02/22/2018 18.33 Since the previous tracing, no significant change noted DOCTOR: Lynne Rushing Interpretating Date/Time 02/23/2018 16:02:01
--- NOTE | 2018-02-23 16:04 | ECG ---
Date Performed: 02/22/2018 Time Performed: 18:33:17 PTAGE: 72 years EKG: Sinus rhythm POSSIBLE RIGHT ATRIAL ENLARGEMENT POSSIBLE LEFT ATRIAL ENLARGEMENT POSSIBLE RIGHT VENTRICULAR CONDUC TION DELAY PROBABLE LATERAL MYOCARDIAL INFARCTION POSSIBLE INFERIOR MYOCARDIAL INFARCTION ABNORMAL EC G PREVIOUS TRACING : 02/22/2018 11.28 Since the previous tracing, no significant change noted DOCTOR: Lynne Rushing Interpretating Date/Time 02/23/2018 16:01:47
[2018-02-23] MEDS: Labetalol HCl Inj 100 MG/20 ML Vial IV.PUSH PRN (18:14)
--- NOTE | 2018-02-23 19:23 | ECHRPT ---
Indication: SYNCOPE CONCLUSIONS Technically difficult study with limited acoustic window visualization and off-axis PLX images. Normal left ventricular size. Wall thickness is normal. The left ventricular systolic function is normal with an estimated ejection fraction in the range of 55-60%. Trace mitral valve regurgitation. There is trace tricuspid valve regurgitation. The estimated pulmonary arterial pressure is 47.7 mmHg. BP: / HR: Rhythm: Sinus MEASUREMENTS (Male / Female) Normal Values Technical Quality:Difficult study 2D ECHO LV Diastolic Diameter PLAX 3.2 cm 4.2 - 5.9 / 3.9 - 5.3 cm LV Systolic Diameter PLAX 2.4 cm IVS Diastolic Thickness 0.9 cm 0.6 - 1.0 / 0.6 - 0.9 cm LVPW Diastolic Thickness 0.9 cm 0.6 - 1.0 / 0.6 - 0.9 cm LV Relative Wall Thickness 0.6 RV Internal Dim ED PLAX 2.0 cm LVOT Diameter 1.8 cm Aortic Root Diameter 2.4 cm LA Systolic Diameter LX 1.9 cm 3.0 - 4.0 / 2.7 - 3.8 cm DOPPLER AV Peak Velocity 152.0 cm/s AV Peak Gradient 9.2 mmHg AV Mean Gradient 5.0 mmHg AV Velocity Time Integral 28.2 cm LVOT Peak Velocity 86.5 cm/s LVOT Peak Gradient 3.0 mmHg LVOT Velocity Time Integral 17.0 cm AV Area Cont Eq vti 1.5 cm AV Area Cont Eq pk 1.4 cm Mitral E Point Velocity 73.7 cm/s Mitral A Point Velocity 100.0 cm/s Mitral E to A Ratio 0.7 LV E' Lateral Velocity 9.8 cm/s Mitral E to LV E' Lateral Ratio 7.5 LV E' Septal Velocity 5.0 cm/s Mitral E to LV E' Septal Ratio 14.8 TR Peak Velocity 307.0 cm/s TR Peak Gradient 37.7 mmHg Right Atrial Pressure 10.0 mmHg Pulmonary Artery Systolic Pressu 47.7 mmHg Right Ventricular Systolic Press 47.7 mmHg FINDINGS LEFT VENTRICLE Normal left ventricular size. Wall thickness is normal. The left ventricular systolic function is normal with an estimated ejection fraction in the range of 55-60%. No regional wall motion abnormalities are present. RIGHT VENTRICLE Normal right ventricular size and systolic function. LEFT ATRIUM The left atrial size is normal. RIGHT ATRIUM The right atrial size is normal. ATRIAL SEPTUM Normal atrial septal thickness without atrial level shunting by limited color doppler interrogation. AORTA The aortic root and proximal ascending aorta are not well visualized. MITRAL VALVE Mild thickening of the mitral valve leaflets. Trace mitral valve regurgitation. AORTIC VALVE The aortic valve is not well visualized. No aortic valve stenosis or regurgitation. TRICUSPID VALVE There is trace tricuspid valve regurgitation. The estimated pulmonary arterial pressure is 47.7 mmHg. PULMONARY VALVE The pulmonary valve is not well visualized. VESSELS The inferior vena cava is normal in size. PERICARDIUM No pericardial effusion. Jonathan Singletary (Electronically Signed) Final Date:23 February 2018 19:23
[2018-02-23] MEDS: fentaNYL Citrate Inj 100 MCG/2 ML Ampul IV.PUSH PRN (19:59)
[2018-02-23] MEDS: clonazePAM 1 MG Tablet PO SCH (21:14)
[2018-02-23] MEDS: Metoprolol Tartrate 100 MG Tablet PO SCH (21:14)
[2018-02-24] MEDS: Temazepam 15 MG Capsule PO PRN (04:48)
[2018-02-24] MEDS: Levothyroxine 100 MCG Tablet PO SCH (05:35)
--- NOTE | 2018-02-24 08:54 | CT ---
EXAM DATE: 02/24/2018 8:39 AM EST AGE/SEX: 72 years / Male INDICATIONS: Follow up head injury. CLINICAL DATA: This is the patient's subsequent encounter. Patient reports that signs and symptoms h ave been present for 2 days and indicates a pain score of 0/10. MEDICAL/SURGICAL HISTORY: Hypertension. Tongue cancer. CABG. Carotid endarterectomy. RADIATION DOSE: 37.11 CTDI (mGy) COMPARISON: HPO, CT HEAD W/O CONTRAST, 02/22/2018. . TECHNIQUE: CT of the head without contrast. Using automated exposure control and adjustment of the mA and/or kV according to patient size, radiation dose was kept as low as reasonably achievable to ob tain optimal diagnostic quality images. DICOM format image data is available electronically for revi ew and comparison. FINDINGS: There has been no significant interval change in appearance of the brain with thin primarily hygromat ous subdural fluid collections again noted bilaterally over the mid to high convexity frontal regions . Tiny focus of spontaneous increased density in the high convexity left frontal region near the vert ex is again noted. The ventricles are stable and satisfactory appearance. No parenchymal hemorrhage o r mass is identified. Nothing to suggest acute infarction. Extracranial structures are stable and cyndi ign in appearance. CONCLUSION: No significant change. . Electronically signed by: Robe Torres MD 02/24/2018 8:52 AM EST
[2018-02-24] MEDS: Metoprolol Tartrate 100 MG Tablet PO SCH ×2 (09:14→20:21)
[2018-02-24] MEDS: Senna/Docusate Sodium 8.6/50 MG Tablet PO SCH ×2 (09:14→20:22)
[2018-02-24] MEDS: Gabapentin 300 MG Capsule PO SCH ×3 (09:14→18:56)
--- NOTE | 2018-02-24 09:33 | P.PNNS ---
Subjective Interval history: neuro stable overnight, f/u CT Brain completed Physical Exam Vital signs: Vital Signs 02/23/18 09:30 02/23/18 09:33 02/23/18 10:12 Temperature Pulse Rate 79 78 Respiratory Rate 8 L 4 L Blood Pressure 174/119 H 152/75 H Pulse Oximetry 02/23/18 10:13 02/23/18 10:15 02/23/18 10:30 Temperature Pulse Rate 79 77 81 Respiratory Rate 17 19 Blood Pressure Pulse Oximetry 100 100 97 02/23/18 10:45 02/23/18 11:00 02/23/18 11:15 Temperature Pulse Rate 77 73 75 Respiratory Rate 23 0 L 30 H Blood Pressure Pulse Oximetry 98 98 99 02/23/18 11:30 02/23/18 11:45 02/23/18 12:00 Temperature Pulse Rate 74 77 74 Respiratory Rate 28 H 37 H 19 Blood Pressure Pulse Oximetry 98 99 97 02/23/18 12:15 02/23/18 12:24 02/23/18 12:30 Temperature Pulse Rate 72 76 73 Respiratory Rate 11 L 22 16 Blood Pressure 175/95 H Pulse Oximetry 98 100 100 02/23/18 12:43 02/23/18 12:45 02/23/18 12:49 Temperature Pulse Rate 76 77 79 Respiratory Rate 28 H 29 H 41 H Blood Pressure 218/108 H 189/91 H Pulse Oximetry 94 L 99 02/23/18 12:55 02/23/18 13:00 02/23/18 13:04 Temperature Pulse Rate 77 74 Respiratory Rate 4 L 21 Blood Pressure 182/88 H 176/85 H 183/92 H Pulse Oximetry 02/23/18 13:15 02/23/18 13:19 02/23/18 13:30 Temperature Pulse Rate 74 75 75 Respiratory Rate 12 13 25 H Blood Pressure 161/85 H Pulse Oximetry 02/23/18 13:34 02/23/18 13:45 02/23/18 13:49 Temperature Pulse Rate 74 72 72 Respiratory Rate 14 19 11 L Blood Pressure 159/82 H 182/88 H Pulse Oximetry 02/23/18 14:00 02/23/18 14:04 02/23/18 14:15 Temperature Pulse Rate 74 72 74 Respiratory Rate 16 32 H 13 Blood Pressure 181/88 H Pulse Oximetry 02/23/18 14:19 02/23/18 14:23 11/27/18 14:30 Temperature Pulse Rate 75 74 Respiratory Rate 13 20 34 H Blood Pressure 185/95 H Pulse Oximetry 02/23/18 14:34 02/23/18 14:40 02/23/18 14:42 Temperature Pulse Rate 74 77 75 Respiratory Rate 18 30 H 10 L Blood Pressure 139/68 108/57 L Pulse Oximetry 02/23/18 14:48 02/23/18 14:49 02/23/18 14:54 Temperature Pulse Rate 82 Respiratory Rate 17 Blood Pressure 116/57 L 112/55 L Pulse Oximetry 02/23/18 15:00 02/23/18 15:04 02/23/18 15:15 Temperature Pulse Rate 83 82 92 H Respiratory Rate 21 18 23 Blood Pressure 99/51 L Pulse Oximetry 02/23/18 15:18 02/23/18 15:19 02/23/18 15:30 Temperature Pulse Rate 93 H 91 H 80 Respiratory Rate 30 H 28 H 9 L Blood Pressure 118/61 132/60 Pulse Oximetry 02/23/18 15:45 02/23/18 16:00 02/23/18 16:07 Temperature Pulse Rate 78 74 77 Respiratory Rate 11 L 11 L 10 L Blood Pressure 88/52 L 91/53 L Pulse Oximetry 02/23/18 16:15 02/23/18 16:22 02/23/18 16:30 Temperature Pulse Rate 79 79 81 Respiratory Rate 17 16 24 Blood Pressure 101/50 L Pulse Oximetry 02/23/18 16:42 02/23/18 16:45 02/23/18 17:00 Temperature Pulse Rate 84 81 86 Respiratory Rate 22 26 H 21 Blood Pressure 143/65 H Pulse Oximetry 02/23/18 17:02 02/23/18 17:15 02/23/18 17:22 Temperature Pulse Rate 86 83 87 Respiratory Rate 29 H 10 L 12 Blood Pressure 154/74 H 212/96 H Pulse Oximetry 02/23/18 17:30 02/23/18 17:42 02/23/18 17:45 Temperature Pulse Rate 80 79 87 Respiratory Rate 11 L 10 L 20 Blood Pressure 192/107 H Pulse Oximetry 02/23/18 17:46 02/23/18 17:51 02/23/18 17:56 Temperature Pulse Rate 79 77 88 Respiratory Rate 13 8 L 9 L Blood Pressure 206/107 H 200/107 H 203/108 H Pulse Oximetry 02/23/18 18:00 02/23/18 18:02 02/23/18 18:15 Temperature Pulse Rate 83 84 83 Respiratory Rate 10 L 13 10 L Blood Pressure 213/111 H Pulse Oximetry 02/23/18 18:22 02/23/18 18:30 02/23/18 18:42 Temperature Pulse Rate 72 69 71 Respiratory Rate 15 9 L 13 Blood Pressure 129/69 174/91 H Pulse Oximetry 02/23/18 18:45 02/23/18 19:00 02/23/18 19:15 Temperature Pulse Rate 71 73 73 Respiratory Rate 12 9 L 13 Blood Pressure 175/74 H 137/66 Pulse Oximetry 02/23/18 19:30 02/23/18 19:45 02/23/18 20:00 Temperature 97.6 F Pulse Rate 76 77 79 Respiratory Rate 16 19 20 Blood Pressure 127/70 148/77 H 148/77 H Pulse Oximetry 96 96 02/23/18 20:02 02/23/18 20:15 02/23/18 20:22 Temperature Pulse Rate 81 80 81 Respiratory Rate 21 24 12 Blood Pressure 112/57 L Pulse Oximetry 96 97 92 L 02/23/18 20:30 02/23/18 20:42 02/23/18 20:45 Temperature Pulse Rate 82 85 86 Respiratory Rate 20 17 26 H Blood Pressure 156/90 H Pulse Oximetry 97 97 96 02/23/18 21:00 02/23/18 21:02 02/23/18 21:15 Temperature Pulse Rate 85 86 83 Respiratory Rate 13 30 H 20 Blood Pressure 134/74 Pulse Oximetry 88 L 97 99 02/23/18 21:22 02/23/18 21:30 02/23/18 21:42 Temperature Pulse Rate 84 82 83 Respiratory Rate 30 H 17 15 Blood Pressure 128/88 92/51 L Pulse Oximetry 98 99 99 02/23/18 21:45 02/23/18 22:00 02/23/18 22:02 Temperature Pulse Rate 80 83 84 Respiratory Rate 12 20 25 H Blood Pressure 79/44 L Pulse Oximetry 99 97 98 02/23/18 22:08 02/23/18 22:15 02/23/18 22:22 Temperature Pulse Rate 82 88 81 Respiratory Rate 9 L 27 H 14 Blood Pressure 90/51 L 103/60 100/54 L Pulse Oximetry 99 99 99 02/23/18 22:30 02/23/18 22:37 02/23/18 22:45 Temperature Pulse Rate 84 85 82 Respiratory Rate 15 15 10 L Blood Pressure 103/57 L Pulse Oximetry 99 99 99 02/23/18 22:52 02/23/18 23:00 02/23/18 23:07 Temperature Pulse Rate 82 82 82 Respiratory Rate 12 16 14 Blood Pressure 106/59 L 108/56 L Pulse Oximetry 100 100 100 02/23/18 23:15 02/23/18 23:20 02/23/18 23:37 Temperature Pulse Rate 83 88 Respiratory Rate 13 30 H Blood Pressure 74/51 L Pulse Oximetry 100 02/23/18 23:39 02/23/18 23:40 02/23/18 23:45 Temperature Pulse Rate 93 H 91 H 92 H Respiratory Rate 28 H 34 H Blood Pressure 140/71 Pulse Oximetry 02/23/18 23:52 02/24/18 00:00 02/24/18 00:07 Temperature 98 F Pulse Rate 92 H 87 90 Respiratory Rate 44 H 15 25 H Blood Pressure 152/84 H 153/90 H Pulse Oximetry 99 02/24/18 00:15 02/24/18 00:22 02/24/18 00:30 Temperature Pulse Rate 85 85 84 Respiratory Rate 11 L 17 10 L Blood Pressure 120/57 L Pulse Oximetry 99 99 99 02/24/18 00:37 02/24/18 00:45 02/24/18 00:52 Temperature Pulse Rate 82 82 83 Respiratory Rate 8 L 13 21 Blood Pressure 113/57 L 113/62 Pulse Oximetry 99 99 99 02/24/18 01:00 02/24/18 01:07 02/24/18 01:15 Temperature Pulse Rate 80 75 72 Respiratory Rate 47 H 11 L 11 L Blood Pressure 111/60 Pulse Oximetry 99 99 99 02/24/18 01:22 02/24/18 01:30 02/24/18 01:37 Temperature Pulse Rate 73 72 70 Respiratory Rate 9 L 9 L 9 L Blood Pressure 112/62 114/67 Pulse Oximetry 99 99 98 02/24/18 01:45 02/24/18 01:52 02/24/18 02:00 Temperature Pulse Rate 69 69 68 Respiratory Rate 9 L 9 L 11 L Blood Pressure 107/60 Pulse Oximetry 98 98 98 02/24/18 02:07 02/24/18 02:15 02/24/18 02:22 Temperature Pulse Rate 67 66 66 Respiratory Rate 10 L 11 L 8 L Blood Pressure 99/51 L 99/54 L Pulse Oximetry 98 98 98 02/24/18 02:30 02/24/18 02:37 02/24/18 02:45 Temperature Pulse Rate 66 60 65 Respiratory Rate 8 L 9 L 11 L Blood Pressure 97/56 L Pulse Oximetry 98 98 99 02/24/18 02:52 02/24/18 03:00 02/24/18 03:07 Temperature Pulse Rate 62 66 70 Respiratory Rate 12 12 9 L Blood Pressure 108/60 110/62 Pulse Oximetry 99 99 99 02/24/18 03:15 02/24/18 03:22 02/24/18 03:30 Temperature Pulse Rate 72 72 68 Respiratory Rate 9 L 17 17 Blood Pressure 136/72 Pulse Oximetry 99 99 99 02/24/18 03:37 02/24/18 03:45 02/24/18 03:52 Temperature Pulse Rate 68 70 72 Respiratory Rate 17 16 11 L Blood Pressure 110/67 117/62 Pulse Oximetry 99 99 99 02/24/18 04:00 02/24/18 04:07 02/24/18 04:15 Temperature Pulse Rate 72 78 79 Respiratory Rate 18 12 16 Blood Pressure 152/72 H Pulse Oximetry 98 99 02/24/18 04:22 02/24/18 04:30 02/24/18 04:37 Temperature Pulse Rate 76 71 71 Respiratory Rate 19 11 L 12 Blood Pressure 114/57 L 95/54 L Pulse Oximetry 93 L 94 L 93 L 02/24/18 04:45 02/24/18 04:52 02/24/18 05:00 Temperature Pulse Rate 75 74 71 Respiratory Rate 21 23 10 L Blood Pressure 109/68 Pulse Oximetry 95 94 L 94 L 02/24/18 05:07 02/24/18 05:15 02/24/18 05:22 Temperature Pulse Rate 71 78 71 Respiratory Rate 16 31 H 11 L Blood Pressure 98/57 L 108/59 L Pulse Oximetry 95 95 95 02/24/18 05:30 02/24/18 05:37 02/24/18 05:45 Temperature Pulse Rate 72 69 67 Respiratory Rate 38 H 11 L 8 L Blood Pressure 109/63 Pulse Oximetry 95 95 95 02/24/18 05:52 02/24/18 06:00 02/24/18 06:07 Temperature Pulse Rate 67 72 68 Respiratory Rate 12 15 9 L Blood Pressure 107/63 116/66 Pulse Oximetry 95 95 93 L 02/24/18 06:15 02/24/18 06:22 02/24/18 06:30 Temperature Pulse Rate 70 71 70 Respiratory Rate 18 11 L 16 Blood Pressure 125/70 Pulse Oximetry 99 99 99 02/24/18 06:37 02/24/18 06:45 02/24/18 06:52 Temperature Pulse Rate 71 73 72 Respiratory Rate 9 L 26 H 11 L Blood Pressure 143/75 H 156/83 H Pulse Oximetry 99 99 99 02/24/18 07:34 Temperature Pulse Rate Respiratory Rate Blood Pressure Pulse Oximetry 99 Intake & Output 02/23/18 02/24/18 02/24/18 18:59 06:59 18:59 Intake Total 2004 1225 / 1225 Output Total 1200 / 1200 Balance 2004 Weight 59.3 kg Intake: IV 1105 / 1105 105 / 105 NS Inj 1,000 ML @ 100 mls/hr IV 1000 / 1000 .CONT .Q10H MIKE Rx#:[id number] Keppra Inj 500 MG In NS Inj 100 105 / 105 105 / 105 ML @ 400 mls/hr IV.SIG Q12H MIKE Rx#:[id number] Tube Feeding 700 / 700 1000 / 1000 Water Bolus Amount 200 / 200 120 / 120 Output: Urine 1200 / 1200 Other: # Voids 5 2 Narrative: awake, alert normocephalic pupils equal, facial motor symmetric motor: moves all four extremities well and symmetrically Assessment and Plan - Plan follow up CT Brain reviewed, stable nonop mgt clear to transfer out of [facility] from [facility] standpoint Discharge Planning: The exam, history, and the medical decision-making described in the above note were completed with the assistance of the mid-level provider. I reviewed and agree with the findings presented. I attest that I had a [id number] encounter with the patient on the same day, and personally performed and documented my assessment and findings in the medical record.
[2018-02-24] MEDS: fentaNYL Citrate Inj 100 MCG/2 ML Ampul IV.PUSH PRN ×3 (09:37→20:47)
--- NOTE | 2018-02-24 18:30 | P.PNCC ---
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 He was transferred from [facility] for neurosurgical evaluation due to bilateral SDH. He states that fo a few months he has been having intermittent episodes of "whole body shaking". He states he is lucid during these episodes but they are often accompanied by syncope. Denies orthostatic symptoms, palpitations, SOB, CP, loss of bowel or bladder function. He had one of these episodes about 2 months ago and had syncope and hit his forehead on [place]. Since that time, he has had daily headaches located in frontal region and "behind his eyes" usually 3-4/10 but with episodes that are much worse. He flew to [place] last week for evaluation for total laryngectomy and says that since then his headache has been much worse and this prompted visit to ED. MRI report consistent with bilateral subdurals with acute component high right parietal. He takes aspirin but no anticoagulants. Patient attributes much of his symptoms to malnutrition. He states he has had a PEG for 4-5 years but has difficulty maintaining weight, losing 30 pounds in the last 2 months. His makes pured food for him to bolus. He is using his own pump and has brought his own pea protein based nutritional supplement. 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 Has run 30 marathons in his life, the last was in 2005. Still enjoys swimming laps daily. 02/23: No change in symptoms overnight. Repeat MRI today ordered by neurosurgical service. Elevated bicarb level needs some investigation. 02/24: Resting comfortably. Labile BP. Tolerating PEG feeds. Objective Vital Signs / I&O: Vital Signs 02/23/18 18:30 02/23/18 18:42 02/23/18 18:45 Temperature Pulse Rate 69 71 71 Respiratory Rate 9 L 13 12 Blood Pressure 174/91 H Pulse Oximetry 02/23/18 19:00 02/23/18 19:15 02/23/18 19:30 Temperature Pulse Rate 73 73 76 Respiratory Rate 9 L 13 16 Blood Pressure 175/74 H 137/66 127/70 Pulse Oximetry 02/23/18 19:45 02/23/18 20:00 02/23/18 20:02 Temperature 97.6 F Pulse Rate 77 79 81 Respiratory Rate 19 20 21 Blood Pressure 148/77 H 148/77 H Pulse Oximetry 96 96 96 02/23/18 20:15 02/23/18 20:22 02/23/18 20:30 Temperature Pulse Rate 80 81 82 Respiratory Rate 24 12 20 Blood Pressure 112/57 L Pulse Oximetry 97 92 L 97 02/23/18 20:42 02/23/18 20:45 02/23/18 21:00 Temperature Pulse Rate 85 86 85 Respiratory Rate 17 26 H 13 Blood Pressure 156/90 H Pulse Oximetry 97 96 88 L 02/23/18 21:02 02/23/18 21:15 02/23/18 21:22 Temperature Pulse Rate 86 83 84 Respiratory Rate 30 H 20 30 H Blood Pressure 134/74 128/88 Pulse Oximetry 97 99 98 02/23/18 21:30 02/23/18 21:42 02/23/18 21:45 Temperature Pulse Rate 82 83 80 Respiratory Rate 17 15 12 Blood Pressure 92/51 L Pulse Oximetry 99 99 99 02/23/18 22:00 02/23/18 22:02 02/23/18 22:08 Temperature Pulse Rate 83 84 82 Respiratory Rate 20 25 H 9 L Blood Pressure 79/44 L 90/51 L Pulse Oximetry 97 98 99 02/23/18 22:15 02/23/18 22:22 02/23/18 22:30 Temperature Pulse Rate 88 81 84 Respiratory Rate 27 H 14 15 Blood Pressure 103/60 100/54 L Pulse Oximetry 99 99 99 02/23/18 22:37 02/23/18 22:45 02/23/18 22:52 Temperature Pulse Rate 85 82 82 Respiratory Rate 15 10 L 12 Blood Pressure 103/57 L 106/59 L Pulse Oximetry 99 99 100 02/23/18 23:00 02/23/18 23:07 02/23/18 23:15 Temperature Pulse Rate 82 82 83 Respiratory Rate 16 14 13 Blood Pressure 108/56 L Pulse Oximetry 100 100 100 02/23/18 23:20 02/23/18 23:37 02/23/18 23:39 Temperature Pulse Rate 88 93 H Respiratory Rate 30 H Blood Pressure 74/51 L Pulse Oximetry 02/23/18 23:40 02/23/18 23:45 02/23/18 23:52 Temperature Pulse Rate 91 H 92 H 92 H Respiratory Rate 28 H 34 H 44 H Blood Pressure 140/71 152/84 H Pulse Oximetry 02/24/18 00:00 02/24/18 00:07 02/24/18 00:15 Temperature 98 F Pulse Rate 87 90 85 Respiratory Rate 15 25 H 11 L Blood Pressure 153/90 H Pulse Oximetry 99 99 02/24/18 00:22 02/24/18 00:30 02/24/18 00:37 Temperature Pulse Rate 85 84 82 Respiratory Rate 17 10 L 8 L Blood Pressure 120/57 L 113/57 L Pulse Oximetry 99 99 99 02/24/18 00:45 02/24/18 00:52 02/24/18 01:00 Temperature Pulse Rate 82 83 80 Respiratory Rate 13 21 47 H Blood Pressure 113/62 Pulse Oximetry 99 99 99 02/24/18 01:07 02/24/18 01:15 02/24/18 01:22 Temperature Pulse Rate 75 72 73 Respiratory Rate 11 L 11 L 9 L Blood Pressure 111/60 112/62 Pulse Oximetry 99 99 99 02/24/18 01:30 02/24/18 01:37 02/24/18 01:45 Temperature Pulse Rate 72 70 69 Respiratory Rate 9 L 9 L 9 L Blood Pressure 114/67 Pulse Oximetry 99 98 98 02/24/18 01:52 02/24/18 02:00 02/24/18 02:07 Temperature Pulse Rate 69 68 67 Respiratory Rate 9 L 11 L 10 L Blood Pressure 107/60 99/51 L Pulse Oximetry 98 98 98 02/24/18 02:15 02/24/18 02:22 02/24/18 02:30 Temperature Pulse Rate 66 66 66 Respiratory Rate 11 L 8 L 8 L Blood Pressure 99/54 L Pulse Oximetry 98 98 98 02/24/18 02:37 02/24/18 02:45 02/24/18 02:52 Temperature Pulse Rate 60 65 62 Respiratory Rate 9 L 11 L 12 Blood Pressure 97/56 L 108/60 Pulse Oximetry 98 99 99 02/24/18 03:00 02/24/18 03:07 02/24/18 03:15 Temperature Pulse Rate 66 70 72 Respiratory Rate 12 9 L 9 L Blood Pressure 110/62 Pulse Oximetry 99 99 99 02/24/18 03:22 02/24/18 03:30 02/24/18 03:37 Temperature Pulse Rate 72 68 68 Respiratory Rate 17 17 17 Blood Pressure 136/72 110/67 Pulse Oximetry 99 99 99 02/24/18 03:45 02/24/18 03:52 02/24/18 04:00 Temperature Pulse Rate 70 72 72 Respiratory Rate 16 11 L 18 Blood Pressure 117/62 Pulse Oximetry 99 99 98 02/24/18 04:07 02/24/18 04:15 02/24/18 04:22 Temperature Pulse Rate 78 79 76 Respiratory Rate 12 16 19 Blood Pressure 152/72 H 114/57 L Pulse Oximetry 99 93 L 02/24/18 04:30 02/24/18 04:37 02/24/18 04:45 Temperature Pulse Rate 71 71 75 Respiratory Rate 11 L 12 21 Blood Pressure 95/54 L Pulse Oximetry 94 L 93 L 95 02/24/18 04:52 02/24/18 05:00 02/24/18 05:07 Temperature Pulse Rate 74 71 71 Respiratory Rate 23 10 L 16 Blood Pressure 109/68 98/57 L Pulse Oximetry 94 L 94 L 95 02/24/18 05:15 02/24/18 05:22 02/24/18 05:30 Temperature Pulse Rate 78 71 72 Respiratory Rate 31 H 11 L 38 H Blood Pressure 108/59 L Pulse Oximetry 95 95 95 02/24/18 05:37 02/24/18 05:45 02/24/18 05:52 Temperature Pulse Rate 69 67 67 Respiratory Rate 11 L 8 L 12 Blood Pressure 109/63 107/63 Pulse Oximetry 95 95 95 02/24/18 06:00 02/24/18 06:07 02/24/18 06:15 Temperature Pulse Rate 72 68 70 Respiratory Rate 15 9 L 18 Blood Pressure 116/66 Pulse Oximetry 95 93 L 99 02/24/18 06:22 02/24/18 06:30 02/24/18 06:37 Temperature Pulse Rate 71 70 71 Respiratory Rate 11 L 16 9 L Blood Pressure 125/70 143/75 H Pulse Oximetry 99 99 99 02/24/18 06:45 02/24/18 06:52 02/24/18 07:00 Temperature Pulse Rate 73 72 71 Respiratory Rate 26 H 11 L 13 Blood Pressure 156/83 H Pulse Oximetry 99 99 98 02/24/18 07:07 02/24/18 07:34 02/24/18 08:00 Temperature 100.7 F H Pulse Rate 69 74 Respiratory Rate 8 L 8 L Blood Pressure 141/71 H 147/71 H Pulse Oximetry 99 99 99 02/24/18 08:07 02/24/18 09:00 02/24/18 10:00 Temperature Pulse Rate 65 69 71 Respiratory Rate 11 L 7 L 6 L Blood Pressure 135/70 144/79 H 165/70 H Pulse Oximetry 99 93 L 88 L 02/24/18 10:30 02/24/18 11:00 02/24/18 11:15 Temperature Pulse Rate 75 71 69 Respiratory Rate 30 H 23 20 Blood Pressure 187/92 H 172/93 H 162/80 H Pulse Oximetry 97 95 96 02/24/18 12:14 02/24/18 13:00 02/24/18 13:30 Temperature Pulse Rate 75 72 71 Respiratory Rate 33 H 25 H 14 Blood Pressure 162/123 H 123/56 L 108/58 L Pulse Oximetry 100 100 100 02/24/18 13:44 02/24/18 14:00 02/24/18 15:00 Temperature Pulse Rate 74 69 70 Respiratory Rate 24 15 8 L Blood Pressure 118/58 L 124/59 L Pulse Oximetry 100 99 97 02/24/18 15:30 02/24/18 15:44 02/24/18 16:00 Temperature Pulse Rate 72 75 79 Respiratory Rate 15 19 26 H Blood Pressure 130/71 167/76 H Pulse Oximetry 96 97 98 02/24/18 16:01 02/24/18 16:02 02/24/18 16:27 Temperature Pulse Rate 79 80 Respiratory Rate 26 H 21 Blood Pressure 162/85 H 144/77 H Pulse Oximetry 98 97 94 L 02/24/18 16:30 02/24/18 17:00 Temperature Pulse Rate 87 Respiratory Rate 29 H Blood Pressure 168/86 H Pulse Oximetry 97 95 Intake & Output 02/23/18 02/24/18 02/24/18 18:59 06:59 18:59 Intake Total 2004 1225 / 1225 Output Total 1200 / 1200 Balance 2004 25 / 25 Weight 59.3 kg Intake: IV 1105 / 1105 105 / 105 NS Inj 1,000 ML @ 100 mls/hr IV 1000 / 1000 .CONT .Q10H MIKE Rx#:[id number] Keppra Inj 500 MG In NS Inj 100 105 / 105 105 / 105 ML @ 400 mls/hr IV.SIG Q12H MIKE Rx#:[id number] Tube Feeding 700 / 700 1000 / 1000 Water Bolus Amount 200 / 200 120 / 120 Output: Urine 1200 / 1200 Other: # Voids 5 2 Result Diagrams: 02/22/18 12:20 02/22/18 12:20 Objective Remarks: Narrative: GENERAL: Alert, cooperative, comfortable. SKIN: Warm and dry. HEAD: Atraumatic. Normocephalic. EYES: Pupils equal and round. ENT: No nasal bleeding or discharge. Mucous membranes pink and moist. NECK: Well-healed scar overlying left neck from prior radical neck dissection. CARDIOVASCULAR: Normal S1, S2. Regular rate and rhythm. No murmurs rubs or gallops. No JVD. RESPIRATORY: No accessory muscle use. Clear to auscultation. Breath sounds equal bilaterally. Comfortable respiratory pattern. GASTROINTESTINAL: Abdomen soft, non-tender, nondistended. PEG tube in place. Bowel sounds present, no guarding. MUSCULOSKELETAL: Extremities without clubbing, cyanosis, or edema. No obvious deformities. NEUROLOGICAL: Conversant, speech clear. Oriented x3. 4 out of 5 left hand intrinsics, 5 out of 5 right hand intrinsics. Strength 5 out of 5 in bilateral lower extremities. Assessment and Plan - Problem List (1) SDH (subdural hematoma) Code(s): S06.5X9A - Traumatic subdural hemorrhage with loss of consciousness of unspecified duration, initial encounter Status: Chronic (2) Hypertensive urgency Code(s): I16.0 - Hypertensive urgency Status: Acute (3) Syncope Code(s): R55 - Syncope and collapse Status: Acute (4) Dysphagia Code(s): R13.10 - Dysphagia, unspecified Status: Chronic (5) PEG (percutaneous endoscopic gastrostomy) status Code(s): Z93.1 - Gastrostomy status Status: Chronic - Assessment and Plan Plan: NEURO: SDH Syncope - etiology unclear. F/u EEG. Telemetry monitoring and Echo [facility] in [facility]. Neurosurgery consult. BP management as per below Keppra 500 mg IV q12 Neurology has previously been consulted, f/u recs. Lortab as needed for pain. Morphine as needed for breakthrough pain Anxiety Klonopin 1 mg p.o. 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 3 times daily RESP: Agent [place] exposure on RA. CV: Hypertension Hyperlipidemia Coronary artery disease status post CABG Lipitor 40 mg p.o. nightly Labetalol 20 mg IV every 4 hours/hydralazine 20 mill grams IV every 4 hours as needed systolic blood pressure greater than 160. clonidine prn Cardene prn SBP >160 Metoprolol tartrate 100 mg p.o. twice daily Patient requests dr Rushing for cardiology for Labile HTN as he has seen him before. GI: Patient administering his own tube feed formula via existing transgastric- jejunal tube. FEN/RENAL: Voiding. Monitor intake and output. Monitor electrolytes and replace as indicated. 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 daily PROPH: SCDs for DVT prophylaxis. No pharmacologic DVT prophylaxis due to subdural hematoma. Stress ulcer prophylaxis is not indicated at this time. ACCESS: Peripheral IV Overall impression: Stable hemodynamic and respiratory function. Ongoing evaluation of subdural fluid collections and recent episodes of syncope. Consult and transfer to hospitalist service for medical management. Metabolic alkalosis needs further eval. (3) Syncope Qualifiers: Syncope type: unspecified Qualified Code(s): R55 - Syncope and collapse
[2018-02-24] MEDS: clonazePAM 1 MG Tablet PO SCH (20:21)
[2018-02-24] MEDS: hydrALAZINE HCl Inj 20 MG/ML Vial IV.PUSH PRN (20:57)
[2018-02-24] MEDS ORDERED: Sodium Chloride 0.9% 2 ML Flush PRN IV.FLUSH (22:37)
[2018-02-25] MEDS: Levothyroxine 100 MCG Tablet PO SCH (06:11)
[2018-02-25] MEDS: Gabapentin 300 MG Capsule PO SCH ×3 (09:16→18:00)
[2018-02-25] MEDS: Sodium Chloride 0.9% 2 ML Flush BID IV.FLUSH SCH ×2 (09:41→21:24)
[2018-02-25] MEDS: Senna/Docusate Sodium 8.6/50 MG Tablet PO SCH ×2 (09:41→21:23)
[2018-02-25 11:53] LABS: Baso % (Auto) 0.3 % (0.0-2.0); Eos # (Auto) 0.1 th/mm3 (0.0-0.4); Hemoglobin 12.7 gm/dL (13.0-17.0); Lymph # (Auto) 1.2 th/mm3 (1.0-4.8); Lymph % (Auto) 13.5 % (9.0-44.0); Mean Corpuscular HGB Conc 33.5 % (32.0-36.0); Mean Corpuscular Hemoglobin 32.5 pg (27.0-34.0); Mean Corpuscular Volume 97.2 fL (80.0-100.0); Mono # (Auto) 0.6 th/mm3 (0.0-0.9); Mono % (Auto) 6.8 % (0.0-8.0); Neut # (Auto) 6.7 th/mm3 (1.8-7.7); Neut % (Auto) 78.4 % (16.0-70.0); Platelet Count 154 th/mm3 (150-450); Red Blood Count 3.91 mil/mm3 (4.50-5.90); Red Cell Distribution Width 14.8 % (11.6-17.2); White Blood Count 8.6 th/mm3 (4.0-11.0)
[2018-02-25] MEDS: Metoprolol Tartrate 100 MG Tablet PO SCH (12:04)
[2018-02-25 12:15] LABS: Alanine Aminotransferase 20 U/L (12-78); Albumin 3.2 g/dL (3.4-5.0); Anion Gap 3 meq/L (5-15); Aspartate Aminotransferase 21 U/L (15-37); Blood Urea Nitrogen 17 mg/dL (7-18); Calcium 8.6 mg/dL (8.5-10.1); Carbon Dioxide 34.6 meq/L (21.0-32.0); Chloride 103 meq/L (98-107); Glomerular Filtration Rate 82 mL/min (>89); Glucose,Random 87 mg/dL (74-106); Potassium 3.7 meq/L (3.5-5.1); Sodium 141 meq/L (136-145)
[2018-02-25 12:18] LABS: Alkaline Phosphatase 73 U/L (45-117); Total Protein 6.7 g/dL (6.4-8.2)
--- NOTE | 2018-02-25 13:32 | P.CONCA ---
History of Present Illness Service: Cardiology Consult date: 02/25/18 Reason for Consult: HTN Primary Care Provider: PROVIDER NON STAFF Chief Complaint: Headache, syncopal episode History of Present Illness: Pleasant 70-year-old male known to our practice with a past cardiac history of ASHD with CABG in 2009, syncope, bradycardia, palpitations, hypertension, hyperlipidemia, head/neck cancer, malnourished with PEG tube in place, and carotid stenosis with a right endarterectomy in 2010. Patient has undergone chemo and radiation for his head/neck cancer, reports frequent episodes of aspiration pneumonia. He reports he has had 2 syncopal episodes in the past year with the most recent one being approximately 4 weeks ago. He admits to frequent episodes of dizziness and near syncope that occur at random times and sometimes while sitting others while standing. He continues to swim laps without any difficulty no chest pain no shortness of breath. 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 Patient reports he took a flight to [place], after he returned from the flight he began having more severe headaches decided to come into the hospital for evaluation since he had fallen a few weeks prior. Upon arrival to the hospital his blood pressure was elevated at 217/112. Patient has been on metoprolol 100 mg p.o. twice daily for several years. He reports at home his blood pressures are stable 120s 130 systolic. Since arrival his blood pressure has been very labile with spikes and drops. Nurse reports she notices blood pressure spikes when he is having intense conversations. Blood pressure is currently 88/53, he has not received any medications since last night. Patient request to be placed on an ARB for renal protection, he also expresses a desire to continue on his current beta-donnell. Telemetry reviewed no significant bradycardia or pauses noted. Syncopal episodes and dizziness could be related to blood pressure drops. I would recommend decreasing his beta- donnell, and we will add a low-dose arb with hold parameters. Review of Systems Gastrointestinal: Reports difficulty swallowing Neurologic: Reports dizziness, Reports fainting, Reports seizure-like activity PMFSH - History History Provided By: Patient - Medical History Medical History: Medical History (Last Reviewed 02/26/18 @ 07:38 by Gill Loomis) Cancer of base of tongue HTN (hypertension) Hypothyroidism Insomnia Aspiration into airway CAD (coronary artery disease) Dysphagia Esophageal dilatation Hyperlipidemia Radiculopathy Squamous cell carcinoma - Surgical History Surgical History: Surgical History (Last Reviewed 02/26/18 @ 07:38 by Gill Loomis) H/O repair of rotator cuff History of CEA (carotid endarterectomy) History of appendectomy History of radical neck dissection Hx of CABG S/P percutaneous endoscopic gastrostomy (PEG) tube placement - Family History Family History: Family History (Last Reviewed 02/24/18 @ 07:45 by Melody Carpio) Mother No problems noted. Father History of myocardial infarction - Tobacco History Second Hand Smoke Exposure: No Smoking Status: Never smoker - Alcohol History How Often Do You Have a Drink Containing Alcohol: Monthly or less - Substance Use History Substance History: No History of Abuse - Travel History Recent Travel in the [place] Within the Last 8 Weeks: No Recent Travel Out of the Country Within the Last 8 Weeks: No - Immunization History Tetanus Immunization: Unsure Hx Influenza Vaccine This Season: No Medications and Allergies Allergies Allergy/AdvReac Type Severity Reaction Status Date / Time tetnus toxoid Allergy Anaphylaxis Uncoded 02/22/18 11:44 must use pediartric 6 if AdvReac Unknown other Uncoded 02/22/18 11:44 itubated due to radiated tounge Home Medications Medication Instructions Recorded Confirmed Type atorvastatin 40 mg PO HS 12/18/17 02/22/18 History clonazepam [Klonopin] 1 mg PO HS 12/18/17 02/22/18 History gabapentin 300 mg PO TID 12/18/17 02/22/18 History levothyroxine [Synthroid] 100 mcg PO DAILY 12/18/17 02/22/18 History metoprolol succinate 100 mg PO BID 12/18/17 02/22/18 History aspirin 81 mg PO DAILY 01/12/18 02/22/18 History Active Medications: Active Medications Acetaminophen (Tylenol) 650 mg PO Q4H PRN PRN Reason: Temp > 100.4 Al Hydroxide/Mg Hydroxide (Milk Of Magnesia Liq) 30 ml PO Q12H PRN PRN Reason: Mild Constipation Atorvastatin Calcium (Lipitor) 40 mg PO HS [facility] Last Admin: 02/24/18 20:21 Dose: 40 mg Bisacodyl (Dulcolax Supp) 10 mg RECTAL DAILY PRN PRN Reason: SEVERE CONSITIPATION Clonazepam (Klonopin) 1 mg PO HS [facility] Last Admin: 02/24/18 20:21 Dose: 1 mg Clonidine HCl (Catapres) 0.1 mg PO Q6H PRN PRN Reason: SBP>160, DBP>90 Enalaprilat (Vasotec Inj) 1.25 mg IV.PUSH Q6H PRN PRN Reason: SBP>160, DBP>90 Last Admin: 02/22/18 16:41 Dose: 1.25 mg Fentanyl Citrate (Fentanyl Inj) 50 mcg IV.PUSH Q1H PRN PRN Reason: PAIN 6-10;IF UNABLE TO TAKE PO Last Admin: 02/24/18 20:47 Dose: 50 mcg Gabapentin (Neurontin) 300 mg PO TID [facility] Last Admin: 02/25/18 09:16 Dose: 300 mg Hydralazine HCl (Apresoline Inj) 20 mg IV.PUSH Q4H PRN PRN Reason: SBP>160, DBP>90 Last Admin: 02/24/18 20:57 Dose: 20 mg Nicardipine HCl 25 mg/ Sodium (Chloride) 250 mls @ 50 mls/hr IV.CONT TITRATE PRN; Protocol PRN Reason: Per Protocol Levetiracetam 500 mg/ Sodium (Chloride) 105 mls @ 400 mls/hr IV.SIG Q12H [facility] Last Infusion: 02/25/18 12:04 Dose: Infused Labetalol HCl (Trandate Inj) 20 mg IV.PUSH Q4H PRN PRN Reason: SBP >160 Last Admin: 02/23/18 18:14 Dose: 20 mg Lactulose (Lactulose Liq) 30 ml PO DAILY PRN PRN Reason: SEVERE CONSITIPATION Levothyroxine Sodium (Synthroid) 100 mcg PO DAILY@0600 [facility] Last Admin: 02/25/18 06:11 Dose: 100 mcg Metoprolol Tartrate (Lopressor) 100 mg PO BID [facility] Last Admin: 02/25/18 12:04 Dose: Not Given Ondansetron HCl (Zofran Inj) 4 mg IV.PUSH Q6H PRN PRN Reason: NAUSEA OR VOMITING Oxycodone/Acetaminophen (Percocet 5/325 Mg) 1 tab G-TUBE Q4H PRN PRN Reason: PAIN SCALE 1 TO 5 Oxycodone/Acetaminophen (Percocet 5/325 Mg) 2 tab G-TUBE Q4H PRN PRN Reason: PAIN SCALE 6 TO 10 Last Admin: 02/24/18 23:40 Dose: 2 tab Senna/Docusate Sodium (Suzanne-Colace) 1 tab PO BID [facility] Last Admin: 02/25/18 09:41 Dose: Not Given Sennosides (Senokot) 17.2 mg PO Q12H PRN PRN Reason: Moderate Constipation Sodium Chloride (Ns Flush) 2 ml IV.FLUSH BID [facility] Last Admin: 02/25/18 09:41 Dose: 2 ml Sodium Chloride (Ns Flush) 2 ml IV.FLUSH PRN PRN PRN Reason: FLUSH AFTER USING IV ACCESS Temazepam (Restoril) 15 mg PO HS PRN PRN Reason: INSOMNIA Last Admin: 02/24/18 04:48 Dose: 15 mg Exam Vital signs: Vital Signs 02/24/18 13:30 02/24/18 13:44 02/24/18 14:00 Temperature Pulse Rate 71 74 69 Respiratory Rate 14 24 15 Blood Pressure 108/58 L 118/58 L Pulse Oximetry 100 100 99 02/24/18 15:00 02/24/18 15:30 02/24/18 15:44 Temperature Pulse Rate 70 72 75 Respiratory Rate 8 L 15 19 Blood Pressure 124/59 L 130/71 167/76 H Pulse Oximetry 97 96 97 02/24/18 16:00 02/24/18 16:01 02/24/18 16:02 Temperature Pulse Rate 79 79 80 Respiratory Rate 26 H 26 H 21 Blood Pressure 162/85 H 144/77 H Pulse Oximetry 98 98 97 02/24/18 16:27 02/24/18 16:30 02/24/18 17:00 Temperature Pulse Rate 87 Respiratory Rate 29 H Blood Pressure 168/86 H Pulse Oximetry 94 L 97 95 02/24/18 18:00 02/24/18 18:37 02/24/18 19:00 Temperature Pulse Rate 77 81 81 Respiratory Rate 19 28 H 25 H Blood Pressure 123/77 198/100 H 215/106 H Pulse Oximetry 95 96 94 L 02/24/18 19:30 02/24/18 20:00 02/24/18 20:30 Temperature 98.6 F Pulse Rate 84 87 Respiratory Rate 13 31 H Blood Pressure 188/94 H Pulse Oximetry 93 L 95 97 02/24/18 20:34 02/24/18 20:45 11/28/18 20:51 Temperature Pulse Rate 87 83 85 Respiratory Rate 30 H 10 L 20 Blood Pressure 227/106 H 200/97 H Pulse Oximetry 96 97 97 02/24/18 21:00 02/24/18 21:15 02/24/18 21:30 Temperature Pulse Rate 88 86 83 Respiratory Rate 23 22 14 Blood Pressure 205/107 H 119/57 L 106/52 L Pulse Oximetry 96 96 97 02/24/18 21:45 02/24/18 22:00 02/24/18 22:15 Temperature Pulse Rate 80 82 85 Respiratory Rate 11 L 12 14 Blood Pressure 119/59 L 114/59 L 116/66 Pulse Oximetry 97 97 98 02/24/18 22:30 02/24/18 22:45 02/24/18 23:00 Temperature Pulse Rate 89 95 H 96 H Respiratory Rate 14 29 H 40 H Blood Pressure 151/78 H 186/91 H 173/93 H Pulse Oximetry 97 95 94 L 02/24/18 23:15 02/24/18 23:30 02/24/18 23:45 Temperature Pulse Rate 96 H 109 H 96 H Respiratory Rate 29 H 24 36 H Blood Pressure 167/93 H 211/105 H 196/100 H Pulse Oximetry 94 L 92 L 95 02/25/18 00:00 02/25/18 00:15 02/25/18 00:30 Temperature Pulse Rate 94 H 92 H 89 Respiratory Rate 18 15 16 Blood Pressure 170/84 H 148/70 H 115/59 L Pulse Oximetry 96 93 L 93 L 02/25/18 00:45 02/25/18 01:00 02/25/18 01:15 Temperature Pulse Rate 85 83 79 Respiratory Rate 14 12 16 Blood Pressure 93/55 L 83/49 L 71/44 L Pulse Oximetry 93 L 92 L 94 L 02/25/18 01:30 02/25/18 01:45 02/25/18 02:00 Temperature 98.6 F Pulse Rate 83 82 82 Respiratory Rate 17 16 15 Blood Pressure 82/52 L 82/54 L 88/50 L Pulse Oximetry 94 L 94 L 94 L 02/25/18 02:15 02/25/18 02:30 02/25/18 02:45 Temperature Pulse Rate 84 82 79 Respiratory Rate 23 12 12 Blood Pressure 118/70 124/63 106/56 L Pulse Oximetry 97 96 96 02/25/18 03:00 02/25/18 03:15 02/25/18 03:30 Temperature Pulse Rate 80 79 80 Respiratory Rate 12 12 12 Blood Pressure 90/51 L 123/55 L 133/58 L Pulse Oximetry 96 94 L 95 02/25/18 03:45 02/25/18 04:00 02/25/18 04:15 Temperature Pulse Rate 77 76 77 Respiratory Rate 10 L 11 L 11 L Blood Pressure 78/45 L 79/50 L 106/54 L Pulse Oximetry 95 94 L 96 02/25/18 04:30 02/25/18 04:38 02/25/18 04:45 Temperature Pulse Rate 75 77 81 Respiratory Rate 12 16 13 Blood Pressure 77/45 L 145/73 H Pulse Oximetry 96 96 98 02/25/18 05:00 02/25/18 05:15 02/25/18 05:44 Temperature Pulse Rate 75 75 Respiratory Rate 12 11 L Blood Pressure 105/58 L 98/50 L Pulse Oximetry 96 96 91 L 02/25/18 05:45 02/25/18 06:00 02/25/18 06:01 Temperature Pulse Rate 83 83 Respiratory Rate 14 26 H Blood Pressure 128/63 Pulse Oximetry 90 L 94 L 94 L 02/25/18 06:15 02/25/18 06:30 02/25/18 07:00 Temperature Pulse Rate 79 77 76 Respiratory Rate 20 8 L 29 H Blood Pressure Pulse Oximetry 94 L 92 L 95 02/25/18 08:00 02/25/18 08:37 02/25/18 09:00 Temperature Pulse Rate 72 70 Respiratory Rate 32 H 14 Blood Pressure 103/60 Pulse Oximetry 99 95 98 02/25/18 10:00 02/25/18 11:27 02/25/18 11:50 Temperature Pulse Rate 69 69 Respiratory Rate 14 15 Blood Pressure 108/55 L Pulse Oximetry 97 74 L 96 02/25/18 12:00 Temperature 98.0 F Pulse Rate 71 Respiratory Rate 26 H Blood Pressure 83/51 L Pulse Oximetry 98 Intake & Output 02/24/18 02/25/18 02/25/18 18:59 06:59 18:59 Intake Total 1605 / 1605 825 / 825 105 / 105 Output Total 1600 / 1600 1850 / 1850 Balance 5 / 5 -1025 / -1025 105 / 105 Weight 61.3 kg Intake: IV 105 / 105 105 / 105 105 / 105 Keppra Inj 500 MG In NS Inj 100 105 / 105 105 / 105 105 / 105 ML @ 400 mls/hr IV.SIG Q12H [facility] Rx#:[id number] Tube Feeding 1500 / 1500 600 / 600 Tube Irrigant 90 / 90 Water Bolus Amount 30 / 30 Output: Urine 1600 / 1600 1850 / 1850 Other: # Voids 3 # Bowel Movements 0 - Constitutional no acute distress, thin - Routine HEENT Exam Head: Present: normocephalic Eye: Present: EOMI, PERRL ENT: Present: mucous membranes moist - Routine Respiratory Exam Present: crackles - Routine Cardiovascular Exam Present: RRR - Routine Abdominal Exam Present: soft - Routine Skin Exam Present: intact - Routine Neurological Exam Present: alert, oriented X3 Results 02/25/18 11:29 02/25/18 11:29 Cardiac Enzymes 02/25/18 Range/Units 11:29 AST 21 (15-37) U/L CBC 02/25/18 Range/Units 11:29 WBC 8.6 (4.0-11.0) th/mm3 RBC 3.91 L (4.50-5.90) mil/mm3 Hgb 12.7 L (13.0-17.0) gm/dL Hct 38.0 L (39.0-51.0) % Plt Count 154 (150-450) th/mm3 Neut # (Auto) 6.7 (1.8-7.7) th/mm3 Lymph # (Auto) 1.2 (1.0-4.8) th/mm3 [place] # (Auto) 0.6 (0.0-0.9) th/mm3 Eos # (Auto) 0.1 (0.0-0.4) th/mm3 Baso # (Auto) 0.0 (0.0-0.2) th/mm3 Comprehensive Metabolic Panel 02/25/18 Range/Units 11:29 Sodium 141 (136-145) meq/L Potassium 3.7 (3.5-5.1) meq/L Chloride 103 (98-107) meq/L Carbon Dioxide 34.6 H (21.0-32.0) meq/L BUN 17 (7-18) mg/dL Creatinine 0.91 (0.60-1.30) mg/dL Calcium 8.6 (8.5-10.1) mg/dL AST 21 (15-37) U/L ALT 20 (12-78) U/L Alkaline Phosphatase 73 (45-117) U/L Total Protein 6.7 D (6.4-8.2) g/dL Albumin 3.2 L (3.4-5.0) g/dL Intake and Output 02/24/18 02/25/18 02/25/18 22:59 06:59 14:59 Intake Total 1605 / 1605 720 / 720 105 / 105 Output Total 1600 / 1600 1850 / 1850 Balance 5 / 5 -1130 / -1130 105 / 105 Intake: IV 105 / 105 105 / 105 Keppra Inj 500 MG In NS Inj 100 105 / 105 105 / 105 ML @ 400 mls/hr IV.SIG Q12H [facility] Rx#:[id number] Tube Feeding 1500 / 1500 600 / 600 Tube Irrigant 90 / 90 Water Bolus Amount 30 / 30 Output: Urine 1600 / 1600 1850 / 1850 Other: # Voids 3 # Bowel Movements 0 Weight 61.3 kg - Imaging and Cardiology Imaging: Impressions Head CT 02/24/18 08:00 CONCLUSION: No significant change. . Assessment and Plan - Plan Assessment HTN Syncope ASHD with CABG 2009 Head/Neck cancer Plan -Negative orthostatics. -Labile BPs since arrival. Will plan to decrease beta donnell to 50mg PO BID and add Losartan 25mg PO qday. Hold parameters for SBP 110 or less -Now on keppra -Pt denies CP or SOB, swims laps without any difficulty. Echocardiogram reviewed. No significant abnormalities noted. The patient was seen and evaluated by Dr. Rushing who participated in care, management and decision making. Overall doing better Long discussion. Code Status: Full Code Discussed Condition With: Dr. Rushing, RN
[2018-02-25] MEDS ORDERED: Metoprolol Tartrate 50 MG Tablet PO ONE (15:56)
--- NOTE | 2018-02-25 20:39 | P.PNIM ---
Subjective Interval history: Patient says he is continuing to have severe headaches, however no worsening. Denies any chest pain or shortness of breath. He is concerned about weakness, lightheadedness and tremors that he has while standing up over the past month. Has had no episodes while here. He says he is careful to sit back on the bed if he has such episodes. Physical Exam Vital signs: Vital Signs 02/24/18 20:45 02/24/18 20:51 02/24/18 21:00 Temperature Pulse Rate 83 85 88 Respiratory Rate 10 L 20 23 Blood Pressure 200/97 H 205/107 H Pulse Oximetry 97 97 96 02/24/18 21:15 02/24/18 21:30 02/24/18 21:45 Temperature Pulse Rate 86 83 80 Respiratory Rate 22 14 11 L Blood Pressure 119/57 L 106/52 L 119/59 L Pulse Oximetry 96 97 97 02/24/18 22:00 02/24/18 22:15 02/24/18 22:30 Temperature Pulse Rate 82 85 89 Respiratory Rate 12 14 14 Blood Pressure 114/59 L 116/66 151/78 H Pulse Oximetry 97 98 97 02/24/18 22:45 02/24/18 23:00 02/24/18 23:15 Temperature Pulse Rate 95 H 96 H 96 H Respiratory Rate 29 H 40 H 29 H Blood Pressure 186/91 H 173/93 H 167/93 H Pulse Oximetry 95 94 L 94 L 02/24/18 23:30 02/24/18 23:45 02/25/18 00:00 Temperature Pulse Rate 109 H 96 H 94 H Respiratory Rate 24 36 H 18 Blood Pressure 211/105 H 196/100 H 170/84 H Pulse Oximetry 92 L 95 96 02/25/18 00:15 02/25/18 00:30 02/25/18 00:45 Temperature Pulse Rate 92 H 89 85 Respiratory Rate 15 16 14 Blood Pressure 148/70 H 115/59 L 93/55 L Pulse Oximetry 93 L 93 L 93 L 02/25/18 01:00 02/25/18 01:15 02/25/18 01:30 Temperature 98.6 F Pulse Rate 83 79 83 Respiratory Rate 12 16 17 Blood Pressure 83/49 L 71/44 L 82/52 L Pulse Oximetry 92 L 94 L 94 L 02/25/18 01:45 02/25/18 02:00 02/25/18 02:15 Temperature Pulse Rate 82 82 84 Respiratory Rate 16 15 23 Blood Pressure 82/54 L 88/50 L 118/70 Pulse Oximetry 94 L 94 L 97 02/25/18 02:30 02/25/18 02:45 02/25/18 03:00 Temperature Pulse Rate 82 79 80 Respiratory Rate 12 12 12 Blood Pressure 124/63 106/56 L 90/51 L Pulse Oximetry 96 96 96 02/25/18 03:15 02/25/18 03:30 02/25/18 03:45 Temperature Pulse Rate 79 80 77 Respiratory Rate 12 12 10 L Blood Pressure 123/55 L 133/58 L 78/45 L Pulse Oximetry 94 L 95 95 02/25/18 04:00 02/25/18 04:15 02/25/18 04:30 Temperature Pulse Rate 76 77 75 Respiratory Rate 11 L 11 L 12 Blood Pressure 79/50 L 106/54 L 77/45 L Pulse Oximetry 94 L 96 96 02/25/18 04:38 02/25/18 04:45 02/25/18 05:00 Temperature Pulse Rate 77 81 75 Respiratory Rate 16 13 12 Blood Pressure 145/73 H 105/58 L Pulse Oximetry 96 98 96 02/25/18 05:15 02/25/18 05:44 02/25/18 05:45 Temperature Pulse Rate 75 Respiratory Rate 11 L Blood Pressure 98/50 L Pulse Oximetry 96 91 L 90 L 02/25/18 06:00 02/25/18 06:01 02/25/18 06:15 Temperature Pulse Rate 83 83 79 Respiratory Rate 14 26 H 20 Blood Pressure 128/63 Pulse Oximetry 94 L 94 L 94 L 02/25/18 06:30 02/25/18 07:00 02/25/18 08:00 Temperature Pulse Rate 77 76 Respiratory Rate 8 L 29 H Blood Pressure Pulse Oximetry 92 L 95 99 02/25/18 08:37 02/25/18 09:00 02/25/18 10:00 Temperature Pulse Rate 72 70 69 Respiratory Rate 32 H 14 14 Blood Pressure 103/60 Pulse Oximetry 95 98 97 02/25/18 11:27 02/25/18 11:50 02/25/18 12:00 Temperature 98.0 F Pulse Rate 69 71 Respiratory Rate 15 26 H Blood Pressure 108/55 L 83/51 L Pulse Oximetry 74 L 96 98 02/25/18 12:08 02/25/18 12:16 02/25/18 12:38 Temperature Pulse Rate 68 73 69 Respiratory Rate 21 25 H 13 Blood Pressure 77/43 L 83/46 L 83/52 L Pulse Oximetry 97 97 96 02/25/18 13:08 02/25/18 13:38 02/25/18 14:00 Temperature Pulse Rate 72 77 72 Respiratory Rate 27 H 35 H 28 H Blood Pressure 81/50 L 112/58 L Pulse Oximetry 93 L 94 L 93 L 02/25/18 14:08 02/25/18 14:38 02/25/18 15:16 Temperature Pulse Rate 71 73 82 Respiratory Rate 31 H 11 L Blood Pressure 122/57 L 131/60 180/87 H Pulse Oximetry 92 L 93 L 02/25/18 15:51 02/25/18 15:52 02/25/18 16:00 Temperature 98.0 F Pulse Rate 77 76 78 Respiratory Rate 28 H 26 H 28 H Blood Pressure 172/84 H 182/85 H 191/91 H Pulse Oximetry 96 94 L 95 02/25/18 17:00 02/25/18 18:00 02/25/18 19:59 Temperature Pulse Rate 66 68 Respiratory Rate 24 31 H Blood Pressure 123/61 111/66 Pulse Oximetry 95 96 98 Intake & Output 02/25/18 02/25/18 02/26/18 06:59 18:59 06:59 Intake Total 825 / 825 1485 / 1485 Output Total 1850 / 1850 800 / 800 Balance -1025 / -1025 685 / 685 Weight 61.3 kg Intake: IV 105 / 105 105 / 105 Keppra Inj 500 MG In NS Inj 100 105 / 105 105 / 105 ML @ 400 mls/hr IV.SIG Q12H [facility] Rx#:[id number] Tube Feeding 600 / 600 1200 / 1200 Tube Irrigant 90 / 90 180 / 180 Water Bolus Amount 30 / 30 Output: Urine 1850 / 1850 800 / 800 Other: # Voids 3 2 Date of Last Bowel Movement 02/25/18 # Bowel Movements 0 1 Narrative: GENERAL: patient sitting up in bed. Also observed standing up at bedside without any difficulty. SKIN: Warm and dry. HEAD: Normocephalic. EYES: No scleral icterus. No injection or drainage. NECK: trachea midline. chronic scarring from radiation. No JVD CARDIOVASCULAR: Regular rate and rhythm without murmurs, gallops, or rubs. RESPIRATORY: Breath sounds equal bilaterally. No accessory muscle use. GASTROINTESTINAL: Abdomen soft, non-tender, nondistended. MUSCULOSKELETAL: No cyanosis, or edema. BACK: Nontender without obvious deformity. No CVA tenderness. Results - Labs CBC & Chem 7: 02/25/18 11:02/25/18 11:29 Laboratory Results - last 24 hr 02/25/18 02/25/18 11: 11:29 WBC 8.6 RBC 3.91 L Hgb 12.7 L Hct 38.0 L MCV 97.2 D MCH 32.5 MCHC 33.5 RDW 14.8 Plt Count 154 MPV 8.0 Neut % (Auto) 78.4 H Lymph % (Auto) 13.5 [place] % (Auto) 6.8 Eos % (Auto) 1.0 Baso % (Auto) 0.3 Neut # (Auto) 6.7 Lymph # (Auto) 1.2 [place] # (Auto) 0.6 Eos # (Auto) 0.1 Baso # (Auto) 0.0 WBC Differential . Differential Comment Auto diff final Sodium 141 Potassium 3.7 Chloride 103 Carbon Dioxide 34.6 H Anion Gap 3 L BUN 17 Creatinine 0.91 Estimated GFR 82 L Random Glucose 87 Calcium 8.6 Total Bilirubin 0.5 AST 21 ALT 20 Alkaline Phosphatase 73 Total Protein 6.7 D Albumin 3.2 L Assessment and Plan - Assessment (1) Hygroma Code(s): D18.1 - Lymphangioma, any site Status: Deleted (2) Hypertensive urgency Code(s): I16.0 - Hypertensive urgency Status: Acute (3) Syncope Code(s): R55 - Syncope and collapse Status: Acute - Plan NEURO: //SDH //Syncope - etiology unclear. F/u EEG. Telemetry monitoring and Echo [facility] in [facility]. Neurosurgery consult. BP management as per below Keppra 500 mg IV q12 Neurology has previously been consulted, f/u recs. Lortab as needed for pain. Morphine as needed for breakthrough pain Anxiety Klonopin 1 mg p.o. 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 3 times daily = Neurosurgery following. EEG performed previously negative for epileptiform activity. Continue current management. Nonoperative management at this time as per neurosurgery. Cardiology following for syncopal episodes. Appreciate assistance. RESP: //[place] exposure on RA. CV: //Hypertension //Hyperlipidemia //Coronary artery disease status post CABG Lipitor 40 mg p.o. nightly Labetalol 20 mg IV every 4 hours/hydralazine 20 mill grams IV every 4 hours as needed systolic blood pressure greater than 160. clonidine prn Cardene prn SBP >160 Metoprolol tartrate 100 mg p.o. twice daily Patient requests dr Rushing for cardiology for Labile HTN as he has seen him before. = Blood pressure medications adjusted as per cardiology. Patient does not appear to be orthostatic as per bedside orthostatics performed in room. GI: Patient administering his own tube feed formula via existing transgastric- jejunal tube. FEN/RENAL: Voiding. Monitor intake and output. Monitor electrolytes and replace as indicated. 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 daily PROPH: SCDs for DVT prophylaxis. No pharmacologic DVT prophylaxis due to subdural hematoma. Stress ulcer prophylaxis is not indicated at this time. ACCESS: Peripheral IV Overall impression: Stable hemodynamic and respiratory function. Ongoing evaluation of subdural fluid collections and recent episodes of syncope. Discharge Planning: DVT recommends home with no PT. Patient has walker We'll need neurosurgery clearance Will need cardiology clearance. (3) Syncope Qualifiers: Syncope type: unspecified Qualified Code(s): R55 - Syncope and collapse
[2018-02-25] MEDS: clonazePAM 1 MG Tablet PO SCH (21:24)
[2018-02-25] MEDS: Metoprolol Tartrate 50 MG Tablet PO SCH (21:24)
[2018-02-26] MEDS: Levothyroxine 100 MCG Tablet PO SCH (06:38)
--- NOTE | 2018-02-26 09:28 | P.PNIM ---
Subjective Interval history: Patient says he is feeling okay today. Denies any chest pain or shortness of breath. Denies any lightheadedness or dizziness. Reports headache is improved. Physical Exam Vital signs: Vital Signs 02/25/18 10:00 02/25/18 11:27 02/25/18 11:50 Temperature Pulse Rate 69 69 Respiratory Rate 14 15 Blood Pressure 108/55 L Pulse Oximetry 97 74 L 96 02/25/18 12:00 02/25/18 12:08 02/25/18 12:16 Temperature 98.0 F Pulse Rate 71 68 73 Respiratory Rate 26 H 21 25 H Blood Pressure 83/51 L 77/43 L 83/46 L Pulse Oximetry 98 97 97 02/25/18 12:38 02/25/18 13:08 02/25/18 13:38 Temperature Pulse Rate 69 72 77 Respiratory Rate 13 27 H 35 H Blood Pressure 83/52 L 81/50 L 112/58 L Pulse Oximetry 96 93 L 94 L 02/25/18 14:00 02/25/18 14:08 02/25/18 14:38 Temperature Pulse Rate 72 71 73 Respiratory Rate 28 H 31 H 11 L Blood Pressure 122/57 L 131/60 Pulse Oximetry 93 L 92 L 93 L 02/25/18 15:16 02/25/18 15:51 02/25/18 15:52 Temperature Pulse Rate 82 77 76 Respiratory Rate 28 H 26 H Blood Pressure 180/87 H 172/84 H 182/85 H Pulse Oximetry 96 94 L 02/25/18 16:00 02/25/18 17:00 02/25/18 18:00 Temperature 98.0 F Pulse Rate 78 66 68 Respiratory Rate 28 H 24 31 H Blood Pressure 191/91 H 123/61 111/66 Pulse Oximetry 95 95 96 02/25/18 19:00 02/25/18 19:59 02/25/18 20:00 Temperature Pulse Rate 70 74 Respiratory Rate 26 H 50 H Blood Pressure 115/73 159/76 H Pulse Oximetry 96 98 96 02/25/18 21:05 02/25/18 21:47 02/25/18 22:00 Temperature Pulse Rate 82 78 71 Respiratory Rate 12 33 H 8 L Blood Pressure 185/91 H 158/82 H Pulse Oximetry 95 98 02/25/18 23:00 02/25/18 23:13 02/25/18 23:25 Temperature Pulse Rate 70 67 71 Respiratory Rate 26 H 13 28 H Blood Pressure 216/104 H 186/89 H 225/108 H Pulse Oximetry 99 97 99 02/25/18 23:31 02/25/18 23:46 02/26/18 00:00 Temperature Pulse Rate 70 65 64 Respiratory Rate 10 L 8 L 14 Blood Pressure 180/86 H 146/72 H Pulse Oximetry 97 99 99 02/26/18 00:01 02/26/18 00:16 02/26/18 00:31 Temperature Pulse Rate 63 64 65 Respiratory Rate 15 9 L 10 L Blood Pressure 126/67 143/70 H 132/55 L Pulse Oximetry 99 99 98 02/26/18 00:46 02/26/18 01:00 02/26/18 01:01 Temperature Pulse Rate 66 65 67 Respiratory Rate 26 H 27 H 22 Blood Pressure 152/71 H 156/77 H Pulse Oximetry 95 94 L 02/26/18 01:15 02/26/18 01:16 02/26/18 01:31 Temperature Pulse Rate 70 69 68 Respiratory Rate 33 H 28 H 22 Blood Pressure 154/84 H 163/90 H Pulse Oximetry 99 98 98 02/26/18 01:46 02/26/18 02:00 02/26/18 02:01 Temperature Pulse Rate 66 65 69 Respiratory Rate 17 11 L 30 H Blood Pressure 153/75 H 155/67 H Pulse Oximetry 98 98 99 02/26/18 02:16 02/26/18 02:31 02/26/18 02:46 Temperature Pulse Rate 66 66 66 Respiratory Rate 12 17 21 Blood Pressure 151/77 H 155/75 H 150/74 H Pulse Oximetry 98 97 96 02/26/18 03:00 02/26/18 03:01 02/26/18 03:16 Temperature Pulse Rate 62 61 63 Respiratory Rate 11 L 12 11 L Blood Pressure 142/74 H 177/83 H Pulse Oximetry 98 97 98 02/26/18 03:31 02/26/18 03:46 02/26/18 04:00 Temperature Pulse Rate 64 59 L 60 Respiratory Rate 26 H 12 10 L Blood Pressure 172/91 H 140/73 Pulse Oximetry 98 98 97 02/26/18 04:01 02/26/18 04:16 02/26/18 04:31 Temperature Pulse Rate 59 L 63 64 Respiratory Rate 10 L 10 L 34 H Blood Pressure 126/70 174/80 H 164/79 H Pulse Oximetry 97 98 98 02/26/18 04:46 02/26/18 05:00 02/26/18 05:01 Temperature Pulse Rate 61 64 63 Respiratory Rate 22 24 18 Blood Pressure 137/73 144/82 H Pulse Oximetry 97 99 98 02/26/18 05:16 02/26/18 05:31 Temperature Pulse Rate 63 63 Respiratory Rate 11 L 10 L Blood Pressure 160/86 H 169/91 H Pulse Oximetry 98 98 Intake & Output 02/25/18 02/26/18 02/26/18 18:59 06:59 18:59 Intake Total 1485 / 1485 105 / 105 Output Total 800 / 800 Balance 685 / 685 105 / 105 Intake: IV 105 / 105 105 / 105 Keppra Inj 500 MG In NS Inj 100 105 / 105 105 / 105 ML @ 400 mls/hr IV.SIG Q12H MIKE Rx#:[id number] Tube Feeding 1200 / 1200 Tube Irrigant 180 / 180 Output: Urine 800 / 800 Other: # Voids 2 Date of Last Bowel Movement 02/25/18 02/25/18 # Bowel Movements 1 Narrative: GENERAL: patient sitting up in bed. Appears comfortable. SKIN: Warm and dry. HEAD: Normocephalic. EYES: No scleral icterus. No injection or drainage. NECK: trachea midline. chronic scarring from radiation. No JVD CARDIOVASCULAR: Regular rate and rhythm without murmurs, gallops, or rubs. RESPIRATORY: Breath sounds equal bilaterally. No accessory muscle use. GASTROINTESTINAL: Abdomen soft, non-tender, nondistended. PEG tube without any surrounding erythema. MUSCULOSKELETAL: No cyanosis, or edema. BACK: Nontender without obvious deformity. No CVA tenderness. Results - Labs CBC & Chem 7: 02/25/18 11:29 02/25/18 11:29 Laboratory Results - last 24 hr 02/25/18 02/25/18 11:29 11:29 WBC 8.6 RBC 3.91 L Hgb 12.7 L Hct 38.0 L MCV 97.2 D MCH 32.5 MCHC 33.5 RDW 14.8 Plt Count 154 MPV 8.0 Neut % (Auto) 78.4 H Lymph % (Auto) 13.5 [place] % (Auto) 6.8 Eos % (Auto) 1.0 Baso % (Auto) 0.3 Neut # (Auto) 6.7 Lymph # (Auto) 1.2 [place] # (Auto) 0.6 Eos # (Auto) 0.1 Baso # (Auto) 0.0 WBC Differential . Differential Comment Auto diff final Sodium 141 Potassium 3.7 Chloride 103 Carbon Dioxide 34.6 H Anion Gap 3 L BUN 17 Creatinine 0.91 Estimated GFR 82 L Random Glucose 87 Calcium 8.6 Total Bilirubin 0.5 AST 21 ALT 20 Alkaline Phosphatase 73 Total Protein 6.7 D Albumin 3.2 L Assessment and Plan - Assessment (1) Hygroma Code(s): D18.1 - Lymphangioma, any site Status: Deleted (2) Hypertensive urgency Code(s): I16.0 - Hypertensive urgency Status: Acute (3) Syncope Code(s): R55 - Syncope and collapse Status: Acute - Plan NEURO: //SDH //Syncope - etiology unclear. F/u EEG. Telemetry monitoring and Echo [facility] in [facility]. Neurosurgery consult. BP management as per below Keppra 500 mg IV q12 Neurology has previously been consulted, f/u recs. Lortab as needed for pain. Morphine as needed for breakthrough pain Anxiety Klonopin 1 mg p.o. 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 3 times daily = Neurosurgery following. EEG performed previously negative for epileptiform activity. Continue current management. Nonoperative management at this time as per neurosurgery. Cardiology following for syncopal episodes. Appreciate assistance. = Cardiology workup appears to be negative. MRA negative for significant stenosis. EEG negative for epileptiform activity. Patient continues on Keppra. We will need to obtain neurology clearance. Neurosurgery has cleared patient for discharge. Blood pressure elevated at night, likely secondary to poor sleep. Patient advised to sleep on side as he does at home. May have underlying sleep apnea. Discussed with patient conveys understanding. RESP: //Agent [place] exposure on RA. CV: //Hypertension //Hyperlipidemia //Coronary artery disease status post CABG Lipitor 40 mg p.o. nightly Labetalol 20 mg IV every 4 hours/hydralazine 20 mill grams IV every 4 hours as needed systolic blood pressure greater than 160. clonidine prn Cardene prn SBP >160 Metoprolol tartrate 100 mg p.o. twice daily Patient requests dr Rushing for cardiology for Labile HTN as he has seen him before. = Blood pressure medications adjusted as per cardiology. Patient does not appear to be orthostatic as per bedside orthostatics performed in room. = Continue as per cardiology. GI: Patient administering his own tube feed formula via existing transgastric- jejunal tube. FEN/RENAL: Voiding. Monitor intake and output. Monitor electrolytes and replace as indicated. 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 daily PROPH: SCDs for DVT prophylaxis. No pharmacologic DVT prophylaxis due to subdural hematoma. Stress ulcer prophylaxis is not indicated at this time. ACCESS: Peripheral IV Discharge Planning: DVT recommends home with no PT. Patient has walker. =We'll need neurosurgery clearance = We will need neurology clearance =Will need cardiology clearance. (3) Syncope Qualifiers: Syncope type: unspecified Qualified Code(s): R55 - Syncope and collapse
--- NOTE | 2018-02-26 09:49 | P.PNNS ---
Subjective Interval history: pt questions regarding the meningioma seen on MRI Brain, was not on report Physical Exam Vital signs: Vital Signs 02/25/18 10:00 02/25/18 11:27 02/25/18 11:50 Temperature Pulse Rate 69 69 Respiratory Rate 14 15 Blood Pressure 108/55 L Pulse Oximetry 97 74 L 96 02/25/18 12:00 02/25/18 12:08 02/25/18 12:16 Temperature 98.0 F Pulse Rate 71 68 73 Respiratory Rate 26 H 21 25 H Blood Pressure 83/51 L 77/43 L 83/46 L Pulse Oximetry 98 97 97 02/25/18 12:38 02/25/18 13:08 02/25/18 13:38 Temperature Pulse Rate 69 72 77 Respiratory Rate 13 27 H 35 H Blood Pressure 83/52 L 81/50 L 112/58 L Pulse Oximetry 96 93 L 94 L 02/25/18 14:00 02/25/18 14:08 02/25/18 14:38 Temperature Pulse Rate 72 71 73 Respiratory Rate 28 H 31 H 11 L Blood Pressure 122/57 L 131/60 Pulse Oximetry 93 L 92 L 93 L 02/25/18 15:16 02/25/18 15:51 02/25/18 15:52 Temperature Pulse Rate 82 77 76 Respiratory Rate 28 H 26 H Blood Pressure 180/87 H 172/84 H 182/85 H Pulse Oximetry 96 94 L 02/25/18 16:00 02/25/18 17:00 02/25/18 18:00 Temperature 98.0 F Pulse Rate 78 66 68 Respiratory Rate 28 H 24 31 H Blood Pressure 191/91 H 123/61 111/66 Pulse Oximetry 95 95 96 02/25/18 19:00 02/25/18 19:59 02/25/18 20:00 Temperature Pulse Rate 70 74 Respiratory Rate 26 H 50 H Blood Pressure 115/73 159/76 H Pulse Oximetry 96 98 96 02/25/18 21:05 02/25/18 21:47 02/25/18 22:00 Temperature Pulse Rate 82 78 71 Respiratory Rate 12 33 H 8 L Blood Pressure 185/91 H 158/82 H Pulse Oximetry 95 98 02/25/18 23:00 02/25/18 23:13 02/25/18 23:25 Temperature Pulse Rate 70 67 71 Respiratory Rate 26 H 13 28 H Blood Pressure 216/104 H 186/89 H 225/108 H Pulse Oximetry 99 97 99 02/25/18 23:31 02/25/18 23:46 02/26/18 00:00 Temperature Pulse Rate 70 65 64 Respiratory Rate 10 L 8 L 14 Blood Pressure 180/86 H 146/72 H Pulse Oximetry 97 99 99 02/26/18 00:01 02/26/18 00:16 02/26/18 00:31 Temperature Pulse Rate 63 64 65 Respiratory Rate 15 9 L 10 L Blood Pressure 126/67 143/70 H 132/55 L Pulse Oximetry 99 99 98 02/26/18 00:46 02/26/18 01:00 02/26/18 01:01 Temperature Pulse Rate 66 65 67 Respiratory Rate 26 H 27 H 22 Blood Pressure 152/71 H 156/77 H Pulse Oximetry 95 94 L 02/26/18 01:15 02/26/18 01:16 02/26/18 01:31 Temperature Pulse Rate 70 69 68 Respiratory Rate 33 H 28 H 22 Blood Pressure 154/84 H 163/90 H Pulse Oximetry 99 98 98 02/26/18 01:46 02/26/18 02:00 02/26/18 02:01 Temperature Pulse Rate 66 65 69 Respiratory Rate 17 11 L 30 H Blood Pressure 153/75 H 155/67 H Pulse Oximetry 98 98 99 02/26/18 02:16 02/26/18 02:31 02/26/18 02:46 Temperature Pulse Rate 66 66 66 Respiratory Rate 12 17 21 Blood Pressure 151/77 H 155/75 H 150/74 H Pulse Oximetry 98 97 96 02/26/18 03:00 02/26/18 03:01 02/26/18 03:16 Temperature Pulse Rate 62 61 63 Respiratory Rate 11 L 12 11 L Blood Pressure 142/74 H 177/83 H Pulse Oximetry 98 97 98 02/26/18 03:31 02/26/18 03:46 02/26/18 04:00 Temperature Pulse Rate 64 59 L 60 Respiratory Rate 26 H 12 10 L Blood Pressure 172/91 H 140/73 Pulse Oximetry 98 98 97 02/26/18 04:01 02/26/18 04:16 02/26/18 04:31 Temperature Pulse Rate 59 L 63 64 Respiratory Rate 10 L 10 L 34 H Blood Pressure 126/70 174/80 H 164/79 H Pulse Oximetry 97 98 98 02/26/18 04:46 02/26/18 05:00 02/26/18 05:01 Temperature Pulse Rate 61 64 63 Respiratory Rate 22 24 18 Blood Pressure 137/73 144/82 H Pulse Oximetry 97 99 98 02/26/18 05:16 02/26/18 05:31 Temperature Pulse Rate 63 63 Respiratory Rate 11 L 10 L Blood Pressure 160/86 H 169/91 H Pulse Oximetry 98 98 Intake & Output 02/25/18 02/26/18 02/26/18 18:59 06:59 18:59 Intake Total 1485 / 1485 105 / 105 Output Total 800 / 800 Balance 685 / 685 105 / 105 Intake: IV 105 / 105 105 / 105 Keppra Inj 500 MG In NS Inj 100 105 / 105 105 / 105 ML @ 400 mls/hr IV.SIG Q12H MIKE Rx#:[id number] Tube Feeding 1200 / 1200 Tube Irrigant 180 / 180 Output: Urine 800 / 800 Other: # Voids 2 Date of Last Bowel Movement 02/25/18 02/25/18 # Bowel Movements 1 Assessment and Plan - Plan Dr. Marquez again dw pt the parafalcine meningioma, showed picture, and provided patient copy nonop mgt clear to transfer out of [facility]/or discharge from [facility] standpoint recommend he obtain f/u MRI Brain in a couple years to assess meningioma growth Discharge Planning: The exam, history, and the medical decision-making described in the above note were completed with the assistance of the mid-level provider. I reviewed and agree with the findings presented. I attest that I had a [id number] encounter with the patient on the same day, and personally performed and documented my assessment and findings in the medical record.
[2018-02-26] MEDS: Metoprolol Tartrate 50 MG Tablet PO SCH (10:01)
[2018-02-26] MEDS: Senna/Docusate Sodium 8.6/50 MG Tablet PO SCH (10:01)
[2018-02-26] MEDS: Gabapentin 300 MG Capsule PO SCH ×2 (10:01→13:46)
[2018-02-26] MEDS: Sodium Chloride 0.9% 2 ML Flush BID IV.FLUSH SCH (10:02)
--- NOTE | 2018-02-26 10:14 | P.PNCA ---
Subjective Interval history: No cardiac complaints overnight. BP better, still having occasional spikes. No further syncope. Telemetry reveals NSR. Medications and Allergies Active Medications: Active Medications Acetaminophen (Tylenol) 650 mg PO Q4H PRN PRN Reason: Temp > 100.4 Al Hydroxide/Mg Hydroxide (Milk Of Magnesia Liq) 30 ml PO Q12H PRN PRN Reason: Mild Constipation Atorvastatin Calcium (Lipitor) 40 mg PO HS [facility] [place] Last Admin: 02/25/18 21:31 Dose: 40 mg Bisacodyl (Dulcolax Supp) 10 mg RECTAL DAILY PRN PRN Reason: SEVERE CONSITIPATION Clonazepam (Klonopin) 1 mg PO HS [facility] [place] Last Admin: 02/25/18 21:24 Dose: 1 mg Clonidine HCl (Catapres) 0.1 mg PO Q6H PRN PRN Reason: SBP>160, DBP>90 Enalaprilat (Vasotec Inj) 1.25 mg IV.PUSH Q6H PRN PRN Reason: SBP>160, DBP>90 Last Admin: 02/22/18 16:41 Dose: 1.25 mg Fentanyl Citrate (Fentanyl Inj) 50 mcg IV.PUSH Q1H PRN PRN Reason: PAIN 6-10;IF UNABLE TO TAKE PO Last Admin: 02/24/18 20:47 Dose: 50 mcg Gabapentin (Neurontin) 300 mg PO TID [facility] [place] Last Admin: 02/26/18 10:01 Dose: 300 mg Hydralazine HCl (Apresoline Inj) 20 mg IV.PUSH Q4H PRN PRN Reason: SBP>160, DBP>90 Last Admin: 02/24/18 20:57 Dose: 20 mg Nicardipine HCl 25 mg/ Sodium (Chloride) 250 mls @ 50 mls/hr IV.CONT TITRATE PRN; Protocol PRN Reason: Per Protocol Levetiracetam 500 mg/ Sodium (Chloride) 105 mls @ 400 mls/hr IV.SIG Q12H [facility] [place] Last Admin: 02/26/18 10:01 Dose: 400 mls/hr Labetalol HCl (Trandate Inj) 20 mg IV.PUSH Q4H PRN PRN Reason: SBP >160 Last Admin: 02/23/18 18:14 Dose: 20 mg Lactulose (Lactulose Liq) 30 ml PO DAILY PRN PRN Reason: SEVERE CONSITIPATION Levothyroxine Sodium (Synthroid) 100 mcg PO DAILY@0600 [facility] [place] Last Admin: 02/26/18 06:38 Dose: 100 mcg Losartan Potassium (Cozaar) 50 mg PO DAILY [facility] Last Admin: 02/26/18 10:01 Dose: 50 mg Metoprolol Tartrate (Lopressor) 50 mg PO BID [facility] Last Admin: 02/26/18 10:01 Dose: 50 mg Ondansetron HCl (Zofran Inj) 4 mg IV.PUSH Q6H PRN PRN Reason: NAUSEA OR VOMITING Oxycodone/Acetaminophen (Percocet 5/325 Mg) 1 tab G-TUBE Q4H PRN PRN Reason: PAIN SCALE 1 TO 5 Last Admin: 02/26/18 10:01 Dose: 1 tab Oxycodone/Acetaminophen (Percocet 5/325 Mg) 2 tab G-TUBE Q4H PRN PRN Reason: PAIN SCALE 6 TO 10 Last Admin: 02/24/18 23:40 Dose: 2 tab Senna/Docusate Sodium (Suzanne-Colace) 1 tab PO BID [facility] [place] Last Admin: 02/26/18 10:01 Dose: 1 tab Sennosides (Senokot) 17.2 mg PO Q12H PRN PRN Reason: Moderate Constipation Sodium Chloride (Ns Flush) 2 ml IV.FLUSH BID [facility] [place] Last Admin: 02/26/18 10:02 Dose: 2 ml Sodium Chloride (Ns Flush) 2 ml IV.FLUSH PRN PRN PRN Reason: FLUSH AFTER USING IV ACCESS Temazepam (Restoril) 15 mg PO HS PRN PRN Reason: INSOMNIA Last Admin: 02/24/18 04:48 Dose: 15 mg Allergies Allergy/AdvReac Type Severity Reaction Status Date / Time tetnus toxoid Allergy Anaphylaxis Uncoded 02/22/18 11:44 must use pediartric 6 if AdvReac Unknown other Uncoded 02/22/18 11:44 itubated due to radiated tounge Home Medications Medication Instructions Recorded Confirmed Type atorvastatin 40 mg PO HS 12/18/17 02/22/18 History clonazepam [Klonopin] 1 mg PO HS 12/18/17 02/22/18 History gabapentin 300 mg PO TID 12/18/17 02/22/18 History levothyroxine [Synthroid] 100 mcg PO DAILY 12/18/17 02/22/18 History metoprolol succinate 100 mg PO BID 12/18/17 02/22/18 History aspirin 81 mg PO DAILY 01/12/18 02/22/18 History Physical Exam Vital signs: Vital Signs 02/25/18 11:27 02/25/18 11:50 02/25/18 12:00 Temperature 98.0 F Pulse Rate 69 71 Respiratory Rate 15 26 H Blood Pressure 108/55 L 83/51 L Pulse Oximetry 74 L 96 98 02/25/18 12:08 02/25/18 12:16 02/25/18 12:38 Temperature Pulse Rate 68 73 69 Respiratory Rate 21 25 H 13 Blood Pressure 77/43 L 83/46 L 83/52 L Pulse Oximetry 97 97 96 02/25/18 13:08 02/25/18 13:38 02/25/18 14:00 Temperature Pulse Rate 72 77 72 Respiratory Rate 27 H 35 H 28 H Blood Pressure 81/50 L 112/58 L Pulse Oximetry 93 L 94 L 93 L 02/25/18 14:08 02/25/18 14:38 02/25/18 15:16 Temperature Pulse Rate 71 73 82 Respiratory Rate 31 H 11 L Blood Pressure 122/57 L 131/60 180/87 H Pulse Oximetry 92 L 93 L 02/25/18 15:51 02/25/18 15:52 02/25/18 16:00 Temperature 98.0 F Pulse Rate 77 76 78 Respiratory Rate 28 H 26 H 28 H Blood Pressure 172/84 H 182/85 H 191/91 H Pulse Oximetry 96 94 L 95 02/25/18 17:00 02/25/18 18:00 02/25/18 19:00 Temperature Pulse Rate 66 68 70 Respiratory Rate 24 31 H 26 H Blood Pressure 123/61 111/66 115/73 Pulse Oximetry 95 96 96 02/25/18 19:59 02/25/18 20:00 02/25/18 21:05 Temperature Pulse Rate 74 82 Respiratory Rate 50 H 12 Blood Pressure 159/76 H Pulse Oximetry 98 96 02/25/18 21:47 02/25/18 22:00 02/25/18 23:00 Temperature Pulse Rate 78 71 70 Respiratory Rate 33 H 8 L 26 H Blood Pressure 185/91 H 158/82 H 216/104 H Pulse Oximetry 95 98 99 02/25/18 23:13 02/25/18 23:25 02/25/18 23:31 Temperature Pulse Rate 67 71 70 Respiratory Rate 13 28 H 10 L Blood Pressure 186/89 H 225/108 H 180/86 H Pulse Oximetry 97 99 97 02/25/18 23:46 02/26/18 00:00 02/26/18 00:01 Temperature Pulse Rate 65 64 63 Respiratory Rate 8 L 14 15 Blood Pressure 146/72 H 126/67 Pulse Oximetry 99 99 99 02/26/18 00:16 02/26/18 00:31 02/26/18 00:46 Temperature Pulse Rate 64 65 66 Respiratory Rate 9 L 10 L 26 H Blood Pressure 143/70 H 132/55 L 152/71 H Pulse Oximetry 99 98 02/26/18 01:00 02/26/18 01:01 02/26/18 01:15 Temperature Pulse Rate 65 67 70 Respiratory Rate 27 H 22 33 H Blood Pressure 156/77 H Pulse Oximetry 95 94 L 99 02/26/18 01:16 02/26/18 01:31 02/26/18 01:46 Temperature Pulse Rate 69 68 66 Respiratory Rate 28 H 22 17 Blood Pressure 154/84 H 163/90 H 153/75 H Pulse Oximetry 98 98 98 02/26/18 02:00 02/26/18 02:01 02/26/18 02:16 Temperature Pulse Rate 65 69 66 Respiratory Rate 11 L 30 H 12 Blood Pressure 155/67 H 151/77 H Pulse Oximetry 98 99 98 02/26/18 02:31 02/26/18 02:46 02/26/18 03:00 Temperature Pulse Rate 66 66 62 Respiratory Rate 17 21 11 L Blood Pressure 155/75 H 150/74 H Pulse Oximetry 97 96 98 02/26/18 03:01 02/26/18 03:16 02/26/18 03:31 Temperature Pulse Rate 61 63 64 Respiratory Rate 12 11 L 26 H Blood Pressure 142/74 H 177/83 H 172/91 H Pulse Oximetry 97 98 98 02/26/18 03:46 02/26/18 04:00 02/26/18 04:01 Temperature Pulse Rate 59 L 60 59 L Respiratory Rate 12 10 L 10 L Blood Pressure 140/73 126/70 Pulse Oximetry 98 97 97 02/26/18 04:16 02/26/18 04:31 02/26/18 04:46 Temperature Pulse Rate 63 64 61 Respiratory Rate 10 L 34 H 22 Blood Pressure 174/80 H 164/79 H 137/73 Pulse Oximetry 98 98 97 02/26/18 05:00 02/26/18 05:01 02/26/18 05:16 Temperature Pulse Rate 64 63 63 Respiratory Rate 24 18 11 L Blood Pressure 144/82 H 160/86 H Pulse Oximetry 99 98 98 02/26/18 05:31 Temperature Pulse Rate 63 Respiratory Rate 10 L Blood Pressure 169/91 H Pulse Oximetry 98 Intake & Output 02/25/18 02/26/18 02/26/18 18:59 06:59 18:59 Intake Total 1485 / 1485 105 / 105 Output Total 800 / 800 Balance 685 / 685 105 / 105 Intake: IV 105 / 105 105 / 105 Keppra Inj 500 MG In NS Inj 100 105 / 105 105 / 105 ML @ 400 mls/hr IV.SIG Q12H MIKE Rx#:[id number] Tube Feeding 1200 / 1200 Tube Irrigant 180 / 180 Output: Urine 800 / 800 Other: # Voids 2 Date of Last Bowel Movement 02/25/18 02/25/18 # Bowel Movements 1 - Constitutional no acute distress, thin - Routine HEENT Exam Head: Present: normocephalic Eye: Present: EOMI, PERRL, normal accommodation ENT: Present: mucous membranes moist - Routine Neck Exam Present: supple Comments: significant scar tissue left side of neck - Routine Respiratory Exam Present: diminished air movement - Routine Cardiovascular Exam Present: RRR - Routine Abdominal Exam Present: soft - Routine Skin Exam Present: intact - Routine Neurological Exam Present: alert, oriented X3 - Detailed Neurological Exam: Coma Scale Eye Opening: Spontaneous Verbal Response: Oriented Motor Response: [place]bey commands [place] Coma Scale Total: 15 - Routine Psychiatric Exam Present: normal affect Results 02/25/18 11:29 02/25/18 11:29 Cardiac Enzymes 02/25/18 Range/Units 11:29 AST 21 (15-37) U/L CBC 02/25/18 Range/Units 11:29 WBC 8.6 (4.0-11.0) th/mm3 RBC 3.91 L (4.50-5.90) mil/mm3 Hgb 12.7 L (13.0-17.0) gm/dL Hct 38.0 L (39.0-51.0) % Plt Count 154 (150-450) th/mm3 Neut # (Auto) 6.7 (1.8-7.7) th/mm3 Lymph # (Auto) 1.2 (1.0-4.8) th/mm3 [place] # (Auto) 0.6 (0.0-0.9) th/mm3 Eos # (Auto) 0.1 (0.0-0.4) th/mm3 Baso # (Auto) 0.0 (0.0-0.2) th/mm3 Comprehensive Metabolic Panel 02/25/18 Range/Units 11:29 Sodium 141 (136-145) meq/L Potassium 3.7 (3.5-5.1) meq/L Chloride 103 (98-107) meq/L Carbon Dioxide 34.6 H (21.0-32.0) meq/L BUN 17 (7-18) mg/dL Creatinine 0.91 (0.60-1.30) mg/dL Calcium 8.6 (8.5-10.1) mg/dL AST 21 (15-37) U/L ALT 20 (12-78) U/L Alkaline Phosphatase 73 (45-117) U/L Total Protein 6.7 D (6.4-8.2) g/dL Albumin 3.2 L (3.4-5.0) g/dL Intake and Output 02/25/18 02/26/18 02/26/18 22:59 06:59 14:59 Intake Total 1485 / 1485 Output Total 800 / 800 Balance 685 / 685 Intake: IV 105 / 105 Keppra Inj 500 MG In NS Inj 100 105 / 105 ML @ 400 mls/hr IV.SIG Q12H MIKE Rx#:[id number] Tube Feeding 1200 / 1200 Tube Irrigant 180 / 180 Output: Urine 800 / 800 Other: # Voids 2 Date of Last Bowel Movement 02/25/18 02/25/18 # Bowel Movements 1 Assessment and Plan - Plan Assessment HTN Syncope ASHD with CABG 2009 Head/Neck cancer Plan -Negative orthostatics. -Labile BPs since arrival. Will continue beta donnell at 50mg PO BID and increase Losartan 50 mg PO daily. Hold parameters for SBP 110 or less -Now on keppra -Pt denies CP or SOB, swims laps without any difficulty. Echocardiogram reviewed. No significant abnormalities noted. Will plan to see patient in office in 1-2 weeks. Pt is clear for discharge from a cardiology standpoint. The patient was seen and evaluated by Dr. Rushing who participated in care, management and decision making. Code Status: Full Code
--- NOTE | 2018-02-26 13:34 | P.DS ---
Date of admission: 02/22/18 14:41 Primary care physician: PROVIDER NON STAFF Brief History from admission: 72-year-old male with a rather unfortunate history of throat cancer status post chemotherapy, radiation, neck surgery. Patient with history of hypertension, hyperlipidemia, coronary artery disease status post bypass surgery who presented to the hospital today because of increasing cephalgia. Patient states that he has been having episodes over the last few months where he gets a sensation of presyncope with occasional extremity tremors. Patient states that most the time he is able to ability. However it is been 2 episodes where he was not able to grab onto anything and he actually had syncopal episode. There is one time where he fell across the bathroom door and landed hitting the front part of his head. Approximately a week ago he had another episode where he did have a syncopal episode. Since then he has had progressive headache that would not resolve with medications so he came to the hospital for evaluation. The patient had workup done and found to have blood pressure 217/112. Patient was given Apresoline in the emergency department with improvement of his blood pressure. However his headache was a 9/10 on pain scale in only improved to a 7/10 on a pain scale after his blood pressure was controlled. Patient did have a CT scan done of the brain which did indicate to bifrontal hygromas which were not present on previous CT 2 months ago. Patient denies any chest pain, shortness of breath, dyspnea, visual disturbances, difficulty eating or swallowing food, unilateral weakness, difficulty speaking, loss of bowel or bladder control, biting of his tongue. It is recommended by the ER physician that the patient be admitted for further evaluation and management. DS: Diagnosis - Discharge Diagnosis (1) Hygroma Status: Deleted (2) Hypertensive urgency Status: Acute (3) Syncope Status: Acute DS: Medications - Discharge Medications Prescriptions: oxycodone-acetaminophen 1 tab G-TUBE Q4H PRN 3 Days #18 tab PRN Reason: Pain Scale 1 To 5 DS: Summary Hospital Course: NEURO: //SDH //Syncope - etiology unclear. F/u EEG. Telemetry monitoring and [facility] in [facility]. Neurosurgery consult. BP management as per below Keppra 500 mg IV q12 Neurology has previously been consulted, f/u recs. Lortab as needed for pain. Morphine as needed for breakthrough pain Anxiety Klonopin 1 mg p.o. 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 3 times daily = Neurosurgery following. EEG performed previously negative for epileptiform activity. Continue current management. Nonoperative management at this time as per neurosurgery. Cardiology following for syncopal episodes. Appreciate assistance. = Cardiology workup appears to be negative. MRA negative for significant stenosis. EEG negative for epileptiform activity. Patient continues on Keppra. We will need to obtain neurology clearance. Neurosurgery has cleared patient for discharge. Blood pressure elevated at night, likely secondary to poor sleep. Patient advised to sleep on side as he does at home. May have underlying sleep apnea. Discussed with patient conveys understanding. RESP: //Agent [place] exposure on RA. CV: //Hypertension //Hyperlipidemia //Coronary artery disease status post CABG Lipitor 40 mg p.o. nightly Labetalol 20 mg IV every 4 hours/hydralazine 20 mill grams IV every 4 hours as needed systolic blood pressure greater than 160. clonidine prn Cardene prn SBP >160 Metoprolol tartrate 100 mg p.o. twice daily Patient requests dr Rushing for cardiology for Labile HTN as he has seen him before. = Blood pressure medications adjusted as per cardiology. Patient does not appear to be orthostatic as per bedside orthostatics performed in room. = Continue as per cardiology. GI: Patient administering his own tube feed formula via existing transgastric- jejunal tube. FEN/RENAL: Voiding. Monitor intake and output. Monitor electrolytes and replace as indicated. 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 daily PROPH: SCDs for DVT prophylaxis. No pharmacologic DVT prophylaxis due to subdural hematoma. Stress ulcer prophylaxis is not indicated at this time. ACCESS: Peripheral IV Discharge Planning: DVT recommends home with no PT. Patient has walker. =We'll need neurosurgery clearance = We will need neurology clearance =Will need cardiology clearance. - Time Spent with Patient Total time spent providing and/or coordinating discharge services: Greater than 30 minutes - Quality: VTE Deep Vein Thrombosis/Pulmonary Embolism Present on Admission: No Exam Vital signs: Vital Signs 02/25/18 13:38 02/25/18 14:00 02/25/18 14:08 Temperature Pulse Rate 77 72 71 Respiratory Rate 35 H 28 H 31 H Blood Pressure 112/58 L 122/57 L Pulse Oximetry 94 L 93 L 92 L 02/25/18 14:38 02/25/18 15:16 02/25/18 15:51 Temperature Pulse Rate 73 82 77 Respiratory Rate 11 L 28 H Blood Pressure 131/60 180/87 H 172/84 H Pulse Oximetry 93 L 96 02/25/18 15:52 02/25/18 16:00 02/25/18 17:00 Temperature 98.0 F Pulse Rate 76 78 66 Respiratory Rate 26 H 28 H 24 Blood Pressure 182/85 H 191/91 H 123/61 Pulse Oximetry 94 L 95 95 02/25/18 18:00 02/25/18 19:00 02/25/18 19:59 Temperature Pulse Rate 68 70 Respiratory Rate 31 H 26 H Blood Pressure 111/66 115/73 Pulse Oximetry 96 96 98 02/25/18 20:00 02/25/18 21:05 02/25/18 21:47 Temperature Pulse Rate 74 82 78 Respiratory Rate 50 H 12 33 H Blood Pressure 159/76 H 185/91 H Pulse Oximetry 96 95 02/25/18 22:00 02/25/18 23:00 02/25/18 23:13 Temperature Pulse Rate 71 70 67 Respiratory Rate 8 L 26 H 13 Blood Pressure 158/82 H 216/104 H 186/89 H Pulse Oximetry 98 99 97 02/25/18 23:25 02/25/18 23:31 02/25/18 23:46 Temperature Pulse Rate 71 70 65 Respiratory Rate 28 H 10 L 8 L Blood Pressure 225/108 H 180/86 H 146/72 H Pulse Oximetry 99 97 99 02/26/18 00:00 02/26/18 00:01 02/26/18 00:16 Temperature Pulse Rate 64 63 64 Respiratory Rate 14 15 9 L Blood Pressure 126/67 143/70 H Pulse Oximetry 99 99 99 02/26/18 00:31 02/26/18 00:46 02/26/18 01:00 Temperature Pulse Rate 65 66 65 Respiratory Rate 10 L 26 H 27 H Blood Pressure 132/55 L 152/71 H Pulse Oximetry 98 95 02/26/18 01:01 02/26/18 01:15 02/26/18 01:16 Temperature Pulse Rate 67 70 69 Respiratory Rate 22 33 H 28 H Blood Pressure 156/77 H 154/84 H Pulse Oximetry 94 L 99 98 02/26/18 01:31 02/26/18 01:46 02/26/18 02:00 Temperature Pulse Rate 68 66 65 Respiratory Rate 22 17 11 L Blood Pressure 163/90 H 153/75 H 155/67 H Pulse Oximetry 98 98 98 02/26/18 02:01 02/26/18 02:16 02/26/18 02:31 Temperature Pulse Rate 69 66 66 Respiratory Rate 30 H 12 17 Blood Pressure 151/77 H 155/75 H Pulse Oximetry 99 98 97 02/26/18 02:46 02/26/18 03:00 02/26/18 03:01 Temperature Pulse Rate 66 62 61 Respiratory Rate 21 11 L 12 Blood Pressure 150/74 H 142/74 H Pulse Oximetry 96 98 97 02/26/18 03:16 02/26/18 03:31 02/26/18 03:46 Temperature Pulse Rate 63 64 59 L Respiratory Rate 11 L 26 H 12 Blood Pressure 177/83 H 172/91 H 140/73 Pulse Oximetry 98 98 98 02/26/18 04:00 02/26/18 04:01 02/26/18 04:16 Temperature Pulse Rate 60 59 L 63 Respiratory Rate 10 L 10 L 10 L Blood Pressure 126/70 174/80 H Pulse Oximetry 97 97 98 02/26/18 04:31 02/26/18 04:46 02/26/18 05:00 Temperature Pulse Rate 64 61 64 Respiratory Rate 34 H 22 24 Blood Pressure 164/79 H 137/73 Pulse Oximetry 98 97 99 02/26/18 05:01 02/26/18 05:16 02/26/18 05:31 Temperature Pulse Rate 63 63 63 Respiratory Rate 18 11 L 10 L Blood Pressure 144/82 H 160/86 H 169/91 H Pulse Oximetry 98 98 98 02/26/18 07:00 02/26/18 07:01 02/26/18 07:16 Temperature Pulse Rate 66 62 Respiratory Rate 7 L 9 L Blood Pressure 159/87 H 150/75 H Pulse Oximetry 95 94 L 02/26/18 07:31 02/26/18 07:46 02/26/18 08:00 Temperature 98.1 F Pulse Rate 63 65 69 Respiratory Rate 10 L 11 L 11 L Blood Pressure 155/76 H 153/79 H Pulse Oximetry 94 L 94 L 95 02/26/18 08:01 02/26/18 09:00 02/26/18 09:06 Temperature Pulse Rate 70 73 78 Respiratory Rate 9 L 28 H 26 H Blood Pressure 151/81 H 134/71 Pulse Oximetry 95 95 96 02/26/18 10:00 02/26/18 10:06 Temperature Pulse Rate 74 77 Respiratory Rate 10 L 29 H Blood Pressure 159/83 H Pulse Oximetry 93 L 96 Intake & Output 02/25/18 02/26/18 02/26/18 18:59 06:59 18:59 Intake Total 1485 / 1485 105 / 105 Output Total 800 / 800 Balance 685 / 685 105 / 105 Intake: IV 105 / 105 105 / 105 Keppra Inj 500 MG In NS Inj 100 105 / 105 105 / 105 ML @ 400 mls/hr IV.SIG Q12H MIKE Rx#:[id number] Tube Feeding 1200 / 1200 Tube Irrigant 180 / 180 Output: Urine 800 / 800 Other: # Voids 2 Date of Last Bowel Movement 02/25/18 02/25/18 # Bowel Movements 1 Results Procedures completed during hospitalization: No invasive procedures. - Impressions ITS Impressions Carotid Doppler Study 02/22/18 00:00 CONCLUSION: 1. Right Internal Carotid Artery: Findings indicate <50% stenosis. 2. Left Internal Carotid Artery: Findings indicate 50-69% stenosis. Cervical Spine CT 02/22/18 11:58 CONCLUSION: 1. Degenerative changes in the cervical spine as above. 2. No acute cervical fracture identified. Head MRI 02/22/18 14:44 CONCLUSION: 1. Diffuse subacute subdural hematomas are noted bilaterally within the frontal , parietal, temporal and occipital regions. Small amount of acute subdural hemorrhage is noted within the right high parietal region. These measure approximately 9 mm in greatest width. 2. 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 3. No acute infarction, mass effect, midline shift or abnormal enhancing lesion. Head MRA 02/23/18 00:00 CONCLUSION: 1. Negative MRA [place] ([place]) non contrast. Neck MRA 02/23/18 00:00 CONCLUSION: 1. Postendarterectomy changes at the bifurcation on the right. 2. No hemodynamically significant carotid artery stenosis identified. 3. Both vertebral arteries are patent. The left vertebral is dominant blood supply to the posterior fossa. _ Percent stenosis is calculated using the diameter of the stenotic region over the diameter of the normal distal internal carotid artery _ Head CT 02/24/18 08:00 CONCLUSION: No significant change. . Discharge Plan - Discharge Order Discharge Orders: Discharge Order (Routine); Ordered 02/26/18 Ordered By: Harris Borden - Physicians Team Primary Care Provider: NON STAFF,PROVIDER Attending Provider: Harris Borden Other Providers: Chano Alfaro MD ; Yudith Garcia MD ; Hayder Marquez MD ; Lynne Rushing MD
[2018-02-26 13:38] VITALS: TEMP 98; O2SAT 98
[2018-02-26 15:58] VITALS: BP 161/74; PULSE 68; RESP 21
== END 2018-02-26 15:30 | disposition home or self-care (01) ==
LOC: PHED 11:14 → PHEDA 14:41 → PH3 16:58 → N03 20:28
PROVIDERS: ADMIT Internal Medicine; ATTEND Internal Medicine